=== PATIENT | male | born 1955 | race Caucasian/White ===

== ENCOUNTER 2017-07-13 14:28 | Outpatient (RCR) | payer BC ==
[2017-06-22 14:49] LABS: BASOPHILS # (AUTO) 0.1 10^3/uL (0.0-0.1); BASOPHILS % (AUTO) 1 % (0-10); EOSINOPHILS # (AUTO) 0.3 10^3/uL (0.0-0.3); EOSINOPHILS % (AUTO) 3 % (0-10); HEMATOCRIT 49 % (40-54); HEMOGLOBIN 17.4 G/DL (13.3-17.7); LYMPHOCYTES # (AUTO) 1.7 X 10^3 (1.0-4.0); LYMPHOCYTES % (AUTO) 19 % (12-44); MEAN CORPUSCULAR HEMOGLOBIN 30 PG (25-34); MEAN CORPUSCULAR HGB CONC 36 G/DL (32-36); MEAN CORPUSCULAR VOLUME 84 FL (80-99); MEAN PLATELET VOLUME 9.9 FL (7.4-10.4); MONOCYTES # (AUTO) 0.9 X 10^3 (0.0-1.0); MONOCYTES % (AUTO) 10 % (0-12); NEUTROPHILS # (AUTO) 6.1 X 10^3 (1.8-7.8); NEUTROPHILS % (AUTO) 67 % (42-75); PLATELET COUNT 162 10^3/uL (130-400); RED BLOOD COUNT 5.78 10^6/uL (4.35-5.85); RED CELL DISTRIBUTION WIDTH 16.7 % (10.0-14.5); WHITE BLOOD COUNT 9.1 10^3/uL (4.3-11.0)
[2017-06-22 15:07] LABS: ALANINE AMINOTRANSFERASE 14 U/L (0-55); ALBUMIN 4.2 GM/DL (3.2-4.5); ALKALINE PHOSPHATASE 45 U/L (40-136); BILIRUBIN,TOTAL 0.8 MG/DL (0.1-1.0); BUN/CREATININE RATIO 29; CALCIUM 9.6 MG/DL (8.5-10.1); CARBON DIOXIDE 25 MMOL/L (21-32); CHLORIDE 102 MMOL/L (98-107); CREATININE SERUM 0.94 MG/DL (0.60-1.30); GFR ESTIMATED > 60; GLUCOSE 93 MG/DL (70-105); POTASSIUM 4.3 MMOL/L (3.6-5.0); SODIUM 137 MMOL/L (135-145); TOTAL PROTEIN 6.9 GM/DL (6.4-8.2)
[~2017-07-13 14:28] MED LIST: CELE200C PO; CPR500T PO; CYCL10TA9 PO; DAPA5TAB PO; ENAL10TA PO; FAMO-106 PO; GABA-488 PO; GLIP5TAB13 PO; HYDR-757 PO; METF-380; METF-380 PO; METO100T12 PO; NAPR-915 PO; NAPR220T76; NAPR220T76 PO; OMG1KC PO; OXYC-12 PO; PGLT30T PO; PIOG45TA PO; PRAV40TA2 PO; SULF1TAB38 PO; TMSL.4C PO; TRIA60LO TOP; TRM50T PO; [UNRECOGNIZED DRUG - CODE] PO
== END 2017-09-20 | disposition home or self-care (01) ==
LOC: ONC 14:28
PROVIDERS: ATTEND Internal Medicine Hematology & Oncology
DX: D75.1 Secondary polycythemia (principal); E11.9 Type 2 diabetes mellitus without complications; I10 Essential (primary) hypertension; F17.210 Nicotine dependence, cigarettes, uncomplicated; L40.9 Psoriasis, unspecified; Z88.5 Allergy status to narcotic agent; Z79.899 Other long term (current) drug therapy
CPT/HCPCS: 36415; 80053; 81270; 82668; 83615; 85025; 99213; 99214

== ENCOUNTER → 2017-07-18 | Outpatient (CLI) | payer BC ==
[~2017-07-18] MED LIST changes: +CATHETER FLUSH 10 ML SYR IV PRN; +IOHEXOL 350 MG/ML 100 ML (OMNIPAQUE 350) VIAL IV ONE; +NS 100 ML (IVPB) BAG IV ONE
--- NOTE | 2017-07-18 17:25 | Diagnostic Imaging Report ---
PROCEDURE: CT abdomen and pelvis with contrast. TECHNIQUE: Multiple contiguous axial images were obtained through the abdomen and pelvis after administration of intravenous contrast. INDICATION: Elevated red blood cell count. Evaluation for tumor. Increased sedimentation rate. FINDINGS: Lung bases are clear. The liver appears normal. The gallbladder is absent. The bile ducts are not dilated. The pancreas is normal. The spleen is normal. The adrenal glands are normal. The kidneys appear normal. There is normal enhancement of the abdominal organs and vessels. Aorta shows minimal atherosclerotic disease without aneurysm. The stomach is not distended. Small bowel appears normal. There is oral contrast present. The colon shows normal stool and gas pattern. There is diverticulosis of the sigmoid colon without evidence of diverticulitis. Bladder appears normal. There is no intra-abdominal adenopathy of pathologic size. There is no free air or free fluid. Bone windows show no evidence of blastic or lytic lesion. There are healed fractures noted posteriorly in the left 10th and ninth ribs. IMPRESSION: 1. No changes are demonstrated to suggest malignancy within the abdomen or pelvis. 2. Old rib fractures with callus formation of left 9th and 10th ribs posteriorly. Dictated by: Dictated on workstation # [id number]
== END ==
LOC: RAD 16:06
PROVIDERS: ATTEND Internal Medicine Hematology & Oncology
DX: S22.42XS Multiple fractures of ribs, left side, sequela (principal); M25.70 Osteophyte, unspecified joint; R70.0 Elevated erythrocyte sedimentation rate; R71.8 Other abnormality of red blood cells
CPT/HCPCS: 74177

== ENCOUNTER → 2020-07-14 | Outpatient (CLI) | payer BC ==
[~2020-07-14] MED LIST changes: -CATHETER FLUSH 10 ML SYR IV PRN; +HYDR-4226 PO; -HYDR-757 PO; -IOHEXOL 350 MG/ML 100 ML (OMNIPAQUE 350) VIAL IV ONE; -NS 100 ML (IVPB) BAG IV ONE
== END ==
LOC: LABNPT 06:36
PROVIDERS: ATTEND Orthopaedic Surgery Orthopaedic Trauma
DX: Z01.812 Encounter for preprocedural laboratory examination (principal); Z20.822 Contact with and (suspected) exposure to COVID-19
CPT/HCPCS: 87635

== ENCOUNTER 2020-08-05 14:35 | Inpatient (IN) | payer OTHER ==
[~2020-08-05] VITALS: Ht 175.3 cm; Wt 79.6 kg
[2020-08-05] MEDS ORDERED: HYDROcodone/APAP 5 MG/325 MG (LORTAB) TAB PO PRN (15:00)
[2020-08-05] MEDS ORDERED: LOPERAMIDE 2 MG (IMODIUM) TABLET PO PRN (15:00)
[2020-08-05] MEDS ORDERED: CALCIUM CARBONATE 500 MG (TUMS) TAB.CHEW PO PRN (15:00)
[2020-08-05] MEDS ORDERED: guaiFENesin/CODEINE (ROBITUSSIN AC) 10ML UDC PO PRN (15:00)
[2020-08-05] MEDS ORDERED: ONDANSETRON 4 MG (ZOFRAN) ORAL DISSOLVE TAB PO PRN (15:00)
[2020-08-05] MEDS ORDERED: DOCUSATE SODIUM 100 MG (COLACE) CAP PO PRN (15:00)
[2020-08-05] MEDS ORDERED: FLEET ENEMA ADULT 1 EA BTL PR PRN (15:00)
[2020-08-05] MEDS ORDERED: OXYC10TA7 PO (16:43)
[2020-08-05] MEDS ORDERED: LISI20TA26 PO (16:43)
[2020-08-05] MEDS ORDERED: CYCL10TA9 PO (16:43)
[2020-08-05] MEDS ORDERED: INSU100V39 SQ (16:43)
[2020-08-05] MEDS ORDERED: INSU100V SQ (16:43)
[2020-08-05] MEDS ORDERED: METF-146 PO (16:43)
[2020-08-05] MEDS ORDERED: DOCU100C37 PO (16:43)
[2020-08-05] MEDS ORDERED: ALLO100T PO (16:43)
[2020-08-05] MEDS ORDERED: PRAV20TA3 PO (16:43)
[2020-08-05] MEDS ORDERED: POLY17PO6 PO (16:43)
[2020-08-05] MEDS ORDERED: SECU150S2 SQ (16:43)
[2020-08-05] MEDS ORDERED: METO-333 PO (16:43)
[2020-08-05] MEDS ORDERED: NALO4SPR NS (16:43)
[2020-08-05] MEDS ORDERED: LACT1CAP39 PO (16:43)
[2020-08-05] MEDS ORDERED: GLIP10TA2 PO (16:43)
[2020-08-05] MEDS ORDERED: INDA2.5T2 PO (16:43)
[2020-08-05] MEDS ORDERED: CLN.2T PO (16:43)
[2020-08-05] MEDS ORDERED: NALOXONE HCL 4 MG NS PRN (17:15)
[2020-08-05] MEDS ORDERED: RX-CYCLOBENZAPRINE 10 MG (FLEXERIL) TAB PPK#3 PO PRN (17:15)
[2020-08-05] MEDS ORDERED: NON-FORMULARY MEDICATION 1 EA EA (Oxycodone HCl 10 MG) PO PRN (17:15)
[2020-08-05] MEDS ORDERED: [UNRECOGNIZED DRUG - REMARK] SQ SCH (17:15)
[2020-08-05] MEDS ORDERED: polyethylene glycoL POWDER 17 GM (MIRALAX) PACK PO PRN (17:15)
--- NOTE | 2020-08-05 17:19 | PM&R Post Admission Assessment ---
PM&R HP Date of Visit: Aug 05, 2020 Time of Visit: 16:30 History of Present Illness CC: Recovery following lumbar spine fusion 07/15/20 HPI: This is a 65-year-old white male known to me from [facility] following lumbar spine surgery on 07/15/2020 who presents to inpatient rehab after a complicated course at [facility] due to DKA. Patient had not been eating or drinking well and had severe constipation for 2 weeks and presented to [facility] with severe symptoms found to have DKA and malignant hypertension. He was ultimately transferred over to [facility] due to no beds at [facility]. Patient had insulin drip initiated along with other supportive care and ultimately moved from the ICU to the floor and insurance approved patient to continue his aggressive therapy in order to rec over and return to independent living. His bowels moved yesterday. He is voiding well without retention. [facility] note: Date of admission:07/29/2020 Date of discharge:08/05/2020 Discharge disposition:[facility] inpatient rehab. Discharge Condition:stable Primary Discharge Diagnosis: Diabetic ketoacidosis without coma associated with type 2 diabetes mellitus Other Active medical issues also addressed during this admission: Active Hospital Problems Diagnosis Diabetic ketoacidosis without coma associated with type 2 diabetes mellitus Accelerated hypertension Sinus tachycardia Weakness of both lower extremities Type 2 diabetes mellitus with hyperglycemia, without long-term current use of insulin Acidosis S/P lumbar fusion Resolved Hospital Problems Diagnosis Date Resolved Hyponatremia 08/01/2020 High anion gap metabolic acidosis 07/31/2020 Probable sepsis 08/03/2020 w Hallucinations, unspecified 07/31/2020 Acute metabolic encephalopathy 07/31/2020 HOSPITAL COURSE: Please see H and P for full details on admission, symptoms and initial care. Chief Complaint- HPI-Dar Wolf a 65 y.o.malewith past medical history of type 2 diabetes, HTN, HLD degenerative joint disease of the spine was admitted for further evaluation of severe nausea and poor appetite for the last 2 weeks. Off note -patient had a lumbar spinal fusion surgery on 07/[address] Mike Morrell.Patient was admitted to ICU secondary to hypoglycemic DKA. Was treated with IV insulin,patient was transferred to floor 618 and then transferred to ICU again on 08/01/2020 for relapse of DKA. Patient was initially treated with IV antibiotics suspecting sepsis however disc ontinued as there was no signs of infection Received signout from -the patient is stable to be transferred to medical floor on 08/03.Evaluated by PT/OT recommend inpatient rehab for PT For endocrinology-continue withC/[id number], Humalog 3 units with meals, insulin sliding scaleAvoid SGLT inhibitors and stop Farxiga.Patient can restart Metformin and Actos on discharge.Need follow upwith endocrinology 3 to 4 weeks.patient was examined at bedside this morning.He was able to sit up in the chair out of bed with the help of nursing staff two- person assist.TLSO brace in place.Patient's blood sugars have been under control.Elevated blood pressure and tachycardia have been controlled with metoprolol combination and adjusting to lisinopril 10 mg twice daily. Per SW/CM patient has been accepted to [facility] inpatient rehab and have insurance authorization approved.Patient is also very eager to be discharged to rehab so he can be back on his feet and independent.Currently patient is hemodynamically stable hence plan is to discharge him to request inpatient rehab for further physical and occupational therapy and to follow-up with endocrinology Dr. Campos 2 to 3 weeks, orthopedics Dr. De Los Santos in 2 weeks and primary care physician in 1 week.Patient agrees with the discharge plan Past Uqyktva-Mpeqle-Toyaau Hx Past Med/Social Hx: Reviewed Nursing Past Med/Soc Hx, Reviewed and Corrections made Patient Social History Marrital Status: single Employed/Student: employed Alcohol Use: Occasionally Uses Smoking Status: Former Smoker Immunizations Up To Date Date of Pneumonia Vaccine: Nov 29, 2011 Date of Influenza Vaccine: Nov 29, 2011 Past Medical History Surgeries: Orthopedic Cardiac: High Cholesterol, Hypertension Neurological: Neuropathy Reproductive: No Sexually Transmitted Disease: No Gastrointestinal: Gastroesophageal Reflux Musculoskeletal: Arthritis, Chronic Back Pain Endocrine: Diabetes, Non-Insulin dep PM&R Allergy/Meds/Data Review Allergies Coded Allergies: codeine (Verified Allergy, Mild, 11/27/11) tamsulosin (Unverified Allergy, Unknown, 09/17/14) Home Medications Scheduled Allopurinol (Allopurinol), 100 MG PO DAILY, (Reported) Clonidine HCl (Clonidine HCl), 0.1 MG PO TID, (Reported) Docusate Sodium (Docusate Sodium), 100 MG PO BID, (Reported) Glipizide (Glucotrol), 10 MG PO BID, (Reported) Indapamide (Indapamide), 5 MG PO DAILY, (Reported) Insulin Lispro (Insulin Lispro), 0-3 UNIT SQ HS, (Reported) Insulin Lispro (Humalog), 0-4 UNIT SQ TIDWM, (Reported) Lactobacillus Rhamnosus GG (Culturelle), 1 EACH PO DAILY, (Reported) Lisinopril (Lisinopril), 10 MG PO BID, (Reported) Metformin HCl (Fortamet), 1,000 MG PO BID, (Reported) Metoprolol Tartrate (Metoprolol Tartrate), 25 MG PO BID, (Reported) Pravastatin Sodium (Pravastatin Sodium), 20 MG PO HS, (Reported) Secukinumab (Cosentyx (2 Syringes)), 300 MG SQ EVERY 28 DAYS, (Reported) Scheduled PRN Cyclobenzaprine HCl (Cyclobenzaprine HCl), 10 MG PO Q8H PRN for SPASMS, (Reporte d) Naloxone HCl (Narcan), 4 MG NS UD PRN for OVERDOSE, (Reported) Oxycodone HCl (Oxycodone HCl), 10 MG PO Q4H PRN for PAIN-SEVERE (8-10), (Reported) Polyethylene Glycol 3350 (Miralax), 17 GM PO DAILY PRN for CONSTIPATION-2ND LINE, (Reported) Discontinued Medications Celecoxib (Celebrex), 200 MG PO DAILY, (Reported) Discontinued Reason: No Longer Taking Dapagliflozin Propanediol (Farxiga), 5 MG PO DAILY, (Reported) Discontinued Reason: No Longer Taking Enalapril Maleate (Enalapril Maleate), 20 MG PO DAILY, (Reported) Discontinued Reason: No Longer Taking Gabapentin (Gabapentin), 300 MG PO TID, (Reported) Discontinued Reason: No Longer Taking Glipizide (Glipizide), 10 MG PO DAILY, (Reported) Discontinued Reason: No Longer Taking Hydrocodone/Acetaminophen (Hydrocodone/Acetaminophen 5 MG/325 MG TAB), 1 EACH PO Q4H, (Reported) Discontinued Reason: No Longer Taking Indapamide (Lozol), 2.5 MG PO DAILY, (Reported) Discontinued Reason: No Longer Taking Metoprolol Tartrate (Metoprolol Tartrate), 100 MG PO BID, (Reported) Discontinued Reason: No Longer Taking Naproxen (Naproxen), 500 MG PO BID, (Reported) Discontinued Reason: No Longer Taking Naproxen Sodium (Aleve), 440 MG PO DAILY, (Reported) Discontinued Reason: No Longer Taking [place] 3 Polyunsat Fatty Acids (Fish Oil), 1,000 MG PO DAILY, (Reported) Discontinued Reason: No Longer Taking Pioglitazone Hcl (Actos), 15 MG PO DAILY, (Reported) Discontinued Reason: No Longer Taking Pravastatin Sodium (Pravastatin Sodium), 40 MG PO DAILY, (Reported) Discontinued Reason: No Longer Taking Tramadol Hcl (Ultram), 50 MG PO Q4-6HR PRN for PAIN Discontinued Reason: No Longer Taking Current Medications Current Medications Reviewed Review of Systems Constitutional: see HPI, malaise, weakness EENTM: no symptoms reported Respiratory: no symptoms reported Cardiovascular: no symptoms reported Gastrointestinal: no symptoms reported Genitourinary: no symptoms reported Musculoskeletal: back pain Skin: no symptoms reported Psychiatric/Neurological: Anxiety, Depressed, Weakness All Other Systems Reviewed Negative Unless Noted: Yes Physical Exam Physical Exam Vital Signs Vital Signs - First Documented 08/05/20 17:00 Pulse Ox 94 O2 Delivery Room Air Capillary Refill : Height, Weight, BMI Height: 5'9.00" Weight: 212lbs. oz. 96.199864uw; BMI Method:Stated General Appearance: No Apparent Distress, WD/WN, Chronically ill Eyes: Bilateral Eye Normal Inspection, Bilateral Eye PERRL HEENT: PERRL/EOMI, Normal ENT Inspection, Pharynx Normal Neck: Full Range of Motion, Normal Inspection, Non Tender, Supple, Carotid Bruit Respiratory: Chest Non Tender, Lungs Clear, Normal Breath Sounds, No Accessory Muscle Use, No Respiratory Distress Cardiovascular: Regular Rate, Rhythm, No Edema, No Gallop, No JVD, No Murmur, Normal Peripheral Pulses Gastrointestinal: Normal Bowel Sounds, No Organomegaly, No Pulsatile Mass, Non Tender, Soft Back: Decreased Range of Motion, Muscle Spasm, Vertebral Tenderness Extremity: Normal Capillary Refill, Normal Inspection, Normal Range of Motion (Weakness of legs), Non Tender, No Calf Tenderness, No Pedal Edema Neurologic/Psychiatric: Alert, Oriented x3, No Motor/Sensory Deficits, Normal Mood/Affect, Motor Weakness (Leg weakness 3/5) Skin: Normal Color, Warm/Dry Lymphatic: No Adenopathy PM&R Medical Assessment & Plan REHAB/MEDICAL ASSESSMENT AND PLAN: REHAB IMPAIRMENT GROUP: Lumbar stenosis ETIOLOGIC DIAGNOSIS: Lumbar stenosis The comorbidities that impact the patients function and/or functional outcome by: Recent critical illness with DKA, malignant hypertension REHAB PLAN: The patient is being admitted to our comprehensive inpatient rehabilitation facility and can tolerate the intensity of service consisting of at least: 180 minutes of therapy a day, 5 out of 7 days a week Rehab treatment will consist of: PT and OT will focus on lower extremity weakness with requirements to increase ADLs and ambulation in order to return to independent living The patient/family has a good understanding of our discharge process and will benefit from an interdisciplinary inpatient rehabilitation program. The patient has potential to make improvement and is in need of at least two of the follo wing multidisciplinary therapies including but not limited to physical, occupational, speech, and prosthetics and orthotics. Additionally the patient will need services from respiratory, nutritional services, wound care, psychology, etc. (Customize this to each patient). Given the patients complex condition and risk of further medical complications, rehabilitation services cannot be safely or effectively provided at a lower level of care such as a nursing home facility. BARRIERS TO DISCHARGE: Lives alone ESTIMATED LOS: 10 days DISPOSITION: Home with home care RELEVANT CHANGES SINCE PREADMISSION SCREENING: I have compared the patients medical and functional status at the time of the preadmission screening and there are: no changes PROGNOSIS: Good REHABILITATION GOALS: 1. PT and OT will focus on lower extremity weakness with requirements to increase ADLs and ambulation in order to return to independent living All the above goals were reviewed with the patient and he/she is in agreement. By signing this document, I acknowledge that I have personally performed a full physical examination on this patient within 24 hours of admission to this inpatient rehabilitation facility and have determined the patient to be able to tolerate the above course of treatment at an intensive level for a reasonable period of time. I will be completing a detailed individualized Plan of Care for this patient by day #4 of the patients stay based upon the Preadmission Screen, the Post-Admission Evaluation, and the therapy evaluations. Admission Dx/Comorbidities: (1) Status post lumbar spine surgery for decompression of spinal cord ICD Codes: Z98.890 - Other specified postprocedural states (2) Diabetes ICD Codes: E11.9 - Type 2 diabetes mellitus without complications (3) DKA (diabetic ketoacidoses) ICD Codes: E11.10 - Type 2 diabetes mellitus with ketoacidosis without coma (4) Hypertension ICD Codes: I10 - Essential (primary) hypertension (5) Leg weakness ICD Codes: R29.898 - Other symptoms and signs involving the musculoskeletal system Assessment/Plan Assessment and Plan Assess & Plan/Chief Complaint Assessment: Status post lumbar spine surgery with severe debility and leg weakness Recent DKA Kqt-qk-rxmxxpf diabetes history Hypertension Chronic arthritis pain Plan: Pain control Diabetes management Blood pressure management Inpatient rehab protocol DALY WHITNEY DO Aug 05, 2020 17:19
[2020-08-05 17:36] VITALS: BP 100/60
[2020-08-05] MEDS ORDERED: NALOXONE 0.4 MG/ML 1 ML (NARCAN) VIAL IV PRN (17:45)
[2020-08-05] MEDS ORDERED: inSUlin ASPART (NovoLOG) 1 UNIT/0.01 ML (CHARGE PER UNIT) ONE (17:48)
[2020-08-05] MEDS: ENOXAPARIN 40 MG/0.4 ML (LOVENOX) SYR SC SCH (17:50)
[2020-08-05] MEDS: metFORMIN XR 500 MG (GLUCOPHAGE XR) TAB PO SCH (17:54)
[2020-08-05] MEDS: glipiZIDE 5 MG (GLUCOTROL) TAB PO SCH (17:59)
[2020-08-05] MEDS ORDERED: inSUlin (REGULAR) HUMAN 1 UNIT/0.01 ML (CHARGE PER UNIT) SC ONE (18:00)
[2020-08-05 20:00] VITALS: BP 125/71
[2020-08-05] MEDS: lisINopril 20 MG (PRINIVIL) TABLET PO SCH (20:53)
[2020-08-05] MEDS: cloNIDine 0.2 MG (CATAPRES) TAB PO SCH (20:54)
[2020-08-05] MEDS: meTOprolol TARTRATE 25 MG (LOPRESSOR) TABLET PO SCH (20:54)
[2020-08-05] MEDS: SIMvastatin 10 MG (ZOCOR) TAB PO SCH (20:55)
[2020-08-05] MEDS: SENNA W/DOCUSATE (SENOKOT S) TABLET PO SCH (20:55)
[2020-08-05] MEDS: DOCUSATE SODIUM 100 MG (COLACE) CAP PO SCH (20:55)
[2020-08-05] MEDS ORDERED: NON-FORMULARY MEDICATION 1 EA EA (Pravastatin Sodium 20 MG) PO SCH (21:00)
[2020-08-05] MEDS ORDERED: GLIPIZIDE 10 MG PO SCH (21:00)
[2020-08-05] MEDS ORDERED: DOCUSATE SODIUM 100 MG (COLACE) CAP PO SCH (21:00)
[2020-08-05] MEDS ORDERED: METFORMIN HCL 1000 MG PO SCH (21:00)
[2020-08-05] MEDS: polyethylene glycoL POWDER 17 GM (MIRALAX) PACK PO SCH (21:01)
[2020-08-05] MEDS: inSUlin ASPART (NovoLOG) 1 UNIT/0.01 ML (CHARGE PER UNIT) SC SCH (22:03)
[2020-08-06 06:05] LABS: BASOPHILS # (AUTO) 0.1 10^3/uL (0.0-0.1); BASOPHILS % (AUTO) 1 % (0-10); EOSINOPHILS # (AUTO) 0.2 10^3/uL (0.0-0.3); EOSINOPHILS % (AUTO) 3 % (0-10); HEMATOCRIT 35 % (40-54); HEMOGLOBIN 12.2 g/dL (13.3-17.7); LYMPHOCYTES # (AUTO) 1.3 10^3/uL (1.0-4.0); LYMPHOCYTES % (AUTO) 16 % (12-44); MEAN CORPUSCULAR HEMOGLOBIN 28 pg (25-34); MEAN CORPUSCULAR HGB CONC 35 g/dL (32-36); MEAN CORPUSCULAR VOLUME 80 fL (80-99); MEAN PLATELET VOLUME 8.9 fL (9.0-12.2); MONOCYTES # (AUTO) 1.2 10^3/uL (0.0-1.0); MONOCYTES % (AUTO) 15 % (0-12); NEUTROPHILS # (AUTO) 4.9 10^3/uL (1.8-7.8); NEUTROPHILS % (AUTO) 61 % (42-75); PLATELET COUNT 232 10^3/uL (130-400)
[2020-08-06] MEDS: inSUlin ASPART (NovoLOG) 1 UNIT/0.01 ML (CHARGE PER UNIT) SC SCH ×4 (06:11→20:44)
[2020-08-06] MEDS: metFORMIN XR 500 MG (GLUCOPHAGE XR) TAB PO SCH ×2 (06:26→16:49)
[2020-08-06 06:35] LABS: ALANINE AMINOTRANSFERASE 14 U/L (0-55); ALBUMIN 2.8 GM/DL (3.2-4.5); ALKALINE PHOSPHATASE 86 U/L (40-136); BILIRUBIN,TOTAL 0.7 MG/DL (0.1-1.0); BUN/CREATININE RATIO 20; CALCIUM 8.9 MG/DL (8.5-10.1); CARBON DIOXIDE 25 MMOL/L (21-32); CHLORIDE 94 MMOL/L (98-107); CREATININE SERUM 0.65 MG/DL (0.60-1.30); GFR ESTIMATED > 60; GLUCOSE 165 MG/DL (70-105); POTASSIUM 4.1 MMOL/L (3.6-5.0); SODIUM 128 MMOL/L (135-145); TOTAL PROTEIN 5.4 GM/DL (6.4-8.2)
[2020-08-06 07:34] VITALS: BP 130/87
[2020-08-06] MEDS: ALLOPURINOL 100 MG (ZYLOPRIM) TAB PO SCH (08:14)
[2020-08-06] MEDS: glipiZIDE 5 MG (GLUCOTROL) TAB PO SCH ×2 (08:14→16:49)
[2020-08-06] MEDS: cloNIDine 0.2 MG (CATAPRES) TAB PO SCH ×3 (08:15→20:44)
[2020-08-06] MEDS: LACTOBACILLUS ACIDOPHILUS (PROBIOTIC) CAPSULE PO SCH (08:15)
[2020-08-06] MEDS: meTOprolol TARTRATE 25 MG (LOPRESSOR) TABLET PO SCH ×2 (08:15→20:45)
[2020-08-06] MEDS: lisINopril 20 MG (PRINIVIL) TABLET PO SCH ×2 (08:15→20:45)
[2020-08-06] MEDS: SENNA W/DOCUSATE (SENOKOT S) TABLET PO SCH ×2 (08:16→19:42)
[2020-08-06] MEDS: DOCUSATE SODIUM 100 MG (COLACE) CAP PO SCH ×2 (08:16→19:41)
[2020-08-06] MEDS: polyethylene glycoL POWDER 17 GM (MIRALAX) PACK PO SCH ×2 (08:16→19:41)
[2020-08-06] MEDS ORDERED: INDAPAMIDE 2.5 MG (LOZOL) TAB PO SCH (09:00)
[2020-08-06] MEDS ORDERED: NON-FORMULARY MEDICATION 1 EA EA (Lactobacillus Rhamnosus GG (Culturelle) 1 EACH) PO SCH (09:00)
--- NOTE | 2020-08-06 09:14 | Occupational Therapy Eval ---
OT Evaluation-General/PLF Medical Diagnosis Admission Date Aug 05, 2020 at 16:30 Medical Diagnosis: lumbar spine fusion, DKA Onset Date: Jul 15, 2020 Therapy Diagnosis Therapy Diagnosis: weakness, decreased ADL Status Height/Weight Height (Feet): 5 Height (Inches): 9.00 Weight (Pounds): 212 Precautions Precautions/Isolations: Fall Prevention, Standard Precautions, Pressure Ulcer Comments back brace when OOB, spinal precautions. Referral Physician: Lesli Referral Reason: Evaluation/Treatment Medical History Additional Medical History DM, HTN, hypoglycemia, lactic acidosis, pain, weakness, HLD, arthritis, b/l shoulder sx, excision tumor hip/pelvis Current History 07/15 lumbar fusion, discharged home. Readmitted 07/30 for DKA. Pt transferred to [facility] 08/05/20 for continued medication management and skilled therapy Social History Home: Single Level Current Living Status: Alone Entry Into Home: Stairs Without Railing Steps Into Home: 2 ADL-Prior Level of Function SCALE: Activities may be completed with or without assistive devices. 0-Muzfzwqssx-vtnhaha completes the activity by him/herself with no assistance from a helper. 5-Set-up or Clean-up Assistance-helper sets up or cleans up; patient completes activity. [place] assists only prior to or following the activity. 4-Supervision or Touching Assistance-helper provides verbal cues and/or touching/steadying and/or contact guard assistance as patient completes activity. Assistance may be provided throughout the activity or intermittently. 3-Partial/Moderate Assistance-helper does LESS THAN HALF the effort. [place] lifts, holds or supports trunk or limbs, but provides less than half the effort. 2-Substantial/Maximal Assistance-helper does MORE THAN HALF the effort. [place] lifts or holds trunk or limbs and provides more than half the effort. 5-Yckzucgbi-rqsmnm does ALL the effort. Patient does none of the effort to complete the activity. Or, the assistance of 2 or more helpers is required for the patient to complete the activity. If activity was not attempted, code reason: 7-Patient Refused. 9-Not Applicable-not attempted and the patient did not perform the activity before the current illness, exacerbation or injury. 10-Not Attempted due to Environmental Limitations-(lack of equipment, weather restraints, etc.). 88-Not Attempted due to Medical Conditions or Safety Concerns. ADL PLOF Comments Pt reports IND with all ADLS and functional mobility, no AD/AE at PLOF. Since back surgery on 07/15, he has been using FWW. Self Care: Independent Functional Cognition: Independent DME/Equipment: Shower OT Current Status Subjective 0800 Pt laying in bed, agreeble to OT tx. 1300 Pt in bed, just finishing lunch, agreeable to OT/PT cotreat. Mental Status/Objective Patient Orientation: Person, Place, Time, Situation, Normal For Age Current Dentures/Partials: Yes Upper Extremity ROM WFL Upper Extremity Coordination WFL Upper Extremity Sensation WFL, slight tingling/numbness in L hand digits 3 and 4 Upper Extremity Strength grossly 3+/5 ADL-Treatment Eating (QC): 6 (Per pt report) Oral Hygiene (QC): 3 (per pt report, assist with rinsing dentures this AM) Shower/Bathe Self (QC): 1 (Assist x2 to wash buttocks. Pt able to wash BUEs, chest, abdomen, periarea, and thighs. 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 Back brace donned, then pt transferred from EOB to BSC, assist x2. Pt completed toileting, able to lean forward in order for OT to perform hygiene. Pt required assist x3 for initial sit to stand from BSC, then transferred to EOB. Pt completed sponge bath, states he was dizzy, assist transferring supine (assist BLEs). BP 167/65. Pt indicates he is having a BM. Assist x2 required to roll side to side and complete hygiene/linen change. OT assisted pt with donning brief and pants, rolling side to side for pant hike. Post tx, pt laying in bed, call light in reach and all needs met. [id number] OT/PT cotreat due to skill of 2 clinicians required which a industrial cleaning technician could not perform in order to coordinate UE/LEs, decrease fall risk, and due to pt's limitations in strength, activity tolerance, mobility and transfers. OT focused on UE placement, cues for sequencing and safety, and assist with transfers/mobility, PT focused on LE placement, overall gross movement, and transfers/mobility. Pt transferred supine to sit EOB, then transferred to w/c. Pt self-propelled w/c to therapy gym, performed functional mobility x3 in parallel bars. Pt propelled self back to room, transferring to bed. Pt required max A with sit to stand transfers [id number] OT tx: OT educated pt on UE exercises using moderate resistance theraband. Pt completed 5/5 exercises, x10 reps each BUE for the following: shoulder flexion, horizontal abduction, external rotation, elbow flexion, elbow extension. Post tx, pt laying in bed, call light in reach and all needs met. Education OT Patient Education: Correct positioning, Energy conservation, Exercise program, Modified ADL techniques, Progress toward Goal/Update tx plan, Purpose of tx/functional activities, Rehab process, Safety issues, Transfer techniques Teaching Recipient: Patient Teaching Methods: Discussion Response to Teaching: Verbalize Understanding OT Short Term Goals Short Term Goals Time Frame: Aug 20, 2020 Oral hygiene: 5 Shower/bathe self: 3 Lower body dressin Putting on/taking off footwear: 3 OT Airport Baggage Screener Goals Usp Goals Time Frame: Sep 04, 2020 Eating (QC): 6 Oral Hygiene (QC): 6 Toileting Hygiene (QC): 6 Shower/Bathe Self (QC): 6 Upper Body Dressing (QC): 6 Lower Body Dressing (QC): 6 On/Off Footwear (QC): 6 Additional Goals: 1-Demonstrate ADL Tasks, 2-Verbalize Understanding, 3- ImproveStrength/Jayshree 1=Demonstrate adherence to instructed precautions during ADL tasks. 2=Patient will verbalize/demonstrate understanding of assistive devices/modifications for ADL. 3=Patient will improve strength/tolerance for activity to enable patient to perform ADL's. OT Education/Plan Problem List/Assessment Assessment: Decreased Activ Tolerance, Decreased UE Strength, Dependent Transfers, Impaired Bed Mobility, Impaired Funct Balance, Impaired I ADL's, Impaired Self-Care Skills Discharge Recommendations Plan/Recommendations: Continue POC Equpiment Recommendations-D/C: Bath Chair, Hip Kit Treatment Plan/Plan of Care Patient would benefit from OT for education, treatment and training to promote independence in ADL's, mobility, safety and/or upper extremity function for ADL's. Plan of Care: ADL Retraining, Functional Mobility, Group Exercise/Act as Ind, UE Funct Exercise/Act Treatment Duration: Sep 04, 2020 Frequency: Modified Program (IRF) (27/08) Estimated Hrs Per Day: 1.5 hours per day Time/GCodes Start Time: 08:00 ([id number]) Stop Time: 13:00 ([id number]) Total Time Billed (hr/min): 120 Billed Treatment Time 4540-1024 1, EVM (10'), ADL 4 (65') 4577-9438 OT/PT cotreat, 2771-9717 OT tx 1, FA 2 (30'), EX (15') MED PETERSON OT Aug 06, 2020 09:14
--- NOTE | 2020-08-06 10:53 | ST Cognitive Linguistic Eval ---
Speech Evaluation-General Medical Diagnosis lumbar spine fusion, DKA Onset Date: Jul 15, 2020 Therapy Diagnosis Therapy Diagnosis: Cognitive-communication Referral Referring Physician: Dr. Ballesteros Medical History Pertinent Medical History: DM Reviewed History: Yes Social History Current Living Status: Alone Speech PLF-Current Status Prior Level of Function Patient lived alone where he was independent with his daily needs. Subjective Patient was cooperative with the cognitive assessment. Language Eval: Auditory Comprehends Simple Yes/No Ques: Functional Indent/Objects Multiple [place]: Functional Ident/Pics in Multiple [place]: Functional Follows 1-Step Commands: Functional Follows Complex Directions: Functional Follows General Conversations: Functional Language Eval: Verbal Language Completes Spontaneous Greeting: Functional Produces Auto, Serial Info: Functional Imitates Simple Words/Phrases: Functional Word Finding: Functional Requests Basic Needs: Functional States Basic Personal Info: Functional Expresses Complex Ideas: Functional Objective Cognitive Domain Attention: WNL Memory: WNL Problem Solving: Functional Executive Functions: WNL Visuospatial Skills: WNL Composite Severity Rating: WNL Clock Drawing Severity Rating: WNL Objective Formal/Standardized Tests [facility] Mental Status ([facility]) Results 28/30, within normal range of function Oral Motor/Speech Production Within Normal Limits Impression Patient is a pleasant 65 y/o male who was admitted to the ARU s/p lumbar spine fusion and DKA. Patient was given the SLUMS at bedside per physician's order. P atient scored a 28/30 which is within the normal range of function. No indication of further ST services at this time. Speech Patient Assess Expression of Ideas/Wants: Expression (4) Understanding Verbal Content: Understands (4) Brief Interview-Mental Status: Yes Repetition of Three Words: Three (3) Temporal Orientation: Year: Correct (3) Temporal Orientation: Month: Accurate within 5 days(2) Temporal Orientation: Day: Correct (1) Recall : Wear to say "Sock": Yes, no cue required (2) Recall : Color: Yes, no cue required (2) Recall : Bed: Yes,after cueing (1) Memory/Recall Ability: Current season, That he or she is in a hsp/hsp unit Speech-Plan Patient/Family Goals Patient/Family Goals: Patient plans on returning to his home where he lives alone, however he has strong family support. Treatment Plan Speech Therapy Treatment Plan: Discontinue ST Treatment Duration: Aug 06, 2020 Frequency: 1 time per week Estimated Hrs Per Day: .5 hour per day Rehab Potential: Good Barriers to Learning: None identified Pt/Family Agrees to Plan: Yes Safety Risks/Education Teaching Recipient: Patient Teaching Methods: Discussion Response to Teaching: Verbalize Understanding Education Topics Provided: Safety within his room and communication of wants/needs Time Speech Therapy Time In: 09:30 Speech Therapy Time Out: 10:00 Total Billed Time: 30 Billed Treatment Time 1, OLGA FONSECA BETHANIA ST Aug 06, 2020 10:53
--- NOTE | 2020-08-06 10:55 | PM&R Progress Note ---
Subjective HPI/CC On Admission Date Seen by Provider: Aug 06, 2020 Time Seen by Provider: 11:00 Subjective/Events-last exam 08/06/2020: Patient doing pretty well Very motivated to walk Loose stool so holding laxatives Right knee really hurts Sodium level 128 so we will discontinue the indapamide Review of Systems General: Fatigue, Malaise Musculoskeletal: back pain, leg pain Objective Exam Vital Signs Vital Signs Date Time Temp Pulse Resp B/P (MAP) Pulse Ox O2 Delivery O2 Flow Rate FiO2 08/06/20 20:10 36.5 83 18 143/59 (87) 94 Room Air Capillary Refill : General Appearance: No Apparent Distress, WD/WN, Chronically ill HEENT: PERRL/EOMI, Normal ENT Inspection, Pharynx Normal Neck: Full Range of Motion, Normal Inspection, Non Tender, Supple, Carotid Bruit Respiratory: Chest Non Tender, Lungs Clear, Normal Breath Sounds, No Accessory Muscle Use, No Respiratory Distress Cardiovascular: Regular Rate, Rhythm, No Edema, No Gallop, No JVD, No Murmur, Normal Peripheral Pulses Gastrointestinal: Normal Bowel Sounds, No Organomegaly, No Pulsatile Mass, Non Tender, Soft Back: Decreased Range of Motion, Muscle Spasm, Vertebral Tenderness Extremity: Normal Capillary Refill, Normal Inspection, Normal Range of Motion (Weakness of legs), Non Tender, No Calf Tenderness, No Pedal Edema Neurologic/Psychiatric: Alert, Oriented x3, No Motor/Sensory Deficits, Normal Mood/Affect, Motor Weakness (Leg weakness 3/5) Skin: Normal Color, Warm/Dry Lymphatic: No Adenopathy Results/Procedures Lab Patient resulted labs reviewed. FIM Transfers Therapy Code Descriptions/Definitions Functional [place] Measure: 0=Not Assessed/NA 4=Minimal Assistance 1=Total Assistance 5=Supervision or Setup 2=Maximal Assistance 6=Modified [place] 3=Moderate Assistance 7=Complete IndependenceSCALE: Activities may be completed with or without assistive devices. 5-Rykfjowjtf-vnofpvp completes the activity by him/herself with no assistance from a helper. 5-Set-up or Clean-up Assistance-helper sets up or cleans up; patient completes activity. [place] assists only prior to or following the activity. 4-Supervision or Touching Assistance-helper provides verbal cues and/or touching/steadying and/or contact guard assistance as patient completes activity. Assistance may be provided throughout the activity or intermittently. 3-Partial/Moderate Assistance-helper does LESS THAN HALF the effort. [place] lifts, holds or supports trunk or limbs, but provides less than half the effort. 2-Substantial/Maximal Assistance-helper does MORE THAN HALF the effort. [place] lifts or holds trunk or limbs and provides more than half the effort. 8-Yvvwarrag-bminkv does ALL the effort. Patient does none of the effort to complete the activity. Or, the assistance of 2 or more helpers is required for the patient to complete the activity. If activity was not attempted, code reason: 7-Patient Refused. 9-Not Applicable-not attempted and the patient did not perform the activity before the current illness, exacerbation or injury. 10-Not Attempted due to Environmental Limitations-(lack of equipment, weather restraints, etc.). 88-Not Attempted due to Medical Conditions or Safety Concerns. ADL-Treatment Eating (QC): 6 (Per pt report) Oral Hygiene (QC): 3 (per pt report, assist with rinsing dentures this AM) Shower/Bathe Self (QC): 1 (Assist x2 to wash buttocks. Pt able to wash BUEs, chest, abdomen, periarea, and thighs. Assist BLEs lower legs/feet.) Upper Body Dressing (QC): 3 (Assist donning back brace) Lower Body Dressing (QC): 1 (Assist threading BLEs into pants, assist with pant hike, rolling side to side at bed level.) On/Off Footwear (QC): 1 (total assist) Toileting Hygiene (QC): 1 (Assist x2 with hygiene) Assessment/Plan Assessment and Plan Assess & Plan/Chief Complaint Assessment: Status post lumbar spine surgery with severe debility and leg weakness Recent DKA Lnl-ay-pghsesp diabetes history Hypertension Chronic arthritis pain Plan: Pain control Diabetes management Blood pressure management Inpatient rehab protocol 08/06/2020: Hold laxatives DC indapamide Monitor closely Fall risk (1) Status post lumbar spine surgery for decompression of spinal cord (2) Diabetes (3) DKA (diabetic ketoacidoses) (4) Hypertension (5) Leg weakness DALY WHITNEY DO Aug 06, 2020 10:55
--- NOTE | 2020-08-06 11:31 | Physical Therapy Evaluation ---
PT Evaluation-General Medical Diagnosis Admission Date Aug 05, 2020 at 16:30 Medical Diagnosis: lumbar spine fusion, DKA Onset Date: Jul 15, 2020 Therapy Diagnosis Therapy Diagnosis: impaired mobility, strength, endurance Height/Weight Height (Feet): 5 Height (Inches): 9.00 Weight (Pounds): 212 Precautions Precautions/Isolations: Fall Prevention, Standard Precautions, Pressure Ulcer Referral Physician: Marine Ballesteros DO Reason for Referral: Evaluation/Treatment Medical History Pertinent Medical History: DM Reviewed History: Yes Social History Home: Single Level Current Living Status: Alone Entry Into Home: Stairs Without Railing PT Steps Into Home: 2 Prior Prior Level of Function SCALE: Activities may be completed with or without assistive devices. 6-Liwxcsktvc-nghzvhu completes the activity by him/herself with no assistance from a helper. 5-Set-up or Clean-up Assistance-helper sets up or cleans up; patient completes activity. [place] assists only prior to or following the activity. 4-Supervision or Touching Assistance-helper provides verbal cues and/or touching/steadying and/or contact guard assistance as patient completes activity. Assistance may be provided throughout the activity or intermittently. 3-Partial/Moderate Assistance-helper does LESS THAN HALF the effort. [place] lifts, holds or supports trunk or limbs, but provides less than half the effort. 2-Substantial/Maximal Assistance-helper does MORE THAN HALF the effort. [place] lifts or holds trunk or limbs and provides more than half the effort. 6-Uwynoekux-zidskf does ALL the effort. Patient does none of the effort to complete the activity. Or, the assistance of 2 or more helpers is required for the patient to complete the activity. If activity was not attempted, code reason: 7-Patient Refused. 9-Not Applicable-not attempted and the patient did not perform the activity before the current illness, exacerbation or injury. 10-Not Attempted due to Environmental Limitations-(lack of equipment, weather restraints, etc.). 88-Not Attempted due to Medical Conditions or Safety Concerns. Bed Mobility: 6 Transfers (B,C,W/C): 6 Gait: 6 Stairs: 6 Indoor Mobility (Ambulation): Independent Stairs: Independent Patient states he has been getting progressively weaker but didn't ever use a walker or cane. PT Evaluation-Current Subjective Patient in bed pre tx, agrees to PT, has 5/10 pain in right leg. Pt/Family Goals "to walk again" Objective Patient Orientation: Person, Place, Situation back brace ROM/Strength ROM Lower Extremities WNL Strength Lower Extremities LLE (hip flexion 3-/5, knee flexion 3+/5, knee extension 3+/5, dorsiflexion 3/5), RLE (hip flexion 3-/5, knee flexion 3+/5, knee extension 3+/5, dorsiflexion 1/5) Sensory Vision: Functional Hearing: Functional Sensation Right Lower Extremit: Intact Sensation Left Lower Extremity: Intact Transfers Roll Left & Right (QC): 6 Sit to Lying (QC): 3 Lying to Sitting/Side of Bed(Q: 3 Sit to Stand (QC): 2 Chair/Ioa-tg-Wimba Xfer(QC): 2 Toilet Transfer (QC): 2 Car Transfer (QC): 2 Patient performs bed mobility with independence, supine <-> sit mod assist, sit <-> stand max assist, transfers (stand pivot) max assist, car transfer max assist. Patient was not able to stand using a walker but stands in the parallel bars with max assist. He attempted to stand x3 but was not able to come to a full stand but then on the 4th attempt he did stand and stood for a couple of minutes and did that two more times. Gait Does the Patient Walk?: No and Walking Goal IS indicated Walk 10 feet (QC): 88 Walk 50 ft with 2 Turns(QC): 88 Walk 150 ft (QC): 88 Walking 10ft/uneven surface-QC: 88 Wheelchair Training Does the Pt Use a Wheelchair?: Yes Distance: 150'x2 Wheel 50 ft with 2 turns (QC): 4 Wheel 150 ft (QC): 4 Type of Wheelchair: Manual Stairs 1 Step (curb) (QC): 88 4 Steps (QC): 88 12 Steps (QC): 88 Balance Sitting Static: Normal Sitting Dynamic: Normal Standing Static: Poor Standing Dynamic: Poor Picking up an Object (QC): 88 Treatment NuStep level 3 for 15', seated BLE exercises x20 (AP, hip flexion, hip abd/add with ball and RTB), LAQ alternating for 3 min Assessment/Needs Patient in bed post tx with nurse call, phone, tray, all needs met, bed alarm on. Patient has impaired mobility, strength, endurance. He is not ambulating yet but can spinning mule tender the parallel bars for about 2 min with max assist, once he is standing he just needs CGA. Patient needs many rest breaks due to fatigue and pain. Rehab Potential: Fair PT Short Term Goals Short Term Goals Time Frame: Aug 13, 2020 Roll Left & Right: 6 Sit to lyin Lying to sitting on side of be: 3 Sit to stand: 3 Chair/bjj-mx-hwpcw transfer: 3 Walk 10 feet: 3 PT Copy Cutter Goals Prison Goals PT Prison Goals Time Frame: Aug 27, 2020 Roll Left & Right (QC): 6 Sit to Lying (QC): 4 Lying-Sitting on Side/Bed(QC): 4 Sit to Stand (QC): 4 Chair/Ldm-yj-Trbej Xfer(QC): 4 Toilet Transfer (QC): 4 Car Transfer (QC): 4 Does the Patient Walk: Yes Walk 10 feet (QC): 4 Walk 50ft with 2 Turns (QC): 4 Walk 150 ft (QC): 88 Walking 10ft on Uneven Surface: 4 1 Step (curb) (QC): 4 4 Steps (QC): 4 12 Steps (QC): 88 Picking up an Object (QC): 88 Wheel 50 feet with 2 turns (QC: 6 Wheel 150 feet: 6 PT Plan Problem List Problem List: Activity Tolerance, Functional Strength, Safety, Balance, Gait, Transfer, Bed Mobility, ROM Treatment/Plan Treatment Plan: Continue Plan of Care Treatment Plan: Bed Mobility, Education, Functional Activity Jayshree, Functional Strength, Group Therapy, Gait, Safety, Therapeutic Exercise, Transfers Treatment Duration: Aug 27, 2020 Frequency: At least 5 of 7 days/Wk (IRF) Estimated Hrs Per Day: 1.5 hours per day Patient and/or Family Agrees t: Yes Safety Risks/Education Patient Education: Transfer Techniques, Reviewed Precautions, Correct Positioning, W/C Management, Reviewed Don/Doff Brace, Safety Issues Teaching Recipient: Patient Teaching Methods: Demonstration, Discussion Response to Teaching: Reinforcement Needed Discharge Recommendations Plan Patient will perform bed mobility and transfer training, balance and endurance training, functional strengthening, stair training, gait training, and education, to improve functional mobility and independence at home. Therapy Discharge Recommendati: Scheduled Assistance, Home & Family, Post Acute PT Time/GCodes Time In: 1000 Time Out: 1130 Total Billed Treatment Time: 90 Total Billed Treatment 1 visit EX 30' FA 60' AMANDA CHAPA PT Aug 06, 2020 11:31
--- NOTE | 2020-08-06 13:31 | Physical Therapy Daily Note ---
PT Daily Note-Current Subjective Patient in bed pre tx, agrees to PT, has unrated pain in right leg and back. Will be co-treating with OT due to poor patient mobility, strength, endurance, coordinate UE and LE during activity, safety and reduce risk of falls. Appearance Patient sitting EOB post tx, will continue with OT for a bit. Mental Status Patient Orientation: Person, Place, Situation back brace Transfers SCALE: Activities may be completed with or without assistive devices. 8-Gbmqeixvrs-yvhxenz completes the activity by him/herself with no assistance from a helper. 5-Set-up or Clean-up Assistance-helper sets up or cleans up; patient completes activity. [place] assists only prior to or following the activity. 4-Supervision or Touching Assistance-helper provides verbal cues and/or touching/steadying and/or contact guard assistance as patient completes activity. Assistance may be provided throughout the activity or intermittently. 3-Partial/Moderate Assistance-helper does LESS THAN HALF the effort. [place] lifts, holds or supports trunk or limbs, but provides less than half the effort. 2-Substantial/Maximal Assistance-helper does MORE THAN HALF the effort. [place] lifts or holds trunk or limbs and provides more than half the effort. 7-Qdcqpeghm-hzkogy does ALL the effort. Patient does none of the effort to complete the activity. Or, the assistance of 2 or more helpers is required for the patient to complete the activity. If activity was not attempted, code reason: 7-Patient Refused. 9-Not Applicable-not attempted and the patient did not perform the activity before the current illness, exacerbation or injury. 10-Not Attempted due to Environmental Limitations-(lack of equipment, weather restraints, etc.). 88-Not Attempted due to Medical Conditions or Safety Concerns. Roll Left & Right (QC): 6 Lying to Sitting/Side of Bed(Q: 3 Sit to Stand (QC): 2 Chair/Nxa-sy-Rwrmk Xfer(QC): 2 Gait Training Distance: 6'x3 Gait Assistive Device: Parallel Bars max assist, WC follow, patient can advance both legs without assist but needs significant support Wheelchair Training Does the Pt Use a Wheelchair?: Yes Wheel 50 ft with 2 turns (QC): 4 Type of Wheelchair: Manual 120'x2 Treatments PT performed bed mobility and transfers, ambulation, WC mobility, OT performed UE positioning and safety during activity Assessment Current Status: Fair Progress improving sit to stand PT Short Term Goals Short Term Goals Time Frame: Aug 13, 2020 Roll Left & Right: 6 Sit to lyin Lying to sitting on side of be: 3 Sit to stand: 3 Chair/fnr-qj-kfnwx transfer: 3 Walk 10 feet: 3 PT Long-Term Goals Senior Database Programmer Goals PT Senior Database Programmer Goals Time Frame: Aug 27, 2020 Roll Left & Right (QC): 6 Sit to Lying (QC): 4 Lying-Sitting on Side/Bed(QC): 4 Sit to Stand (QC): 4 Chair/Fiw-sq-Vckcv Xfer(QC): 4 Toilet Transfer (QC): 4 Car Transfer (QC): 4 Does the Patient Walk: Yes Walk 10 feet (QC): 4 Walk 50ft with 2 Turns (QC): 4 Walk 150 ft (QC): 88 Walking 10ft on Uneven Surface: 4 1 Step (curb) (QC): 4 4 Steps (QC): 4 12 Steps (QC): 88 Picking up an Object (QC): 88 Wheel 50 feet with 2 turns (QC: 6 Wheel 150 feet: 6 PT Plan Problem List Problem List: Activity Tolerance, Functional Strength, Safety, Balance, Gait, Transfer, Bed Mobility, ROM Treatment/Plan Treatment Plan: Continue Plan of Care Treatment Plan: Bed Mobility, Education, Functional Activity Jayshree, Functional Strength, Group Therapy, Gait, Safety, Therapeutic Exercise, Transfers Treatment Duration: Aug 27, 2020 Frequency: At least 5 of 7 days/Wk (IRF) Estimated Hrs Per Day: 1.5 hours per day Patient and/or Family Agrees t: Yes Safety Risks/Education Patient Education: Gait Training, Transfer Techniques, Correct Positioning, W/C Management, Reviewed Don/Doff Brace, Safety Issues Teaching Recipient: Patient Teaching Methods: Demonstration, Discussion Response to Teaching: Reinforcement Needed Time/GCodes Time In: 1300 Time Out: 1330 Total Billed Treatment Time: 30 Total Billed Treatment 1 visit FA 30' AMANDA CHAPA PT Aug 06, 2020 13:31
[2020-08-06] MEDS: ENOXAPARIN 40 MG/0.4 ML (LOVENOX) SYR SC SCH (15:58)
[2020-08-06 20:10] VITALS: BP 143/59
[2020-08-06] MEDS: SIMvastatin 10 MG (ZOCOR) TAB PO SCH (20:45)
[2020-08-07] MEDS: metFORMIN XR 500 MG (GLUCOPHAGE XR) TAB PO SCH ×2 (05:50→16:17)
[2020-08-07] MEDS: inSUlin ASPART (NovoLOG) 1 UNIT/0.01 ML (CHARGE PER UNIT) SC SCH ×4 (05:50→21:21)
[2020-08-07 07:19] VITALS: BP 124/70
[2020-08-07] MEDS: LACTOBACILLUS ACIDOPHILUS (PROBIOTIC) CAPSULE PO SCH (08:23)
[2020-08-07] MEDS: meTOprolol TARTRATE 25 MG (LOPRESSOR) TABLET PO SCH ×2 (08:23→21:18)
[2020-08-07] MEDS: ALLOPURINOL 100 MG (ZYLOPRIM) TAB PO SCH (08:23)
[2020-08-07] MEDS: glipiZIDE 5 MG (GLUCOTROL) TAB PO SCH ×2 (08:23→16:17)
[2020-08-07] MEDS: diphenhydrAMINE 25 MG TAB (BENADRYL) PO PRN (08:23)
[2020-08-07] MEDS: cloNIDine 0.2 MG (CATAPRES) TAB PO SCH ×4 (08:24→21:18)
[2020-08-07] MEDS: lisINopril 20 MG (PRINIVIL) TABLET PO SCH ×2 (08:24→21:18)
[2020-08-07] MEDS: DOCUSATE SODIUM 100 MG (COLACE) CAP PO SCH ×2 (08:25→21:21)
[2020-08-07] MEDS: SENNA W/DOCUSATE (SENOKOT S) TABLET PO SCH ×2 (08:26→21:22)
[2020-08-07] MEDS: polyethylene glycoL POWDER 17 GM (MIRALAX) PACK PO SCH ×2 (08:26→21:21)
--- NOTE | 2020-08-07 09:17 | Occupational Ther Daily Note ---
OT Current Status-Daily Note Subjective Pt laying in bed, agreeable to OT Tx. Pt reports pain as 5-6/10 in back. Mental Status/Objective Patient Orientation: Normal For Age Attachments: Other-See Comments ADL-Treatment Therapy Code Descriptions/Definitions Functional [place] Measure: 0=Not Assessed/NA 4=Minimal Assistance 1=Total Assistance 5=Supervision or Setup 2=Maximal Assistance 6=Modified [place] 3=Moderate Assistance 7=Complete IndependenceSCALE: Activities may be completed with or without assistive devices. 8-Wvsjtygkqx-fuphcxr completes the activity by him/herself with no assistance from a helper. 5-Set-up or Clean-up Assistance-helper sets up or cleans up; patient completes activity. [place] assists only prior to or following the activity. 4-Supervision or Touching Assistance-helper provides verbal cues and/or touching/steadying and/or contact guard assistance as patient completes activity. Assistance may be provided throughout the activity or intermittently. 3-Partial/Moderate Assistance-helper does LESS THAN HALF the effort. [place] lifts, holds or supports trunk or limbs, but provides less than half the effort. 2-Substantial/Maximal Assistance-helper does MORE THAN HALF the effort. [place] lifts or holds trunk or limbs and provides more than half the effort. 9-Ebpidigdk-dgjmrw does ALL the effort. Patient does none of the effort to complete the activity. Or, the assistance of 2 or more helpers is required for the patient to complete the activity. If activity was not attempted, code reason: 7-Patient Refused. 9-Not Applicable-not attempted and the patient did not perform the activity before the current illness, exacerbation or injury. 10-Not Attempted due to Environmental Limitations-(lack of equipment, weather restraints, etc.). 88-Not Attempted due to Medical Conditions or Safety Concerns. Eating (QC): 6 Shower/Bathe Self (QC): 2 (Pt washed BUEs, chest/abdomen, periarea, and thighs. Assist to wash BLE lower legs/feet and buttocks.) Upper Body Dressing (QC): 4 (Pt donned overhead shirt with set up assistance, SBA for back brace for min verbal cues.) Lower Body Dressing (QC): 1 (Assist threading BLEs and with pant hike) On/Off Footwear: 1 (assist donning/doffing gripper socks, assist donning slip on shoes.) Toileting Hygiene (QC): 1 (assist with hygiene and clothing management) Toilet Transfer (QC): 2 Other Treatment 2707-0252 Pt laying in bed, agreeable to OT tx. Pt transferred supine to sit EOB, SBA. Pt requests to use commode, transferred from EOB to [facility] [place] side, Max A from elevated surface. Pt completed toileting, sponge bath of LEs complete and LE clothing donned. Assist x2 to transfer from BSC to EOB. Pt completed upper body sponge bath and UE clothing at EOB, pt states need to lay down and rest his back. Pt transferred supine, assist with BLEs. After rest break, pt returned to EOB, back brace donned. OT provided demonstration and instruction to pt on how to don back brace, he completed with SBA. Pt used FWW to transfer to w/c, then self propelled w/c to therapy gym. Pt states slightly lightheaded, BP 133/66 seated, after a few mins, BP 110/66. Pt states he would like to continue with tx. [id number] OT/PT cotreat due to skill of 2 clinicians required which a vocational rehab consultant could not perform in order to coordinate UE/LEs with tasks, decrease fall risk, and due to pt's limitations in strength, activity tolerance, mobility and transfers. OT focused on UE placement, cues for sequencing and safety, and assist with transfers/mobility, PT focused on LE placement, gross overall movements, and transfers/mobility. Pt ambulated 6'x3 in parallel bars with w/c follow, mod A. BP 137/82 after initial ambulation, states he feels better. Post tx, pt seated in w/c all needs met, PT present to continue tx. Education OT Patient Education: Correct positioning, Energy conservation, Exercise program, Modified ADL techniques, Progress toward Goal/Update tx plan, Purpose of tx/functional activities, Reviewed precautions, Rehab process, Safety issues, Transfer techniques Teaching Recipient: Patient Teaching Methods: Discussion Response to Teaching: Verbalize Understanding OT Short Term Goals Short Term Goals Time Frame: Aug 20, 2020 Oral hygiene: 5 Shower/bathe self: 3 Lower body dressin Putting on/taking off footwear: 3 OT Mcfp Goals Mcfp Goals Time Frame: Sep 04, 2020 Eating (QC): 6 Oral Hygiene (QC): 6 Toileting Hygiene (QC): 6 Shower/Bathe Self (QC): 6 Upper Body Dressing (QC): 6 Lower Body Dressing (QC): 6 On/Off Footwear (QC): 6 Additional Goals: 1-Demonstrate ADL Tasks, 2-Verbalize Understanding, 3- ImproveStrength/Jayshree 1=Demonstrate adherence to instructed precautions during ADL tasks. 2=Patient will verbalize/demonstrate understanding of assistive devices/modifications for ADL. 3=Patient will improve strength/tolerance for activity to enable patient to perform ADL's. OT Education/Plan Problem List/Assessment Assessment: Decreased Activ Tolerance, Decreased UE Strength, Dependent Transfers, Impaired Bed Mobility, Impaired Funct Balance, Impaired I ADL's, Impaired Self-Care Skills Discharge Recommendations Plan/Recommendations: Continue POC Treatment Plan/Plan of Care Patient would benefit from OT for education, treatment and training to promote independence in ADL's, mobility, safety and/or upper extremity function for ADL's. Plan of Care: ADL Retraining, Functional Mobility, Group Exercise/Act as Ind, UE Funct Exercise/Act Treatment Duration: Sep 04, 2020 Frequency: Modified Program (IRF) (27/08) Estimated Hrs Per Day: 1.5 hours per day Rehab Potential: Fair Time/GCodes Start Time: 08:00 Stop Time: 09:15 Total Time Billed (hr/min): 75 Billed Treatment Time [id number] OT tx, [id number] OT/PT cotreat 1, ADL 3 (45'), FA 2 (30') MED PETERSON OT Aug 07, 2020 09:17
--- NOTE | 2020-08-07 09:55 | Physical Therapy Daily Note ---
PT Daily Note-Current Subjective Patient in therapy gym pre tx, agrees to PT, has / pain in left leg and back. Will be co-treating with OT due to poor patient mobility, strength, endurance, balance, severe pain with activity, coordinate UE and LE during activity, safety and reduce risk of falls. Appearance Patient in bed post tx with nurse call, phone, tray, all needs met. Mental Status Patient Orientation: Person, Place, Situation back brace Transfers SCALE: Activities may be completed with or without assistive devices. 0-Hpgdniyrsq-rihldoi completes the activity by him/herself with no assistance from a helper. 5-Set-up or Clean-up Assistance-helper sets up or cleans up; patient completes activity. [place] assists only prior to or following the activity. 4-Supervision or Touching Assistance-helper provides verbal cues and/or touching/steadying and/or contact guard assistance as patient completes activity. Assistance may be provided throughout the activity or intermittently. 3-Partial/Moderate Assistance-helper does LESS THAN HALF the effort. [place] lifts, holds or supports trunk or limbs, but provides less than half the effort. 2-Substantial/Maximal Assistance-helper does MORE THAN HALF the effort. [place] lifts or holds trunk or limbs and provides more than half the effort. 8-Lunwehiay-avdfio does ALL the effort. Patient does none of the effort to complete the activity. Or, the assistance of 2 or more helpers is required for the patient to complete the activity. If activity was not attempted, code reason: 7-Patient Refused. 9-Not Applicable-not attempted and the patient did not perform the activity before the current illness, exacerbation or injury. 10-Not Attempted due to Environmental Limitations-(lack of equipment, weather restraints, etc.). 88-Not Attempted due to Medical Conditions or Safety Concerns. Roll Left & Right (QC): 3 Sit to Lying (QC): 3 Sit to Stand (QC): 3 Chair/Tyi-sz-Truuo Xfer(QC): 3 Stand pivot transfer a hard mod assist, cues for hand placement and positioning, patient can perform a stand pivot transfer using a rolling walker but needs an elevated surface to stand from . Gait Training Distance: 6'x3 Gait Assistive Device: Parallel Bars mod assist, he is able to advance his feet without assist but needs trunk assist and assist to stand Wheelchair Training Does the Pt Use a Wheelchair?: Yes Wheel 50 ft with 2 turns (QC): 3 Type of Wheelchair: Manual 120' min assist through doorways and around obstacles Exercises LAQ alternating for 5 min, sit to stand from elevated therapy table 3 sets of 5 NuStep Minutes: 15 NuStep Workload: 4 Treatments PT performed bed mobility and transfers, ambulation, functional strengthening, WC mobility, OT performed UE positioning and safety during ambulation and standing Assessment Current Status: Fair Progress improved ambulation, needs many rest breaks due to fatigue and pain PT Short Term Goals Short Term Goals Time Frame: Aug 13, 2020 Roll Left & Right: 6 Sit to lyin Lying to sitting on side of be: 3 Sit to stand: 3 Chair/jox-ev-fudij transfer: 3 Walk 10 feet: 3 PT Cinder Pit Crane Operator Goals Cinder Pit Crane Operator Goals PT Cinder Pit Crane Operator Goals Time Frame: Aug 27, 2020 Roll Left & Right (QC): 6 Sit to Lying (QC): 4 Lying-Sitting on Side/Bed(QC): 4 Sit to Stand (QC): 4 Chair/Rdx-zg-Hjbqy Xfer(QC): 4 Toilet Transfer (QC): 4 Car Transfer (QC): 4 Does the Patient Walk: Yes Walk 10 feet (QC): 4 Walk 50ft with 2 Turns (QC): 4 Walk 150 ft (QC): 88 Walking 10ft on Uneven Surface: 4 1 Step (curb) (QC): 4 4 Steps (QC): 4 12 Steps (QC): 88 Picking up an Object (QC): 88 Wheel 50 feet with 2 turns (QC: 6 Wheel 150 feet: 6 PT Plan Problem List Problem List: Activity Tolerance, Functional Strength, Safety, Balance, Gait, Transfer, Bed Mobility, ROM Treatment/Plan Treatment Plan: Continue Plan of Care Treatment Plan: Bed Mobility, Education, Functional Activity Jayshree, Functional Strength, Group Therapy, Gait, Safety, Therapeutic Exercise, Transfers Treatment Duration: Aug 27, 2020 Frequency: At least 5 of 7 days/Wk (IRF) Estimated Hrs Per Day: 1.5 hours per day Patient and/or Family Agrees t: Yes Safety Risks/Education Patient Education: Gait Training, Transfer Techniques, Correct Positioning, W/C Management, Reviewed Don/Doff Brace, Safety Issues Teaching Recipient: Patient Teaching Methods: Demonstration, Discussion Response to Teaching: Reinforcement Needed Time/GCodes Time In: 0900 Time Out: 1000 Total Billed Treatment Time: 60 Total Billed Treatment 1 visit GT 15' EX 30' FA 15' AMANDA CHAPA PT Aug 07, 2020 09:55
--- NOTE | 2020-08-07 11:28 | Physical Therapy Daily Note ---
PT Daily Note-Current Subjective Patient in bed pre tx, agrees to PT, has 8/10 pain, nurse is aware of his pain level. Appearance Patient in bed post tx with nurse call, phone, tray, all needs met. Mental Status Patient Orientation: Person, Place, Situation Transfers SCALE: Activities may be completed with or without assistive devices. 4-Hckynyfriz-dijahec completes the activity by him/herself with no assistance from a helper. 5-Set-up or Clean-up Assistance-helper sets up or cleans up; patient completes activity. [place] assists only prior to or following the activity. 4-Supervision or Touching Assistance-helper provides verbal cues and/or touching/steadying and/or contact guard assistance as patient completes activity. Assistance may be provided throughout the activity or intermittently. 3-Partial/Moderate Assistance-helper does LESS THAN HALF the effort. [place] lifts, holds or supports trunk or limbs, but provides less than half the effort. 2-Substantial/Maximal Assistance-helper does MORE THAN HALF the effort. [place] lifts or holds trunk or limbs and provides more than half the effort. 4-Ljbeeuged-ojzyky does ALL the effort. Patient does none of the effort to complete the activity. Or, the assistance of 2 or more helpers is required for the patient to complete the activity. If activity was not attempted, code reason: 7-Patient Refused. 9-Not Applicable-not attempted and the patient did not perform the activity before the current illness, exacerbation or injury. 10-Not Attempted due to Environmental Limitations-(lack of equipment, weather restraints, etc.). 88-Not Attempted due to Medical Conditions or Safety Concerns. Exercises Supine Ex: Ankle pumps, Quad Set, Glut sets, Heel Slides (AAROM), Short Arc Quads (AAROM), Straight leg raise (AAROM), Hip abd/add (AAROM) Treatments BLE strengthening Assessment Current Status: Poor Progress Patient had a lot of pain this morning , nurse is aware of it. Patient needed many rest breaks due to pain but performed the exercises. PT Short Term Goals Short Term Goals Time Frame: Aug 13, 2020 Roll Left & Right: 6 Sit to lyin Lying to sitting on side of be: 3 Sit to stand: 3 Chair/lls-lr-roxna transfer: 3 Walk 10 feet: 3 PT Halfway Goals Business Analyst Sales Operations Goals PT Business Analyst Sales Operations Goals Time Frame: Aug 27, 2020 Roll Left & Right (QC): 6 Sit to Lying (QC): 4 Lying-Sitting on Side/Bed(QC): 4 Sit to Stand (QC): 4 Chair/Aar-pt-Rdzdw Xfer(QC): 4 Toilet Transfer (QC): 4 Car Transfer (QC): 4 Does the Patient Walk: Yes Walk 10 feet (QC): 4 Walk 50ft with 2 Turns (QC): 4 Walk 150 ft (QC): 88 Walking 10ft on Uneven Surface: 4 1 Step (curb) (QC): 4 4 Steps (QC): 4 12 Steps (QC): 88 Picking up an Object (QC): 88 Wheel 50 feet with 2 turns (QC: 6 Wheel 150 feet: 6 PT Plan Problem List Problem List: Activity Tolerance, Functional Strength, Safety, Balance, Gait, Transfer, Bed Mobility, ROM Treatment/Plan Treatment Plan: Continue Plan of Care Treatment Plan: Bed Mobility, Education, Functional Activity Jayshree, Functional Strength, Group Therapy, Gait, Safety, Therapeutic Exercise, Transfers Treatment Duration: Aug 27, 2020 Frequency: At least 5 of 7 days/Wk (IRF) Estimated Hrs Per Day: 1.5 hours per day Patient and/or Family Agrees t: Yes Safety Risks/Education Patient Education: Correct Positioning, Safety Issues Teaching Recipient: Patient Teaching Methods: Demonstration, Discussion Response to Teaching: Reinforcement Needed Time/GCodes Time In: 1100 Time Out: 1130 Total Billed Treatment Time: 30 Total Billed Treatment 1 visit EX 30' AMANDA CHAPA PT Aug 07, 2020 11:28
--- NOTE | 2020-08-07 13:56 | Occupational Ther Daily Note ---
OT Current Status-Daily Note Subjective Pt in bed, states his back and hips are hurting him today. 8/10 pain Mental Status/Objective Patient Orientation: Normal For Age ADL-Treatment Therapy Code Descriptions/Definitions Functional [place] Measure: 0=Not Assessed/NA 4=Minimal Assistance 1=Total Assistance 5=Supervision or Setup 2=Maximal Assistance 6=Modified [place] 3=Moderate Assistance 7=Complete IndependenceSCALE: Activities may be completed with or without assistive devices. 2-Vzcwxfjgck-bbphpjq completes the activity by him/herself with no assistance from a helper. 5-Set-up or Clean-up Assistance-helper sets up or cleans up; patient completes activity. [place] assists only prior to or following the activity. 4-Supervision or Touching Assistance-helper provides verbal cues and/or touching/steadying and/or contact guard assistance as patient completes activity. Assistance may be provided throughout the activity or intermittently. 3-Partial/Moderate Assistance-helper does LESS THAN HALF the effort. [place] lifts, holds or supports trunk or limbs, but provides less than half the effort. 2-Substantial/Maximal Assistance-helper does MORE THAN HALF the effort. [place] lifts or holds trunk or limbs and provides more than half the effort. 1-Uflpmcplr-qoipix does ALL the effort. Patient does none of the effort to complete the activity. Or, the assistance of 2 or more helpers is required for the patient to complete the activity. If activity was not attempted, code reason: 7-Patient Refused. 9-Not Applicable-not attempted and the patient did not perform the activity before the current illness, exacerbation or injury. 10-Not Attempted due to Environmental Limitations-(lack of equipment, weather restraints, etc.). 88-Not Attempted due to Medical Conditions or Safety Concerns. Eating (QC): 6 Other Treatment 8667-1403 OT/PT cotreat due to skill of 2 clinicians required which a rehab nursing tech could not performed in order to coordinate UE/LEs, to decrease fall risk, and due to pt's limitations in strength, activity tolerance, pain and mobility/transfers. Pt transferred supine to sit EOB, SBA with donning back brace. Pt used FWW to transfer to recliner, max A sit to stand after a couple of attempts. Pt educated on sitting in recliner in order to decrease back pain and he was informed to use call light when he wants to return to bed. Pt completed x15 reps each of 5/5 UE exercises using moderate resistance theraband. Min skilled verbal cues for correct technique [id number] OT tx, pt removed beads from moderate resistance theraputty in order to increase fine motor strength and coordination. Pt indicates sitting up in chair feels better on his hips already. post tx, pt seated in recliner, call light in reach and all needs met Education OT Patient Education: Correct positioning, Exercise program, Home exercise program, Modified ADL techniques, Progress toward Goal/Update tx plan, Purpose of tx/functional activities, Rehab process Teaching Recipient: Patient Teaching Methods: Discussion Response to Teaching: Verbalize Understanding OT Short Term Goals Short Term Goals Time Frame: Aug 20, 2020 Oral hygiene: 5 Shower/bathe self: 3 Lower body dressin Putting on/taking off footwear: 3 OT Industrial Illuminating Engineer Goals Industrial Illuminating Engineer Goals Time Frame: Sep 04, 2020 Eating (QC): 6 Oral Hygiene (QC): 6 Toileting Hygiene (QC): 6 Shower/Bathe Self (QC): 6 Upper Body Dressing (QC): 6 Lower Body Dressing (QC): 6 On/Off Footwear (QC): 6 Additional Goals: 1-Demonstrate ADL Tasks, 2-Verbalize Understanding, 3- ImproveStrength/Jayshree 1=Demonstrate adherence to instructed precautions during ADL tasks. 2=Patient will verbalize/demonstrate understanding of assistive devices/modifications for ADL. 3=Patient will improve strength/tolerance for activity to enable patient to perform ADL's. OT Education/Plan Problem List/Assessment Assessment: Decreased Activ Tolerance, Decreased UE Strength, Impaired Funct Balance, Impaired I ADL's, Impaired Self-Care Skills Discharge Recommendations Plan/Recommendations: Continue POC Treatment Plan/Plan of Care Patient would benefit from OT for education, treatment and training to promote independence in ADL's, mobility, safety and/or upper extremity function for ADL's. Plan of Care: ADL Retraining, Functional Mobility, Group Exercise/Act as Ind, UE Funct Exercise/Act Treatment Duration: Sep 04, 2020 Frequency: Modified Program (IRF) (27/08) Estimated Hrs Per Day: 1.5 hours per day Rehab Potential: Fair Time/GCodes Start Time: 13:00 Stop Time: 13:45 Total Time Billed (hr/min): 45 Billed Treatment Time 7038-0320 OT/PT cotreat, [id number] OT tx 1, FA 2 (30'), EX (15') MED PETERSON OT Aug 07, 2020 13:56
--- NOTE | 2020-08-07 13:57 | Physical Therapy Daily Note ---
PT Daily Note-Current Subjective Patient in bed pre tx, agrees to PT, has 8/10 pain in back and right leg. Will be co-treating with OT due to poor patient mobility, strength, endurance, severe pain with activity, coordinate UE and LE with activity, safety and reduce risk of falls. Appearance Patient in recliner post tx, will continue for a bit with OT Mental Status Patient Orientation: Person, Place, Situation back brace Transfers SCALE: Activities may be completed with or without assistive devices. 0-Dwidkootin-ifgmbdm completes the activity by him/herself with no assistance from a helper. 5-Set-up or Clean-up Assistance-helper sets up or cleans up; patient completes activity. [place] assists only prior to or following the activity. 4-Supervision or Touching Assistance-helper provides verbal cues and/or touching/steadying and/or contact guard assistance as patient completes activit y. Assistance may be provided throughout the activity or intermittently. 3-Partial/Moderate Assistance-helper does LESS THAN HALF the effort. [place] lifts, holds or supports trunk or limbs, but provides less than half the effort. 2-Substantial/Maximal Assistance-helper does MORE THAN HALF the effort. [place] lifts or holds trunk or limbs and provides more than half the effort. 3-Gsehencpu-tmwcob does ALL the effort. Patient does none of the effort to complete the activity. Or, the assistance of 2 or more helpers is required for the patient to complete the activity. If activity was not attempted, code reason: 7-Patient Refused. 9-Not Applicable-not attempted and the patient did not perform the activity before the current illness, exacerbation or injury. 10-Not Attempted due to Environmental Limitations-(lack of equipment, weather restraints, etc.). 88-Not Attempted due to Medical Conditions or Safety Concerns. Roll Left & Right (QC): 3 Lying to Sitting/Side of Bed(Q: 3 Sit to Stand (QC): 2 Chair/Tib-vc-Hzraq Xfer(QC): 3 Patient needed min assist for supine to sit and max assist to stand using a rolling walker, it was a very difficult stand and took a couple of tries but was able to stand and take a few steps to the recliner. Exercises Seated Therapy Exercises: Ankle pumps, Long arc quads, Hip flexion Seated Reps: 20 Treatments PT performed bed mobility and transfers, LE strengthening, OT performed brace donning, UE exercise and UE positioning and safety during activity. Assessment Current Status: Fair Progress Patient had a lot of pain and it was very slow going but he seemed to have less pain when in the recliner. PT Short Term Goals Short Term Goals Time Frame: Aug 13, 2020 Roll Left & Right: 6 Sit to lyin Lying to sitting on side of be: 3 Sit to stand: 3 Chair/eca-za-sxxym transfer: 3 Walk 10 feet: 3 PT Jail Goals Face Boss Goals PT Jail Goals Time Frame: Aug 27, 2020 Roll Left & Right (QC): 6 Sit to Lying (QC): 4 Lying-Sitting on Side/Bed(QC): 4 Sit to Stand (QC): 4 Chair/Yay-sm-Bqdfj Xfer(QC): 4 Toilet Transfer (QC): 4 Car Transfer (QC): 4 Does the Patient Walk: Yes Walk 10 feet (QC): 4 Walk 50ft with 2 Turns (QC): 4 Walk 150 ft (QC): 88 Walking 10ft on Uneven Surface: 4 1 Step (curb) (QC): 4 4 Steps (QC): 4 12 Steps (QC): 88 Picking up an Object (QC): 88 Wheel 50 feet with 2 turns (QC: 6 Wheel 150 feet: 6 PT Plan Problem List Problem List: Activity Tolerance, Functional Strength, Safety, Balance, Gait, Transfer, Bed Mobility, ROM Treatment/Plan Treatment Plan: Continue Plan of Care Treatment Plan: Bed Mobility, Education, Functional Activity Jayshree, Functional Strength, Group Therapy, Gait, Safety, Therapeutic Exercise, Transfers Treatment Duration: Aug 27, 2020 Frequency: At least 5 of 7 days/Wk (IRF) Estimated Hrs Per Day: 1.5 hours per day Patient and/or Family Agrees t: Yes Safety Risks/Education Patient Education: Transfer Techniques, Correct Positioning, Reviewed Don/Doff Brace, Safety Issues Teaching Recipient: Patient Teaching Methods: Demonstration, Discussion Response to Teaching: Reinforcement Needed Time/GCodes Time In: 1300 Time Out: 1330 Total Billed Treatment Time: 30 Total Billed Treatment 1 visit EX 15' FA 15' co-treated for 30' AMANDA CHAPA PT Aug 07, 2020 13:57
[2020-08-07] MEDS: ENOXAPARIN 40 MG/0.4 ML (LOVENOX) SYR SC SCH (14:04)
--- NOTE | 2020-08-07 14:12 | Individualized Plan of Care ---
Individualized Plan of Care Rehab Nursing IPOC Order Admission Date Aug 05, 2020 at 16:30 Current Orders Orders Admission Order(Inpt,Obs,Sdc) (08/05/20 14:53) Vital Signs: Per Unit Policy ( 16,00 (08/05/20 14:53) Mustapha Franco (08/05/20 14:53) Sequential Compression Device .admit (08/05/20 14:53) Seam Taper Machine-Inpt Rehab Con (08/05/20 14:53) Rehab Nursing Orders-Ipoc (08/05/20 14:53) Physical Therapy Rehab Orders (08/05/20 14:53) Occupational Therapy Rehab Ord (08/05/20 14:53) Speech Therapy Rehab Orders (08/05/20 14:53) Cbc With Automated Diff (08/06/20 06:00) Comprehensive Metabolic Panel (08/06/20 06:00) Precautions (Aru) (08/05/20 14:53) Rehab-Intensity Of Therapy (08/05/20 14:53) Initiate Admission Nursing Pro .admission (08/05/20 14:53) Acetaminophen Tablet/Caplet (Tylenol T (08/05/20 15:00) Alprazolam Tablet (Xanax Tablet) (08/05/20 15:00) Calcium Carbonate Chew Tablet (Antacid C (08/05/20 15:00) Diphenhydramine Tablet (Benadryl Tablet) (08/05/20 15:00) Docusate Sodium Capsule (Colace Capsule) (08/05/20 21:00) Docusate Sodium Capsule (Colace Capsule) (08/05/20 15:00) Bisacodyl Suppository (Dulcolax Supposit (08/05/20 15:00) Lactulose Oral Solution (Enulose Oral So (08/05/20 15:00) Na Phos/Na Biphos Enema (Fleet Enema Rui (08/05/20 15:00) Guaifenesin/Codeine Syrup (Robitussin Ac (08/05/20 15:00) Hydrocodone/Apap 5/325 Tablet (Lortab 5 (08/05/20 15:00) Loperamide Tablet (Imodium Tablet) (08/05/20 15:00) Enoxaparin Injection (Lovenox Injection) (08/05/20 15:00) Melatonin Tablet (Melatonin Tablet) (08/05/20 15:00) Polyethylene Glycol Powder Pkt (Miralax (08/05/20 21:00) Ondansetron Oral Dissolve Tab (Zofran (08/05/20 15:00) Senna S Tablet (Senokot S Tablet) (08/05/20 21:00) Code/Resuscitation (08/05/20 14:53) Initiate Admission Nursing Pro .admission (08/05/20 14:53) Sequential Compression Device .admit (08/05/20 14:53) Admission Arrival Bed Request (08/05/20 16:31) Allopurinol Tablet (Zyloprim Tablet) (08/06/20 09:00) Rx-Cyclobenzaprine Tablet (Rx-Flexeril T (08/05/20 17:15) Docusate Sodium Capsule (Colace Capsule) (08/05/20 21:00) Indapamide Tablet (Lozol Tablet) (08/06/20 09:00) Lisinopril Tablet (Zestril Tablet) (08/05/20 21:00) Metoprolol Tartrate (Ir) Tab (Lopressor (08/05/20 21:00) Polyethylene Glycol Powder Pkt (Miralax (08/05/20 17:15) (Nf) Glipizide (Glucotrol) (08/05/20 21:00) (Nf) Lactobacillus Rhamnosus Gg (Culture (08/06/20 09:00) (Nf) Metformin Hcl (Fortamet) (08/05/20 21:00) (Nf) Naloxone Hcl (Narcan) (08/05/20 17:15) (Nf) Oxycodone Hcl (08/05/20 17:15) (Nf) Pravastatin Sodium (08/05/20 21:00) (Nf) Secukinumab (Cosentyx (2 Syringes)) (08/05/20 17:15) Clonidine Tablet (Catapres Tablet) (08/05/20 21:00) Cho 90g/M 0snack (25-2900 [facility]) (08/05/20 Dinner) Accucheck Achs ACHS (08/05/20 17:19) Insulin Aspart (Novolog) (Novolog (Charg (08/05/20 21:00) Glipizide Tablet (Glucotrol Tablet) (08/05/20 18:00) Lactobacillus Acidophilus Cap (Acidophil (08/06/20 09:00) Metformin Xr Tablet (Glucophage Xr Table (08/05/20 17:30) Simvastatin Tablet (Zocor Tablet) (08/05/20 21:00) Cyclobenzaprine Tablet (Flexeril Tablet) (08/05/20 17:45) Oxycodone Immediate Rel Tablet (Oxyir Ta (08/05/20 17:45) Naloxone Injection (Narcan Injection) (08/05/20 17:45) Insulin Aspart (Novolog) (Novolog (Charg (08/05/20 17:48) Insulin (Regular) Human (Novolin R (Per (08/05/20 18:00) Patient Visit (08/06/20 ) Speech Sound Lang Comp (08/06/20 ) Treat. Speech/Lang/Voice (08/06/20 ) Patient Visit (08/06/20 ) Exercise Therap, Ea 15 Min (08/06/20 ) Functional Activities, Ea 15 (08/06/20 ) Baclofen Tablet (Lioresal Tablet) (08/07/20 14:30) Patient Visit (08/07/20 ) Gait Training, Ea 15 Min (08/07/20 ) Exercise Therap, Ea 15 Min (08/07/20 ) Functional Activities, Ea 15 (08/07/20 ) Insulin Determir (Per Unit) (Levemir (Pe (08/08/20 09:00) Insulin (Regular) Human (Novolin R (Per (08/08/20 06:00) Rehab Nursing Orders: Ongoing Assess. of Function Status, Bladder Management, Bladder Scan, Bladder Training, Bowel Management, Bowel Training, Disease Management & Educaiton, DVT Prophylaxis, Fall Prevention, Fluid/Electrolyte/Nutrition Mgmt, Infection Prevention, Medication Management & Education, Management of Risks & Complications, Nutrition Management, Pain Management, Patient/Family Support, Safety Management, Wound Management Intensity of Therapy to be met Patient to be seen: Min.3h per day/5 of 7d PT IPOC Problem List: Activity Tolerance, Functional Strength, Safety, Balance, Gait, Transfer, Bed Mobility, ROM Treatment Plan: Continue Plan of Care Bed Mobility, Education, Functional Activity Jayshree, Functional Strength, Group Therapy, Gait, Safety, Therapeutic Exercise, Transfers Treatment Duration: Aug 27, 2020 Frequency: At least 5 of 7 days/Wk (IRF) Estimated Hrs Per Day: 1.5 hours per day OT IPOC Problems: Decreased Activ Tolerance, Decreased UE Strength, Impaired Funct Balance, Impaired I ADL's, Impaired Self-Care Skills OT Treatment, Training and Edu: Yes Plan of Care: ADL Retraining, Functional Mobility, Group Exercise/Act as Ind, UE Funct Exercise/Act Treatment Duration: Sep 04, 2020 Frequency: Modified Program (IRF) (27/08) Estimated Hrs Per Day: 1.[address] IPOC Speech Therapy Treatment Plan: Discontinue ST Treatment Duration: Aug 06, 2020 Frequency: 1 time per week Estimated Hrs Per Day: .5 hour per day Seam Taper Machine/Case Mgmt Seam Taper Machine/Case Managemen: Discharge Planning Dietitian/Awake Overnight Counselor Dietitian/Awake Overnight Counselor to monitor nutritional status and make changes and/or recommendations as needed and work with speech pathology on dietary upgrades as the occur. Physician IPOC Medical Issues being managed closely and that require the 24 hour availability of a physician: Recent DKA and profound dehydration with malignant hypertension requiring ICU stay at [facility] will require close monitoring since high risk for decompensation Medical Issues: Bowel/Bladder Function, DVT Prophylaxis, Falls Precautions, Fluid/Electrolyte/Nutrition Balance, Infection Protection, Pain Management Brief Synthesis of Preadmission Screen, Post-Admission Evaluation, and Therapy Evaluations: PT and OT will focus on improving ambulatory ability with increased ADLs while helping back pain from surgery in order to return to independent living Medical Prognosis: Good Anticipated Length of Stay: 10 days DALY WHITNEY DO Aug 07, 2020 14:12
--- NOTE | 2020-08-07 14:13 | PM&R Progress Note ---
Subjective HPI/CC On Admission Date Seen by Provider: Aug 07, 2020 Time Seen by Provider: 14:20 Subjective/Events-last exam 08/07/2020: Patient doing pretty well Pain is still an issue Baclofen was ordered to help his back spasms No bowels are moving since loose stools for several days Adjusted insulin after reviewing several Accu-Cheks 08/06/2020: Patient doing pretty well Very motivated to walk Loose stool so holding laxatives Right knee really hurts Sodium level 128 so we will discontinue the indapamide Review of Systems General: Fatigue Musculoskeletal: back pain Objective Exam Vital Signs Vital Signs Date Time Temp Pulse Resp B/P (MAP) Pulse Ox O2 Delivery O2 Flow Rate FiO2 08/07/20 21:22 96 Room Air 08/07/20 20:00 37.4 88 16 128/59 (82) Capillary Refill : General Appearance: No Apparent Distress, WD/WN, Chronically ill HEENT: PERRL/EOMI, Normal ENT Inspection, Pharynx Normal Neck: Full Range of Motion, Normal Inspection, Non Tender, Supple, Carotid Bruit Respiratory: Chest Non Tender, Lungs Clear, Normal Breath Sounds, No Accessory Muscle Use, No Respiratory Distress Cardiovascular: Regular Rate, Rhythm, No Edema, No Gallop, No JVD, No Murmur, Normal Peripheral Pulses Gastrointestinal: Normal Bowel Sounds, No Organomegaly, No Pulsatile Mass, Non Tender, Soft Back: Decreased Range of Motion, Muscle Spasm, Vertebral Tenderness Extremity: Normal Capillary Refill, Normal Inspection, Normal Range of Motion (Weakness of legs), Non Tender, No Calf Tenderness, No Pedal Edema Neurologic/Psychiatric: Alert, Oriented x3, No Motor/Sensory Deficits, Normal Mood/Affect, Motor Weakness (Leg weakness 3/5) Skin: Normal Color, Warm/Dry Lymphatic: No Adenopathy Results/Procedures Lab Patient resulted labs reviewed. FIM Transfers Therapy Code Descriptions/Definitions Functional [place] Measure: 0=Not Assessed/NA 4=Minimal Assistance 1=Total Assistance 5=Supervision or Setup 2=Maximal Assistance 6=Modified [place] 3=Moderate Assistance 7=Complete IndependenceSCALE: Activities may be completed with or without assistive devices. 7-Ewtrebsstg-zvjzixx completes the activity by him/herself with no assistance from a helper. 5-Set-up or Clean-up Assistance-helper sets up or cleans up; patient completes activity. [place] assists only prior to or following the activity. 4-Supervision or Touching Assistance-helper provides verbal cues and/or touching/steadying and/or contact guard assistance as patient completes activ ity. Assistance may be provided throughout the activity or intermittently. 3-Partial/Moderate Assistance-helper does LESS THAN HALF the effort. [place] lifts, holds or supports trunk or limbs, but provides less than half the effort. 2-Substantial/Maximal Assistance-helper does MORE THAN HALF the effort. [place] lifts or holds trunk or limbs and provides more than half the effort. 0-Evfjfwdnf-bzffqb does ALL the effort. Patient does none of the effort to complete the activity. Or, the assistance of 2 or more helpers is required for the patient to complete the activity. If activity was not attempted, code reason: 7-Patient Refused. 9-Not Applicable-not attempted and the patient did not perform the activity before the current illness, exacerbation or injury. 10-Not Attempted due to Environmental Limitations-(lack of equipment, weather restraints, etc.). 88-Not Attempted due to Medical Conditions or Safety Concerns. Roll Left to Right (QC): 3 Sit to Lying (QC): 3 Sit to Stand (QC): 2 Chair/Chm-jd-Jsqnl Xfer(QC): 3 Car Transfer (QC): 2 Gait Training Does the Patient Walk?: No and Walking Goal IS indicated Distance: 6'x3 Walk 10 feet (QC): 88 Walk 50 ft with 2 Turns(QC): 88 Walk 150 ft (QC): 88 Walking 10ft/uneven surface-QC: 88 Gait Assistive Device: Parallel Bars Wheelchair Training Does the Pt Use a Wheelchair?: Yes Distance: 150'x2 Wheel 50 ft with 2 turns (QC): 3 Wheel 150 ft (QC): 4 Type of Wheelchair: Manual Stair Training 1 Step (curb) (QC): 88 4 Steps (QC): 88 12 Steps (QC): 88 Balance Picking up an Object (QC): 88 ADL-Treatment Eating (QC): 6 Oral Hygiene (QC): 3 (per pt report, assist with rinsing dentures this AM) Shower/Bathe Self (QC): 2 (Pt washed BUEs, chest/abdomen, periarea, and thighs. Assist to wash BLE lower legs/feet and buttocks.) Upper Body Dressing (QC): 4 (Pt donned overhead shirt with set up assistance, SBA for back brace for min verbal cues.) Lower Body Dressing (QC): 1 (Assist threading BLEs and with pant hike) On/Off Footwear (QC): 1 (assist donning/doffing gripper socks, assist donning slip on shoes.) Toileting Hygiene (QC): 1 (assist with hygiene and clothing management) Toilet Transfer (QC): 2 Assessment/Plan Assessment and Plan Assess & Plan/Chief Complaint Assessment: Status post lumbar spine surgery with severe debility and leg weakness Recent DKA Dnt-bp-akbstch diabetes history Hypertension Chronic arthritis pain Plan: Pain control Diabetes management Blood pressure management Inpatient rehab protocol 08/06/2020: Hold laxatives DC indapamide Monitor closely Fall risk 08/07/2020: Increase insulin Aggressive therapy (1) Status post lumbar spine surgery for decompression of spinal cord (2) Diabetes (3) DKA (diabetic ketoacidoses) (4) Hypertension (5) Leg weakness DALY WHITNEY DO Aug 07, 2020 14:12
[2020-08-07] MEDS: BACLOFEN 10 MG (LIORESAL) TAB PO SCH ×2 (16:26→21:18)
[2020-08-07 20:00] VITALS: BP 128/59
[2020-08-07] MEDS: SIMvastatin 10 MG (ZOCOR) TAB PO SCH (21:18)
[2020-08-08] MEDS: CYCLOBENZAPRINE 10 MG (FLEXERIL) TAB PO PRN ×2 (00:31→08:45)
--- NOTE | 2020-08-08 05:02 | PM&R Progress Note ---
Subjective HPI/CC On Admission Date Seen by Provider: Aug 08, 2020 Time Seen by Provider: 07:45 Subjective/Events-last exam 08/08/20: Patient in a good mood Baclofen is working well for him so will maintain this Pain controlled High sugars requiring addition of insulin Wants tacos from home 08/07/2020: Patient doing pretty well Pain is still an issue Baclofen was ordered to help his back spasms No bowels are moving since loose stools for several days Adjusted insulin after reviewing several Accu-Cheks 08/06/2020: Patient doing pretty well Very motivated to walk Loose stool so holding laxatives Right knee really hurts Sodium level 128 so we will discontinue the indapamide Review of Systems Musculoskeletal: back pain Objective Exam Vital Signs Vital Signs Date Time Temp Pulse Resp B/P (MAP) Pulse Ox O2 Delivery O2 Flow Rate FiO2 08/08/20 09:00 Room Air 08/08/20 07:10 37.0 84 16 150/79 (102) 97 Capillary Refill : General Appearance: No Apparent Distress, WD/WN, Chronically ill HEENT: PERRL/EOMI, Normal ENT Inspection, Pharynx Normal Neck: Full Range of Motion, Normal Inspection, Non Tender, Supple, Carotid Bruit Respiratory: Chest Non Tender, Lungs Clear, Normal Breath Sounds, No Accessory Muscle Use, No Respiratory Distress Cardiovascular: Regular Rate, Rhythm, No Edema, No Gallop, No JVD, No Murmur, Normal Peripheral Pulses Gastrointestinal: Normal Bowel Sounds, No Organomegaly, No Pulsatile Mass, Non Tender, Soft Back: Decreased Range of Motion, Muscle Spasm, Vertebral Tenderness Extremity: Normal Capillary Refill, Normal Inspection, Normal Range of Motion (Weakness of legs), Non Tender, No Calf Tenderness, No Pedal Edema Neurologic/Psychiatric: Alert, Oriented x3, No Motor/Sensory Deficits, Normal Mood/Affect, Motor Weakness (Leg weakness 3/5) Skin: Normal Color, Warm/Dry Lymphatic: No Adenopathy Results/Procedures Lab Patient resulted labs reviewed. FIM Transfers Therapy Code Descriptions/Definitions Functional [place] Measure: 0=Not Assessed/NA 4=Minimal Assistance 1=Total Assistance 5=Supervision or Setup 2=Maximal Assistance 6=Modified [place] 3=Moderate Assistance 7=Complete IndependenceSCALE: Activities may be completed with or without assistive devices. 7-Lgwzhcsztk-ipattyo completes the activity by him/herself with no assistance from a helper. 5-Set-up or Clean-up Assistance-helper sets up or cleans up; patient completes activity. [place] assists only prior to or following the activity. 4-Supervision or Touching Assistance-helper provides verbal cues and/or touching/steadying and/or contact guard assistance as patient completes ac tivity. Assistance may be provided throughout the activity or intermittently. 3-Partial/Moderate Assistance-helper does LESS THAN HALF the effort. [place] lifts, holds or supports trunk or limbs, but provides less than half the effort. 2-Substantial/Maximal Assistance-helper does MORE THAN HALF the effort. [place] lifts or holds trunk or limbs and provides more than half the effort. 5-Wdemabwxu-gfrycl does ALL the effort. Patient does none of the effort to complete the activity. Or, the assistance of 2 or more helpers is required for the patient to complete the activity. If activity was not attempted, code reason: 7-Patient Refused. 9-Not Applicable-not attempted and the patient did not perform the activity before the current illness, exacerbation or injury. 10-Not Attempted due to Environmental Limitations-(lack of equipment, weather restraints, etc.). 88-Not Attempted due to Medical Conditions or Safety Concerns. Roll Left to Right (QC): 3 Sit to Lying (QC): 3 Sit to Stand (QC): 2 Chair/Eci-yp-Kolkm Xfer(QC): 3 Car Transfer (QC): 2 Gait Training Does the Patient Walk?: No and Walking Goal IS indicated Distance: 6'x3 Walk 10 feet (QC): 88 Walk 50 ft with 2 Turns(QC): 88 Walk 150 ft (QC): 88 Walking 10ft/uneven surface-QC: 88 Gait Assistive Device: Parallel Bars Wheelchair Training Does the Pt Use a Wheelchair?: Yes Distance: 150'x2 Wheel 50 ft with 2 turns (QC): 3 Wheel 150 ft (QC): 4 Type of Wheelchair: Manual Stair Training 1 Step (curb) (QC): 88 4 Steps (QC): 88 12 Steps (QC): 88 Balance Picking up an Object (QC): 88 ADL-Treatment Eating (QC): 6 Oral Hygiene (QC): 3 (per pt report, assist with rinsing dentures this AM) Shower/Bathe Self (QC): 2 (Pt washed BUEs, chest/abdomen, periarea, and thighs. Assist to wash BLE lower legs/feet and buttocks.) Upper Body Dressing (QC): 4 (Pt donned overhead shirt with set up assistance, SBA for back brace for min verbal cues.) Lower Body Dressing (QC): 1 (Assist threading BLEs and with pant hike) On/Off Footwear (QC): 1 (assist donning/doffing gripper socks, assist donning slip on shoes.) Toileting Hygiene (QC): 1 (assist with hygiene and clothing management) Toilet Transfer (QC): 2 Assessment/Plan Assessment and Plan Assess & Plan/Chief Complaint Assessment: Status post lumbar spine surgery with severe debility and leg weakness Recent DKA Bhp-im-rpatdsp diabetes history Hypertension Chronic arthritis pain Plan: Pain control Diabetes management Blood pressure management Inpatient rehab protocol 08/06/2020: Hold laxatives DC indapamide Monitor closely Fall risk 08/07/2020: Increase insulin Aggressive therapy 08/08/20: Increase insulin Baclofen (1) Status post lumbar spine surgery for decompression of spinal cord (2) Diabetes (3) DKA (diabetic ketoacidoses) (4) Hypertension (5) Leg weakness DALY WHITNEY DO Aug 08, 2020 05:02
[2020-08-08] MEDS: inSUlin ASPART (NovoLOG) 1 UNIT/0.01 ML (CHARGE PER UNIT) SC SCH ×4 (06:36→21:14)
[2020-08-08] MEDS: inSUlin (REGULAR) HUMAN 1 UNIT/0.01 ML (CHARGE PER UNIT) SC SCH ×4 (06:37→21:16)
[2020-08-08] MEDS: metFORMIN XR 500 MG (GLUCOPHAGE XR) TAB PO SCH ×2 (06:38→17:38)
[2020-08-08 07:10] VITALS: BP 150/79
--- NOTE | 2020-08-08 08:29 | Occupational Ther Daily Note ---
OT Current Status-Daily Note Subjective Pt in bed, agreeable to OT tx. States his shoulders are a little sore, most likely from pulling himself up in bed. Mental Status/Objective Patient Orientation: Normal For Age ADL-Treatment Therapy Code Descriptions/Definitions Functional [place] Measure: 0=Not Assessed/NA 4=Minimal Assistance 1=Total Assistance 5=Supervision or Setup 2=Maximal Assistance 6=Modified [place] 3=Moderate Assistance 7=Complete IndependenceSCALE: Activities may be completed with or without assistive devices. 8-Elvuyhqaco-blbajhq completes the activity by him/herself with no assistance from a helper. 5-Set-up or Clean-up Assistance-helper sets up or cleans up; patient completes activity. [place] assists only prior to or following the activity. 4-Supervision or Touching Assistance-helper provides verbal cues and/or touching/steadying and/or contact guard assistance as patient completes activity. Assistance may be provided throughout the activity or intermittently. 3-Partial/Moderate Assistance-helper does LESS THAN HALF the effort. [place] lifts, holds or supports trunk or limbs, but provides less than half the effort. 2-Substantial/Maximal Assistance-helper does MORE THAN HALF the effort. [place] lifts or holds trunk or limbs and provides more than half the effort. 1-Qmvkvdked-dgvmkb does ALL the effort. Patient does none of the effort to complete the activity. Or, the assistance of 2 or more helpers is required for the patient to complete the activity. If activity was not attempted, code reason: 7-Patient Refused. 9-Not Applicable-not attempted and the patient did not perform the activity before the current illness, exacerbation or injury. 10-Not Attempted due to Environmental Limitations-(lack of equipment, weather restraints, etc.). 88-Not Attempted due to Medical Conditions or Safety Concerns. Eating (QC): 6 Upper Body Dressing (QC): 5 (set up) Lower Body Dressing (QC): 2 (Max A with education of AE) On/Off Footwear: 1 (total assist donning gripper socks.) Toileting Hygiene (QC): 1 (assist with clothing management and hygiene) Toilet Transfer (QC): 2 (Max A transfer bed to/from [facility] [place]. Multiple attempts to achieve stand from [facility] [place].) Other Treatment Pt laying in bed, doffed brief. OT educated pt on using AE for LE dressing. Pt donned underwear, max A. States need to toilet. Transferred supine to sit EOB, assist with trunk. At EOB, OT donned gripper socks for pt, pt donned UE clothing and back brace with set up assist. Pt transferred from EOB to [facility] [place]. He completed toileting, then used AE to don pants, max A. Pt required a couple of attempts to achieve stand from commode. Once in stand, OT performed pant hike, then pt transferred to EOB. Pt transferred supine, assist with BLEs. OT assisted pt with positioning to comfort. Post tx, pt laying in bed, call light in reach and all needs met. Education OT Patient Education: Correct positioning, Modified ADL techniques, Progress toward Goal/Update tx plan, Purpose of tx/functional activities, Rehab process, Transfer techniques, Use of adapted equipment Teaching Recipient: Patient Teaching Methods: Discussion Response to Teaching: Verbalize Understanding OT Short Term Goals Short Term Goals Time Frame: Aug 20, 2020 Oral hygiene: 5 Shower/bathe self: 3 Lower body dressin Putting on/taking off footwear: 3 OT Hogshead Wrecker Goals Hogshead Wrecker Goals Time Frame: Sep 04, 2020 Eating (QC): 6 Oral Hygiene (QC): 6 Toileting Hygiene (QC): 6 Shower/Bathe Self (QC): 6 Upper Body Dressing (QC): 6 Lower Body Dressing (QC): 6 On/Off Footwear (QC): 6 Additional Goals: 1-Demonstrate ADL Tasks, 2-Verbalize Understanding, 3- ImproveStrength/Jayshree 1=Demonstrate adherence to instructed precautions during ADL tasks. 2=Patient will verbalize/demonstrate understanding of assistive devices/modifications for ADL. 3=Patient will improve strength/tolerance for activity to enable patient to perform ADL's. OT Education/Plan Problem List/Assessment Assessment: Decreased Activ Tolerance, Decreased UE Strength, Dependent Transfers, Impaired Bed Mobility, Impaired Funct Balance, Impaired I ADL's, Impaired Self-Care Skills Discharge Recommendations Plan/Recommendations: Continue POC Treatment Plan/Plan of Care Patient would benefit from OT for education, treatment and training to promote independence in ADL's, mobility, safety and/or upper extremity function for ADL's. Plan of Care: ADL Retraining, Functional Mobility, Group Exercise/Act as Ind, UE Funct Exercise/Act Treatment Duration: Sep 04, 2020 Frequency: Modified Program (IRF) (27/08) Estimated Hrs Per Day: 1.5 hours per day Rehab Potential: Fair Time/GCodes Start Time: 07:50 Stop Time: 08:20 Total Time Billed (hr/min): 30 Billed Treatment Time 1, ADL 2 MED PETERSON OT Aug 08, 2020 08:29
[2020-08-08] MEDS: BACLOFEN 10 MG (LIORESAL) TAB PO SCH ×3 (08:32→21:09)
[2020-08-08] MEDS: glipiZIDE 5 MG (GLUCOTROL) TAB PO SCH ×2 (08:32→17:38)
[2020-08-08] MEDS: LACTOBACILLUS ACIDOPHILUS (PROBIOTIC) CAPSULE PO SCH (08:33)
[2020-08-08] MEDS: meTOprolol TARTRATE 25 MG (LOPRESSOR) TABLET PO SCH ×2 (08:33→21:08)
[2020-08-08] MEDS: ALLOPURINOL 100 MG (ZYLOPRIM) TAB PO SCH (08:33)
[2020-08-08] MEDS: lisINopril 20 MG (PRINIVIL) TABLET PO SCH ×2 (08:33→21:09)
[2020-08-08] MEDS: cloNIDine 0.2 MG (CATAPRES) TAB PO SCH ×3 (08:34→21:08)
[2020-08-08] MEDS: SENNA W/DOCUSATE (SENOKOT S) TABLET PO SCH ×2 (08:35→21:22)
[2020-08-08] MEDS: DOCUSATE SODIUM 100 MG (COLACE) CAP PO SCH ×2 (08:36→21:22)
[2020-08-08] MEDS: polyethylene glycoL POWDER 17 GM (MIRALAX) PACK PO SCH ×2 (08:36→21:22)
[2020-08-08] MEDS: TRIAMCINOLONE 0.1% OINT (KENALOG) 15 GM TUBE TOP SCH ×2 (08:53→21:14)
--- NOTE | 2020-08-08 10:11 | Physical Therapy Daily Note ---
PT Daily Note-Current Subjective "I'll do whatever it takes to get better" Mental Status Patient Orientation: Person, Place, Time, Situation Back brace in place throughout RX Transfers SCALE: Activities may be completed with or without assistive devices. 4-Cizknoomag-fljwtel completes the activity by him/herself with no assistance from a helper. 5-Set-up or Clean-up Assistance-helper sets up or cleans up; patient completes activity. [place] assists only prior to or following the activity. 4-Supervision or Touching Assistance-helper provides verbal cues and/or touching/steadying and/or contact guard assistance as patient completes activity. Assistance may be provided throughout the activity or intermittently. 3-Partial/Moderate Assistance-helper does LESS THAN HALF the effort. [place] lifts, holds or supports trunk or limbs, but provides less than half the effort. 2-Substantial/Maximal Assistance-helper does MORE THAN HALF the effort. [place] lifts or holds trunk or limbs and provides more than half the effort. 2-Dpykgrlfq-faxwad does ALL the effort. Patient does none of the effort to complete the activity. Or, the assistance of 2 or more helpers is required for the patient to complete the activity. If activity was not attempted, code reason: 7-Patient Refused. 9-Not Applicable-not attempted and the patient did not perform the activity before the current illness, exacerbation or injury. 10-Not Attempted due to Environmental Limitations-(lack of equipment, weather restraints, etc.). 88-Not Attempted due to Medical Conditions or Safety Concerns. Lying to Sitting/Side of Bed(Q: 3 (min assist to lift his torso; log roll technique and uses bed rail ) Sit to Stand (QC): 2 (mod assist with cues for hand placement and sequencing. ) Chair/Onw-gm-Debuv Xfer(QC): 2 Gait Training Pt walked 6' in // bars x 3 and 12' x 1 with min assist and followed by wc; on one rep, he was able to make 2 turns in the bars. Treatments Pt up in chair post treatment with needs met. Assessment Current Status: Good Progress Transfers improving and did well with ambulation in // bars today. Motivated and cooperatve. PT Short Term Goals Short Term Goals Time Frame: Aug 13, 2020 Roll Left & Right: 6 Sit to lyin Lying to sitting on side of be: 3 (met) Sit to stand: 3 Chair/ynd-gy-lwaxt transfer: 3 Walk 10 feet: 3 PT Office Workforce Planner Goals Office Workforce Planner Goals PT Skilled Nursing Goals Time Frame: Aug 27, 2020 Roll Left & Right (QC): 6 Sit to Lying (QC): 4 Lying-Sitting on Side/Bed(QC): 4 Sit to Stand (QC): 4 Chair/Irv-be-Jkrpu Xfer(QC): 4 Toilet Transfer (QC): 4 Car Transfer (QC): 4 Does the Patient Walk: Yes Walk 10 feet (QC): 4 Walk 50ft with 2 Turns (QC): 4 Walk 150 ft (QC): 88 Walking 10ft on Uneven Surface: 4 1 Step (curb) (QC): 4 4 Steps (QC): 4 12 Steps (QC): 88 Picking up an Object (QC): 88 Wheel 50 feet with 2 turns (QC: 6 Wheel 150 feet: 6 PT Plan Problem List Problem List: Activity Tolerance, Functional Strength, Safety, Balance, Gait, Transfer, Bed Mobility Treatment/Plan Treatment Plan: Continue Plan of Care Treatment Plan: Bed Mobility, Education, Functional Activity Jayshree, Functional Strength, Group Therapy, Gait, Safety, Therapeutic Exercise, Transfers Treatment Duration: Aug 27, 2020 Frequency: At least 5 of 7 days/Wk (IRF) Estimated Hrs Per Day: 1.5 hours per day Patient and/or Family Agrees t: Yes Safety Risks/Education Patient Education: Gait Training, Transfer Techniques, Safety Issues Teaching Recipient: Patient Teaching Methods: Demonstration, Discussion Response to Teaching: Verbalize Understanding, Reinforcement Needed Time/GCodes Time In: 940 Time Out: 1006 Total Billed Treatment Time: 26 Total Billed Treatment visit FA 26 MODESTA CHEN PT Aug 08, 2020 10:11
[2020-08-08 13:45] VITALS: BP 146/74
[2020-08-08] MEDS: ENOXAPARIN 40 MG/0.4 ML (LOVENOX) SYR SC SCH (14:00)
[2020-08-08 20:00] VITALS: BP 144/80
[2020-08-08] MEDS: SIMvastatin 10 MG (ZOCOR) TAB PO SCH (21:08)
[2020-08-09] MEDS: inSUlin ASPART (NovoLOG) 1 UNIT/0.01 ML (CHARGE PER UNIT) SC SCH ×4 (05:07→21:03)
[2020-08-09] MEDS: metFORMIN XR 500 MG (GLUCOPHAGE XR) TAB PO SCH ×2 (06:29→17:39)
[2020-08-09] MEDS: inSUlin (REGULAR) HUMAN 1 UNIT/0.01 ML (CHARGE PER UNIT) SC SCH ×4 (06:31→20:58)
[2020-08-09 08:07] VITALS: BP 138/74
[2020-08-09] MEDS: LACTOBACILLUS ACIDOPHILUS (PROBIOTIC) CAPSULE PO SCH (08:09)
[2020-08-09] MEDS: glipiZIDE 5 MG (GLUCOTROL) TAB PO SCH ×2 (08:09→17:39)
[2020-08-09] MEDS: polyethylene glycoL POWDER 17 GM (MIRALAX) PACK PO SCH ×2 (08:10→21:03)
[2020-08-09] MEDS: DOCUSATE SODIUM 100 MG (COLACE) CAP PO SCH ×2 (08:10→21:02)
[2020-08-09] MEDS: SENNA W/DOCUSATE (SENOKOT S) TABLET PO SCH ×2 (08:10→21:03)
[2020-08-09] MEDS: lisINopril 20 MG (PRINIVIL) TABLET PO SCH ×2 (08:10→20:52)
[2020-08-09] MEDS: BACLOFEN 10 MG (LIORESAL) TAB PO SCH ×3 (08:11→20:51)
[2020-08-09] MEDS: meTOprolol TARTRATE 25 MG (LOPRESSOR) TABLET PO SCH ×2 (08:11→20:51)
[2020-08-09] MEDS: ALLOPURINOL 100 MG (ZYLOPRIM) TAB PO SCH (08:11)
[2020-08-09] MEDS: cloNIDine 0.2 MG (CATAPRES) TAB PO SCH ×3 (08:12→20:55)
[2020-08-09] MEDS: TRIAMCINOLONE 0.1% OINT (KENALOG) 15 GM TUBE TOP SCH ×2 (08:13→20:59)
[2020-08-09 12:34] VITALS: BP 117/74
[2020-08-09] MEDS: ENOXAPARIN 40 MG/0.4 ML (LOVENOX) SYR SC SCH (14:43)
--- NOTE | 2020-08-09 17:18 | PM&R Progress Note ---
Subjective HPI/CC On Admission Date Seen by Provider: Aug 09, 2020 Time Seen by Provider: 17:20 Subjective/Events-last exam 08/09/20: Patient doing well BM today Back pain improved Increased movement now Better today 08/08/20: Patient in a good mood Baclofen is working well for him so will maintain this Pain controlled High sugars requiring addition of insulin Wants tacos from home 08/07/2020: Patient doing pretty well Pain is still an issue Baclofen was ordered to help his back spasms No bowels are moving since loose stools for several days Adjusted insulin after reviewing several Accu-Cheks 08/06/2020: Patient doing pretty well Very motivated to walk Loose stool so holding laxatives Right knee really hurts Sodium level 128 so we will discontinue the indapamide Review of Systems General: Fatigue Musculoskeletal: back pain Objective Exam Vital Signs Vital Signs Date Time Temp Pulse Resp B/P (MAP) Pulse Ox O2 Delivery O2 Flow Rate FiO2 08/09/20 20:58 96 Room Air 08/09/20 20:00 37.4 85 18 124/72 (89) Capillary Refill : General Appearance: No Apparent Distress, WD/WN, Chronically ill HEENT: PERRL/EOMI, Normal ENT Inspection, Pharynx Normal Neck: Full Range of Motion, Normal Inspection, Non Tender, Supple, Carotid Bruit Respiratory: Chest Non Tender, Lungs Clear, Normal Breath Sounds, No Accessory Muscle Use, No Respiratory Distress Cardiovascular: Regular Rate, Rhythm, No Edema, No Gallop, No JVD, No Murmur, Normal Peripheral Pulses Gastrointestinal: Normal Bowel Sounds, No Organomegaly, No Pulsatile Mass, Non Tender, Soft Back: Decreased Range of Motion, Muscle Spasm, Vertebral Tenderness Extremity: Normal Capillary Refill, Normal Inspection, Normal Range of Motion (Weakness of legs), Non Tender, No Calf Tenderness, No Pedal Edema Neurologic/Psychiatric: Alert, Oriented x3, No Motor/Sensory Deficits, Normal Mood/Affect, Motor Weakness (Leg weakness 3/5) Skin: Normal Color, Warm/Dry Lymphatic: No Adenopathy Results/Procedures Lab Laboratory Tests 08/10/20 05:24 Patient resulted labs reviewed. FIM Transfers Therapy Code Descriptions/Definitions Functional [place] Measure: 0=Not Assessed/NA 4=Minimal Assistance 1=Total Assistance 5=Supervision or Setup 2=Maximal Assistance 6=Modified [place] 3=Moderate Assistance 7=Complete IndependenceSCALE: Activities may be completed with or without assistive devices. 6-Fibekcflef-tndjqmo completes the activity by him/herself with no assistance from a helper. 5-Set-up or Clean-up Assistance-helper sets up or cleans up; patient completes activity. [place] assists only prior to or following the activity. 4-Supervision or Touching Assistance-helper provides verbal cues and/or touching/steadying and/or contact guard assistance as patient completes activity. Assistance may be provided throughout the activity or intermittently. 3-Partial/Moderate Assistance-helper does LESS THAN HALF the effort. [place] lifts, holds or supports trunk or limbs, but provides less than half the effort. 2-Substantial/Maximal Assistance-helper does MORE THAN HALF the effort. [place] lifts or holds trunk or limbs and provides more than half the effort. 2-Axjzawatg-foavfg does ALL the effort. Patient does none of the effort to complete the activity. Or, the assistance of 2 or more helpers is required for the patient to complete the activity. If activity was not attempted, code reason: 7-Patient Refused. 9-Not Applicable-not attempted and the patient did not perform the activity before the current illness, exacerbation or injury. 10-Not Attempted due to Environmental Limitations-(lack of equipment, weather restraints, etc.). 88-Not Attempted due to Medical Conditions or Safety Concerns. Roll Left to Right (QC): 3 Sit to Lying (QC): 3 Sit to Stand (QC): 2 (mod assist with cues for hand placement and sequencing. ) Chair/Dvu-as-Ppnxw Xfer(QC): 2 Car Transfer (QC): 2 Gait Training Does the Patient Walk?: No and Walking Goal IS indicated Distance: 6'x3 Walk 10 feet (QC): 88 Walk 50 ft with 2 Turns(QC): 88 Walk 150 ft (QC): 88 Walking 10ft/uneven surface-QC: 88 Gait Assistive Device: Parallel Bars Wheelchair Training Does the Pt Use a Wheelchair?: Yes Distance: 150'x2 Wheel 50 ft with 2 turns (QC): 3 Wheel 150 ft (QC): 4 Type of Wheelchair: Manual Stair Training 1 Step (curb) (QC): 88 4 Steps (QC): 88 12 Steps (QC): 88 Balance Picking up an Object (QC): 88 ADL-Treatment Eating (QC): 6 Oral Hygiene (QC): 3 (per pt report, assist with rinsing dentures this AM) Shower/Bathe Self (QC): 2 (Pt washed BUEs, chest/abdomen, periarea, and thighs. Assist to wash BLE lower legs/feet and buttocks.) Upper Body Dressing (QC): 5 (set up) Lower Body Dressing (QC): 2 (Max A with education of AE) On/Off Footwear (QC): 1 (total assist donning gripper socks.) Toileting Hygiene (QC): 1 (assist with clothing management and hygiene) Toilet Transfer (QC): 2 (Max A transfer bed to/from [facility] [place] [facility]. Multiple attempts to achieve stand from [facility].) Assessment/Plan Assessment and Plan Assess & Plan/Chief Complaint Assessment: Status post lumbar spine surgery with severe debility and leg weakness Recent DKA Duc-pk-vqrcmhm diabetes history Hypertension Chronic arthritis pain Plan: Pain control Diabetes management Blood pressure management Inpatient rehab protocol 08/06/2020: Hold laxatives DC indapamide Monitor closely Fall risk 08/07/2020: Increase insulin Aggressive therapy 08/08/20: Increase insulin Baclofen 08/09/20: Monitor sugar Back pain management (1) Status post lumbar spine surgery for decompression of spinal cord (2) Diabetes (3) DKA (diabetic ketoacidoses) (4) Hypertension (5) Leg weakness DALY WHITNEY DO Aug 09, 2020 17:18
[2020-08-09 20:00] VITALS: BP 124/72
[2020-08-09] MEDS: SIMvastatin 10 MG (ZOCOR) TAB PO SCH (20:52)
[2020-08-10 05:51] LABS: BASOPHILS # (AUTO) 0.1 10^3/uL (0.0-0.1); BASOPHILS % (AUTO) 2 % (0-10); EOSINOPHILS # (AUTO) 0.2 10^3/uL (0.0-0.3); EOSINOPHILS % (AUTO) 3 % (0-10); HEMATOCRIT 39 % (40-54); HEMOGLOBIN 13.2 g/dL (13.3-17.7); LYMPHOCYTES # (AUTO) 1.5 10^3/uL (1.0-4.0); LYMPHOCYTES % (AUTO) 21 % (12-44); MEAN CORPUSCULAR HEMOGLOBIN 27 pg (25-34); MEAN CORPUSCULAR HGB CONC 34 g/dL (32-36); MEAN CORPUSCULAR VOLUME 81 fL (80-99); MONOCYTES % (AUTO) 14 % (0-12); NEUTROPHILS # (AUTO) 4.1 10^3/uL (1.8-7.8); NEUTROPHILS % (AUTO) 58 % (42-75); PLATELET COUNT 259 10^3/uL (130-400); WHITE BLOOD COUNT 7.1 10^3/uL (4.3-11.0)
[2020-08-10] MEDS: inSUlin ASPART (NovoLOG) 1 UNIT/0.01 ML (CHARGE PER UNIT) SC SCH ×4 (06:00→20:44)
[2020-08-10 06:04] LABS: ALBUMIN 3.1 GM/DL (3.2-4.5); CHLORIDE 99 MMOL/L (98-107); POTASSIUM 4.2 MMOL/L (3.6-5.0); SODIUM 134 MMOL/L (135-145)
[2020-08-10 06:06] LABS: CALCIUM 9.7 MG/DL (8.5-10.1)
[2020-08-10 06:07] LABS: GLUCOSE 151 MG/DL (70-105); TOTAL PROTEIN 6.7 GM/DL (6.4-8.2)
[2020-08-10 06:08] LABS: CARBON DIOXIDE 23 MMOL/L (21-32)
[2020-08-10 06:09] LABS: BILIRUBIN,TOTAL 0.5 MG/DL (0.1-1.0)
[2020-08-10 06:10] LABS: ALKALINE PHOSPHATASE 81 U/L (40-136); CREATININE SERUM 0.64 MG/DL (0.60-1.30); GFR ESTIMATED > 60
[2020-08-10 06:11] LABS: BUN/CREATININE RATIO 23
[2020-08-10 06:13] LABS: ALANINE AMINOTRANSFERASE 14 U/L (0-55)
--- NOTE | 2020-08-10 06:30 | PM&R Progress Note ---
Subjective HPI/CC On Admission Date Seen by Provider: Aug 10, 2020 Time Seen by Provider: 11:15 Subjective/Events-last exam 08/10/2020: Pt doing really well Had a large bowel movement yesterday Temperature at 99.4 but no other issues Sugars are better Talked to him about insulin at discharge 08/09/20: Patient doing well BM today Back pain improved Increased movement now Better today 08/08/20: Patient in a good mood Baclofen is working well for him so will maintain this Pain controlled High sugars requiring addition of insulin Wants tacos from home 08/07/2020: Patient doing pretty well Pain is still an issue Baclofen was ordered to help his back spasms No bowels are moving since loose stools for several days Adjusted insulin after reviewing several Accu-Cheks 08/06/2020: Patient doing pretty well Very motivated to walk Loose stool so holding laxatives Right knee really hurts Sodium level 128 so we will discontinue the indapamide Review of Systems General: Fatigue, Malaise Musculoskeletal: back pain Objective Exam Vital Signs Vital Signs Date Time Temp Pulse Resp B/P (MAP) Pulse Ox O2 Delivery O2 Flow Rate FiO2 08/10/20 20:10 Room Air 08/10/20 20:02 36.5 86 18 130/81 (97) 98 Capillary Refill : General Appearance: No Apparent Distress, WD/WN, Chronically ill HEENT: PERRL/EOMI, Normal ENT Inspection, Pharynx Normal Neck: Full Range of Motion, Normal Inspection, Non Tender, Supple, Carotid Bruit Respiratory: Chest Non Tender, Lungs Clear, Normal Breath Sounds, No Accessory Muscle Use, No Respiratory Distress Cardiovascular: Regular Rate, Rhythm, No Edema, No Gallop, No JVD, No Murmur, Normal Peripheral Pulses Gastrointestinal: Normal Bowel Sounds, No Organomegaly, No Pulsatile Mass, Non Tender, Soft Back: Decreased Range of Motion, Muscle Spasm, Vertebral Tenderness Extremity: Normal Capillary Refill, Normal Inspection, Normal Range of Motion, Non Tender, No Calf Tenderness, No Pedal Edema Neurologic/Psychiatric: Alert, Oriented x3, No Motor/Sensory Deficits, Normal Mood/Affect, Motor Weakness Skin: Normal Color, Warm/Dry Lymphatic: No Adenopathy Results/Procedures Lab Laboratory Tests 08/10/20 05:24 Patient resulted labs reviewed. FIM Transfers Therapy Code Descriptions/Definitions Functional [place] Measure: 0=Not Assessed/NA 4=Minimal Assistance 1=Total Assistance 5=Supervision or Setup 2=Maximal Assistance 6=Modified [place] 3=Moderate Assistance 7=Complete IndependenceSCALE: Activities may be completed with or without assistive devices. 4-Ohlevrnkbb-qunckcw completes the activity by him/herself with no assistance fr om a helper. 5-Set-up or Clean-up Assistance-helper sets up or cleans up; patient completes activity. [place] assists only prior to or following the activity. 4-Supervision or Touching Assistance-helper provides verbal cues and/or touching/steadying and/or contact guard assistance as patient completes activity. Assistance may be provided throughout the activity or intermittently. 3-Partial/Moderate Assistance-helper does LESS THAN HALF the effort. [place] lifts, holds or supports trunk or limbs, but provides less than half the effort. 2-Substantial/Maximal Assistance-helper does MORE THAN HALF the effort. [place] lifts or holds trunk or limbs and provides more than half the effort. 7-Ppafrjeju-qrziqe does ALL the effort. Patient does none of the effort to complete the activity. Or, the assistance of 2 or more helpers is required for the patient to complete the activity. If activity was not attempted, code reason: 7-Patient Refused. 9-Not Applicable-not attempted and the patient did not perform the activity before the current illness, exacerbation or injury. 10-Not Attempted due to Environmental Limitations-(lack of equipment, weather restraints, etc.). 88-Not Attempted due to Medical Conditions or Safety Concerns. Roll Left to Right (QC): 3 Sit to Lying (QC): 3 Sit to Stand (QC): 2 (mod assist with cues for hand placement and sequencing. ) Chair/Zkk-rv-Nbhct Xfer(QC): 2 Car Transfer (QC): 2 Gait Training Does the Patient Walk?: No and Walking Goal IS indicated Distance: 6'x3 Walk 10 feet (QC): 88 Walk 50 ft with 2 Turns(QC): 88 Walk 150 ft (QC): 88 Walking 10ft/uneven surface-QC: 88 Gait Assistive Device: Parallel Bars Wheelchair Training Does the Pt Use a Wheelchair?: Yes Distance: 150'x2 Wheel 50 ft with 2 turns (QC): 3 Wheel 150 ft (QC): 4 Type of Wheelchair: Manual Stair Training 1 Step (curb) (QC): 88 4 Steps (QC): 88 12 Steps (QC): 88 Balance Picking up an Object (QC): 88 ADL-Treatment Eating (QC): 6 Oral Hygiene (QC): 3 (per pt report, assist with rinsing dentures this AM) Shower/Bathe Self (QC): 2 (Pt washed BUEs, chest/abdomen, periarea, and thighs. Assist to wash BLE lower legs/feet and buttocks.) Upper Body Dressing (QC): 5 (set up) Lower Body Dressing (QC): 2 (Max A with education of AE) On/Off Footwear (QC): 1 (total assist donning gripper socks.) Toileting Hygiene (QC): 1 (assist with clothing management and hygiene) Toilet Transfer (QC): 2 (Max A transfer bed to/from [facility]. Multiple attempts to achieve stand from [facility].) Assessment/Plan Assessment and Plan Assess & Plan/Chief Complaint Assessment: Status post lumbar spine surgery with severe debility and leg weakness Recent DKA Ckz-kz-zaclgfb diabetes history Hypertension Chronic arthritis pain Plan: Pain control Diabetes management Blood pressure management Inpatient rehab protocol 08/06/2020: Hold laxatives DC indapamide Monitor closely Fall risk 08/07/2020: Increase insulin Aggressive therapy 08/08/20: Increase insulin Baclofen 08/09/20: Monitor sugar Back pain management 08/10/2020: Monitor blood sugar Insulin at discharge will be required (1) Status post lumbar spine surgery for decompression of spinal cord (2) Diabetes (3) DKA (diabetic ketoacidoses) (4) Hypertension (5) Leg weakness DALY WHITNEY DO Aug 10, 2020 06:30
[2020-08-10] MEDS: inSUlin (REGULAR) HUMAN 1 UNIT/0.01 ML (CHARGE PER UNIT) SC SCH ×4 (06:37→20:44)
[2020-08-10] MEDS: metFORMIN XR 500 MG (GLUCOPHAGE XR) TAB PO SCH ×2 (06:37→17:24)
[2020-08-10 07:19] VITALS: BP 153/73
[2020-08-10] MEDS: glipiZIDE 5 MG (GLUCOTROL) TAB PO SCH ×2 (08:17→17:24)
[2020-08-10] MEDS: LACTOBACILLUS ACIDOPHILUS (PROBIOTIC) CAPSULE PO SCH (08:17)
[2020-08-10] MEDS: ALLOPURINOL 100 MG (ZYLOPRIM) TAB PO SCH (08:17)
[2020-08-10] MEDS: meTOprolol TARTRATE 25 MG (LOPRESSOR) TABLET PO SCH ×2 (08:17→20:44)
[2020-08-10] MEDS: DOCUSATE SODIUM 100 MG (COLACE) CAP PO SCH ×2 (08:18→20:45)
[2020-08-10] MEDS: lisINopril 20 MG (PRINIVIL) TABLET PO SCH ×2 (08:18→20:45)
[2020-08-10] MEDS: SENNA W/DOCUSATE (SENOKOT S) TABLET PO SCH ×2 (08:18→20:04)
[2020-08-10] MEDS: BACLOFEN 10 MG (LIORESAL) TAB PO SCH ×3 (08:18→20:44)
[2020-08-10] MEDS: cloNIDine 0.2 MG (CATAPRES) TAB PO SCH ×2 (08:19→12:13)
[2020-08-10] MEDS: TRIAMCINOLONE 0.1% OINT (KENALOG) 15 GM TUBE TOP SCH ×2 (08:20→20:45)
[2020-08-10] MEDS: polyethylene glycoL POWDER 17 GM (MIRALAX) PACK PO SCH ×2 (08:23→20:04)
--- NOTE | 2020-08-10 08:44 | Occupational Ther Daily Note ---
OT Current Status-Daily Note Subjective Pt laying in bed, agreeable to OT Tx with focus on ADLs. Mental Status/Objective Patient Orientation: Normal For Age Attachments: Other-See Comments (back brace OOB) ADL-Treatment Therapy Code Descriptions/Definitions Functional [place] Measure: 0=Not Assessed/NA 4=Minimal Assistance 1=Total Assistance 5=Supervision or Setup 2=Maximal Assistance 6=Modified [place] 3=Moderate Assistance 7=Complete IndependenceSCALE: Activities may be completed with or without assistive devices. 2-Uriojjryim-ddhvxxz completes the activity by him/herself with no assistance from a helper. 5-Set-up or Clean-up Assistance-helper sets up or cleans up; patient completes activity. [place] assists only prior to or following the activity. 4-Supervision or Touching Assistance-helper provides verbal cues and/or touching/steadying and/or contact guard assistance as patient completes activity. Assistance may be provided throughout the activity or intermittently. 3-Partial/Moderate Assistance-helper does LESS THAN HALF the effort. [place] lifts, holds or supports trunk or limbs, but provides less than half the effort. 2-Substantial/Maximal Assistance-helper does MORE THAN HALF the effort. [place] lifts or holds trunk or limbs and provides more than half the effort. 1-Jljxfeewb-xoxmrh does ALL the effort. Patient does none of the effort to complete the activity. Or, the assistance of 2 or more helpers is required for the patient to complete the activity. If activity was not attempted, code reason: 7-Patient Refused. 9-Not Applicable-not attempted and the patient did not perform the activity before the current illness, exacerbation or injury. 10-Not Attempted due to Environmental Limitations-(lack of equipment, weather restraints, etc.). 88-Not Attempted due to Medical Conditions or Safety Concerns. Eating (QC): 6 Oral Hygiene (QC): 6 (seated at sink.) Shower/Bathe Self (QC): 3 (Min A sponge bath at bed level/EOB. Pt able to use LH sponge to wash lower legs, min A with washing feet.) Upper Body Dressing (QC): 5 (set up with hook puller shirt and back brace.) Lower Body Dressing (QC): 3 (Pt able to don underwear at bed level using registry nurse, rolled side to side for pant hike. Pt donned pants EOB using AE, min A for pant hike standing at FWW.) On/Off Footwear: 4 (SBA with sock aide to don bilateral gripper socks. OT provided education on AE, and pt required 1 verbal cue for correct technique.) Other Treatment Pt laying in bed, agreeable to OT Tx. Pt completed sponge bath at bed level. OT provided pt with long handled sponge, pt able to use LH sponge to wash lower legs, required assistance with feet. Pt donned underwear at bed level, using AE, rolled side to side to complete pant hike. Pt transferred to EOB with SBA, donning shirt and back brace. OT educated pt on using sock aide, pt able to don socks with SBA, requiring 1 verbal cue for correct technique. Pt threaded pants, then stood at FWW, min A provided for pant hike. Sit to stand min A. Pt transferred to w/c, then taken into bathroom. Pt completed oral care and shaving independently seated at sink. Post tx, pt seated in w/c, call light in reach and all needs met. Education OT Patient Education: Correct positioning, Modified ADL techniques, Progress toward Goal/Update tx plan, Purpose of tx/functional activities Teaching Recipient: Patient Teaching Methods: Discussion Response to Teaching: Verbalize Understanding OT Short Term Goals Short Term Goals Time Frame: Aug 20, 2020 Oral hygiene: 5 Shower/bathe self: 3 Lower body dressin Putting on/taking off footwear: 3 OT Usp Goals Polarity Tester Goals Time Frame: Sep 04, 2020 Eating (QC): 6 Oral Hygiene (QC): 6 Toileting Hygiene (QC): 6 Shower/Bathe Self (QC): 6 Upper Body Dressing (QC): 6 Lower Body Dressing (QC): 6 On/Off Footwear (QC): 6 Additional Goals: 1-Demonstrate ADL Tasks, 2-Verbalize Understanding, 3-ImproveStrength/Jayshree 1=Demonstrate adherence to instructed precautions during ADL tasks. 2=Patient will verbalize/demonstrate understanding of assistive devices/modifications for ADL. 3=Patient will improve strength/tolerance for activity to enable patient to perform ADL's. OT Education/Plan Problem List/Assessment Assessment: Decreased Activ Tolerance, Decreased UE Strength, Impaired Bed Mobility, Impaired Funct Balance, Impaired I ADL's, Impaired Self-Care Skills, Restricted Funct UE ROM Discharge Recommendations Plan/Recommendations: Continue POC Treatment Plan/Plan of Care Patient would benefit from OT for education, treatment and training to promote independence in ADL's, mobility, safety and/or upper extremity function for ADL's. Plan of Care: ADL Retraining, Functional Mobility, Group Exercise/Act as Ind, UE Funct Exercise/Act Treatment Duration: Sep 04, 2020 Frequency: Modified Program (IRF) (27/08) Estimated Hrs Per Day: 1.5 hours per day Rehab Potential: Fair Time/GCodes Start Time: 08:00 Stop Time: 09:00 Total Time Billed (hr/min): 60 Billed Treatment Time 1, ADL 4 MED PETERSON OT Aug 10, 2020 08:44
--- NOTE | 2020-08-10 11:35 | Physical Therapy Daily Note ---
PT Daily Note-Current Subjective Patient in WC in room pre tx, agrees to PT, has 8/10 pain (nurse notified). Appearance Patient in bed post tx with nurse call, phone, tray, all needs met. Mental Status Patient Orientation: Person, Place, Situation back brace Transfers SCALE: Activities may be completed with or without assistive devices. 0-Owzoeiorgs-iueunny completes the activity by him/herself with no assistance from a helper. 5-Set-up or Clean-up Assistance-helper sets up or cleans up; patient completes activity. [place] assists only prior to or following the activity. 4-Supervision or Touching Assistance-helper provides verbal cues and/or touching/steadying and/or contact guard assistance as patient completes activity. Assistance may be provided throughout the activity or intermittently. 3-Partial/Moderate Assistance-helper does LESS THAN HALF the effort. [place] lifts, holds or supports trunk or limbs, but provides less than half the effort. 2-Substantial/Maximal Assistance-helper does MORE THAN HALF the effort. [place] lifts or holds trunk or limbs and provides more than half the effort. 1-Fxojethrb-enfwna does ALL the effort. Patient does none of the effort to complete the activity. Or, the assistance of 2 or more helpers is required for the patient to complete the activity. If activity was not attempted, code reason: 7-Patient Refused. 9-Not Applicable-not attempted and the patient did not perform the activity before the current illness, exacerbation or injury. 10-Not Attempted due to Environmental Limitations-(lack of equipment, weather restraints, etc.). 88-Not Attempted due to Medical Conditions or Safety Concerns. Roll Left & Right (QC): 6 Sit to Lying (QC): 4 Sit to Stand (QC): 3 Chair/Trs-zf-Lezbl Xfer(QC): 3 Patient can now stand from his WC with mod assist and uses a rolling walker for transfers with min assist Gait Training Distance: 20'x3 Walk 10 feet (QC): 4 Gait Assistive Device: FWW Patient ambulated 20' x3 with a rolling walker with CGA, patient leans heavily on his arms and tends to have the walker too far in front, patient is unsteady, ambulation is painful Wheelchair Training Does the Pt Use a Wheelchair?: Yes Wheel 50 ft with 2 turns (QC): 4 Type of Wheelchair: Manual 120'x2 Exercises NuStep Minutes: 15 NuStep Workload: 4 Treatments bed mobility and transfers, ambulation, functional strengthening Assessment Current Status: Fair Progress slowly improving functional mobility, was able to ambulate using a rolling walker today, patient needed many rest breaks due to pain and fatigue PT Short Term Goals Short Term Goals Time Frame: Aug 13, 2020 Roll Left & Right: 6 Sit to lyin Lying to sitting on side of be: 3 (met) Sit to stand: 3 Chair/byv-at-sxjfn transfer: 3 Walk 10 feet: 3 PT Slope Tender Goals Slope Tender Goals PT Correction Goals Time Frame: Aug 27, 2020 Roll Left & Right (QC): 6 Sit to Lying (QC): 4 Lying-Sitting on Side/Bed(QC): 4 Sit to Stand (QC): 4 Chair/Qog-xe-Uckgx Xfer(QC): 4 Toilet Transfer (QC): 4 Car Transfer (QC): 4 Does the Patient Walk: Yes Walk 10 feet (QC): 4 Walk 50ft with 2 Turns (QC): 4 Walk 150 ft (QC): 88 Walking 10ft on Uneven Surface: 4 1 Step (curb) (QC): 4 4 Steps (QC): 4 12 Steps (QC): 88 Picking up an Object (QC): 88 Wheel 50 feet with 2 turns (QC: 6 Wheel 150 feet: 6 PT Plan Problem List Problem List: Activity Tolerance, Functional Strength, Safety, Balance, Gait, Transfer, Bed Mobility, ROM Treatment/Plan Treatment Plan: Continue Plan of Care Treatment Plan: Bed Mobility, Education, Functional Activity Jayshree, Functional Strength, Group Therapy, Gait, Safety, Therapeutic Exercise, Transfers Treatment Duration: Aug 27, 2020 Frequency: At least 5 of 7 days/Wk (IRF) Estimated Hrs Per Day: 1.5 hours per day Patient and/or Family Agrees t: Yes Safety Risks/Education Patient Education: Gait Training, Transfer Techniques, Correct Positioning, W/C Management, Reviewed Don/Doff Brace, Safety Issues Teaching Recipient: Patient Teaching Methods: Demonstration, Discussion Response to Teaching: Reinforcement Needed Time/GCodes Time In: 0900 Time Out: 1000 Total Billed Treatment Time: 60 Total Billed Treatment 1 visit EX 15' FA 45' AMANDA CHAPA PT Aug 10, 2020 11:34
--- NOTE | 2020-08-10 12:02 | Occupational Ther Daily Note ---
OT Current Status-Daily Note Subjective Pt laying in bed, states he is tired and would like to rest, with encouragement agreeable to OT Tx. ADL-Treatment Therapy Code Descriptions/Definitions Functional Page Measure: 0=Not Assessed/NA 4=Minimal Assistance 1=Total Assistance 5=Supervision or Setup 2=Maximal Assistance 6=Modified Page 3=Moderate Assistance 7=Complete IndependenceSCALE: Activities may be completed with or without assistive devices. 6-Ypsqdqjqbl-nmycmhm completes the activity by him/herself with no assistance from a helper. 5-Set-up or Clean-up Assistance-helper sets up or cleans up; patient completes activity. [place] assists only prior to or following the activity. 4-Supervision or Touching Assistance-helper provides verbal cues and/or touching/steadying and/or contact guard assistance as patient completes activity. Assistance may be provided throughout the activity or intermittently. 3-Partial/Moderate Assistance-helper does LESS THAN HALF the effort. [place] lifts, holds or supports trunk or limbs, but provides less than half the effort. 2-Substantial/Maximal Assistance-helper does MORE THAN HALF the effort. [place] lifts or holds trunk or limbs and provides more than half the effort. 5-Hbqpoqwyi-opmfnu does ALL the effort. Patient does none of the effort to complete the activity. Or, the assistance of 2 or more helpers is required for the patient to complete the activity. If activity was not attempted, code reason: 7-Patient Refused. 9-Not Applicable-not attempted and the patient did not perform the activity before the current illness, exacerbation or injury. 10-Not Attempted due to Environmental Limitations-(lack of equipment, weather restraints, etc.). 88-Not Attempted due to Medical Conditions or Safety Concerns. Other Treatment Pt laying in bed, transferred supine to sit EOB with SBA, then min A transfer to recliner. Pt performed x10 reps for the following UE exercises using moderate resistance theraband: shoulder flexion, elbow flexion, elbow extension, horizontal abduction, and external rotation. Pt required min verbal skilled cues for correct technique. OT assisted pt with positioning to comfort. Post tx, pt seated up in recliner, call light in reach and all needs met. Education OT Patient Education: Correct positioning, Exercise program, Home exercise program, Modified ADL techniques, Progress toward Goal/Update tx plan, Purpose of tx/functional activities, Rehab process Teaching Recipient: Patient Teaching Methods: Discussion Response to Teaching: Verbalize Understanding OT Short Term Goals Short Term Goals Time Frame: Aug 20, 2020 Oral hygiene: 5 Shower/bathe self: 3 Lower body dressin Putting on/taking off footwear: 3 OT Miter Operator Goals Intermediate Goals Time Frame: Sep 04, 2020 Eating (QC): 6 Oral Hygiene (QC): 6 Toileting Hygiene (QC): 6 Shower/Bathe Self (QC): 6 Upper Body Dressing (QC): 6 Lower Body Dressing (QC): 6 On/Off Footwear (QC): 6 Additional Goals: 1-Demonstrate ADL Tasks, 2-Verbalize Understanding, 3- ImproveStrength/Jayshree 1=Demonstrate adherence to instructed precautions during ADL tasks. 2=Patient will verbalize/demonstrate understanding of assistive devices/modifications for ADL. 3=Patient will improve strength/tolerance for activity to enable patient to perform ADL's. OT Education/Plan Problem List/Assessment Assessment: Decreased Activ Tolerance, Decreased UE Strength, Impaired I ADL's, Impaired Self-Care Skills, Restricted Funct UE ROM Discharge Recommendations Plan/Recommendations: Continue POC Treatment Plan/Plan of Care Patient would benefit from OT for education, treatment and training to promote independence in ADL's, mobility, safety and/or upper extremity function for ADL's. Plan of Care: ADL Retraining, Functional Mobility, Group Exercise/Act as Ind, UE Funct Exercise/Act Treatment Duration: Sep 04, 2020 Frequency: Modified Program (IRF) (27/08) Estimated Hrs Per Day: 1.5 hours per day Rehab Potential: Fair Time/GCodes Start Time: 11:30 Stop Time: 12:00 Total Time Billed (hr/min): 30 Billed Treatment Time 1, FA (15'), EX (15') MED PETERSON OT Aug 10, 2020 12:02
[2020-08-10 12:13] VITALS: BP 112/70
--- NOTE | 2020-08-10 14:52 | Physical Therapy Daily Note ---
PT Daily Note-Current Subjective Pt. declines aftn Rx x 2 c/o he has been so dizzy, fatigued and in so much pain and had low BP, Nurse confirms some of pts c/o Pain Numeric Pain Scale: 5-Moderate Pain Location: Medial Location Body Site: Back Mental Status Patient Orientation: Normal For Age Transfers SCALE: Activities may be completed with or without assistive devices. 4-Rmcwippfsw-tdagvqg completes the activity by him/herself with no assistance from a helper. 5-Set-up or Clean-up Assistance-helper sets up or cleans up; patient completes activity. [place] assists only prior to or following the activity. 4-Supervision or Touching Assistance-helper provides verbal cues and/or touching /steadying and/or contact guard assistance as patient completes activity. Assistance may be provided throughout the activity or intermittently. 3-Partial/Moderate Assistance-helper does LESS THAN HALF the effort. [place] lifts, holds or supports trunk or limbs, but provides less than half the effort. 2-Substantial/Maximal Assistance-helper does MORE THAN HALF the effort. [place] lifts or holds trunk or limbs and provides more than half the effort. 7-Rmqyjlgxp-moerkc does ALL the effort. Patient does none of the effort to complete the activity. Or, the assistance of 2 or more helpers is required for the patient to complete the activity. If activity was not attempted, code reason: 7-Patient Refused. 9-Not Applicable-not attempted and the patient did not perform the activity before the current illness, exacerbation or injury. 10-Not Attempted due to Environmental Limitations-(lack of equipment, weather restraints, etc.). 88-Not Attempted due to Medical Conditions or Safety Concerns. Assessment Current Status: Refused Treatment PT Short Term Goals Short Term Goals Time Frame: Aug 13, 2020 Roll Left & Right: 6 Sit to lyin Lying to sitting on side of be: 3 (met) Sit to stand: 3 Chair/akp-py-ypkrc transfer: 3 Walk 10 feet: 3 PT Representative Government Relations Goals Half-Way Goals PT Representative Government Relations Goals Time Frame: Aug 27, 2020 Roll Left & Right (QC): 6 Sit to Lying (QC): 4 Lying-Sitting on Side/Bed(QC): 4 Sit to Stand (QC): 4 Chair/Caq-fs-Hnwnx Xfer(QC): 4 Toilet Transfer (QC): 4 Car Transfer (QC): 4 Does the Patient Walk: Yes Walk 10 feet (QC): 4 Walk 50ft with 2 Turns (QC): 4 Walk 150 ft (QC): 88 Walking 10ft on Uneven Surface: 4 1 Step (curb) (QC): 4 4 Steps (QC): 4 12 Steps (QC): 88 Picking up an Object (QC): 88 Wheel 50 feet with 2 turns (QC: 6 Wheel 150 feet: 6 PT Plan Treatment/Plan Treatment Plan: Continue Plan of Care Treatment Plan: Bed Mobility, Education, Functional Activity Jayshree, Functional Strength, Group Therapy, Gait, Safety, Therapeutic Exercise, Transfers Treatment Duration: Aug 27, 2020 Frequency: At least 5 of 7 days/Wk (IRF) Estimated Hrs Per Day: 1.5 hours per day Patient and/or Family Agrees t: Yes Time/GCodes Time In: 1400 Time Out: 1400 Total Billed Treatment Time: 0 Total Billed Treatment 1,no Rx, No chg VERONIKA MOLINA COPS Aug 10, 2020 14:52
[2020-08-10] MEDS: ENOXAPARIN 40 MG/0.4 ML (LOVENOX) SYR SC SCH (16:19)
--- NOTE | 2020-08-10 18:07 | Diagnostic Imaging Report ---
EXAMINATION: Lumbosacral spine 2 or 3 views HISTORY: Post lumbar surgery check 26 days postop. EXAMINATION: Lumbar spine 08/10/2020 FINDINGS: 3 views of the lumbar spine demonstrate bilateral interpedicular screws with intervening rods extending from L3 through S1 with interbody devices at the postoperative levels. Minimal grade 1 retrolisthesis of L5 on S1 is noted. Remaining alignment is preserved. Vertebral body heights maintained. IMPRESSION: 1. Postoperative findings as above. Dictated by: Dictated on workstation # [id number]
[2020-08-10 20:02] VITALS: BP 130/81
[2020-08-10] MEDS: cloNIDine 0.1 MG (CATAPRES) TAB PO SCH (20:45)
[2020-08-10] MEDS: SIMvastatin 10 MG (ZOCOR) TAB PO SCH (20:45)
[2020-08-11] MEDS: inSUlin ASPART (NovoLOG) 1 UNIT/0.01 ML (CHARGE PER UNIT) SC SCH ×4 (06:05→20:48)
--- NOTE | 2020-08-11 06:42 | PM&R Progress Note ---
Subjective HPI/CC On Admission Date Seen by Provider: Aug 11, 2020 Time Seen by Provider: 10:00 Subjective/Events-last exam 08/11/2020: Pt doing pretty well Left axilla pain because of compensation with his arms, will initiate a moist heating pad Bowels are moving okay Clonidine changed to BID instead of TID due to hypotension in the afternoon interfering with therapy X-rays were done and clouded to Dr. Elder 08/10/2020: Pt doing really well Had a large bowel movement yesterday Temperature at 99.4 but no other issues Sugars are better Talked to him about insulin at discharge 08/09/20: Patient doing well BM today Back pain improved Increased movement now Better today 08/08/20: Patient in a good mood Baclofen is working well for him so will maintain this Pain controlled High sugars requiring addition of insulin Wants tacos from home 08/07/2020: Patient doing pretty well Pain is still an issue Baclofen was ordered to help his back spasms No bowels are moving since loose stools for several days Adjusted insulin after reviewing several Accu-Cheks 08/06/2020: Patient doing pretty well Very motivated to walk Loose stool so holding laxatives Right knee really hurts Sodium level 128 so we will discontinue the indapamide Review of Systems General: Fatigue, Malaise Musculoskeletal: arm pain, back pain Objective Exam Vital Signs Vital Signs Date Time Temp Pulse Resp B/P (MAP) Pulse Ox O2 Delivery O2 Flow Rate FiO2 08/11/20 20:20 Room Air 08/11/20 20:00 35.4 84 20 135/71 (92) 97 Capillary Refill : General Appearance: No Apparent Distress, WD/WN, Chronically ill HEENT: PERRL/EOMI, Normal ENT Inspection, Pharynx Normal Neck: Full Range of Motion, Normal Inspection, Non Tender, Supple, Carotid Bruit Respiratory: Chest Non Tender, Lungs Clear, Normal Breath Sounds, No Accessory Muscle Use, No Respiratory Distress Cardiovascular: Regular Rate, Rhythm, No Edema, No Gallop, No JVD, No Murmur, Normal Peripheral Pulses Gastrointestinal: Normal Bowel Sounds, No Organomegaly, No Pulsatile Mass, Non Tender, Soft Back: Decreased Range of Motion, Muscle Spasm, Vertebral Tenderness Extremity: Normal Capillary Refill, Normal Inspection, Normal Range of Motion, Non Tender, No Calf Tenderness, No Pedal Edema Neurologic/Psychiatric: Alert, Oriented x3, No Motor/Sensory Deficits, Normal Mood/Affect, Motor Weakness Skin: Normal Color, Warm/Dry Lymphatic: No Adenopathy Results/Procedures Lab Patient resulted labs reviewed. FIM Transfers Therapy Code Descriptions/Definitions Functional [place] Measure: 0=Not Assessed/NA 4=Minimal Assistance 1=Total Assistance 5=Supervision or Setup 2=Maximal Assistance 6=Modified [place] 3=Moderate Assistance 7=Complete IndependenceSCALE: Activities may be completed with or without assistive devices. 2-Hijcrndevd-izkbuez completes the activity by him/herself with no assistance from a helper. 5-Set-up or Clean-up Assistance-helper sets up or cleans up; patient completes activity. [place] assists only prior to or following the activity. 4-Supervision or Touching Assistance-helper provides verbal cues and/or touch ing/steadying and/or contact guard assistance as patient completes activity. Assistance may be provided throughout the activity or intermittently. 3-Partial/Moderate Assistance-helper does LESS THAN HALF the effort. [place] lifts, holds or supports trunk or limbs, but provides less than half the effort. 2-Substantial/Maximal Assistance-helper does MORE THAN HALF the effort. [place] lifts or holds trunk or limbs and provides more than half the effort. 0-Ndxesgdfn-jaifma does ALL the effort. Patient does none of the effort to complete the activity. Or, the assistance of 2 or more helpers is required for the patient to complete the activity. If activity was not attempted, code reason: 7-Patient Refused. 9-Not Applicable-not attempted and the patient did not perform the activity before the current illness, exacerbation or injury. 10-Not Attempted due to Environmental Limitations-(lack of equipment, weather restraints, etc.). 88-Not Attempted due to Medical Conditions or Safety Concerns. Roll Left to Right (QC): 6 Sit to Lying (QC): 4 Sit to Stand (QC): 3 Chair/Nqk-tn-Pxqth Xfer(QC): 3 Car Transfer (QC): 2 Gait Training Does the Patient Walk?: No and Walking Goal IS indicated Distance: 20'x3 Walk 10 feet (QC): 4 Walk 50 ft with 2 Turns(QC): 88 Walk 150 ft (QC): 88 Walking 10ft/uneven surface-QC: 88 Gait Assistive Device: FWW Wheelchair Training Does the Pt Use a Wheelchair?: Yes Distance: 150'x2 Wheel 50 ft with 2 turns (QC): 4 Wheel 150 ft (QC): 4 Type of Wheelchair: Manual Stair Training 1 Step (curb) (QC): 88 4 Steps (QC): 88 12 Steps (QC): 88 Balance Picking up an Object (QC): 88 ADL-Treatment Eating (QC): 6 Oral Hygiene (QC): 6 (seated at sink.) Shower/Bathe Self (QC): 3 (Min A sponge bath at bed level/EOB. Pt able to use LH sponge to wash lower legs, min A with washing feet.) Upper Body Dressing (QC): 5 (set up with head well puller shirt and back brace.) Lower Body Dressing (QC): 3 (Pt able to don underwear at bed level using cashier supervisor, rolled side to side for pant hike. Pt donned pants EOB using AE, min A for pant hike standing at FWW.) On/Off Footwear (QC): 4 (SBA with sock aide to don bilateral gripper socks. OT provided education on AE, and pt required 1 verbal cue for correct technique.) Toileting Hygiene (QC): 1 (assist with clothing management and hygiene) Toilet Transfer (QC): 2 ([place] [facility] [place] [facility] [place] Assessment/Plan Assessment and Plan Assess & Plan/Chief Complaint Assessment: Status post lumbar spine surgery with severe debility and leg weakness Recent DKA Noq-kr-rzhgxok diabetes history Hypertension Chronic arthritis pain Plan: Pain control Diabetes management Blood pressure management Inpatient rehab protocol 08/06/2020: Hold laxatives DC indapamide Monitor closely Fall risk 08/07/2020: Increase insulin Aggressive therapy 08/08/20: Increase insulin Baclofen 08/09/20: Monitor sugar Back pain management 08/10/2020: Monitor blood sugar Insulin at discharge will be required 08/11/2020: Monitor pain Supportive care Baclofen (1) Status post lumbar spine surgery for decompression of spinal cord (2) Diabetes (3) DKA (diabetic ketoacidoses) (4) Hypertension (5) Leg weakness DALY WHITNEY DO Aug 11, 2020 06:41
[2020-08-11] MEDS: inSUlin (REGULAR) HUMAN 1 UNIT/0.01 ML (CHARGE PER UNIT) SC SCH ×4 (07:20→20:45)
[2020-08-11] MEDS: metFORMIN XR 500 MG (GLUCOPHAGE XR) TAB PO SCH ×2 (07:20→16:09)
[2020-08-11 07:54] VITALS: BP 191/93
[2020-08-11] MEDS: cloNIDine 0.1 MG (CATAPRES) TAB PO SCH ×2 (08:01→20:42)
[2020-08-11] MEDS: SENNA W/DOCUSATE (SENOKOT S) TABLET PO SCH ×2 (08:02→20:42)
[2020-08-11] MEDS: DOCUSATE SODIUM 100 MG (COLACE) CAP PO SCH ×2 (08:02→20:42)
[2020-08-11] MEDS: LACTOBACILLUS ACIDOPHILUS (PROBIOTIC) CAPSULE PO SCH (08:02)
[2020-08-11] MEDS: glipiZIDE 5 MG (GLUCOTROL) TAB PO SCH ×2 (08:02→17:43)
[2020-08-11] MEDS: meTOprolol TARTRATE 25 MG (LOPRESSOR) TABLET PO SCH ×2 (08:02→20:42)
[2020-08-11] MEDS: BACLOFEN 10 MG (LIORESAL) TAB PO SCH ×3 (08:02→20:42)
[2020-08-11] MEDS: ALLOPURINOL 100 MG (ZYLOPRIM) TAB PO SCH (08:02)
[2020-08-11] MEDS: lisINopril 20 MG (PRINIVIL) TABLET PO SCH ×2 (08:03→20:42)
[2020-08-11] MEDS: TRIAMCINOLONE 0.1% OINT (KENALOG) 15 GM TUBE TOP SCH ×2 (08:03→20:44)
[2020-08-11] MEDS: polyethylene glycoL POWDER 17 GM (MIRALAX) PACK PO SCH ×2 (08:06→20:46)
--- NOTE | 2020-08-11 11:06 | Occupational Ther Daily Note ---
OT Current Status-Daily Note Subjective Pt agreeable to OT tx Mental Status/Objective Patient Orientation: Normal For Age ADL-Treatment Therapy Code Descriptions/Definitions Functional [place] Measure: 0=Not Assessed/NA 4=Minimal Assistance 1=Total Assistance 5=Supervision or Setup 2=Maximal Assistance 6=Modified [place] 3=Moderate Assistance 7=Complete IndependenceSCALE: Activities may be completed with or without assistive devices. 8-Pdahgfkfak-nhamlmi completes the activity by him/herself with no assistance from a helper. 5-Set-up or Clean-up Assistance-helper sets up or cleans up; patient completes activity. [place] assists only prior to or following the activity. 4-Supervision or Touching Assistance-helper provides verbal cues and/or touching/steadying and/or contact guard assistance as patient completes activity. Assistance may be provided throughout the activity or intermittently. 3-Partial/Moderate Assistance-helper does LESS THAN HALF the effort. [place] lifts, holds or supports trunk or limbs, but provides less than half the effort. 2-Substantial/Maximal Assistance-helper does MORE THAN HALF the effort. [place] lifts or holds trunk or limbs and provides more than half the effort. 5-Ggafqswqx-tbzovh does ALL the effort. Patient does none of the effort to complete the activity. Or, the assistance of 2 or more helpers is required for the patient to complete the activity. If activity was not attempted, code reason: 7-Patient Refused. 9-Not Applicable-not attempted and the patient did not perform the activity before the current illness, exacerbation or injury. 10-Not Attempted due to Environmental Limitations-(lack of equipment, weather restraints, etc.). 88-Not Attempted due to Medical Conditions or Safety Concerns. Eating (QC): 6 Oral Hygiene (QC): 6 Shower/Bathe Self (QC): 4 (Pt able to wash/dry all parts seated on SC.) Upper Body Dressing (QC): 5 (set up with chain puller shirt and back brace) Lower Body Dressing (QC): 3 (Pt able to thread BLEs into pants using AE, assist with pant hike in stand.) On/Off Footwear: 6 (Pt able to don/doff slip on shoes.) Other Treatment [id number] OT tx. Pt laying in bed, transferred supine to sit EOB and donned back brace. Pt used FWW to ambulate into bathroom and onto shower chair. Pt doffed clothes, then completed shower. Pt donned shirt and back brace, transferred to chair with arm rests in order to don LE clothing using AE. Pt stood at FWW for pant hike, min A sit to stand, then transferred to w/c. Pt propelled w/c to therapy gym. [id number] OT/PT cotreat due to skill of 2 clinicians required which a electronic technician could not perform in order to coordinate UE/LEs, decrease fall risk, and due to pt's limitations in pain, transfers, mobility, and activity tolerance. Pt used FWW to perform functional mobility around ARU common area (please refer to PT note for distance), able to perform functional mobility x3 with rest breaks between trials. Pt returned to therapy gym, stood in parallel bars x3 and performed functional reaching task and balloon batting in order to increase standing tolerance and balance. Pt required seated rest break between each stand. Post tx, pt seated in w/c, PT present to continue tx, all needs met. Education OT Patient Education: Correct positioning, Energy conservation, Modified ADL techniques, Progress toward Goal/Update tx plan, Purpose of tx/functional activities, Rehab process, Safety issues, Transfer techniques, Use of adapted equipment Teaching Recipient: Patient Teaching Methods: Discussion Response to Teaching: Verbalize Understanding OT Short Term Goals Short Term Goals Time Frame: Aug 20, 2020 Oral hygiene: 5 Shower/bathe self: 3 Lower body dressin Putting on/taking off footwear: 3 OT Security Intelligence Analyst Goals Snf Goals Time Frame: Sep 04, 2020 Eating (QC): 6 Oral Hygiene (QC): 6 Toileting Hygiene (QC): 6 Shower/Bathe Self (QC): 6 Upper Body Dressing (QC): 6 Lower Body Dressing (QC): 6 On/Off Footwear (QC): 6 Additional Goals: 1-Demonstrate ADL Tasks, 2-Verbalize Understanding, 3- ImproveStrength/Jayshree 1=Demonstrate adherence to instructed precautions during ADL tasks. 2=Patient will verbalize/demonstrate understanding of assistive lani martín/modifications for ADL. 3=Patient will improve strength/tolerance for activity to enable patient to perform ADL's. OT Education/Plan Problem List/Assessment Assessment: Decreased Activ Tolerance, Decreased UE Strength, Impaired Funct Balance, Impaired I ADL's, Impaired Self-Care Skills Discharge Recommendations Plan/Recommendations: Continue POC Treatment Plan/Plan of Care Patient would benefit from OT for education, treatment and training to promote independence in ADL's, mobility, safety and/or upper extremity function for ADL' s. Plan of Care: ADL Retraining, Functional Mobility, Group Exercise/Act as Ind, UE Funct Exercise/Act Treatment Duration: Sep 04, 2020 Frequency: Modified Program (IRF) (27/08) Estimated Hrs Per Day: 1.5 hours per day Rehab Potential: Fair Time/GCodes Start Time: 09:15 Stop Time: 10:45 Total Time Billed (hr/min): 90 Billed Treatment Time 1, ADL 3 (45'), FA 3 (45') MED PETERSON OT Aug 11, 2020 11:06
--- NOTE | 2020-08-11 11:26 | Physical Therapy Daily Note ---
PT Daily Note-Current Subjective Patient in therapy gym pre tx, agrees to PT, patient is voicing some light pain in left pec area, doctor actually comes into the room and he tells her. Will be co-treating with OT for part of tx due to poor patient mobility, strength, endurance, severe pain with activity, coordinate UE and LE during activity, safety and reduce risk of falls. Appearance Patient in recliner post tx with nurse call, phone, tray, all needs met. Mental Status Patient Orientation: Person, Place, Situation back brace Transfers SCALE: Activities may be completed with or without assistive devices. 3-Cdldhzytva-jehiqaw completes the activity by him/herself with no assistance from a helper. 5-Set-up or Clean-up Assistance-helper sets up or cleans up; patient completes activity. [place] assists only prior to or following the activity. 4-Supervision or Touching Assistance-helper provides verbal cues and/or touching/steadying and/or contact guard assistance as patient completes activity. Assistance may be provided throughout the activity or intermittently. 3-Partial/Moderate Assistance-helper does LESS THAN HALF the effort. [place] lifts, holds or supports trunk or limbs, but provides less than half the effort. 2-Substantial/Maximal Assistance-helper does MORE THAN HALF the effort. [place] lifts or holds trunk or limbs and provides more than half the effort. 2-Pjfkkxpne-fltusx does ALL the effort. Patient does none of the effort to complete the activity. Or, the assistance of 2 or more helpers is required for the patient to complete the activity. If activity was not attempted, code reason: 7-Patient Refused. 9-Not Applicable-not attempted and the patient did not perform the activity before the current illness, exacerbation or injury. 10-Not Attempted due to Environmental Limitations-(lack of equipment, weather restraints, etc.). 88-Not Attempted due to Medical Conditions or Safety Concerns. Sit to Stand (QC): 3 Chair/Aub-hm-Xvbaq Xfer(QC): 3 Patient still requires mod assist for sit to stand but min assist for transfers. Gait Training Distance: 30'x2, 20' Walk 10 feet (QC): 4 Gait Assistive Device: FWW WC follow, patient has near buckling of knees but it didn't actually happen, leans a little too far forward onto walker Wheelchair Training Does the Pt Use a Wheelchair?: Yes Wheel 50 ft with 2 turns (QC): 4 Type of Wheelchair: Manual Exercises Seated Therapy Exercises: Ankle pumps, Hip flexion, Hip abd/add (with ball and RTB) standing in parallel bars x3 working on letting go with one hand and reaching and batting a balloon. LAQ alternating for 5 min NuStep Minutes: 15 NuStep Workload: 4 Treatments PT performed transfers, ambulation, LE strengthening, balance and positioning during balance training, WC mobility, OT performed balance training, UE positioning and safety during activity. Assessment Current Status: Fair Progress improving endurance but patient still needs frequent rest breaks due to pain and fatigue PT Short Term Goals Short Term Goals Time Frame: Aug 13, 2020 Roll Left & Right: 6 Sit to lyin Lying to sitting on side of be: 3 (met) Sit to stand: 3 Chair/csd-sl-xfzws transfer: 3 Walk 10 feet: 3 PT Senior Care Goals Cube Cutter Goals PT Cube Cutter Goals Time Frame: Aug 27, 2020 Roll Left & Right (QC): 6 Sit to Lying (QC): 4 Lying-Sitting on Side/Bed(QC): 4 Sit to Stand (QC): 4 Chair/Amc-dv-Omfqb Xfer(QC): 4 Toilet Transfer (QC): 4 Car Transfer (QC): 4 Does the Patient Walk: Yes Walk 10 feet (QC): 4 Walk 50ft with 2 Turns (QC): 4 Walk 150 ft (QC): 88 Walking 10ft on Uneven Surface: 4 1 Step (curb) (QC): 4 4 Steps (QC): 4 12 Steps (QC): 88 Picking up an Object (QC): 88 Wheel 50 feet with 2 turns (QC: 6 Wheel 150 feet: 6 PT Plan Problem List Problem List: Activity Tolerance, Functional Strength, Safety, Balance, Gait, Transfer, Bed Mobility, ROM Treatment/Plan Treatment Plan: Continue Plan of Care Treatment Plan: Bed Mobility, Education, Functional Activity Jayshree, Functional Strength, Group Therapy, Gait, Safety, Therapeutic Exercise, Transfers Treatment Duration: Aug 27, 2020 Frequency: At least 5 of 7 days/Wk (IRF) Estimated Hrs Per Day: 1.5 hours per day Patient and/or Family Agrees t: Yes Safety Risks/Education Patient Education: Gait Training, Transfer Techniques, Correct Positioning, W/C Management, Safety Issues Teaching Recipient: Patient Teaching Methods: Demonstration, Discussion Response to Teaching: Reinforcement Needed Time/GCodes Time In: 1000 Time Out: 1135 Total Billed Treatment Time: 95 Total Billed Treatment 1 visit EX 35' FA 60' co-treated with OT from [id number] AMANDA CHAPA PT Aug 11, 2020 11:26
[2020-08-11] MEDS: ENOXAPARIN 40 MG/0.4 ML (LOVENOX) SYR SC SCH (16:08)
[2020-08-11 20:00] VITALS: BP 135/71
[2020-08-11] MEDS: SIMvastatin 10 MG (ZOCOR) TAB PO SCH (20:42)
[2020-08-12] MEDS: inSUlin ASPART (NovoLOG) 1 UNIT/0.01 ML (CHARGE PER UNIT) SC SCH ×4 (06:01→20:53)
--- NOTE | 2020-08-12 06:38 | PM&R Progress Note ---
Subjective HPI/CC On Admission Date Seen by Provider: Aug 12, 2020 Time Seen by Provider: 11:15 Subjective/Events-last exam 08/12/2020: Pt doing pretty well Bowels havent moved and we have given a lot of Laxatives Sugars are okay Voltaren gel to the back Clonidine BID has helped the BP that has dipped down to low levels in the afternoon Length of stay, presumed to be 08/26/20 08/11/2020: Pt doing pretty well Left axilla pain because of compensation with his arms, will initiate a moist heating pad Bowels are moving okay Clonidine changed to BID instead of TID due to hypotension in the afternoon interfering with therapy X-rays were done and clouded to Dr. Elder 08/10/2020: Pt doing really well Had a large bowel movement yesterday Temperature at 99.4 but no other issues Sugars are better Talked to him about insulin at discharge 08/09/20: Patient doing well BM today Back pain improved Increased movement now Better today 08/08/20: Patient in a good mood Baclofen is working well for him so will maintain this Pain controlled High sugars requiring addition of insulin Wants tacos from home 08/07/2020: Patient doing pretty well Pain is still an issue Baclofen was ordered to help his back spasms No bowels are moving since loose stools for several days Adjusted insulin after reviewing several Accu-Cheks 08/06/2020: Patient doing pretty well Very motivated to walk Loose stool so holding laxatives Right knee really hurts Sodium level 128 so we will discontinue the indapamide Review of Systems General: Fatigue, Malaise Musculoskeletal: back pain Neurological: Weakness Objective Exam Vital Signs Vital Signs Date Time Temp Pulse Resp B/P (MAP) Pulse Ox O2 Delivery O2 Flow Rate FiO2 08/12/20 21:05 Room Air 08/12/20 20:00 37.4 88 16 156/76 (102) 96 Capillary Refill : General Appearance: No Apparent Distress, WD/WN, Chronically ill HEENT: PERRL/EOMI, Normal ENT Inspection, Pharynx Normal Neck: Full Range of Motion, Normal Inspection, Non Tender, Supple, Carotid Bru it Respiratory: Chest Non Tender, Lungs Clear, Normal Breath Sounds, No Accessory Muscle Use, No Respiratory Distress Cardiovascular: Regular Rate, Rhythm, No Edema, No Gallop, No JVD, No Murmur, Normal Peripheral Pulses Gastrointestinal: Normal Bowel Sounds, No Organomegaly, No Pulsatile Mass, Non Tender, Soft Back: Decreased Range of Motion, Muscle Spasm, Vertebral Tenderness Extremity: Normal Capillary Refill, Normal Inspection, Normal Range of Motion, Non Tender, No Calf Tenderness, No Pedal Edema Neurologic/Psychiatric: Alert, Oriented x3, No Motor/Sensory Deficits, Normal Mood/Affect, Motor Weakness Skin: Normal Color, Warm/Dry Lymphatic: No Adenopathy Results/Procedures Lab Patient resulted labs reviewed. FIM Transfers Therapy Code Descriptions/Definitions Functional [place] Measure: 0=Not Assessed/NA 4=Minimal Assistance 1=Total Assistance 5=Supervision or Setup 2=Maximal Assistance 6=Modified [place] 3=Moderate Assistance 7=Complete IndependenceSCALE: Activities may be completed with or without assistive devices. 4-Wqmtiawuob-ycexrnf completes the activity by him/herself with no assistance from a helper. 5-Set-up or Clean-up Assistance-helper sets up or cleans up; patient completes activity. [place] assists only prior to or following the activity. 4-Supervision or Touching Assistance-helper provides verbal cues and/or touching/steadying and/or contact guard assistance as patient completes activity. Assistance may be provided throughout the activity or intermittently. 3-Partial/Moderate Assistance-helper does LESS THAN HALF the effort. [place] lifts, holds or supports trunk or limbs, but provides less than half the effort. 2-Substantial/Maximal Assistance-helper does MORE THAN HALF the effort. [place] lifts or holds trunk or limbs and provides more than half the effort. 8-Mdetdozaf-eclkpi does ALL the effort. Patient does none of the effort to complete the activity. Or, the assistance of 2 or more helpers is required for the patient to complete the activity. If activity was not attempted, code reason: 7-Patient Refused. 9-Not Applicable-not attempted and the patient did not perform the activity before the current illness, exacerbation or injury. 10-Not Attempted due to Environmental Limitations-(lack of equipment, weather restraints, etc.). 88-Not Attempted due to Medical Conditions or Safety Concerns. Roll Left to Right (QC): 6 Sit to Lying (QC): 4 Sit to Stand (QC): 3 Chair/Zfc-cw-Xefqa Xfer(QC): 3 Car Transfer (QC): 2 Gait Training Does the Patient Walk?: No and Walking Goal IS indicated Distance: 30'x2, 20' Walk 10 feet (QC): 4 Walk 50 ft with 2 Turns(QC): 88 Walk 150 ft (QC): 88 Walking 10ft/uneven surface-QC: 88 Gait Assistive Device: FWW Wheelchair Training Does the Pt Use a Wheelchair?: Yes Distance: 150'x2 Wheel 50 ft with 2 turns (QC): 4 Wheel 150 ft (QC): 4 Type of Wheelchair: Manual Stair Training 1 Step (curb) (QC): 88 4 Steps (QC): 88 12 Steps (QC): 88 Balance Picking up an Object (QC): 88 ADL-Treatment Eating (QC): 6 Oral Hygiene (QC): 6 Shower/Bathe Self (QC): 4 (Pt able to wash/dry all parts seated on SC.) Upper Body Dressing (QC): 5 (set up with hook puller shirt and back brace) Lower Body Dressing (QC): 3 (Pt able to thread BLEs into pants using AE, assist with pant hike in stand.) On/Off Footwear (QC): 6 (Pt able to don/doff slip on shoes.) Toileting Hygiene (QC): 1 (assist with clothing management and hygiene) Toilet Transfer (QC): 2 (Max A transfer bed to/from [facility]. Multiple attempts to achieve stand from [facility].) Assessment/Plan Assessment and Plan Assess & Plan/Chief Complaint Assessment: Status post lumbar spine surgery with severe debility and leg weakness Recent DKA Ify-ge-vphuulm diabetes history Hypertension Chronic arthritis pain Plan: Pain control Diabetes management Blood pressure management Inpatient rehab protocol 08/06/2020: Hold laxatives DC indapamide Monitor closely Fall risk 08/07/2020: Increase insulin Aggressive therapy 08/08/20: Increase insulin Baclofen 08/09/20: Monitor sugar Back pain management 08/10/2020: Monitor blood sugar Insulin at discharge will be required 08/11/2020: Monitor pain Supportive care Baclofen 08/12/2020: Pain control Intensive rehab Bowel regimen to intensify (1) Status post lumbar spine surgery for decompression of spinal cord (2) Diabetes (3) DKA (diabetic ketoacidoses) (4) Hypertension (5) Leg weakness DALY WHITNEY DO Aug 12, 2020 06:38
[2020-08-12] MEDS: metFORMIN XR 500 MG (GLUCOPHAGE XR) TAB PO SCH ×2 (07:01→17:20)
[2020-08-12] MEDS: inSUlin (REGULAR) HUMAN 1 UNIT/0.01 ML (CHARGE PER UNIT) SC SCH ×4 (07:01→20:56)
[2020-08-12 08:00] VITALS: BP 154/83
[2020-08-12] MEDS: SENNA W/DOCUSATE (SENOKOT S) TABLET PO SCH ×2 (08:12→20:55)
[2020-08-12] MEDS: cloNIDine 0.1 MG (CATAPRES) TAB PO SCH ×2 (08:12→20:55)
[2020-08-12] MEDS: BACLOFEN 10 MG (LIORESAL) TAB PO SCH ×3 (08:12→20:56)
[2020-08-12] MEDS: polyethylene glycoL POWDER 17 GM (MIRALAX) PACK PO SCH ×2 (08:12→20:31)
[2020-08-12] MEDS: LACTOBACILLUS ACIDOPHILUS (PROBIOTIC) CAPSULE PO SCH (08:12)
[2020-08-12] MEDS: lisINopril 20 MG (PRINIVIL) TABLET PO SCH ×2 (08:13→20:55)
[2020-08-12] MEDS: meTOprolol TARTRATE 25 MG (LOPRESSOR) TABLET PO SCH ×2 (08:14→20:55)
[2020-08-12] MEDS: ALLOPURINOL 100 MG (ZYLOPRIM) TAB PO SCH (08:14)
[2020-08-12] MEDS: glipiZIDE 5 MG (GLUCOTROL) TAB PO SCH ×2 (08:14→17:20)
[2020-08-12] MEDS: DOCUSATE SODIUM 100 MG (COLACE) CAP PO SCH ×2 (08:14→20:55)
[2020-08-12] MEDS: CYCLOBENZAPRINE 10 MG (FLEXERIL) TAB PO PRN (08:14)
[2020-08-12] MEDS: TRIAMCINOLONE 0.1% OINT (KENALOG) 15 GM TUBE TOP SCH ×2 (08:17→20:57)
--- NOTE | 2020-08-12 09:14 | Physical Therapy Daily Note ---
PT Daily Note-Current Subjective Pt. agrees to Rx, c/o pain in shoulders and back at 8/10, nurse gave pain meds. Pt. states he is determined to work to get better Pain Numeric Pain Scale: 8 Location: Medial Location Body Site: Back Pain Description: Ache Mental Status Patient Orientation: Normal For Age Attachments: Other-See Comments (back brace) pt. also c/p pain in /under shoulders L>R Transfers SCALE: Activities may be completed with or without assistive devices. 7-Zmskqqlysa-ornmblq completes the activity by him/herself with no assistance from a helper. 5-Set-up or Clean-up Assistance-helper sets up or cleans up; patient completes activity. [place] assists only prior to or following the activity. 4-Supervision or Touching Assistance-helper provides verbal cues and/or touching/steadying and/or contact guard assistance as patient completes activity. Assistance may be provided throughout the activity or intermittently. 3-Partial/Moderate Assistance-helper does LESS THAN HALF the effort. [place] lifts, holds or supports trunk or limbs, but provides less than half the effort. 2-Substantial/Maximal Assistance-helper does MORE THAN HALF the effort. [place] lifts or holds trunk or limbs and provides more than half the effort. 0-Dngcwbckz-ijrypt does ALL the effort. Patient does none of the effort to complete the activity. Or, the assistance of 2 or more helpers is required for the patient to complete the activity. If activity was not attempted, code reason: 7-Patient Refused. 9-Not Applicable-not attempted and the patient did not perform the activity before the current illness, exacerbation or injury. 10-Not Attempted due to Environmental Limitations-(lack of equipment, weather restraints, etc.). 88-Not Attempted due to Medical Conditions or Safety Concerns. Roll Left & Right (QC): 6 Lying to Sitting/Side of Bed(Q: 4 (with HOB up) Sit to Stand (QC): 3 Chair/Zjn-dk-Ziyff Xfer(QC): 3 uses FWW for SPTwith min to mod asst Gait Training Does the Patient Walk?: Yes Gait Persons Needed: 1 Gait Assistive Device: Parallel Bars 8ft in ?? bars x 4 with min asst, pt. c/o fatigue and requests rest, equal step length, heavy wt bearing on UEs Wheelchair Training Does the Pt Use a Wheelchair?: Yes Wheel 50 ft with 2 turns (QC): 5 Wheel 150 ft (QC): 5 Type of Wheelchair: Manual Exercises Supine Ex: Bridging (assisted), Ankle pumps, Rolling, Glut sets, Heel Slides, Scooting (up in bed) Supine Reps: 12 Seated Therapy Exercises: Ankle pumps, Sit to stand, Long arc quads, Hip flexion, Hip abd/add Seated Reps: 15 Treatments in bed pt. used bath pack at his request to clean himself , then dressed with mod assist for lowers by rolling and partial bridging, sat EOB with HOB up to wolf tshirt indep, donned brace indep,seated and supine ex, SPTs, w/c mob , gait in // bars as documented Assessment Current Status: Good Progress PT Short Term Goals Short Term Goals Time Frame: Aug 13, 2020 Roll Left & Right: 6 Sit to lyin Lying to sitting on side of be: 3 (met) Sit to stand: 3 Chair/qdm-er-qkjkm transfer: 3 Walk 10 feet: 3 PT Mcc Goals Mcc Goals PT Hydrogen Plant Operator Goals Time Frame: Aug 27, 2020 Roll Left & Right (QC): 6 Sit to Lying (QC): 4 Lying-Sitting on Side/Bed(QC): 4 Sit to Stand (QC): 4 Chair/Pal-tn-Tyhlh Xfer(QC): 4 Toilet Transfer (QC): 4 Car Transfer (QC): 4 Does the Patient Walk: Yes Walk 10 feet (QC): 4 Walk 50ft with 2 Turns (QC): 4 Walk 150 ft (QC): 88 Walking 10ft on Uneven Surface: 4 1 Step (curb) (QC): 4 4 Steps (QC): 4 12 Steps (QC): 88 Picking up an Object (QC): 88 Wheel 50 feet with 2 turns (QC: 6 Wheel 150 feet: 6 PT Plan Treatment/Plan Treatment Plan: Continue Plan of Care Treatment Plan: Bed Mobility, Education, Functional Activity Jayshree, Functional Strength, Group Therapy, Gait, Safety, Therapeutic Exercise, Transfers Treatment Duration: Aug 27, 2020 Frequency: At least 5 of 7 days/Wk (IRF) Estimated Hrs Per Day: 1.5 hours per day Patient and/or Family Agrees t: Yes Safety Risks/Education Patient Education: Gait Training, Transfer Techniques, Correct Positioning, W/C Management, Disease Process, Safety Issues Teaching Recipient: Patient Teaching Methods: Demonstration, Discussion Response to Teaching: Verbalize Understanding, Return Demonstration, Reinforcement Needed Time/GCodes Time In: 800 Time Out: 905 Total Billed Treatment Time: 65 Total Billed Treatment 1,FA30m,GT15m,EX20m VERONIKA MOLINA COOK SEAFOOD Aug 12, 2020 09:14
[2020-08-12] MEDS: LACTULOSE SYRUP 10GM/15ML (ENULOSE) 30ML UDC PO PRN (09:32)
[2020-08-12 09:42] VITALS: BP 136/76
--- NOTE | 2020-08-12 09:43 | Occupational Ther Daily Note ---
OT Current Status-Daily Note Subjective 0900: Pt seated in therapy gym, PT present. Pt agreeable to OT tx but states he doesn't feel the best. 1055: Pt laying in bed, states feels slightly better than this AM, but still not completely himself. States he wants to be able to have a BM Mental Status/Objective Patient Orientation: Normal For Age ADL-Treatment Therapy Code Descriptions/Definitions Functional [place] Measure: 0=Not Assessed/NA 4=Minimal Assistance 1=Total Assistance 5=Supervision or Setup 2=Maximal Assistance 6=Modified [place] 3=Moderate Assistance 7=Complete IndependenceSCALE: Activities may be completed with or without assistive devices. 1-Twvubryyxt-drjznfn completes the activity by him/herself with no assistance from a helper. 5-Set-up or Clean-up Assistance-helper sets up or cleans up; patient completes activity. [place] assists only prior to or following the activity. 4-Supervision or Touching Assistance-helper provides verbal cues and/or touching/steadying and/or contact guard assistance as patient completes activity. Assistance may be provided throughout the activity or intermittently. 3-Partial/Moderate Assistance-helper does LESS THAN HALF the effort. [place] lifts, holds or supports trunk or limbs, but provides less than half the effort. 2-Substantial/Maximal Assistance-helper does MORE THAN HALF the effort. [place] lifts or holds trunk or limbs and provides more than half the effort. 5-Lceblrvyx-esfrjm does ALL the effort. Patient does none of the effort to complete the activity. Or, the assistance of 2 or more helpers is required for the patient to complete the activity. If activity was not attempted, code reason: 7-Patient Refused. 9-Not Applicable-not attempted and the patient did not perform the activity before the current illness, exacerbation or injury. 10-Not Attempted due to Environmental Limitations-(lack of equipment, weather restraints, etc.). 88-Not Attempted due to Medical Conditions or Safety Concerns. Toileting Hygiene (QC): 1 (total assist with clothing management, assist x2 due to pt not feeling well) Toilet Transfer (QC): 1 (assist x2 for safety due to pt not feeling well.) Other Treatment [id number]: Pt seated in w/c, propelled self to room and into bathroom. Pt completed SPT from w/c to BSC over toilet using GBs mod A. Pt states he doesn't feel well but having BM may help. After a couple minutes, pt states he needs to lay down as he is light headed and dizzy. Assist x2 for safety in order to complete pant hike and transfer back to w/c, due to pt stating he doesn't feel good. Pt completed SPT from w/c to bed, transferring supine (assist BLEs). BP 132/83, O2 sat 99%, and blood glucose 149. Pt declined further activity stating he would like to rest. Post tx, pt laying in bed, call light in reach and all needs met, nurse present to assess pt. 0570-2186: Pt laying in bed, transferred supine to sit EOB,min A. Slip on shoes and back brace donned. Sit to stand from EOB, mod A, then transfer to BSC. Pt sat on toilet, but unable to have BM, stood at FWW with mod A, OT performed pant hike for pt. Pt transferred back to bed, then supine (assist BLEs). Post tx, pt laying in bed, call light in reach and all needs met. Education OT Patient Education: Correct positioning, Exercise program, Modified ADL techniques, Progress toward Goal/Update tx plan, Purpose of tx/functional activities Teaching Recipient: Patient Teaching Methods: Discussion Response to Teaching: Verbalize Understanding OT Short Term Goals Short Term Goals Time Frame: Aug 20, 2020 Oral hygiene: 5 Shower/bathe self: 3 Lower body dressin Putting on/taking off footwear: 3 OT Stationary Steam Engineer Goals Stationary Steam Engineer Goals Time Frame: Sep 04, 2020 Eating (QC): 6 Oral Hygiene (QC): 6 Toileting Hygiene (QC): 6 Shower/Bathe Self (QC): 6 Upper Body Dressing (QC): 6 Lower Body Dressing (QC): 6 On/Off Footwear (QC): 6 Additional Goals: 1-Demonstrate ADL Tasks, 2-Verbalize Understanding, 3- ImproveStrength/Jayshree 1=Demonstrate adherence to instructed precautions during ADL tasks. 2=Patient will verbalize/demonstrate understanding of assistive devices/modifications for ADL. 3=Patient will improve strength/tolerance for activity to enable patient to perform ADL's. OT Education/Plan Problem List/Assessment Assessment: Decreased Activ Tolerance, Decreased UE Strength, Impaired I ADL's, Impaired Self-Care Skills, Restricted Funct UE ROM Discharge Recommendations Plan/Recommendations: Continue POC Treatment Plan/Plan of Care Patient would benefit from OT for education, treatment and training to promote independence in ADL's, mobility, safety and/or upper extremity function for ADL's. Plan of Care: ADL Retraining, Functional Mobility, Group Exercise/Act as Ind, UE Funct Exercise/Act Treatment Duration: Sep 04, 2020 Frequency: Modified Program (IRF) (27/08) Estimated Hrs Per Day: 1.5 hours per day Rehab Potential: Fair Time/GCodes Start Time: 09:00 ([id number]) Stop Time: 10:55 ([id number]) Total Time Billed (hr/min): 60 Billed Treatment Time 1799-1341 1, ADL (15'), FA (15') 3490-2962 1, ADL 2 MED PETERSON OT Aug 12, 2020 09:43
[2020-08-12] MEDS ORDERED: DAPA10TA PO (10:11)
[2020-08-12] MEDS ORDERED: SITA100T12 PO (10:11)
[2020-08-12] MEDS ORDERED: METF-399 PO (10:11)
[2020-08-12] MEDS ORDERED: PIOG45TA65 PO (10:11)
[2020-08-12] MEDS ORDERED: ENAL10TA16 PO (10:21)
[2020-08-12] MEDS: BISACODYL 10 MG SUPP (DULCOLAX) PR PRN (11:49)
--- NOTE | 2020-08-12 13:17 | Physical Therapy Daily Note ---
PT Daily Note-Current Subjective Pt. was approached x 2 for PT Rx. Pt. adamantly refused both times c/o constipation and discomfort. This SILVERING APPLICATOR offered bed exercise and ambulation to toilet, pt. slightly irritated and refused Rx. Transfers SCALE: Activities may be completed with or without assistive devices. 9-Lfufudefpy-niblbzh completes the activity by him/herself with no assistance from a helper. 5-Set-up or Clean-up Assistance-helper sets up or cleans up; patient completes activity. [place] assists only prior to or following the activity. 4-Supervision or Touching Assistance-helper provides verbal cues and/or touching/steadying and/or contact guard assistance as patient completes act ivity. Assistance may be provided throughout the activity or intermittently. 3-Partial/Moderate Assistance-helper does LESS THAN HALF the effort. [place] lifts, holds or supports trunk or limbs, but provides less than half the effort. 2-Substantial/Maximal Assistance-helper does MORE THAN HALF the effort. [place] lifts or holds trunk or limbs and provides more than half the effort. 3-Ldgsjifjn-wznykc does ALL the effort. Patient does none of the effort to complete the activity. Or, the assistance of 2 or more helpers is required for the patient to complete the activity. If activity was not attempted, code reason: 7-Patient Refused. 9-Not Applicable-not attempted and the patient did not perform the activity before the current illness, exacerbation or injury. 10-Not Attempted due to Environmental Limitations-(lack of equipment, weather restraints, etc.). 88-Not Attempted due to Medical Conditions or Safety Concerns. Assessment Current Status: Refused Treatment PT Short Term Goals Short Term Goals Time Frame: Aug 13, 2020 Roll Left & Right: 6 Sit to lyin Lying to sitting on side of be: 3 (met) Sit to stand: 3 Chair/cir-iu-ghxlx transfer: 3 Walk 10 feet: 3 PT Skilled Nursing Goals Skilled Nursing Goals PT Supervisor Extruding Department Goals Time Frame: Aug 27, 2020 Roll Left & Right (QC): 6 Sit to Lying (QC): 4 Lying-Sitting on Side/Bed(QC): 4 Sit to Stand (QC): 4 Chair/Sdt-pf-Nbdig Xfer(QC): 4 Toilet Transfer (QC): 4 Car Transfer (QC): 4 Does the Patient Walk: Yes Walk 10 feet (QC): 4 Walk 50ft with 2 Turns (QC): 4 Walk 150 ft (QC): 88 Walking 10ft on Uneven Surface: 4 1 Step (curb) (QC): 4 4 Steps (QC): 4 12 Steps (QC): 88 Picking up an Object (QC): 88 Wheel 50 feet with 2 turns (QC: 6 Wheel 150 feet: 6 PT Plan Treatment/Plan Treatment Plan: Continue Plan of Care Treatment Plan: Bed Mobility, Education, Functional Activity Jayshree, Functional Strength, Group Therapy, Gait, Safety, Therapeutic Exercise, Transfers Treatment Duration: Aug 27, 2020 Frequency: At least 5 of 7 days/Wk (IRF) Estimated Hrs Per Day: 1.5 hours per day Patient and/or Family Agrees t: Yes Time/GCodes Time In: 1300 Time Out: 1300 Total Billed Treatment Time: 0 Total Billed Treatment 1,No Rx , refused Rx VERONIKA MOLINA SILVERING APPLICATOR Aug 12, 2020 13:17
[2020-08-12] MEDS: ENOXAPARIN 40 MG/0.4 ML (LOVENOX) SYR SC SCH (14:27)
--- NOTE | 2020-08-12 15:11 | Occupational Ther Daily Note ---
OT Current Status-Daily Note Subjective Pt agreeable to therapy at this time, requesting to use BSC due to receiving enema. Mental Status/Objective Patient Orientation: Normal For Age ADL-Treatment Therapy Code Descriptions/Definitions Functional [place] Measure: 0=Not Assessed/NA 4=Minimal Assistance 1=Total Assistance 5=Supervision or Setup 2=Maximal Assistance 6=Modified [place] 3=Moderate Assistance 7=Complete IndependenceSCALE: Activities may be completed with or without assistive devices. 3-Vdijmaksij-snfewrp completes the activity by him/herself with no assistance f rom a helper. 5-Set-up or Clean-up Assistance-helper sets up or cleans up; patient completes activity. [place] assists only prior to or following the activity. 4-Supervision or Touching Assistance-helper provides verbal cues and/or touching/steadying and/or contact guard assistance as patient completes activity. Assistance may be provided throughout the activity or intermittently. 3-Partial/Moderate Assistance-helper does LESS THAN HALF the effort. [place] lifts, holds or supports trunk or limbs, but provides less than half the effort. 2-Substantial/Maximal Assistance-helper does MORE THAN HALF the effort. [place] lifts or holds trunk or limbs and provides more than half the effort. 8-Dvfabmkve-glttrd does ALL the effort. Patient does none of the effort to complete the activity. Or, the assistance of 2 or more helpers is required for the patient to complete the activity. If activity was not attempted, code reason: 7-Patient Refused. 9-Not Applicable-not attempted and the patient did not perform the activity before the current illness, exacerbation or injury. 10-Not Attempted due to Environmental Limitations-(lack of equipment, weather restraints, etc.). 88-Not Attempted due to Medical Conditions or Safety Concerns. Toileting Hygiene (QC): 1 Toilet Transfer (QC): 3 (mod A) Other Treatment OT/PT cotreat due to skill of 2 clinicians required which a vocational rehabilitation administrator could not perform in order to coordinate UE/LEs, decrease fall risk, and due to pt's limitations in pain, transfers, mobility, and activity tolerance. OT focused on ADLs, UE placement, cues for sequencing and safety. PT focused on LE placement, gross overall movement, transfers/mobility. Pt just received enema from nurse, request to get to BSC. Pt transferred supine to sit EOB, assist with BLEs and trunk. Once EOB, pt transferred to [facility], mod A. Pt completed toileting, assist x2 for hygiene (one person to stand and one to perform hygiene). Pt transferred back to bed, mod A sit to stand. Pt transferred supine, assist BLEs. Post tx, pt laying in bed, call light in reach and all needs met. Education OT Patient Education: Correct positioning, Modified ADL techniques, Progress toward Goal/Update tx plan, Purpose of tx/functional activities, Rehab process Teaching Recipient: Patient Teaching Methods: Discussion Response to Teaching: Verbalize Understanding OT Short Term Goals Short Term Goals Time Frame: Aug 20, 2020 Oral hygiene: 5 Shower/bathe self: 3 Lower body dressin Putting on/taking off footwear: 3 OT Cage Clerk Goals Cage Clerk Goals Time Frame: Sep 04, 2020 Eating (QC): 6 Oral Hygiene (QC): 6 Toileting Hygiene (QC): 6 Shower/Bathe Self (QC): 6 Upper Body Dressing (QC): 6 Lower Body Dressing (QC): 6 On/Off Footwear (QC): 6 Additional Goals: 1-Demonstrate ADL Tasks, 2-Verbalize Understanding, 3- ImproveStrength/Jayshree 1=Demonstrate adherence to instructed precautions during ADL tasks. 2=Patient will verbalize/demonstrate understanding of assistive devices/modifications for ADL. 3=Patient will improve strength/tolerance for activity to enable patient to perform ADL's. OT Education/Plan Problem List/Assessment Assessment: Decreased Activ Tolerance, Decreased UE Strength, Impaired Funct Balance, Impaired I ADL's, Impaired Self-Care Skills Discharge Recommendations Plan/Recommendations: Continue POC Treatment Plan/Plan of Care Patient would benefit from OT for education, treatment and training to promote independence in ADL's, mobility, safety and/or upper extremity function for ADL's. Plan of Care: ADL Retraining, Functional Mobility, Group Exercise/Act as Ind, UE Funct Exercise/Act Treatment Duration: Sep 04, 2020 Frequency: Modified Program (IRF) (27/08) Estimated Hrs Per Day: 1.5 hours per day Rehab Potential: Fair Time/GCodes Start Time: 13:20 Stop Time: 13:50 Total Time Billed (hr/min): 30 Billed Treatment Time cotreat x30' 1, ADL 2 MED PETERSON OT Aug 12, 2020 15:11
--- NOTE | 2020-08-12 15:48 | Physical Therapy Daily Note ---
PT Daily Note-Current Subjective Pt L sidelying in bed upon arrival. Per Nurse, pt had received Suppository and will need to use hopefully soon. Pt put call light on and requested to use BSC. Mental Status Patient Orientation: Person, Place, Time, Situation Attachments: Other-See Comments (Lumbar back brace) Transfers SCALE: Activities may be completed with or without assistive devices. 9-Fuileifewv-xrttenc completes the activity by him/herself with no assistance from a helper. 5-Set-up or Clean-up Assistance-helper sets up or cleans up; patient completes activity. [place] assists only prior to or following the activity. 4-Supervision or Touching Assistance-helper provides verbal cues and/or touching/steadying and/or contact guard assistance as patient completes activity. Assistance may be provided throughout the activity or intermittently. 3-Partial/Moderate Assistance-helper does LESS THAN HALF the effort. [place] lifts, holds or supports trunk or limbs, but provides less than half the effort. 2-Substantial/Maximal Assistance-helper does MORE THAN HALF the effort. [place] lifts or holds trunk or limbs and provides more than half the effort. 1-Bahekwfwp-dujgku does ALL the effort. Patient does none of the effort to complete the activity. Or, the assistance of 2 or more helpers is required for the patient to complete the activity. If activity was not attempted, code reason: 7-Patient Refused. 9-Not Applicable-not attempted and the patient did not perform the activity before the current illness, exacerbation or injury. 10-Not Attempted due to Environmental Limitations-(lack of equipment, weather restraints, etc.). 88-Not Attempted due to Medical Conditions or Safety Concerns. Sit to Lying (QC): 3 Lying to Sitting/Side of Bed(Q: 3 Sit to Stand (QC): 3 Toilet Transfer (QC): 3 Weight Bearing Full Weight Bearing Full Weight Bearing Treatments OT/PT cotreat due to skill of 2 clinicians required which a rehab director occupational therapist could not perform in order to coordinate UE/LEs, decrease fall risk, and due to pt's limit ations in pain, transfers, mobility, and activity tolerance. OT focused on ADLs, UE placement, cues for sequencing and safety. PT focused on LE placement, gross overall movement, transfers/mobility. Pt just received enema from nurse, request to get to BSC. Pt transferred L sidelying to sit EOB, assist with BLEs and trunk. Once EOB, pt transferred to BSC, mod A. Pt completed toileting, assist x2 for hygiene (one person to stand and one to perform hygiene). Pt transferred back to bed, mod A sit to stand. Pt transferred supine, assist BLEs. Post tx, pt laying in bed, call light in reach and all needs met. Assessment Current Status: Fair Progress Pt is limited due to discomfort of not having regular BM. PT Short Term Goals Short Term Goals Time Frame: Aug 13, 2020 Roll Left & Right: 6 Sit to lyin Lying to sitting on side of be: 3 (met) Sit to stand: 3 Chair/hha-ys-iwcdc transfer: 3 Walk 10 feet: 3 PT Nursing Home Goals Cleaner And Presser Goals PT Cleaner And Presser Goals Time Frame: Aug 27, 2020 Roll Left & Right (QC): 6 Sit to Lying (QC): 4 Lying-Sitting on Side/Bed(QC): 4 Sit to Stand (QC): 4 Chair/Rrt-md-[place]pyoa Xfer(QC): 4 Toilet Transfer (QC): 4 Car Transfer (QC): 4 Does the Patient Walk: Yes Walk 10 feet (QC): 4 Walk 50ft with 2 Turns (QC): 4 Walk 150 ft (QC): 88 Walking 10ft on Uneven Surface: 4 1 Step (curb) (QC): 4 4 Steps (QC): 4 12 Steps (QC): 88 Picking up an Object (QC): 88 Wheel 50 feet with 2 turns (QC: 6 Wheel 150 feet: 6 PT Plan Problem List Problem List: Activity Tolerance, Functional Strength, Transfer Treatment/Plan Treatment Plan: Continue Plan of Care Treatment Plan: Bed Mobility, Education, Functional Activity Jayshree, Functional Strength, Group Therapy, Gait, Safety, Therapeutic Exercise, Transfers Treatment Duration: Aug 27, 2020 Frequency: At least 5 of 7 days/Wk (IRF) Estimated Hrs Per Day: 1.5 hours per day Patient and/or Family Agrees t: Yes Safety Risks/Education Patient Education: Transfer Techniques, Correct Positioning, Safety Issues Teaching Recipient: Patient Teaching Methods: Discussion Response to Teaching: Verbalize Understanding Time/GCodes Time In: 1420 Time Out: 1450 Total Billed Treatment Time: 30 Total Billed Treatment Co-treat for 30m 1, FA x2 (30m) DMITRY M[employer] Aug 12, 2020 15:48
[2020-08-12] MEDS: ACETAMINOPHEN 325 MG TABLET PO PRN (16:41)
[2020-08-12] MEDS: DICLOFENAC 1% GEL 100 GM (VOLTAREN) TUBE TOP PRN (16:42)
[2020-08-12 20:00] VITALS: BP 156/76
[2020-08-12] MEDS: SIMvastatin 10 MG (ZOCOR) TAB PO SCH (20:55)
[2020-08-13] MEDS: inSUlin ASPART (NovoLOG) 1 UNIT/0.01 ML (CHARGE PER UNIT) SC SCH ×4 (05:37→20:58)
--- NOTE | 2020-08-13 06:10 | PM&R Progress Note ---
Subjective HPI/CC On Admission Date Seen by Provider: Aug 13, 2020 Time Seen by Provider: 11:00 Subjective/Events-last exam 08/13/2020: Pt doing pretty well but variation in BP places him at risk for orthostasis I changed Clonidine to BID prn for BP elevation and started Norvasc 2.5 twice daily and will transition to Hydralazine also. 08/12/2020: Pt doing pretty well Bowels havent moved and we have given a lot of Laxatives Sugars are okay Voltaren gel to the back Clonidine BID has helped the BP that has dipped down to low levels in the afternoon Length of stay, presumed to be 08/26/20 08/11/2020: Pt doing pretty well Left axilla pain because of compensation with his arms, will initiate a moist heating pad Bowels are moving okay Clonidine changed to BID instead of TID due to hypotension in the afternoon interfering with therapy X-rays were done and clouded to Dr. Elder 08/10/2020: Pt doing really well Had a large bowel movement yesterday Temperature at 99.4 but no other issues Sugars are better Talked to him about insulin at discharge 08/09/20: Patient doing well BM today Back pain improved Increased movement now Better today 08/08/20: Patient in a good mood Baclofen is working well for him so will maintain this Pain controlled High sugars requiring addition of insulin Wants tacos from home 08/07/2020: Patient doing pretty well Pain is still an issue Baclofen was ordered to help his back spasms No bowels are moving since loose stools for several days Adjusted insulin after reviewing several Accu-Cheks 08/06/2020: Patient doing pretty well Very motivated to walk Loose stool so holding laxatives Right knee really hurts Sodium level 128 so we will discontinue the indapamide Review of Systems General: Fatigue, Malaise Musculoskeletal: back pain Objective Exam Vital Signs Vital Signs Date Time Temp Pulse Resp B/P (MAP) Pulse Ox O2 Delivery O2 Flow Rate FiO2 08/13/20 20:59 Room Air 08/13/20 20:00 36.4 95 16 178/97 (124) 97 Capillary Refill : General Appearance: No Apparent Distress, WD/WN, Chronically ill HEENT: PERRL/EOMI, Normal ENT Inspection, Pharynx Normal Neck: Full Range of Motion, Normal Inspection, Non Tender, Supple, Carotid Bruit Respiratory: Chest Non Tender, Lungs Clear, Normal Breath Sounds, No Accessory Muscle Use, No Respiratory Distress Cardiovascular: Regular Rate, Rhythm, No Edema, No Gallop, No JVD, No Murmur, Normal Peripheral Pulses Gastrointestinal: Normal Bowel Sounds, No Organomegaly, No Pulsatile Mass, Non Tender, Soft Back: Decreased Range of Motion, Muscle Spasm, Vertebral Tenderness Extremity: Normal Capillary Refill, Normal Inspection, Normal Range of Motion, Non Tender, No Calf Tenderness, No Pedal Edema Neurologic/Psychiatric: Alert, Oriented x3, No Motor/Sensory Deficits, Normal Mood/Affect, Motor Weakness Skin: Normal Color, Warm/Dry Lymphatic: No Adenopathy Results/Procedures Lab Patient resulted labs reviewed. FIM Transfers Therapy Code Descriptions/Definitions Functional [place] Measure: 0=Not Assessed/NA 4=Minimal Assistance 1=Total Assistance 5=Supervision or Setup 2=Maximal Assistance 6=Modified [place] 3=Moderate Assistance 7=Complete IndependenceSCALE: Activities may be completed with or without assistive devices. 1-Glbqhijiwt-iqnusuq completes the activity by him/herself with no assistance from a helper. 5-Set-up or Clean-up Assistance-helper sets up or cleans up; patient completes activity. [place] assists only prior to or following the activity. 4-Supervision or Touching Assistance-helper provides verbal cues and/or touching/steadying and/or contact guard assistance as patient completes activity. Assistance may be provided throughout the activity or intermittently. 3-Partial/Moderate Assistance-helper does LESS THAN HALF the effort. [place] lifts, holds or supports trunk or limbs, but provides less than half the effort. 2-Substantial/Maximal Assistance-helper does MORE THAN HALF the effort. [place] lifts or holds trunk or limbs and provides more than half the effort. 8-Bjnwpconi-pkujbw does ALL the effort. Patient does none of the effort to complete the activity. Or, the assistance of 2 or more helpers is required for the patient to complete the activity. If activity was not attempted, code reason: 7-Patient Refused. 9-Not Applicable-not attempted and the patient did not perform the activity before the current illness, exacerbation or injury. 10-Not Attempted due to Environmental Limitations-(lack of equipment, weather restraints, etc.). 88-Not Attempted due to Medical Conditions or Safety Concerns. Roll Left to Right (QC): 6 Sit to Lying (QC): 3 Sit to Stand (QC): 3 Chair/Irp-aq-Ockiq Xfer(QC): 3 Car Transfer (QC): 2 Gait Training Does the Patient Walk?: Yes Distance: 30'x2, 20' Walk 10 feet (QC): 4 Walk 50 ft with 2 Turns(QC): 88 Walk 150 ft (QC): 88 Walking 10ft/uneven surface-QC: 88 Gait Persons Needed: 1 Gait Assistive Device: Parallel Bars Wheelchair Training Does the Pt Use a Wheelchair?: Yes Distance: 150'x2 Wheel 50 ft with 2 turns (QC): 5 Wheel 150 ft (QC): 5 Type of Wheelchair: Manual Stair Training 1 Step (curb) (QC): 88 4 Steps (QC): 88 12 Steps (QC): 88 Balance Picking up an Object (QC): 88 ADL-Treatment Eating (QC): 6 Oral Hygiene (QC): 6 Shower/Bathe Self (QC): 4 (Pt able to wash/dry all parts seated on SC.) Upper Body Dressing (QC): 5 (set up with meat puller shirt and back brace) Lower Body Dressing (QC): 3 (Pt able to thread BLEs into pants using AE, assist with pant hike in stand.) On/Off Footwear (QC): 6 (Pt able to don/doff slip on shoes.) Toileting Hygiene (QC): 1 Toilet Transfer (QC): 3 (mod A) Assessment/Plan Assessment and Plan Assess & Plan/Chief Complaint Assessment: Status post lumbar spine surgery with severe debility and leg weakness Recent DKA Bmd-ji-euhsnwf diabetes history Hypertension Chronic arthritis pain Plan: Pain control Diabetes management Blood pressure management Inpatient rehab protocol 08/06/2020: Hold laxatives DC indapamide Monitor closely Fall risk 08/07/2020: Increase insulin Aggressive therapy 08/08/20: Increase insulin Baclofen 08/09/20: Monitor sugar Back pain management 08/10/2020: Monitor blood sugar Insulin at discharge will be required 08/11/2020: Monitor pain Supportive care Baclofen 08/12/2020: Pain control Intensive rehab Bowel regimen to intensify 08/13/2020: Supportive care Aggressive therapy Blood pressure management (1) Status post lumbar spine surgery for decompression of spinal cord (2) Diabetes (3) DKA (diabetic ketoacidoses) (4) Hypertension (5) Leg weakness DALY WHITNEY DO Aug 13, 2020 06:10
[2020-08-13] MEDS: inSUlin (REGULAR) HUMAN 1 UNIT/0.01 ML (CHARGE PER UNIT) SC SCH ×4 (06:43→20:41)
[2020-08-13] MEDS: metFORMIN XR 500 MG (GLUCOPHAGE XR) TAB PO SCH ×2 (06:43→17:11)
[2020-08-13 07:27] VITALS: BP 196/113
[2020-08-13] MEDS: lisINopril 20 MG (PRINIVIL) TABLET PO SCH ×2 (07:29→20:39)
[2020-08-13] MEDS: meTOprolol TARTRATE 25 MG (LOPRESSOR) TABLET PO SCH ×2 (07:29→20:39)
[2020-08-13] MEDS: LACTOBACILLUS ACIDOPHILUS (PROBIOTIC) CAPSULE PO SCH (07:29)
[2020-08-13] MEDS: ALLOPURINOL 100 MG (ZYLOPRIM) TAB PO SCH (07:29)
[2020-08-13] MEDS: cloNIDine 0.1 MG (CATAPRES) TAB PO SCH (07:29)
[2020-08-13] MEDS: glipiZIDE 5 MG (GLUCOTROL) TAB PO SCH ×2 (07:29→17:11)
[2020-08-13] MEDS: BACLOFEN 10 MG (LIORESAL) TAB PO SCH ×3 (07:29→20:38)
[2020-08-13] MEDS: TRIAMCINOLONE 0.1% OINT (KENALOG) 15 GM TUBE TOP SCH ×2 (08:34→20:39)
--- NOTE | 2020-08-13 08:56 | Physical Therapy Daily Note ---
PT Daily Note-Current Subjective Patient in bed pre tx, agrees to PT, has 4-5/10 back pain and 7/10 pain in left pec area and shoulders. Patient needs to get dressed, puts on pants and underwear with min assist, shirt independently Appearance Patient in bed post tx with nurse call, phone, tray, all needs met. Mental Status Patient Orientation: Person, Place, Situation back brace Transfers SCALE: Activities may be completed with or without assistive devices. 8-Agskooqghy-zbqwlgr completes the activity by him/herself with no assistance from a helper. 5-Set-up or Clean-up Assistance-helper sets up or cleans up; patient completes activity. [place] assists only prior to or following the activity. 4-Supervision or Touching Assistance-helper provides verbal cues and/or touching/steadying and/or contact guard assistance as patient completes activity. Assistance may be provided throughout the activity or intermittently. 3-Partial/Moderate Assistance-helper does LESS THAN HALF the effort. [place] lifts, holds or supports trunk or limbs, but provides less than half the effort. 2-Substantial/Maximal Assistance-helper does MORE THAN HALF the effort. [place] lifts or holds trunk or limbs and provides more than half the effort. 6-Toxtraqah-hczppe does ALL the effort. Patient does none of the effort to complete the activity. Or, the assistance of 2 or more helpers is required for the patient to complete the activity. If activity was not attempted, code reason: 7-Patient Refused. 9-Not Applicable-not attempted and the patient did not perform the activity before the current illness, exacerbation or injury. 10-Not Attempted due to Environmental Limitations-(lack of equipment, weather restraints, etc.). 88-Not Attempted due to Medical Conditions or Safety Concerns. Roll Left & Right (QC): 6 Sit to Lying (QC): 3 Lying to Sitting/Side of Bed(Q: 4 Sit to Stand (QC): 3 Chair/Ahv-cr-Rygbj Xfer(QC): 3 Weight Bearing Full Weight Bearing Full Weight Bearing Gait Training Distance: 30'x4 Walk 10 feet (QC): 4 Gait Persons Needed: 1 Gait Assistive Device: FWW slow, antalgic, bears a lot of weight through his arms Wheelchair Training Does the Pt Use a Wheelchair?: Yes Wheel 50 ft with 2 turns (QC): 5 Type of Wheelchair: Manual 120' Exercises Seated Therapy Exercises: Ankle pumps, Hip flexion, Hip abd/add (with ball and RTB) Seated Reps: 20 LAQ alternating for 5 min Treatments bed mobility and transfers, ambulation, WC mobility, dressing, LE strengthening Assessment Current Status: Fair Progress overall patient has made some progress but had more pain today and more difficulty with ambulation PT Short Term Goals Short Term Goals Time Frame: Aug 13, 2020 Roll Left & Right: 6 Sit to lyin Lying to sitting on side of be: 3 (met) Sit to stand: 3 Chair/xru-yz-ozire transfer: 3 Walk 10 feet: 3 PT Sales Support Assistant Goals Sales Support Assistant Goals PT Fdc Goals Time Frame: Aug 27, 2020 Roll Left & Right (QC): 6 Sit to Lying (QC): 4 Lying-Sitting on Side/Bed(QC): 4 Sit to Stand (QC): 4 Chair/Mix-bm-Zjpkq Xfer(QC): 4 Toilet Transfer (QC): 4 Car Transfer (QC): 4 Does the Patient Walk: Yes Walk 10 feet (QC): 4 Walk 50ft with 2 Turns (QC): 4 Walk 150 ft (QC): 88 Walking 10ft on Uneven Surface: 4 1 Step (curb) (QC): 4 4 Steps (QC): 4 12 Steps (QC): 88 Picking up an Object (QC): 88 Wheel 50 feet with 2 turns (QC: 6 Wheel 150 feet: 6 PT Plan Problem List Problem List: Activity Tolerance, Functional Strength, Safety, Balance, Gait, Transfer, Bed Mobility, ROM Treatment/Plan Treatment Plan: Continue Plan of Care Treatment Plan: Bed Mobility, Education, Functional Activity Jayshree, Functional Strength, Group Therapy, Gait, Safety, Therapeutic Exercise, Transfers Treatment Duration: Aug 27, 2020 Frequency: At least 5 of 7 days/Wk (IRF) Estimated Hrs Per Day: 1.5 hours per day Patient and/or Family Agrees t: Yes Safety Risks/Education Patient Education: Gait Training, Transfer Techniques, Correct Positioning, W/C Management, Reviewed Don/Doff Brace, Safety Issues Teaching Recipient: Patient Teaching Methods: Demonstration, Discussion Response to Teaching: Reinforcement Needed Time/GCodes Time In: 0800 Time Out: 0900 Total Billed Treatment Time: 60 Total Billed Treatment 1 visit GT 30' EX 15' FA 15' KRTEK,AMANDA PT Aug 13, 2020 08:56
[2020-08-13] MEDS: DOCUSATE SODIUM 100 MG (COLACE) CAP PO SCH ×2 (09:32→20:38)
[2020-08-13] MEDS: SENNA W/DOCUSATE (SENOKOT S) TABLET PO SCH ×2 (09:32→20:38)
[2020-08-13] MEDS: polyethylene glycoL POWDER 17 GM (MIRALAX) PACK PO SCH ×2 (09:32→19:47)
--- NOTE | 2020-08-13 09:49 | Occupational Ther Daily Note ---
OT Current Status-Daily Note Subjective Pt laying in bed, states he feels better today than yesterday. Pt rates pain 7- 8/10 in L shoulder, indicates his back isn't bothering him too much today. Requests to return to bed half way through tx due to shoulder pain. Mental Status/Objective Patient Orientation: Normal For Age Attachments: Other-See Comments (back brace OOB) ADL-Treatment Therapy Code Descriptions/Definitions Functional [place] Measure: 0=Not Assessed/NA 4=Minimal Assistance 1=Total Assistance 5=Supervision or Setup 2=Maximal Assistance 6=Modified [place] 3=Moderate Assistance 7=Complete IndependenceSCALE: Activities may be completed with or without assistive devices. 4-Njbxmrdrme-hshbrhc completes the activity by him/herself with no assistance from a helper. 5-Set-up or Clean-up Assistance-helper sets up or cleans up; patient completes activity. [place] assists only prior to or following the activity. 4-Supervision or Touching Assistance-helper provides verbal cues and/or touching/steadying and/or contact guard assistance as patient completes activity. Assistance may be provided throughout the activity or intermittently. 3-Partial/Moderate Assistance-helper does LESS THAN HALF the effort. [place] lifts, holds or supports trunk or limbs, but provides less than half the effort. 2-Substantial/Maximal Assistance-helper does MORE THAN HALF the effort. [place] lifts or holds trunk or limbs and provides more than half the effort. 0-Zypgnahyv-elvnhi does ALL the effort. Patient does none of the effort to complete the activity. Or, the assistance of 2 or more helpers is required for the patient to complete the activity. If activity was not attempted, code reason: 7-Patient Refused. 9-Not Applicable-not attempted and the patient did not perform the activity before the current illness, exacerbation or injury. 10-Not Attempted due to Environmental Limitations-(lack of equipment, weather restraints, etc.). 88-Not Attempted due to Medical Conditions or Safety Concerns. Upper Body Dressing (QC): 5 (back brace) On/Off Footwear: 4 (SBA) Other Treatment Pt transferred supine to sit EOB, assist with trunk. Pt donned slip on shoes with SBA, and back brace after set up. Pt transferred to w/c, mod A sit to stand. Pt propelled self to therapy gym. OT tx with focus on increasing BUE strength and activity tolerance. Pt completed 2:30 mins on pulleys in order to provide gentle stretch to LUE and to work on activity tolerance, pt took 1 rest break with task. He then completed pegboard task, placing x100, 1" pegs into foam pegboard. Pt initially started, alternating hands but reported increased pain in LUE, so completed remainder of task with just RUE (1lb wrist cuff RUE). Pt took multiple rest breaks as needed. Pt complained of increased pain in LUE, OT provided pt with moist hot pack. Pt able to tolerate a couple of mins, but states it is too heavy and pulling shoulder down. Pt requests to return to room. OT educated pt on purpose and benefit of OT, informing him of time left for session. Pt replied "I don't care, I need to lay down". Pt propelled self back to room, transferring to bed, mod A sit to stand, then assist with BLEs supine. Pt's nurse present to take vitals, states vital signs are normal. OT reapplied moist hot pack, pt able to tolerate for remainder of session. In order to increase BUE fine motor strength and coordination, pt removed beads from moderate resistance theraputty, taking rest breaks as needed. At bed level, pt complained of hip pain, requiring multiple adjustments of positioning to comfort. Pt completed graded clothes pins (1-5 lbs), removing/placing each clothes pin with RUE, then repeating with LUE. Pt completed x2 times through each hand. Post tx, pt laying in bed, call light in reach and all needs met. Education OT Patient Education: Correct positioning, Modified ADL techniques, Progress toward Goal/Update tx plan, Purpose of tx/functional activities Teaching Recipient: Patient Teaching Methods: Discussion Response to Teaching: Verbalize Understanding OT Short Term Goals Short Term Goals Time Frame: Aug 20, 2020 Oral hygiene: 5 Shower/bathe self: 3 Lower body dressin Putting on/taking off footwear: 3 OT Fpc Goals Fpc Goals Time Frame: Sep 04, 2020 Eating (QC): 6 Oral Hygiene (QC): 6 Toileting Hygiene (QC): 6 Shower/Bathe Self (QC): 6 Upper Body Dressing (QC): 6 Lower Body Dressing (QC): 6 On/Off Footwear (QC): 6 Additional Goals: 1-Demonstrate ADL Tasks, 2-Verbalize Understanding, 3-Impr oveStrength/Jayshree 1=Demonstrate adherence to instructed precautions during ADL tasks. 2=Patient will verbalize/demonstrate understanding of assistive devices/modifications for ADL. 3=Patient will improve strength/tolerance for activity to enable patient to perform ADL's. OT Education/Plan Problem List/Assessment Assessment: Decreased Activ Tolerance, Decreased UE Strength, Impaired Funct Balance, Impaired I ADL's, Impaired Self-Care Skills Discharge Recommendations Plan/Recommendations: Continue POC Treatment Plan/Plan of Care Patient would benefit from OT for education, treatment and training to promote independence in ADL's, mobility, safety and/or upper extremity function for ADL's. Plan of Care: ADL Retraining, Functional Mobility, Group Exercise/Act as Ind, UE Funct Exercise/Act Treatment Duration: Sep 04, 2020 Frequency: Modified Program (IRF) (27/08) Estimated Hrs Per Day: 1.5 hours per day Rehab Potential: Fair Time/GCodes Start Time: 09:15 Stop Time: 10:45 Total Time Billed (hr/min): 90 Billed Treatment Time 1, EX (10'), FA 5 (80') MED PETERSON OT Aug 13, 2020 09:49
[2020-08-13] MEDS ORDERED: cloNIDine 0.1 MG (CATAPRES) TAB PO PRN (11:45)
[2020-08-13] MEDS ORDERED: hydrALAZINE (APRESOLINE) 25 MG TAB PO PRN (11:45)
--- NOTE | 2020-08-13 11:53 | Physician Query Clarification ---
PQ-Intro New Diagnosis Admission/Discharge Admission Date: Aug 05, 2020 at 16:30 Discharge Date: Dr. Ballesteros, The medical record reflects the following clinical scenario: History/Risk Factors: s/p lumbar spinal fusion, DM Clinical Findings: lumbar spinal fusion, DJD spine Treatment: IP rehab Question: What condition best reflects the above clinical scenario? Please document a response in the Progress Noter or Discharge Summary. 1. 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 lumbar spinal fusion underlying condition unknown 3. Other, with explanation of the clinical findings. 4. Clinically undetermined, no explanation for the clinical findings. PHYSICIAN RESPONSE What condition reflects above: 1 Please remember a lack of response to the above will prompt a phone page by CDI/Coding staff. In responding to this query, please exercise your independent professional judgment. The purpose of this communication is to more accurately reflect the complexity of your patients condition. The fact that a question is asked does not imply that any particular answer is desired or expected. Thank you for your timely response to this clarification. Requestors name: Kelsea THIS PHYSICIAN QUERY FORM IS A PERMANENT PART OF THE MEDICAL RECORD KELSEA TRIPP Aug 13, 2020 11:53 DALY BALLESTEROS DO Aug 13, 2020 18:01
--- NOTE | 2020-08-13 13:11 | Physical Therapy Daily Note ---
PT Daily Note-Current Subjective Patient in bed pre tx, agrees to PT, has 5/10 back and shoulder pain. Appearance Patient in bed post tx with nurse call, phone, tray, all needs met. Mental Status Patient Orientation: Person, Place, Situation back brace Transfers SCALE: Activities may be completed with or without assistive devices. 7-Rhtxtduilh-ijhvnbr completes the activity by him/herself with no assistance from a helper. 5-Set-up or Clean-up Assistance-helper sets up or cleans up; patient completes activity. [place] assists only prior to or following the activity. 4-Supervision or Touching Assistance-helper provides verbal cues and/or touching/steadying and/or contact guard assistance as patient completes activity. Assistance may be provided throughout the activity or intermittently. 3-Partial/Moderate Assistance-helper does LESS THAN HALF the effort. [place] lifts, holds or supports trunk or limbs, but provides less than half the effort. 2-Substantial/Maximal Assistance-helper does MORE THAN HALF the effort. [place] lifts or holds trunk or limbs and provides more than half the effort. 1-Cdblktplu-cuipeg does ALL the effort. Patient does none of the effort to complete the activity. Or, the assistance of 2 or more helpers is required for the patient to complete the activity. If activity was not attempted, code reason: 7-Patient Refused. 9-Not Applicable-not attempted and the patient did not perform the activity before the current illness, exacerbation or injury. 10-Not Attempted due to Environmental Limitations-(lack of equipment, weather restraints, etc.). 88-Not Attempted due to Medical Conditions or Safety Concerns. Roll Left & Right (QC): 6 Sit to Lying (QC): 4 Lying to Sitting/Side of Bed(Q: 4 Sit to Stand (QC): 3 Chair/Iel-ek-Jfmub Xfer(QC): 3 Weight Bearing Full Weight Bearing Full Weight Bearing Wheelchair Training Does the Pt Use a Wheelchair?: Yes Wheel 50 ft with 2 turns (QC): 4 Type of Wheelchair: Manual 120'x2 Exercises NuStep Minutes: 15 NuStep Workload: 4 Treatments bed mobility and transfers, WC mobility, functional strengthening Assessment Current Status: Fair Progress slightly improved sit to stand, still plops into chair without reaching for armrest. PT Short Term Goals Short Term Goals Time Frame: Aug 13, 2020 Roll Left & Right: 6 Sit to lyin Lying to sitting on side of be: 3 (met) Sit to stand: 3 Chair/ose-ud-kbujg transfer: 3 Walk 10 feet: 3 PT Nursing Home Goals Outdoor Adventure Instructor Goals PT Outdoor Adventure Instructor Goals Time Frame: Aug 27, 2020 Roll Left & Right (QC): 6 Sit to Lying (QC): 4 Lying-Sitting on Side/Bed(QC): 4 Sit to Stand (QC): 4 Chair/Lip-me-Phhpp Xfer(QC): 4 Toilet Transfer (QC): 4 Car Transfer (QC): 4 Does the Patient Walk: Yes Walk 10 feet (QC): 4 Walk 50ft with 2 Turns (QC): 4 Walk 150 ft (QC): 88 Walking 10ft on Uneven Surface: 4 1 Step (curb) (QC): 4 4 Steps (QC): 4 12 Steps (QC): 88 Picking up an Object (QC): 88 Wheel 50 feet with 2 turns (QC: 6 Wheel 150 feet: 6 PT Plan Problem List Problem List: Activity Tolerance, Functional Strength, Safety, Balance, Gait, Transfer, Bed Mobility, ROM Treatment/Plan Treatment Plan: Continue Plan of Care Treatment Plan: Bed Mobility, Education, Functional Activity Jayshree, Functional Strength, Group Therapy, Gait, Safety, Therapeutic Exercise, Transfers Treatment Duration: Aug 27, 2020 Frequency: At least 5 of 7 days/Wk (IRF) Estimated Hrs Per Day: 1.5 hours per day Patient and/or Family Agrees t: Yes Safety Risks/Education Patient Education: Transfer Techniques, Correct Positioning, W/C Management, Safety Issues Teaching Recipient: Patient Teaching Methods: Demonstration, Discussion Response to Teaching: Reinforcement Needed Time/GCodes Time In: 1240 Time Out: 1310 Total Billed Treatment Time: 30 Total Billed Treatment 1 visit EX 15' FA 15' AMANDA CHAPA PT Aug 13, 2020 13:10
[2020-08-13] MEDS: DICLOFENAC 1% GEL 100 GM (VOLTAREN) TUBE TOP PRN ×3 (13:57→20:40)
[2020-08-13] MEDS: ENOXAPARIN 40 MG/0.4 ML (LOVENOX) SYR SC SCH (14:00)
[2020-08-13] MEDS ORDERED: PATIENT MAY USE OWN MED,SINGLE MED PO SCH (15:15)
[2020-08-13] MEDS: CYCLOBENZAPRINE 10 MG (FLEXERIL) TAB PO PRN (15:41)
[2020-08-13 20:00] VITALS: BP 178/97
[2020-08-13] MEDS: SIMvastatin 10 MG (ZOCOR) TAB PO SCH (20:39)
[2020-08-13] MEDS ORDERED: amLODIPine 2.5MG (NORVASC) TAB PO SCH (21:00)
[2020-08-13] MEDS: ACETAMINOPHEN 325 MG TABLET PO PRN (23:36)
[2020-08-14] MEDS: CYCLOBENZAPRINE 10 MG (FLEXERIL) TAB PO PRN (00:42)
[2020-08-14] MEDS: inSUlin ASPART (NovoLOG) 1 UNIT/0.01 ML (CHARGE PER UNIT) SC SCH ×4 (05:19→21:36)
[2020-08-14] MEDS: metFORMIN XR 500 MG (GLUCOPHAGE XR) TAB PO SCH ×2 (06:27→16:55)
[2020-08-14] MEDS: inSUlin (REGULAR) HUMAN 1 UNIT/0.01 ML (CHARGE PER UNIT) SC SCH ×4 (06:28→21:35)
--- NOTE | 2020-08-14 06:50 | PM&R Progress Note ---
Subjective HPI/CC On Admission Date Seen by Provider: Aug 14, 2020 Time Seen by Provider: 11:30 Subjective/Events-last exam 08/14/20: Patient doing well No major issues Pain is an ongoing issue BP better 08/13/2020: Pt doing pretty well but variation in BP places him at risk for orthostasis I changed Clonidine to BID prn for BP elevation and started Norvasc 2.5 twice daily and will transition to Hydralazine also. 08/12/2020: Pt doing pretty well Bowels havent moved and we have given a lot of Laxatives Sugars are okay Voltaren gel to the back Clonidine BID has helped the BP that has dipped down to low levels in the afternoon Length of stay, presumed to be 08/26/20 08/11/2020: Pt doing pretty well Left axilla pain because of compensation with his arms, will initiate a moist heating pad Bowels are moving okay Clonidine changed to BID instead of TID due to hypotension in the afternoon interfering with therapy X-rays were done and clouded to Dr. Elder 08/10/2020: Pt doing really well Had a large bowel movement yesterday Temperature at 99.4 but no other issues Sugars are better Talked to him about insulin at discharge 08/09/20: Patient doing well BM today Back pain improved Increased movement now Better today 08/08/20: Patient in a good mood Baclofen is working well for him so will maintain this Pain controlled High sugars requiring addition of insulin Wants tacos from home 08/07/2020: Patient doing pretty well Pain is still an issue Baclofen was ordered to help his back spasms No bowels are moving since loose stools for several days Adjusted insulin after reviewing several Accu-Cheks 08/06/2020: Patient doing pretty well Very motivated to walk Loose stool so holding laxatives Right knee really hurts Sodium level 128 so we will discontinue the indapamide Review of Systems General: Fatigue, Malaise Musculoskeletal: back pain Objective Exam Vital Signs Vital Signs Date Time Temp Pulse Resp B/P (MAP) Pulse Ox O2 Delivery O2 Flow Rate FiO2 08/14/20 20:15 Room Air 08/14/20 20:00 36.8 94 16 143/82 (102) 96 Capillary Refill : General Appearance: No Apparent Distress, WD/WN, Chronically ill HEENT: PERRL/EOMI, Normal ENT Inspection, Pharynx Normal Neck: Full Range of Motion, Normal Inspection, Non Tender, Supple, Carotid Bruit Respiratory: Chest Non Tender, Lungs Clear, Normal Breath Sounds, No Accessory Muscle Use, No Respiratory Distress Cardiovascular: Regular Rate, Rhythm, No Edema, No Gallop, No JVD, No Murmur, Normal Peripheral Pulses Gastrointestinal: Normal Bowel Sounds, No Organomegaly, No Pulsatile Mass, Non Tender, Soft Back: Decreased Range of Motion, Muscle Spasm, Vertebral Tenderness Extremity: Normal Capillary Refill, Normal Inspection, Normal Range of Motion, Non Tender, No Calf Tenderness, No Pedal Edema Neurologic/Psychiatric: Alert, Oriented x3, No Motor/Sensory Deficits, Normal Mood/Affect, Motor Weakness Skin: Normal Color, Warm/Dry Lymphatic: No Adenopathy Results/Procedures Lab Patient resulted labs reviewed. FIM Transfers Therapy Code Descriptions/Definitions Functional [place] Measure: 0=Not Assessed/NA 4=Minimal Assistance 1=Total Assistance 5=Supervision or Setup 2=Maximal Assistance 6=Modified [place] 3=Moderate Assistance 7=Complete IndependenceSCALE: Activities may be completed with or without assistive devices. 1-Awvejfatqr-fkoppsr completes the activity by him/herself with no assistance from a helper. 5-Set-up or Clean-up Assistance-helper sets up or cleans up; patient completes activity. [place] assists only prior to or following the activity. 4-Supervision or Touching Assistance-helper provides verbal cues and/or touching/steadying and/or contact guard assistance as patient completes activity. Assistance may be provided throughout the activity or intermittently. 3-Partial/Moderate Assistance-helper does LESS THAN HALF the effort. [place] lifts, holds or supports trunk or limbs, but provides less than half the effort. 2-Substantial/Maximal Assistance-helper does MORE THAN HALF the effort. [place] lifts or holds trunk or limbs and provides more than half the effort. 5-Gvjgkqzgz-fsokwm does ALL the effort. Patient does none of the effort to complete the activity. Or, the assistance of 2 or more helpers is required for the patient to complete the activity. If activity was not attempted, code reason: 7-Patient Refused. 9-Not Applicable-not attempted and the patient did not perform the activity before the current illness, exacerbation or injury. 10-Not Attempted due to Environmental Limitations-(lack of equipment, weather restraints, etc.). 88-Not Attempted due to Medical Conditions or Safety Concerns. Roll Left to Right (QC): 6 Sit to Lying (QC): 4 Sit to Stand (QC): 3 Chair/Adp-ox-Eqoxo Xfer(QC): 3 Car Transfer (QC): 2 Gait Training Does the Patient Walk?: Yes Distance: 30'x4 Walk 10 feet (QC): 4 Walk 50 ft with 2 Turns(QC): 88 Walk 150 ft (QC): 88 Walking 10ft/uneven surface-QC: 88 Gait Persons Needed: 1 Gait Assistive Device: FWW Wheelchair Training Does the Pt Use a Wheelchair?: Yes Distance: 150'x2 Wheel 50 ft with 2 turns (QC): 4 Wheel 150 ft (QC): 5 Type of Wheelchair: Manual Stair Training 1 Step (curb) (QC): 88 4 Steps (QC): 88 12 Steps (QC): 88 Balance Picking up an Object (QC): 88 ADL-Treatment Eating (QC): 6 Oral Hygiene (QC): 6 Shower/Bathe Self (QC): 4 (Pt able to wash/dry all parts seated on SC.) Upper Body Dressing (QC): 5 (back brace) Lower Body Dressing (QC): 3 (Pt able to thread BLEs into pants using AE, assist with pant hike in stand.) On/Off Footwear (QC): 4 (SBA) Toileting Hygiene (QC): 1 Toilet Transfer (QC): 3 (mod A) Assessment/Plan Assessment and Plan Assess & Plan/Chief Complaint Assessment: Status post lumbar spine surgery with severe debility and leg weakness Recent DKA Tze-gf-mwmqxyi diabetes history Hypertension Chronic arthritis pain Plan: Pain control Diabetes management Blood pressure management Inpatient rehab protocol 08/06/2020: Hold laxatives DC indapamide Monitor closely Fall risk 08/07/2020: Increase insulin Aggressive therapy 08/08/20: Increase insulin Baclofen 08/09/20: Monitor sugar Back pain management 08/10/2020: Monitor blood sugar Insulin at discharge will be required 08/11/2020: Monitor pain Supportive care Baclofen 08/12/2020: Pain control Intensive rehab Bowel regimen to intensify 08/13/2020: Supportive care Aggressive therapy Blood pressure management 08/14/20: Improved status Adjust insulin BP ok (1) Status post lumbar spine surgery for decompression of spinal cord (2) Diabetes (3) DKA (diabetic ketoacidoses) (4) Hypertension (5) Leg weakness DALY WHITNEY DO Aug 14, 2020 06:50
[2020-08-14 08:00] VITALS: BP 155/66
[2020-08-14] MEDS: TRIAMCINOLONE 0.1% OINT (KENALOG) 15 GM TUBE TOP SCH ×2 (08:32→21:33)
[2020-08-14] MEDS: DICLOFENAC 1% GEL 100 GM (VOLTAREN) TUBE TOP PRN ×2 (08:32→20:19)
[2020-08-14] MEDS: ALLOPURINOL 100 MG (ZYLOPRIM) TAB PO SCH (08:33)
[2020-08-14] MEDS: BACLOFEN 10 MG (LIORESAL) TAB PO SCH ×3 (08:33→21:34)
[2020-08-14] MEDS: DOCUSATE SODIUM 100 MG (COLACE) CAP PO SCH ×2 (08:33→21:34)
[2020-08-14] MEDS: meTOprolol TARTRATE 25 MG (LOPRESSOR) TABLET PO SCH ×2 (08:33→21:34)
[2020-08-14] MEDS: lisINopril 20 MG (PRINIVIL) TABLET PO SCH ×2 (08:33→21:33)
[2020-08-14] MEDS: amLODIPine 2.5MG (NORVASC) TAB PO SCH ×2 (08:33→21:34)
[2020-08-14] MEDS: LACTOBACILLUS ACIDOPHILUS (PROBIOTIC) CAPSULE PO SCH (08:33)
[2020-08-14] MEDS: SENNA W/DOCUSATE (SENOKOT S) TABLET PO SCH ×2 (08:33→21:33)
[2020-08-14] MEDS: glipiZIDE 5 MG (GLUCOTROL) TAB PO SCH ×2 (08:34→16:55)
[2020-08-14] MEDS: polyethylene glycoL POWDER 17 GM (MIRALAX) PACK PO SCH ×2 (08:46→21:30)
--- NOTE | 2020-08-14 09:04 | Occupational Ther Daily Note ---
OT Current Status-Daily Note Subjective Pt laying in bed, agreeable to OT tx. Mental Status/Objective Patient Orientation: Normal For Age ADL-Treatment Therapy Code Descriptions/Definitions Functional [place] Measure: 0=Not Assessed/NA 4=Minimal Assistance 1=Total Assistance 5=Supervision or Setup 2=Maximal Assistance 6=Modified [place] 3=Moderate Assistance 7=Complete IndependenceSCALE: Activities may be completed with or without assistive devices. 4-Ywaiwocwyi-ailzfah completes the activity by him/herself with no assistance from a helper. 5-Set-up or Clean-up Assistance-helper sets up or cleans up; patient completes activity. [place] assists only prior to or following the activity. 4-Supervision or Touching Assistance-helper provides verbal cues and/or touching/steadying and/or contact guard assistance as patient completes activity. Assistance may be provided throughout the activity or intermittently. 3-Partial/Moderate Assistance-helper does LESS THAN HALF the effort. [place] lifts, holds or supports trunk or limbs, but provides less than half the effort. 2-Substantial/Maximal Assistance-helper does MORE THAN HALF the effort. [place] lifts or holds trunk or limbs and provides more than half the effort. 5-Ajqufchpo-rzoxsg does ALL the effort. Patient does none of the effort to complete the activity. Or, the assistance of 2 or more helpers is required for the patient to complete the activity. If activity was not attempted, code reason: 7-Patient Refused. 9-Not Applicable-not attempted and the patient did not perform the activity before the current illness, exacerbation or injury. 10-Not Attempted due to Environmental Limitations-(lack of equipment, weather restraints, etc.). 88-Not Attempted due to Medical Conditions or Safety Concerns. Oral Hygiene (QC): 7 Shower/Bathe Self (QC): 5 (set up assist, pt washed/dried all parts seated on SC) Upper Body Dressing (QC): 5 (set up with cake puller shirt and back brace) Lower Body Dressing (QC): 3 (Pt required assistance to thread RLE into underwear using AE, pt then able to thread pants. Assist with pant hike in stand, mod A sit to stand.) On/Off Footwear: 3 (Min A donning slip on shoes after shower.) Toileting Hygiene (QC): 7 Other Treatment Pt laying in bed, transferred supine to sit EOB, then sit to stand min A from elevated surface. Pt used FWW to ambulate into bathroom and onto shower chair. Pt completed shower, donned back brace, then transferred to chair with arm rests to don LE clothing. Pt trasnferred to w/c, and performed w/c mobility around ARU common area in order to increase BUE strength and activity tolerance, then returned to his room. Post tx, pt seated upright in w/c call light in reach and all needs met. Education OT Patient Education: Correct positioning, Exercise program, Modified ADL techniques, Progress toward Goal/Update tx plan, Purpose of tx/functional activities, Rehab process Teaching Recipient: Patient Teaching Methods: Discussion Response to Teaching: Verbalize Understanding OT Short Term Goals Short Term Goals Time Frame: Aug 20, 2020 Oral hygiene: 5 Shower/bathe self: 3 Lower body dressin Putting on/taking off footwear: 3 OT Alf Goals Cream Beater Goals Time Frame: Sep 04, 2020 Eating (QC): 6 Oral Hygiene (QC): 6 Toileting Hygiene (QC): 6 Shower/Bathe Self (QC): 6 Upper Body Dressing (QC): 6 Lower Body Dressing (QC): 6 On/Off Footwear (QC): 6 Additional Goals: 1-Demonstrate ADL Tasks, 2-Verbalize Understanding, 3- ImproveStrength/Jayshree 1=Demonstrate adherence to instructed precautions during ADL tasks. 2=Patient will verbalize/demonstrate understanding of assistive devices/modifications for ADL. 3=Patient will improve strength/tolerance for activity to enable patient to perform ADL's. OT Education/Plan Problem List/Assessment Assessment: Decreased Activ Tolerance, Decreased UE Strength, Impaired Funct Balance, Impaired I ADL's, Impaired Self-Care Skills, Restricted Funct UE ROM Discharge Recommendations Plan/Recommendations: Continue POC Treatment Plan/Plan of Care Patient would benefit from OT for education, treatment and training to promote independence in ADL's, mobility, safety and/or upper extremity function for ADL's. Plan of Care: ADL Retraining, Functional Mobility, Group Exercise/Act as Ind, UE Funct Exercise/Act Treatment Duration: Sep 04, 2020 Frequency: Modified Program (IRF) (27/08) Estimated Hrs Per Day: 1.5 hours per day Rehab Potential: Fair Time/GCodes Start Time: 08:00 Stop Time: 09:00 Total Time Billed (hr/min): 60 Billed Treatment Time 1, ADL 3 (45'), FA (15') MED PETERSON OT Aug 14, 2020 09:04
--- NOTE | 2020-08-14 09:55 | Physical Therapy Daily Note ---
PT Daily Note-Current Subjective Patient in WC pre tx, agrees to PT, has 7/10 pain. Appearance Patient in bed post tx with nurse call, phone, tray, all needs met. Mental Status Patient Orientation: Person, Place, Situation back brace Transfers SCALE: Activities may be completed with or without assistive devices. 3-Ikhzulnakf-ojappti completes the activity by him/herself with no assistance from a helper. 5-Set-up or Clean-up Assistance-helper sets up or cleans up; patient completes activity. [place] assists only prior to or following the activity. 4-Supervision or Touching Assistance-helper provides verbal cues and/or touching/steadying and/or contact guard assistance as patient completes activity. Assistance may be provided throughout the activity or intermittently. 3-Partial/Moderate Assistance-helper does LESS THAN HALF the effort. [place] lifts, holds or supports trunk or limbs, but provides less than half the effort. 2-Substantial/Maximal Assistance-helper does MORE THAN HALF the effort. [place] lifts or holds trunk or limbs and provides more than half the effort. 2-Rjlzrptdp-pcocuq does ALL the effort. Patient does none of the effort to complete the activity. Or, the assistance of 2 or more helpers is required for the patient to complete the activity. If activity was not attempted, code reason: 7-Patient Refused. 9-Not Applicable-not attempted and the patient did not perform the activity before the current illness, exacerbation or injury. 10-Not Attempted due to Environmental Limitations-(lack of equipment, weather restraints, etc.). 88-Not Attempted due to Medical Conditions or Safety Concerns. Roll Left & Right (QC): 6 Sit to Lying (QC): 5 Sit to Stand (QC): 3 Chair/Nnq-rb-Haqrg Xfer(QC): 3 tends to "plop" into chair when sitting, needs cues for hand placement Weight Bearing Full Weight Bearing Full Weight Bearing Gait Training Distance: 40', 30'x2 Walk 10 feet (QC): 4 Gait Assistive Device: FWW slow, antalgic, bears a lot of weigh through his arms and leans too far forward Wheelchair Training Does the Pt Use a Wheelchair?: Yes Wheel 50 ft with 2 turns (QC): 4 Type of Wheelchair: Manual 120'x2 Exercises Seated Therapy Exercises: Ankle pumps, Hip flexion, Hip abd/add (with ball and RTB) Standing: Heel/toe raises, Mini squats Standing Reps: 15 LAQ alternating for 5 min, manually resisted leg press 3 sets of 10 Treatments WC mobility, transfers, ambulation, LE strengthening Assessment Current Status: Fair Progress patient is making very slow progress with LE strengthening, still needs mod assist for sit to stand, needs frequent rest breaks due to pain and fatigue PT Short Term Goals Short Term Goals Time Frame: Aug 13, 2020 Roll Left & Right: 6 Sit to lyin Lying to sitting on side of be: 3 (met) Sit to stand: 3 Chair/twy-ex-gaalo transfer: 3 Walk 10 feet: 3 PT Chcf Goals Chcf Goals PT Chcf Goals Time Frame: Aug 27, 2020 Roll Left & Right (QC): 6 Sit to Lying (QC): 4 Lying-Sitting on Side/Bed(QC): 4 Sit to Stand (QC): 4 Chair/Mjs-fv-Sgxhl Xfer(QC): 4 Toilet Transfer (QC): 4 Car Transfer (QC): 4 Does the Patient Walk: Yes Walk 10 feet (QC): 4 Walk 50ft with 2 Turns (QC): 4 Walk 150 ft (QC): 88 Walking 10ft on Uneven Surface: 4 1 Step (curb) (QC): 4 4 Steps (QC): 4 12 Steps (QC): 88 Picking up an Object (QC): 88 Wheel 50 feet with 2 turns (QC: 6 Wheel 150 feet: 6 PT Plan Problem List Problem List: Activity Tolerance, Functional Strength, Safety, Balance, Gait, Transfer, Bed Mobility, ROM Treatment/Plan Treatment Plan: Continue Plan of Care Treatment Plan: Bed Mobility, Education, Functional Activity Jayshree, Functional Strength, Group Therapy, Gait, Safety, Therapeutic Exercise, Transfers Treatment Duration: Aug 27, 2020 Frequency: At least 5 of 7 days/Wk (IRF) Estimated Hrs Per Day: 1.5 hours per day Patient and/or Family Agrees t: Yes Safety Risks/Education Patient Education: Gait Training, Transfer Techniques, Correct Positioning, W/C Management, Safety Issues Teaching Recipient: Patient Teaching Methods: Demonstration, Discussion Response to Teaching: Reinforcement Needed Time/GCodes Time In: 0900 Time Out: 1000 Total Billed Treatment Time: 60 Total Billed Treatment 1 visit FA 30' EX 30' AMANDA CHAPA PT Aug 14, 2020 09:55
--- NOTE | 2020-08-14 12:42 | Physical Therapy Daily Note ---
PT Daily Note-Current Subjective Patient in bed pre tx, agrees to PT, has 7/10 pain. Will be co-treating with OT due to poor patient mobility, strength, endurance, severe pain with activity, coordinate UE and LE during activity, safety and reduce risk of falls. Appearance Patient in bed post tx with nurse call, phone, tray, all needs met. Mental Status Patient Orientation: Person, Place, Situation back brace Transfers SCALE: Activities may be completed with or without assistive devices. 8-Afdeggfwcs-ofhkkho completes the activity by him/herself with no assistance from a helper. 5-Set-up or Clean-up Assistance-helper sets up or cleans up; patient completes activity. [place] assists only prior to or following the activity. 4-Supervision or Touching Assistance-helper provides verbal cues and/or touching/steadying and/or contact guard assistance as patient completes activity. Assistance may be provided throughout the activity or intermittently. 3-Partial/Moderate Assistance-helper does LESS THAN HALF the effort. [place] lifts, holds or supports trunk or limbs, but provides less than half the effort. 2-Substantial/Maximal Assistance-helper does MORE THAN HALF the effort. [place] lifts or holds trunk or limbs and provides more than half the effort. 5-Mzcqhlzhc-yyernx does ALL the effort. Patient does none of the effort to complete the activity. Or, the assistance of 2 or more helpers is required for the patient to complete the activity. If activity was not attempted, code reason: 7-Patient Refused. 9-Not Applicable-not attempted and the patient did not perform the activity before the current illness, exacerbation or injury. 10-Not Attempted due to Environmental Limitations-(lack of equipment, weather restraints, etc.). 88-Not Attempted due to Medical Conditions or Safety Concerns. Roll Left & Right (QC): 4 Sit to Lying (QC): 4 Lying to Sitting/Side of Bed(Q: 4 Sit to Stand (QC): 3 Chair/Ood-xq-Ixjyy Xfer(QC): 3 Weight Bearing Full Weight Bearing Full Weight Bearing Wheelchair Training Does the Pt Use a Wheelchair?: Yes Wheel 50 ft with 2 turns (QC): 3 Wheel 150 ft (QC): 3 Type of Wheelchair: Manual Patient practiced WC outside over sidewalks and ramps, needs assist on occasion in tight spaces Treatments PT worked on WC mobility, bed mobility and transfers, OT worked on UE positioning and safety during activity. Assessment Current Status: Fair Progress Patient had a lot of pain during this tx, he had already gotten pain meds, needed many rest breaks. PT Short Term Goals Short Term Goals Time Frame: Aug 13, 2020 Roll Left & Right: 6 Sit to lyin Lying to sitting on side of be: 3 (met) Sit to stand: 3 Chair/poe-pa-ergga transfer: 3 Walk 10 feet: 3 PT [employer] Service Attendant Goals Custodial Goals PT Custodial Goals Time Frame: Aug 27, 2020 Roll Left & Right (QC): 6 Sit to Lying (QC): 4 Lying-Sitting on Side/Bed(QC): 4 Sit to Stand (QC): 4 Chair/Kqe-ot-Dylmt Xfer(QC): 4 Toilet Transfer (QC): 4 Car Transfer (QC): 4 Does the Patient Walk: Yes Walk 10 feet (QC): 4 Walk 50ft with 2 Turns (QC): 4 Walk 150 ft (QC): 88 Walking 10ft on Uneven Surface: 4 1 Step (curb) (QC): 4 4 Steps (QC): 4 12 Steps (QC): 88 Picking up an Object (QC): 88 Wheel 50 feet with 2 turns (QC: 6 Wheel 150 feet: 6 PT Plan Problem List Problem List: Activity Tolerance, Functional Strength, Safety, Balance, Gait, Transfer, Bed Mobility, ROM Treatment/Plan Treatment Plan: Continue Plan of Care Treatment Plan: Bed Mobility, Education, Functional Activity Jayshree, Functional Strength, Group Therapy, Gait, Safety, Therapeutic Exercise, Transfers Treatment Duration: Aug 27, 2020 Frequency: At least 5 of 7 days/Wk (IRF) Estimated Hrs Per Day: 1.5 hours per day Patient and/or Family Agrees t: Yes Safety Risks/Education Patient Education: Transfer Techniques, Correct Positioning, W/C Management, Safety Issues Teaching Recipient: Patient Teaching Methods: Demonstration, Discussion Response to Teaching: Reinforcement Needed Time/GCodes Time In: 1130 Time Out: 1200 Total Billed Treatment Time: 30 Total Billed Treatment 1 visit FA 30' co-treated with OT for 30' AMANDA CHAPA PT Aug 14, 2020 12:42
[2020-08-14] MEDS: LACTULOSE SYRUP 10GM/15ML (ENULOSE) 30ML UDC PO PRN (13:18)
--- NOTE | 2020-08-14 13:43 | Occupational Ther Daily Note ---
OT Current Status-Daily Note Subjective Pt laying in bed, agreeable to OT/PT cotreat. Mental Status/Objective Patient Orientation: Normal For Age Attachments: Other-See Comments (back brace OOB) ADL-Treatment Therapy Code Descriptions/Definitions Functional [place] Measure: 0=Not Assessed/NA 4=Minimal Assistance 1=Total Assistance 5=Supervision or Setup 2=Maximal Assistance 6=Modified [place] 3=Moderate Assistance 7=Complete IndependenceSCALE: Activities may be completed with or without assistive devices. 0-Khcynecpls-nygypvx completes the activity by him/herself with no assistance from a helper. 5-Set-up or Clean-up Assistance-helper sets up or cleans up; patient completes activity. [place] assists only prior to or following the activity. 4-Supervision or Touching Assistance-helper provides verbal cues and/or touching/steadying and/or contact guard assistance as patient completes activity. Assistance may be provided throughout the activity or intermittently. 3-Partial/Moderate Assistance-helper does LESS THAN HALF the effort. [place] lifts, holds or supports trunk or limbs, but provides less than half the effort. 2-Substantial/Maximal Assistance-helper does MORE THAN HALF the effort. [place] lifts or holds trunk or limbs and provides more than half the effort. 2-Zddstopez-zpkfkx does ALL the effort. Patient does none of the effort to complete the activity. Or, the assistance of 2 or more helpers is required for the patient to complete the activity. If activity was not attempted, code reason: 7-Patient Refused. 9-Not Applicable-not attempted and the patient did not perform the activity before the current illness, exacerbation or injury. 10-Not Attempted due to Environmental Limitations-(lack of equipment, weather restraints, etc.). 88-Not Attempted due to Medical Conditions or Safety Concerns. Other Treatment OT/PT cotreat due to skill of 2 clinicians required that a rehab nursing tech could not perform in order to coordinate UE/LEs, decrease fall risk, and due to pt's limitations in strength, activity tolerance, pain, and transfers/mobility. OT focused on UE placement, cues for sequencing and safety, PT focused on LE placement, gross overall movement, and mobility/transfers. Pt taken outside to practice w/c mobility over sidewalks, ramps, and various surfaces. He needed assistance on occasion in tight spaces. Pt taken back to his room, transferred back to bed. Post tx, pt laying bed, call light in reach and all needs met. Education OT Patient Education: Correct positioning, Modified ADL techniques, Progress toward Goal/Update tx plan, Purpose of tx/functional activities, Rehab process Teaching Recipient: Patient Teaching Methods: Discussion Response to Teaching: Verbalize Understanding OT Short Term Goals Short Term Goals Time Frame: Aug 20, 2020 Oral hygiene: 5 Shower/bathe self: 3 Lower body dressin Putting on/taking off footwear: 3 OT [facility] Goals Grades 9 Thru 12 Visiting Teacher Goals Time Frame: Sep 04, 2020 Eating (QC): 6 Oral Hygiene (QC): 6 Toileting Hygiene (QC): 6 Shower/Bathe Self (QC): 6 Upper Body Dressing (QC): 6 Lower Body Dressing (QC): 6 On/Off Footwear (QC): 6 Additional Goals: 1-Demonstrate ADL Tasks, 2-Verbalize Understanding, 3- ImproveStrength/Jayshree 1=Demonstrate adherence to instructed precautions during ADL tasks. 2=Patient will verbalize/demonstrate understanding of assistive devices/modifications for ADL. 3=Patient will improve strength/tolerance for activity to enable patient to perform ADL's. OT Education/Plan Problem List/Assessment Assessment: Decreased Activ Tolerance, Decreased UE Strength, Impaired Funct Balance, Impaired I ADL's, Impaired Self-Care Skills Discharge Recommendations Plan/Recommendations: Continue POC Treatment Plan/Plan of Care Patient would benefit from OT for education, treatment and training to promote independence in ADL's, mobility, safety and/or upper extremity function for ADL's. Plan of Care: ADL Retraining, Functional Mobility, Group Exercise/Act as Ind, UE Funct Exercise/Act Treatment Duration: Sep 04, 2020 Frequency: Modified Program (IRF) (27/08) Estimated Hrs Per Day: 1.5 hours per day Rehab Potential: Fair Time/GCodes Start Time: 11:30 Stop Time: 12:00 Total Time Billed (hr/min): 30 Billed Treatment Time OT/PT cotreat x30 1, FA 2 MED PETERSON OT Aug 14, 2020 13:43
[2020-08-14] MEDS: ENOXAPARIN 40 MG/0.4 ML (LOVENOX) SYR SC SCH (16:24)
[2020-08-14 20:00] VITALS: BP 143/82
[2020-08-14] MEDS: SIMvastatin 10 MG (ZOCOR) TAB PO SCH (21:34)
[2020-08-14] MEDS: BISACODYL 10 MG SUPP (DULCOLAX) PR PRN (22:05)
[2020-08-15] MEDS: CYCLOBENZAPRINE 10 MG (FLEXERIL) TAB PO PRN ×2 (02:35→17:17)
[2020-08-15] MEDS: inSUlin ASPART (NovoLOG) 1 UNIT/0.01 ML (CHARGE PER UNIT) SC SCH ×4 (06:04→21:06)
[2020-08-15 07:27] VITALS: BP 144/83
[2020-08-15] MEDS: inSUlin (REGULAR) HUMAN 1 UNIT/0.01 ML (CHARGE PER UNIT) SC SCH ×4 (07:31→21:22)
[2020-08-15] MEDS: metFORMIN XR 500 MG (GLUCOPHAGE XR) TAB PO SCH ×2 (07:31→17:17)
[2020-08-15] MEDS: DICLOFENAC 1% GEL 100 GM (VOLTAREN) TUBE TOP PRN ×3 (07:32→14:49)
[2020-08-15] MEDS: DOCUSATE SODIUM 100 MG (COLACE) CAP PO SCH ×2 (08:33→21:21)
[2020-08-15] MEDS: glipiZIDE 5 MG (GLUCOTROL) TAB PO SCH ×2 (08:33→17:17)
[2020-08-15] MEDS: lisINopril 20 MG (PRINIVIL) TABLET PO SCH ×2 (08:34→21:20)
[2020-08-15] MEDS: ALLOPURINOL 100 MG (ZYLOPRIM) TAB PO SCH (08:35)
[2020-08-15] MEDS: meTOprolol TARTRATE 25 MG (LOPRESSOR) TABLET PO SCH ×2 (08:35→21:20)
[2020-08-15] MEDS: SENNA W/DOCUSATE (SENOKOT S) TABLET PO SCH ×2 (08:35→21:20)
[2020-08-15] MEDS: LACTOBACILLUS ACIDOPHILUS (PROBIOTIC) CAPSULE PO SCH (08:35)
[2020-08-15] MEDS: amLODIPine 2.5MG (NORVASC) TAB PO SCH ×2 (08:36→21:21)
[2020-08-15] MEDS: BACLOFEN 10 MG (LIORESAL) TAB PO SCH ×3 (08:36→21:21)
[2020-08-15] MEDS: polyethylene glycoL POWDER 17 GM (MIRALAX) PACK PO SCH ×2 (08:37→21:20)
[2020-08-15] MEDS: TRIAMCINOLONE 0.1% OINT (KENALOG) 15 GM TUBE TOP SCH ×2 (08:39→21:22)
--- NOTE | 2020-08-15 10:55 | Physical Therapy Daily Note ---
PT Daily Note-Current Subjective States that his shoulders are hurting today. Transfers SCALE: Activities may be completed with or without assistive devices. 2-Jevavqispl-vtsgivy completes the activity by him/herself with no assistance from a helper. 5-Set-up or Clean-up Assistance-helper sets up or cleans up; patient completes activity. [place] assists only prior to or following the activity. 4-Supervision or Touching Assistance-helper provides verbal cues and/or touching/steadying and/or contact guard assistance as patient completes activity. Assistance may be provided throughout the activity or intermittently. 3-Partial/Moderate Assistance-helper does LESS THAN HALF the effort. [place] lifts, holds or supports trunk or limbs, but provides less than half the effort. 2-Substantial/Maximal Assistance-helper does MORE THAN HALF the effort. [place] lifts or holds trunk or limbs and provides more than half the effort. 8-Hspjpyglh-bxftmn does ALL the effort. Patient does none of the effort to complete the activity. Or, the assistance of 2 or more helpers is required for the patient to complete the activity. If activity was not attempted, code reason: 7-Patient Refused. 9-Not Applicable-not attempted and the patient did not perform the activity before the current illness, exacerbation or injury. 10-Not Attempted due to Environmental Limitations-(lack of equipment, weather restraints, etc.). 88-Not Attempted due to Medical Conditions or Safety Concerns. Sit to Lying (QC): 3 Lying to Sitting/Side of Bed(Q: 3 Sit to Stand (QC): 3 Weight Bearing Full Weight Bearing Full Weight Bearing Gait Training Distance: 5 Gait Persons Needed: 1 Gait Assistive Device: FWW Exercises NuStep Minutes: 12 NuStep Workload: 4 Assessment Current Status: Good Progress Continued weakness in both LE's. PT Short Term Goals Short Term Goals Time Frame: Aug 13, 2020 Roll Left & Right: 6 Sit to lyin Lying to sitting on side of be: 3 (met) Sit to stand: 3 Chair/ino-dq-zkpqo transfer: 3 Walk 10 feet: 3 PT Auto Repair Shop Manager Goals Auto Repair Shop Manager Goals PT Shelter Goals Time Frame: Aug 27, 2020 Roll Left & Right (QC): 6 Sit to Lying (QC): 4 Lying-Sitting on Side/Bed(QC): 4 Sit to Stand (QC): 4 Chair/Ahc-wd-Hlzgs Xfer(QC): 4 Toilet Transfer (QC): 4 Car Transfer (QC): 4 Does the Patient Walk: Yes Walk 10 feet (QC): 4 Walk 50ft with 2 Turns (QC): 4 Walk 150 ft (QC): 88 Walking 10ft on Uneven Surface: 4 1 Step (curb) (QC): 4 4 Steps (QC): 4 12 Steps (QC): 88 Picking up an Object (QC): 88 Wheel 50 feet with 2 turns (QC: 6 Wheel 150 feet: 6 PT Plan Treatment/Plan Treatment Plan: Continue Plan of Care Treatment Plan: Bed Mobility, Education, Functional Activity Jayshree, Functional Strength, Group Therapy, Gait, Safety, Therapeutic Exercise, Transfers Treatment Duration: Aug 27, 2020 Frequency: At least 5 of 7 days/Wk (IRF) Estimated Hrs Per Day: 1.5 hours per day Patient and/or Family Agrees t: Yes Time/GCodes Time In: 1025 Time Out: 1050 Total Billed Treatment Time: 25 Total Billed Treatment 1, EX x 25 LANI BE PT Aug 15, 2020 10:55
--- NOTE | 2020-08-15 12:21 | PM&R Progress Note ---
Subjective HPI/CC On Admission Date Seen by Provider: Aug 15, 2020 Time Seen by Provider: 12:00 Subjective/Events-last exam 08/15/2020: Patient in a pretty good mood Family at the bedside Blood sugar was a bit low at 80 and had symptoms so adjusted his insulin a bit Pain is well controlled on regimen Neuropathy discussed 08/14/20: Patient doing well No major issues Pain is an ongoing issue BP better 08/13/2020: Pt doing pretty well but variation in BP places him at risk for orthostasis I changed Clonidine to BID prn for BP elevation and started Norvasc 2.5 twice daily and will transition to Hydralazine also. 08/12/2020: Pt doing pretty well Bowels havent moved and we have given a lot of Laxatives Sugars are okay Voltaren gel to the back Clonidine BID has helped the BP that has dipped down to low levels in the afternoon Length of stay, presumed to be 08/26/20 08/11/2020: Pt doing pretty well Left axilla pain because of compensation with his arms, will initiate a moist heating pad Bowels are moving okay Clonidine changed to BID instead of TID due to hypotension in the afternoon interfering with therapy X-rays were done and clouded to Dr. Elder 08/10/2020: Pt doing really well Had a large bowel movement yesterday Temperature at 99.4 but no other issues Sugars are better Talked to him about insulin at discharge 08/09/20: Patient doing well BM today Back pain improved Increased movement now Better today 08/08/20: Patient in a good mood Baclofen is working well for him so will maintain this Pain controlled High sugars requiring addition of insulin Wants tacos from home 08/07/2020: Patient doing pretty well Pain is still an issue Baclofen was ordered to help his back spasms No bowels are moving since loose stools for several days Adjusted insulin after reviewing several Accu-Cheks 08/06/2020: Patient doing pretty well Very motivated to walk Loose stool so holding laxatives Right knee really hurts Sodium level 128 so we will discontinue the indapamide Review of Systems General: Fatigue Musculoskeletal: back pain Neurological: Numbness Objective Exam Vital Signs Vital Signs Date Time Temp Pulse Resp B/P (MAP) Pulse Ox O2 Delivery O2 Flow Rate FiO2 08/15/20 19:44 35.9 95 20 128/61 (83 97 08/15/20 09:00 Room Air Capillary Refill : General Appearance: No Apparent Distress, WD/WN, Chronically ill HEENT: PERRL/EOMI, Normal ENT Inspection, Pharynx Normal Neck: Full Range of Motion, Normal Inspection, Non Tender, Supple, Carotid Bruit Respiratory: Chest Non Tender, Lungs Clear, Normal Breath Sounds, No Accessory Muscle Use, No Respiratory Distress Cardiovascular: Regular Rate, Rhythm, No Edema, No Gallop, No JVD, No Murmur, Normal Peripheral Pulses Gastrointestinal: Normal Bowel Sounds, No Organomegaly, No Pulsatile Mass, Non Tender, Soft Back: Decreased Range of Motion, Muscle Spasm, Vertebral Tenderness Extremity: Normal Capillary Refill, Normal Inspection, Normal Range of Motion, Non Tender, No Calf Tenderness, No Pedal Edema Neurologic/Psychiatric: Alert, Oriented x3, No Motor/Sensory Deficits, Normal Mood/Affect, Motor Weakness Skin: Normal Color, Warm/Dry Lymphatic: No Adenopathy Results/Procedures Lab Patient resulted labs reviewed. [facility]IM Transfers Therapy Code Descriptions/Definitions Functional [place] Measure: 0=Not Assessed/NA 4=Minimal Assistance 1=Total Assistance 5=Supervision or Setup 2=Maximal Assistance 6=Modified [place] 3=Moderate Assistance 7=Complete IndependenceSCALE: Activities may be completed with or without assistive devices. 3-Hhlpwntvov-kkookby completes the activity by him/herself with no assistance from a helper. 5-Set-up or Clean-up Assistance-helper sets up or cleans up; patient completes activity. [place] assists only prior to or following the activity. 4-Supervision or Touching Assistance-helper provides verbal cues and/or touching/steadying and/or contact guard assistance as patient completes activity. Assistance may be provided throughout the activity or intermittently. 3-Partial/Moderate Assistance-helper does LESS THAN HALF the effort. [place] lifts, holds or supports trunk or limbs, but provides less than half the effort. 2-Substantial/Maximal Assistance-helper does MORE THAN HALF the effort. [place] lifts or holds trunk or limbs and provides more than half the effort. 4-Quvvminxj-egufdx does ALL the effort. Patient does none of the effort to complete the activity. Or, the assistance of 2 or more helpers is required for the patient to complete the activity. If activity was not attempted, code reason: 7-Patient Refused. 9-Not Applicable-not attempted and the patient did not perform the activity before the current illness, exacerbation or injury. 10-Not Attempted due to Environmental Limitations-(lack of equipment, weather restraints, etc.). 88-Not Attempted due to Medical Conditions or Safety Concerns. Roll Left to Right (QC): 4 Sit to Lying (QC): 3 Sit to Stand (QC): 3 Chair/Wyd-ps-Hafkq Xfer(QC): 3 Car Transfer (QC): 2 Gait Training Does the Patient Walk?: Yes Distance: 5 Walk 10 feet (QC): 4 Walk 50 ft with 2 Turns(QC): 88 Walk 150 ft (QC): 88 Walking 10ft/uneven surface-QC: 88 Gait Persons Needed: 1 Gait Assistive Device: FWW Wheelchair Training Does the Pt Use a Wheelchair?: Yes Distance: 150'x2 Wheel 50 ft with 2 turns (QC): 3 Wheel 150 ft (QC): 3 Type of Wheelchair: Manual Stair Training 1 Step (curb) (QC): 88 4 Steps (QC): 88 12 Steps (QC): 88 Balance Picking up an Object (QC): 88 ADL-Treatment Eating (QC): 6 Oral Hygiene (QC): 7 Shower/Bathe Self (QC): 5 (set up assist, pt washed/dried all parts seated on SC) Upper Body Dressing (QC): 5 (set up with toe puller shirt and back brace) Lower Body Dressing (QC): 3 (Pt required assistance to thread RLE into underwear using AE, pt then able to thread pants. Assist with pant hike in stand, mod A sit to stand.) On/Off Footwear (QC): 3 (Min A donning slip on shoes after shower.) Toileting Hygiene (QC): 7 Toilet Transfer (QC): 3 (mod A) Assessment/Plan Assessment and Plan Assess & Plan/Chief Complaint Assessment: Status post lumbar spine surgery with severe debility and leg weakness Recent DKA Oab-wt-zlkkpsd diabetes history Hypertension Chronic arthritis pain Plan: Pain control Diabetes management Blood pressure management Inpatient rehab protocol 08/06/2020: Hold laxatives DC indapamide Monitor closely Fall risk 08/07/2020: Increase insulin Aggressive therapy 08/08/20: Increase insulin Baclofen 08/09/20: Monitor sugar Back pain management 08/10/2020: Monitor blood sugar Insulin at discharge will be required 08/11/2020: Monitor pain Supportive care Baclofen 08/12/2020: Pain control Intensive rehab Bowel regimen to intensify 08/13/2020: Supportive care Aggressive therapy Blood pressure management 08/14/20: Improved status Adjust insulin BP ok 08/15/2020: Pain control Insulin modified Fall risk (1) Status post lumbar spine surgery for decompression of spinal cord (2) Diabetes (3) DKA (diabetic ketoacidoses) (4) Hypertension (5) Leg weakness DALY WHITNEY DO Aug 15, 2020 12:21
[2020-08-15] MEDS: ENOXAPARIN 40 MG/0.4 ML (LOVENOX) SYR SC SCH (15:53)
[2020-08-15 19:44] VITALS: BP 128/61
[2020-08-15] MEDS: SIMvastatin 10 MG (ZOCOR) TAB PO SCH (21:20)
[2020-08-16] MEDS: ALPRAZolam 0.25 MG (XANAX) TAB PO PRN (00:55)
[2020-08-16] MEDS: inSUlin ASPART (NovoLOG) 1 UNIT/0.01 ML (CHARGE PER UNIT) SC SCH ×4 (06:12→21:56)
--- NOTE | 2020-08-16 07:00 | PM&R Progress Note ---
Subjective HPI/CC On Admission Date Seen by Provider: Aug 16, 2020 Time Seen by Provider: 11:45 Subjective/Events-last exam 08/16/2020: Patient doing pretty well Had some weak legs today Blood pressure elevated at times Monitor closely 08/15/2020: Patient in a pretty good mood Family at the bedside Blood sugar was a bit low at 80 and had symptoms so adjusted his insulin a bit Pain is well controlled on regimen Neuropathy discussed 08/14/20: Patient doing well No major issues Pain is an ongoing issue BP better 08/13/2020: Pt doing pretty well but variation in BP places him at risk for orthostasis I changed Clonidine to BID prn for BP elevation and started Norvasc 2.5 twice da jeremy and will transition to Hydralazine also. 08/12/2020: Pt doing pretty well Bowels havent moved and we have given a lot of Laxatives Sugars are okay Voltaren gel to the back Clonidine BID has helped the BP that has dipped down to low levels in the a fternoon Length of stay, presumed to be 08/26/20 08/11/2020: Pt doing pretty well Left axilla pain because of compensation with his arms, will initiate a moist heating pad Bowels are moving okay Clonidine changed to BID instead of TID due to hypotension in the afternoon interfering with therapy X-rays were done and clouded to Dr. Elder 08/10/2020: Pt doing really well Had a large bowel movement yesterday Temperature at 99.4 but no other issues Sugars are better Talked to him about insulin at discharge 08/09/20: Patient doing well BM today Back pain improved Increased movement now Better today 08/08/20: Patient in a good mood Baclofen is working well for him so will maintain this Pain controlled High sugars requiring addition of insulin Wants tacos from home 08/07/2020: Patient doing pretty well Pain is still an issue Baclofen was ordered to help his back spasms No bowels are moving since loose stools for several days Adjusted insulin after reviewing several Accu-Cheks 08/06/2020: Patient doing pretty well Very motivated to walk Loose stool so holding laxatives Right knee really hurts Sodium level 128 so we will discontinue the indapamide Review of Systems General: Fatigue Musculoskeletal: back pain, leg pain Neurological: Weakness, Numbness, Incoordination Objective Exam Vital Signs Vital Signs Date Time Temp Pulse Resp B/P (MAP) Pulse Ox O2 Delivery O2 Flow Rate FiO2 08/16/20 09:00 Room Air 08/16/20 07:41 36.6 100 16 165/96 (119) 97 Capillary Refill : General Appearance: No Apparent Distress, WD/WN, Chronically ill HEENT: PERRL/EOMI, Normal ENT Inspection, Pharynx Normal Neck: Full Range of Motion, Normal Inspection, Non Tender, Supple, Carotid Bruit Respiratory: Chest Non Tender, Lungs Clear, Normal Breath Sounds, No Accessory Muscle Use, No Respiratory Distress Cardiovascular: Regular Rate, Rhythm, No Edema, No Gallop, No JVD, No Murmur, Normal Peripheral Pulses Gastrointestinal: Normal Bowel Sounds, No Organomegaly, No Pulsatile Mass, Non Tender, Soft Back: Decreased Range of Motion, Muscle Spasm, Vertebral Tenderness Extremity: Normal Capillary Refill, Normal Inspection, Normal Range of Motion, Non Tender, No Calf Tenderness, No Pedal Edema Neurologic/Psychiatric: Alert, Oriented x3, No Motor/Sensory Deficits, Normal Mood/Affect, Motor Weakness Skin: Normal Color, Warm/Dry Lymphatic: No Adenopathy Results/Procedures Lab Patient resulted labs reviewed. FIM Transfers Therapy Code Descriptions/Definitions Functional [place] Measure: 0=Not Assessed/NA 4=Minimal Assistance 1=Total Assistance 5=Supervision or Setup 2=Maximal Assistance 6=Modified [place] 3=Moderate Assistance 7=Complete IndependenceSCALE: Activities may be completed with or without assistive devices. 2-Bztmzjhcbr-rfgjucd completes the activity by him/herself with no assistance from a helper. 5-Set-up or Clean-up Assistance-helper sets up or cleans up; patient completes activity. [place] assists only prior to or following the activity. 4-Supervision or Touching Assistance-helper provides verbal cues and/or touching/steadying and/or contact guard assistance as patient completes activity. Assistance may be provided throughout the activity or intermittently. 3-Partial/Moderate Assistance-helper does LESS THAN HALF the effort. [place] lifts, holds or supports trunk or limbs, but provides less than half the effort. 2-Substantial/Maximal Assistance-helper does MORE THAN HALF the effort. [place] lifts or holds trunk or limbs and provides more than half the effort. 3-Beppzqxjy-woddzz does ALL the effort. Patient does none of the effort to complete the activity. Or, the assistance of 2 or more helpers is required for the patient to complete the activity. If activity was not attempted, code reason: 7-Patient Refused. 9-Not Applicable-not attempted and the patient did not perform the activity before the current illness, exacerbation or injury. 10-Not Attempted due to Environmental Limitations-(lack of equipment, weather restraints, etc.). 88-Not Attempted due to Medical Conditions or Safety Concerns. Roll Left to Right (QC): 4 Sit to Lying (QC): 3 Sit to Stand (QC): 3 Chair/Iwr-xk-Tbpmo Xfer(QC): 3 Car Transfer (QC): 2 Gait Training Does the Patient Walk?: Yes Distance: 5 Walk 10 feet (QC): 4 Walk 50 ft with 2 Turns(QC): 88 Walk 150 ft (QC): 88 Walking 10ft/uneven surface-QC: 88 Gait Persons Needed: 1 Gait Assistive Device: FWW Wheelchair Training Does the Pt Use a Wheelchair?: Yes Distance: 150'x2 Wheel 50 ft with 2 turns (QC): 3 Wheel 150 ft (QC): 3 Type of Wheelchair: Manual Stair Training 1 Step (curb) (QC): 88 4 Steps (QC): 88 12 Steps (QC): 88 Balance Picking up an Object (QC): 88 ADL-Treatment Eating (QC): 6 Oral Hygiene (QC): 7 Shower/Bathe Self (QC): 5 (set up assist, pt washed/dried all parts seated on SC) Upper Body Dressing (QC): 5 (set up with pull through hooker shirt and back brace) Lower Body Dressing (QC): 3 (Pt required assistance to thread RLE into underwear using AE, pt then able to thread pants. Assist with pant hike in stand, mod A sit to stand.) On/Off Footwear (QC): 3 (Min A donning slip on shoes after shower.) Toileting Hygiene (QC): 7 Toilet Transfer (QC): 3 (mod A) Assessment/Plan Assessment and Plan Assess & Plan/Chief Complaint Assessment: Status post lumbar spine surgery with severe debility and leg weakness Recent DKA Pcr-si-rdbpxes diabetes history Hypertension Chronic arthritis pain Plan: Pain control Diabetes management Blood pressure management Inpatient rehab protocol 08/06/2020: Hold laxatives DC indapamide Monitor closely Fall risk 08/07/2020: Increase insulin Aggressive therapy 08/08/20: Increase insulin Baclofen 08/09/20: Monitor sugar Back pain management 08/10/2020: Monitor blood sugar Insulin at discharge will be required 08/11/2020: Monitor pain Supportive care Baclofen 08/12/2020: Pain control Intensive rehab Bowel regimen to intensify 08/13/2020: Supportive care Aggressive therapy Blood pressure management 08/14/20: Improved status Adjust insulin BP ok 08/15/2020: Pain control Insulin modified Fall risk 08/16/2020: Pain control Monitor blood pressure (1) Status post lumbar spine surgery for decompression of spinal cord (2) Diabetes (3) DKA (diabetic ketoacidoses) (4) Hypertension (5) Leg weakness DALY WHITNEY DO Aug 16, 2020 07:00
[2020-08-16] MEDS: metFORMIN XR 500 MG (GLUCOPHAGE XR) TAB PO SCH ×2 (07:12→17:11)
[2020-08-16] MEDS: inSUlin (REGULAR) HUMAN 1 UNIT/0.01 ML (CHARGE PER UNIT) SC SCH ×4 (07:13→21:55)
[2020-08-16 07:41] VITALS: BP 165/96
[2020-08-16] MEDS: polyethylene glycoL POWDER 17 GM (MIRALAX) PACK PO SCH ×2 (07:52→21:59)
[2020-08-16] MEDS: lisINopril 20 MG (PRINIVIL) TABLET PO SCH ×2 (07:53→21:52)
[2020-08-16] MEDS: BACLOFEN 10 MG (LIORESAL) TAB PO SCH ×3 (07:53→21:46)
[2020-08-16] MEDS: ALLOPURINOL 100 MG (ZYLOPRIM) TAB PO SCH (07:53)
[2020-08-16] MEDS: SENNA W/DOCUSATE (SENOKOT S) TABLET PO SCH ×2 (07:53→21:59)
[2020-08-16] MEDS: amLODIPine 2.5MG (NORVASC) TAB PO SCH ×2 (07:53→21:45)
[2020-08-16] MEDS: LACTOBACILLUS ACIDOPHILUS (PROBIOTIC) CAPSULE PO SCH (07:53)
[2020-08-16] MEDS: meTOprolol TARTRATE 25 MG (LOPRESSOR) TABLET PO SCH ×2 (07:53→21:49)
[2020-08-16] MEDS: glipiZIDE 5 MG (GLUCOTROL) TAB PO SCH ×2 (07:53→17:11)
[2020-08-16] MEDS: DOCUSATE SODIUM 100 MG (COLACE) CAP PO SCH ×2 (07:53→21:59)
[2020-08-16] MEDS: TRIAMCINOLONE 0.1% OINT (KENALOG) 15 GM TUBE TOP SCH ×2 (07:55→21:58)
[2020-08-16] MEDS: ENOXAPARIN 40 MG/0.4 ML (LOVENOX) SYR SC SCH (15:47)
[2020-08-16 20:00] VITALS: BP 117/77
[2020-08-16] MEDS: SIMvastatin 10 MG (ZOCOR) TAB PO SCH (21:45)
[2020-08-16] MEDS: MELATONIN 3 MG TABLET PO PRN (21:46)
[2020-08-16] MEDS: DICLOFENAC 1% GEL 100 GM (VOLTAREN) TUBE TOP PRN (21:46)
[2020-08-17] MEDS: DICLOFENAC 1% GEL 100 GM (VOLTAREN) TUBE TOP PRN ×2 (05:49→21:12)
[2020-08-17] MEDS: inSUlin ASPART (NovoLOG) 1 UNIT/0.01 ML (CHARGE PER UNIT) SC SCH ×4 (06:00→21:37)
[2020-08-17] MEDS: inSUlin (REGULAR) HUMAN 1 UNIT/0.01 ML (CHARGE PER UNIT) SC SCH ×4 (06:21→21:32)
[2020-08-17] MEDS: metFORMIN XR 500 MG (GLUCOPHAGE XR) TAB PO SCH ×2 (06:22→16:54)
[2020-08-17 06:52] LABS: BASOPHILS # (AUTO) 0.1 10^3/uL (0.0-0.1); BASOPHILS % (AUTO) 2 % (0-10); EOSINOPHILS # (AUTO) 0.1 10^3/uL (0.0-0.3); EOSINOPHILS % (AUTO) 2 % (0-10); HEMATOCRIT 42 % (40-54); HEMOGLOBIN 14.6 g/dL (13.3-17.7); LYMPHOCYTES # (AUTO) 1.5 10^3/uL (1.0-4.0); LYMPHOCYTES % (AUTO) 23 % (12-44); MEAN CORPUSCULAR HEMOGLOBIN 28 pg (25-34); MEAN CORPUSCULAR HGB CONC 35 g/dL (32-36); MEAN CORPUSCULAR VOLUME 80 fL (80-99); MEAN PLATELET VOLUME 9.5 fL (9.0-12.2); MONOCYTES # (AUTO) 0.6 10^3/uL (0.0-1.0); MONOCYTES % (AUTO) 10 % (0-12); NEUTROPHILS % (AUTO) 62 % (42-75); PLATELET COUNT 248 10^3/uL (130-400); WHITE BLOOD COUNT 6.4 10^3/uL (4.3-11.0)
[2020-08-17 07:23] LABS: ALANINE AMINOTRANSFERASE 15 U/L (0-55); ALBUMIN 3.5 GM/DL (3.2-4.5); ALKALINE PHOSPHATASE 83 U/L (40-136); BILIRUBIN,TOTAL 0.7 MG/DL (0.1-1.0); BUN/CREATININE RATIO 17; CALCIUM 9.8 MG/DL (8.5-10.1); CARBON DIOXIDE 22 MMOL/L (21-32); CHLORIDE 101 MMOL/L (98-107); CREATININE SERUM 0.58 MG/DL (0.60-1.30); GFR ESTIMATED > 60; GLUCOSE 142 MG/DL (70-105); SODIUM 132 MMOL/L (135-145); TOTAL PROTEIN 6.8 GM/DL (6.4-8.2)
[2020-08-17 07:35] VITALS: BP 122/64
[2020-08-17] MEDS: polyethylene glycoL POWDER 17 GM (MIRALAX) PACK PO SCH ×2 (08:01→21:37)
[2020-08-17] MEDS: DOCUSATE SODIUM 100 MG (COLACE) CAP PO SCH ×2 (08:37→21:12)
[2020-08-17] MEDS: SENNA W/DOCUSATE (SENOKOT S) TABLET PO SCH ×2 (08:37→21:37)
[2020-08-17] MEDS: LACTOBACILLUS ACIDOPHILUS (PROBIOTIC) CAPSULE PO SCH (09:07)
[2020-08-17] MEDS: ALLOPURINOL 100 MG (ZYLOPRIM) TAB PO SCH (09:07)
[2020-08-17] MEDS: amLODIPine 2.5MG (NORVASC) TAB PO SCH ×2 (09:08→21:13)
[2020-08-17] MEDS: BACLOFEN 10 MG (LIORESAL) TAB PO SCH ×3 (09:08→21:13)
[2020-08-17] MEDS: glipiZIDE 5 MG (GLUCOTROL) TAB PO SCH ×2 (09:08→16:54)
[2020-08-17] MEDS: lisINopril 20 MG (PRINIVIL) TABLET PO SCH ×2 (09:08→21:12)
[2020-08-17] MEDS: meTOprolol TARTRATE 25 MG (LOPRESSOR) TABLET PO SCH ×2 (09:08→21:13)
[2020-08-17] MEDS: TRIAMCINOLONE 0.1% OINT (KENALOG) 15 GM TUBE TOP SCH ×2 (09:09→21:38)
--- NOTE | 2020-08-17 09:22 | Occupational Ther Daily Note ---
OT Current Status-Daily Note Subjective Pt laying in bed, states he is having difficulty raising his shoulders today. He believes this is from pulling himself up in bed all night. ADL-Treatment Therapy Code Descriptions/Definitions Functional [place] Measure: 0=Not Assessed/NA 4=Minimal Assistance 1=Total Assistance 5=Supervision or Setup 2=Maximal Assistance 6=Modified [place] 3=Moderate Assistance 7=Complete IndependenceSCALE: Activities may be completed with or without assistive devices. 9-Giyrcegqoo-lskuoqm completes the activity by him/herself with no assistance from a helper. 5-Set-up or Clean-up Assistance-helper sets up or cleans up; patient completes activity. [place] assists only prior to or following the activity. 4-Supervision or Touching Assistance-helper provides verbal cues and/or touching/steadying and/or contact guard assistance as patient completes activity. Assistance may be provided throughout the activity or intermittently. 3-Partial/Moderate Assistance-helper does LESS THAN HALF the effort. [place] lifts, holds or supports trunk or limbs, but provides less than half the effort. 2-Substantial/Maximal Assistance-helper does MORE THAN HALF the effort. [place] lifts or holds trunk or limbs and provides more than half the effort. 7-Scymndxnf-hyuoak does ALL the effort. Patient does none of the effort to complete the activity. Or, the assistance of 2 or more helpers is required for the patient to complete the activity. If activity was not attempted, code reason: 7-Patient Refused. 9-Not Applicable-not attempted and the patient did not perform the activity before the current illness, exacerbation or injury. 10-Not Attempted due to Environmental Limitations-(lack of equipment, weather restraints, etc.). 88-Not Attempted due to Medical Conditions or Safety Concerns. Eating (QC): 6 Oral Hygiene (QC): 7 Shower/Bathe Self (QC): 5 (set up assist. Pt washed/dried all parts seated on SC) Upper Body Dressing (QC): 3 (Min A with pull out operator shirt and brace due to pt's difficulty raising shoulders/arms overhead.) Lower Body Dressing (QC): 3 (Mod A. Pt able to use figure 4 method to thread LEs into pants. Assist with pant hike.) On/Off Footwear: 5 (set up assistance, pt able to use figure 4 method to don slip on shoes.) Toileting Hygiene (QC): 1 (Assist with pant hike and hygiene) Toilet Transfer (QC): 3 (Mod A to/from [facility] Other Treatment Pt laying in bed, transferred supine to sit EOB with SBA. back brace and shoes donned, then pt transferred to [facility], mod A sit to stand. Pt completed toileting, then used FWW to ambulate into bathroom and onto SC. Pt doffed clothes, completed shower, donned pull out operator shirt and back brace. Pt reports difficulty lifting his arms up overhead, requiring min A with UE dressing. He then transferred to chair with arm rests to don LE clothing. Pt had increased frustration with AE, but able to use figure 4 method to cross legs to don pants. Pt stood at FWW, OT completed pant hike, then pt transferred to w/c. Pt performed functional mobility in w/c and propelled self to therapy gym. In order to increase BUE shoulder ROM, and decrease pain, pt completed pulleys x7 mins total with 2 rest breaks. Pt completed shoulder flexion and abduction movements with pulleys. Pt propelled w/c back to his room. Post tx, pt seated upright in w/c, call light in reach and all needs met. Education OT Patient Education: Correct positioning, Exercise program, Modified ADL techniques, Progress toward Goal/Update tx plan, Purpose of tx/functional activities Teaching Recipient: Patient Teaching Methods: Discussion Response to Teaching: Verbalize Understanding OT Short Term Goals Short Term Goals Time Frame: Aug 20, 2020 Oral hygiene: 5 Shower/bathe self: 3 Lower body dressin Putting on/taking off footwear: 3 OT Residential Goals Senior Net Developer Goals Time Frame: Sep 04, 2020 Eating (QC): 6 Oral Hygiene (QC): 6 Toileting Hygiene (QC): 6 Shower/Bathe Self (QC): 6 Upper Body Dressing (QC): 6 Lower Body Dressing (QC): 6 On/Off Footwear (QC): 6 Additional Goals: 1-Demonstrate ADL Tasks, 2-Verbalize Understanding, 3- ImproveStrength/Jayshree 1=Demonstrate adherence to instructed precautions during ADL tasks. 2=Patient will verbalize/demonstrate understanding of assistive devices/modifications for ADL. 3=Patient will improve strength/tolerance for activity to enable patient to perform ADL's. OT Education/Plan Problem List/Assessment Assessment: Decreased Activ Tolerance, Decreased UE Strength, Impaired Funct Balance, Impaired I ADL's, Impaired Self-Care Skills, Restricted Funct UE ROM Discharge Recommendations Plan/Recommendations: Continue POC Treatment Plan/Plan of Care Patient would benefit from OT for education, treatment and training to promote independence in ADL's, mobility, safety and/or upper extremity function for ADL's. Plan of Care: ADL Retraining, Functional Mobility, Group Exercise/Act as Ind, UE Funct Exercise/Act Treatment Duration: Sep 04, 2020 Frequency: Modified Program (IRF) (27/08) Estimated Hrs Per Day: 1.5 hours per day Rehab Potential: Fair Time/GCodes Start Time: 08:00 Stop Time: 09:30 Total Time Billed (hr/min): 90 Billed Treatment Time 1, ADL 4 (60'), FA (20'), EX (10') MED PETERSON OT Aug 17, 2020 09:22
--- NOTE | 2020-08-17 10:59 | PM&R Progress Note ---
Subjective HPI/CC On Admission Date Seen by Provider: Aug 17, 2020 Time Seen by Provider: 11:00 Subjective/Events-last exam 08/17/2020: Patient having a good day Bowels moving okay Blood pressure 117/77 Talked about his x-rays that nurse had reported to him but those details will be evaluated by Dr. Elder the expert 08/16/2020: Patient doing pretty well Had some weak legs today Blood pressure elevated at times Monitor closely 08/15/2020: Patient in a pretty good mood Family at the bedside Blood sugar was a bit low at 80 and had symptoms so adjusted his insulin a bit Pain is well controlled on regimen Neuropathy discussed 08/14/20: Patient doing well No major issues Pain is an ongoing issue BP better 08/13/2020: Pt doing pretty well but variation in BP places him at risk for orthostasis I changed Clonidine to BID prn for BP elevation and started Norvasc 2.5 twice daily and will transition to Hydralazine also. 08/12/2020: Pt doing pretty well Bowels havent moved and we have given a lot of Laxatives Sugars are okay Voltaren gel to the back Clonidine BID has helped the BP that has dipped down to low levels in the afternoon Length of stay, presumed to be 08/26/20 08/11/2020: Pt doing pretty well Left axilla pain because of compensation with his arms, will initiate a moist heating pad Bowels are moving okay Clonidine changed to BID instead of TID due to hypotension in the afternoon interfering with therapy X-rays were done and clouded to Dr. Elder 08/10/2020: Pt doing really well Had a large bowel movement yesterday Temperature at 99.4 but no other issues Sugars are better Talked to him about insulin at discharge 08/09/20: Patient doing well BM today Back pain improved Increased movement now Better today 08/08/20: Patient in a good mood Baclofen is working well for him so will maintain this Pain controlled High sugars requiring addition of insulin Wants tacos from home 08/07/2020: Patient doing pretty well Pain is still an issue Baclofen was ordered to help his back spasms No bowels are moving since loose stools for several days Adjusted insulin after reviewing several Accu-Cheks 08/06/2020: Patient doing pretty well Very motivated to walk Loose stool so holding laxatives Right knee really hurts Sodium level 128 so we will discontinue the indapamide Review of Systems General: Fatigue, Malaise Musculoskeletal: back pain Objective Exam Vital Signs Vital Signs Date Time Temp Pulse Resp B/P (MAP) Pulse Ox O2 Delivery O2 Flow Rate FiO2 08/17/20 21:16 Room Air 08/17/20 19:58 36.4 87 16 146/67 (93) 98 Capillary Refill : General Appearance: No Apparent Distress, WD/WN, Chronically ill HEENT: PERRL/EOMI, Normal ENT Inspection, Pharynx Normal Neck: Full Range of Motion, Normal Inspection, Non Tender, Supple, Carotid Bruit Respiratory: Chest Non Tender, Lungs Clear, Normal Breath Sounds, No Accessory Muscle Use, No Respiratory Distress Cardiovascular: Regular Rate, Rhythm, No Edema, No Gallop, No JVD, No Murmur, Normal Peripheral Pulses Gastrointestinal: Normal Bowel Sounds, No Organomegaly, No Pulsatile Mass, Non Tender, Soft Back: Decreased Range of Motion, Muscle Spasm, Vertebral Tenderness Extremity: Normal Capillary Refill, Normal Inspection, Normal Range of Motion, Non Tender, No Calf Tenderness, No Pedal Edema Neurologic/Psychiatric: Alert, Oriented x3, No Motor/Sensory Deficits, Normal Mood/Affect, Motor Weakness Skin: Normal Color, Warm/Dry Lymphatic: No Adenopathy Results/Procedures Lab Laboratory Tests 08/17/20 06:05 Patient resulted labs reviewed. FIM Transfers Therapy Code Descriptions/Definitions Functional [place] Measure: 0=Not Assessed/NA 4=Minimal Assistance 1=Total Assistance 5=Supervision or Setup 2=Maximal Assistance 6=Modified [place] 3=Moderate Assistance 7=Complete IndependenceSCALE: Activities may be completed with or without assistive devices. 2-Vexjjzhskc-iynsson completes the activity by him/herself with no assistance from a helper. 5-Set-up or Clean-up Assistance-helper sets up or cleans up; patient completes activity. [place] assists only prior to or following the activity. 4-Supervision or Touching Assistance-helper provides verbal cues and/or touching/steadying and/or contact guard assistance as patient completes activity. Assistance may be provided throughout the activity or intermittently. 3-Partial/Moderate Assistance-helper does LESS THAN HALF the effort. [place] lifts, holds or supports trunk or limbs, but provides less than half the effort. 2-Substantial/Maximal Assistance-helper does MORE THAN HALF the effort. [place] lifts or holds trunk or limbs and provides more than half the effort. 8-Jsarowybz-gskqnd does ALL the effort. Patient does none of the effort to complete the activity. Or, the assistance of 2 or more helpers is required for the patient to complete the activity. If activity was not attempted, code reason: 7-Patient Refused. 9-Not Applicable-not attempted and the patient did not perform the activity before the current illness, exacerbation or injury. 10-Not Attempted due to Environmental Limitations-(lack of equipment, weather restraints, etc.). 88-Not Attempted due to Medical Conditions or Safety Concerns. Roll Left to Right (QC): 4 Sit to Lying (QC): 3 Sit to Stand (QC): 3 Chair/Grk-ah-Inghz Xfer(QC): 3 Car Transfer (QC): 2 Gait Training Does the Patient Walk?: Yes Distance: 5 Walk 10 feet (QC): 4 Walk 50 ft with 2 Turns(QC): 88 Walk 150 ft (QC): 88 Walking 10ft/uneven surface-QC: 88 Gait Persons Needed: 1 Gait Assistive Device: FWW Wheelchair Training Does the Pt Use a Wheelchair?: Yes Distance: 150'x2 Wheel 50 ft with 2 turns (QC): 3 Wheel 150 ft (QC): 3 Type of Wheelchair: Manual Stair Training 1 Step (curb) (QC): 88 4 Steps (QC): 88 12 Steps (QC): 88 Balance Picking up an Object (QC): 88 ADL-Treatment Eating (QC): 6 Oral Hygiene (QC): 7 Shower/Bathe Self (QC): 5 (set up assist. Pt washed/dried all parts seated on SC) Upper Body Dressing (QC): 3 (Min A with chain puller shirt and brace due to pt's difficulty raising shoulders/arms overhead.) Lower Body Dressing (QC): 3 (Mod A. Pt able to use figure 4 method to thread LEs into pants. Assist with pant hike.) On/Off Footwear (QC): 5 (set up assistance, pt able to use figure 4 method to don slip on shoes.) Toileting Hygiene (QC): 1 (Assist with pant hike and hygiene) Toilet Transfer (QC): 3 (Mod A to/from [facility] Assessment/Plan Assessment and Plan Assess & Plan/Chief Complaint Assessment: Status post lumbar spine surgery with severe debility and leg weakness Recent DKA Kog-vi-hpruwqd diabetes history Hypertension Chronic arthritis pain Plan: Pain control Diabetes management Blood pressure management Inpatient rehab protocol 08/06/2020: Hold laxatives DC indapamide Monitor closely Fall risk 08/07/2020: Increase insulin Aggressive therapy 08/08/20: Increase insulin Baclofen 08/09/20: Monitor sugar Back pain management 08/10/2020: Monitor blood sugar Insulin at discharge will be required 08/11/2020: Monitor pain Supportive care Baclofen 08/12/2020: Pain control Intensive rehab Bowel regimen to intensify 08/13/2020: Supportive care Aggressive therapy Blood pressure management 08/14/20: Improved status Adjust insulin BP ok 08/15/2020: Pain control Insulin modified Fall risk 08/16/2020: Pain control Monitor blood pressure 08/17/2020: Patient doing pretty well today Continue aggressive therapy (1) Status post lumbar spine surgery for decompression of spinal cord (2) Diabetes (3) DKA (diabetic ketoacidoses) (4) Hypertension (5) Leg weakness DALY WHITNEY DO Aug 17, 2020 10:59
--- NOTE | 2020-08-17 11:19 | Physical Therapy Daily Note ---
PT Daily Note-Current Subjective Patient in bed pre tx, agrees to PT, has unrated back pain. Appearance Patient in bed post tx with nurse call, phone, tray, all needs, met. Mental Status Patient Orientation: Person, Place, Situation back brace Transfers SCALE: Activities may be completed with or without assistive devices. 6-Semlelywba-fkzffia completes the activity by him/herself with no assistance from a helper. 5-Set-up or Clean-up Assistance-helper sets up or cleans up; patient completes activity. [place] assists only prior to or following the activity. 4-Supervision or Touching Assistance-helper provides verbal cues and/or touch ing/steadying and/or contact guard assistance as patient completes activity. Assistance may be provided throughout the activity or intermittently. 3-Partial/Moderate Assistance-helper does LESS THAN HALF the effort. [place] lifts, holds or supports trunk or limbs, but provides less than half the effort. 2-Substantial/Maximal Assistance-helper does MORE THAN HALF the effort. [place] lifts or holds trunk or limbs and provides more than half the effort. 0-Keevcllig-zkbelz does ALL the effort. Patient does none of the effort to complete the activity. Or, the assistance of 2 or more helpers is required for the patient to complete the activity. If activity was not attempted, code reason: 7-Patient Refused. 9-Not Applicable-not attempted and the patient did not perform the activity before the current illness, exacerbation or injury. 10-Not Attempted due to Environmental Limitations-(lack of equipment, weather restraints, etc.). 88-Not Attempted due to Medical Conditions or Safety Concerns. Roll Left & Right (QC): 6 Sit to Lying (QC): 6 Lying to Sitting/Side of Bed(Q: 6 Sit to Stand (QC): 3 Chair/Lhs-jr-Kyaxh Xfer(QC): 3 Weight Bearing Full Weight Bearing Full Weight Bearing Gait Training Distance: 30'x2, 10' Walk 10 feet (QC): 4 Gait Assistive Device: FWW WC follow, patient states his legs feel weak today Wheelchair Training Does the Pt Use a Wheelchair?: Yes Wheel 50 ft with 2 turns (QC): 4 Wheel 150 ft (QC): 4 Exercises NuStep Minutes: 15 NuStep Workload: 4 Treatments bed mobility and transfers, ambulation, WC mobility, functional strengthening Assessment Current Status: Poor Progress slightly improved sit to stand but patient could not ambulate as far, patient needed extra rest breaks today due to fatigue PT Short Term Goals Short Term Goals Time Frame: Aug 13, 2020 Roll Left & Right: 6 Sit to lyin Lying to sitting on side of be: 3 (met) Sit to stand: 3 Chair/gzm-fb-htqia transfer: 3 Walk 10 feet: 3 PT Medicaid Nurse Goals Medicaid Nurse Goals PT Alf Goals Time Frame: Aug 27, 2020 Roll Left & Right (QC): 6 Sit to Lying (QC): 4 Lying-Sitting on Side/Bed(QC): 4 Sit to Stand (QC): 4 Chair/Ijv-oz-Jfvlk Xfer(QC): 4 Toilet Transfer (QC): 4 Car Transfer (QC): 4 Does the Patient Walk: Yes Walk 10 feet (QC): 4 Walk 50ft with 2 Turns (QC): 4 Walk 150 ft (QC): 88 Walking 10ft on Uneven Surface: 4 1 Step (curb) (QC): 4 4 Steps (QC): 4 12 Steps (QC): 88 Picking up an Object (QC): 88 Wheel 50 feet with 2 turns (QC: 6 Wheel 150 feet: 6 PT Plan Problem List Problem List: Activity Tolerance, Functional Strength, Safety, Balance, Gait, Transfer, Bed Mobility, ROM Treatment/Plan Treatment Plan: Continue Plan of Care Treatment Plan: Bed Mobility, Education, Functional Activity Jayshree, Functional Strength, Group Therapy, Gait, Safety, Therapeutic Exercise, Transfers Treatment Duration: Aug 27, 2020 Frequency: At least 5 of 7 days/Wk (IRF) Estimated Hrs Per Day: 1.5 hours per day Patient and/or Family Agrees t: Yes Safety Risks/Education Patient Education: Gait Training, Transfer Techniques, Correct Positioning, W/C Management, Reviewed Don/Doff Brace, Safety Issues Teaching Recipient: Patient Teaching Methods: Demonstration, Discussion Response to Teaching: Reinforcement Needed Time/GCodes Time In: 1000 Time Out: 1100 Total Billed Treatment Time: 60 Total Billed Treatment 1 visit EX 15' FA 45' AMANDA CHAPA PT Aug 17, 2020 11:19
--- NOTE | 2020-08-17 13:58 | Physical Therapy Daily Note ---
PT Daily Note-Current Subjective Patient in bed pre tx, agrees to PT, has 7/10 pain in back and right hip. Appearance Patient in bed post tx, with nurse call, phone, tray, all needs met. Nurse notified he needs pain meds. Mental Status Patient Orientation: Person, Place, Situation Transfers SCALE: Activities may be completed with or without assistive devices. 1-Bheyfykxcx-ialvdld completes the activity by him/herself with no assistance from a helper. 5-Set-up or Clean-up Assistance-helper sets up or cleans up; patient completes activity. [place] assists only prior to or following the activity. 4-Supervision or Touching Assistance-helper provides verbal cues and/or touching/steadying and/or contact guard assistance as patient completes activity. Assistance may be provided throughout the activity or intermittently. 3-Partial/Moderate Assistance-helper does LESS THAN HALF the effort. [place] lifts, holds or supports trunk or limbs, but provides less than half the effort. 2-Substantial/Maximal Assistance-helper does MORE THAN HALF the effort. [place] lifts or holds trunk or limbs and provides more than half the effort. 2-Jssmaqunr-iktyfk does ALL the effort. Patient does none of the effort to complete the activity. Or, the assistance of 2 or more helpers is required for the patient to complete the activity. If activity was not attempted, code reason: 7-Patient Refused. 9-Not Applicable-not attempted and the patient did not perform the activity before the current illness, exacerbation or injury. 10-Not Attempted due to Environmental Limitations-(lack of equipment, weather restraints, etc.). 88-Not Attempted due to Medical Conditions or Safety Concerns. Weight Bearing Full Weight Bearing Full Weight Bearing Exercises Supine Ex: Ankle pumps, Quad Set, Glut sets, Lower trunk rotation, Heel Slides, Short Arc Quads, Hip abd/add (AAROM) Supine Reps: 20 Also performed sidelying clamshells with right leg x20 Treatments BLE exercise Assessment Current Status: Poor Progress Patient had a lot of pain, he would often have to stop treatment and lay on left side to relieve his right hip, patient could not perform 20 reps without having to stop due to pain. PT Short Term Goals Short Term Goals Time Frame: Aug 13, 2020 Roll Left & Right: 6 Sit to lyin Lying to sitting on side of be: 3 (met) Sit to stand: 3 Chair/ugp-kw-dhfkd transfer: 3 Walk 10 feet: 3 PT Usp Goals Usp Goals PT Tube Making Machine Operator Goals Time Frame: Aug 27, 2020 Roll Left & Right (QC): 6 Sit to Lying (QC): 4 Lying-Sitting on Side/Bed(QC): 4 Sit to Stand (QC): 4 Chair/Yxk-kz-Pnzze Xfer(QC): 4 Toilet Transfer (QC): 4 Car Transfer (QC): 4 Does the Patient Walk: Yes Walk 10 feet (QC): 4 Walk 50ft with 2 Turns (QC): 4 Walk 150 ft (QC): 88 Walking 10ft on Uneven Surface: 4 1 Step (curb) (QC): 4 4 Steps (QC): 4 12 Steps (QC): 88 Picking up an Object (QC): 88 Wheel 50 feet with 2 turns (QC: 6 Wheel 150 feet: 6 PT Plan Problem List Problem List: Activity Tolerance, Functional Strength, Safety, Balance, Gait, Transfer, Bed Mobility, ROM Treatment/Plan Treatment Plan: Continue Plan of Care Treatment Plan: Bed Mobility, Education, Functional Activity Jayshree, Functional Strength, Group Therapy, Gait, Safety, Therapeutic Exercise, Transfers Treatment Duration: Aug 27, 2020 Frequency: At least 5 of 7 days/Wk (IRF) Estimated Hrs Per Day: 1.5 hours per day Patient and/or Family Agrees t: Yes Safety Risks/Education Patient Education: Correct Positioning, Safety Issues Teaching Recipient: Patient Teaching Methods: Demonstration, Discussion Response to Teaching: Reinforcement Needed Time/GCodes Time In: 1330 Time Out: 1400 Total Billed Treatment Time: 30 Total Billed Treatment 1 visit EX 30' AMANDA CHAPA PT Aug 17, 2020 13:58
[2020-08-17] MEDS: ENOXAPARIN 40 MG/0.4 ML (LOVENOX) SYR SC SCH (15:09)
[2020-08-17 19:58] VITALS: BP 146/67
[2020-08-17] MEDS: SIMvastatin 10 MG (ZOCOR) TAB PO SCH (21:11)
[2020-08-18] MEDS: CYCLOBENZAPRINE 10 MG (FLEXERIL) TAB PO PRN (00:16)
[2020-08-18] MEDS: inSUlin ASPART (NovoLOG) 1 UNIT/0.01 ML (CHARGE PER UNIT) SC SCH ×4 (06:00→21:02)
--- NOTE | 2020-08-18 06:34 | PM&R Progress Note ---
Subjective HPI/CC On Admission Date Seen by Provider: Aug 18, 2020 Time Seen by Provider: 09:00 Subjective/Events-last exam 08/18/2020: Patient doing pretty well Clouded images to Dr. Elder and he will review but recommended time to recover considering the DKA episode set him back quite a bit Pain pill with Voltaren gel has helped Slow progress 08/17/2020: Patient having a good day Bowels moving okay Blood pressure 117/77 Talked about his x-rays that nurse had reported to him but those details will be evaluated by Dr. Elder the expert 08/16/2020: Patient doing pretty well Had some weak legs today Blood pressure elevated at times Monitor closely 08/15/2020: Patient in a pretty good mood Family at the bedside Blood sugar was a bit low at 80 and had symptoms so adjusted his insulin a bit Pain is well controlled on regimen Neuropathy discussed 08/14/20: Patient doing well No major issues Pain is an ongoing issue BP better 08/13/2020: Pt doing pretty well but variation in BP places him at risk for orthostasis I changed Clonidine to BID prn for BP elevation and started Norvasc 2.5 twice daily and will transition to Hydralazine also. 08/12/2020: Pt doing pretty well Bowels havent moved and we have given a lot of Laxatives Sugars are okay Voltaren gel to the back Clonidine BID has helped the BP that has dipped down to low levels in the afternoon Length of stay, presumed to be 08/26/20 08/11/2020: Pt doing pretty well Left axilla pain because of compensation with his arms, will initiate a moist heating pad Bowels are moving okay Clonidine changed to BID instead of TID due to hypotension in the afternoon interfering with therapy X-rays were done and clouded to Dr. Elder 08/10/2020: Pt doing really well Had a large bowel movement yesterday Temperature at 99.4 but no other issues Sugars are better Talked to him about insulin at discharge 08/09/20: Patient doing well BM today Back pain improved Increased movement now Better today 08/08/20: Patient in a good mood Baclofen is working well for him so will maintain this Pain controlled High sugars requiring addition of insulin Wants tacos from home 08/07/2020: Patient doing pretty well Pain is still an issue Baclofen was ordered to help his back spasms No bowels are moving since loose stools for several days Adjusted insulin after reviewing several Accu-Cheks 08/06/2020: Patient doing pretty well Very motivated to walk Loose stool so holding laxatives Right knee really hurts Sodium level 128 so we will discontinue the indapamide Review of Systems Musculoskeletal: back pain Neurological: Weakness, Incoordination Objective Exam Vital Signs Vital Signs Date Time Temp Pulse Resp B/P (MAP) Pulse Ox O2 Delivery O2 Flow Rate FiO2 08/18/20 20:55 95 Room Air 08/18/20 20:00 36.2 89 18 116/69 (85) Capillary Refill : General Appearance: No Apparent Distress, WD/WN, Chronically ill HEENT: PERRL/EOMI, Normal ENT Inspection, Pharynx Normal Neck: Full Range of Motion, Normal Inspection, Non Tender, Supple, Carotid Bruit Respiratory: Chest Non Tender, Lungs Clear, Normal Breath Sounds, No Accessory Muscle Use, No Respiratory Distress Cardiovascular: Regular Rate, Rhythm, No Edema, No Gallop, No JVD, No Murmur, Normal Peripheral Pulses Gastrointestinal: Normal Bowel Sounds, No Organomegaly, No Pulsatile Mass, Non Tender, Soft Back: Decreased Range of Motion, Muscle Spasm, Vertebral Tenderness Extremity: Normal Capillary Refill, Normal Inspection, Normal Range of Motion, Non Tender, No Calf Tenderness, No Pedal Edema Neurologic/Psychiatric: Alert, Oriented x3, No Motor/Sensory Deficits, Normal Mood/Affect, Motor Weakness Skin: Normal Color, Warm/Dry Lymphatic: No Adenopathy Results/Procedures Lab Patient resulted labs reviewed. FIM Transfers Therapy Code Descriptions/Definitions Functional [place] Measure: 0=Not Assessed/NA 4=Minimal Assistance 1=Total Assistance 5=Supervision or Setup 2=Maximal Assistance 6=Modified [place] 3=Moderate Assistance 7=Complete IndependenceSCALE: Activities may be completed with or without assistive devices. 6-Ssrbjrvqji-yocdncp completes the activity by him/herself with no assistance from a helper. 5-Set-up or Clean-up Assistance-helper sets up or cleans up; patient completes activity. [place] assists only prior to or following the activity. 4-Supervision or Touching Assistance-helper provides verbal cues and/or touc mark/steadying and/or contact guard assistance as patient completes activity. Assistance may be provided throughout the activity or intermittently. 3-Partial/Moderate Assistance-helper does LESS THAN HALF the effort. [place] lifts, holds or supports trunk or limbs, but provides less than half the effort. 2-Substantial/Maximal Assistance-helper does MORE THAN HALF the effort. [place] lifts or holds trunk or limbs and provides more than half the effort. 3-Cuhkhlnsu-fgbxeu does ALL the effort. Patient does none of the effort to complete the activity. Or, the assistance of 2 or more helpers is required for the patient to complete the activity. If activity was not attempted, code reason: 7-Patient Refused. 9-Not Applicable-not attempted and the patient did not perform the activity before the current illness, exacerbation or injury. 10-Not Attempted due to Environmental Limitations-(lack of equipment, weather restraints, etc.). 88-Not Attempted due to Medical Conditions or Safety Concerns. Roll Left to Right (QC): 6 Sit to Lying (QC): 6 Sit to Stand (QC): 3 Chair/Wrm-tk-Diujc Xfer(QC): 3 Car Transfer (QC): 2 Gait Training Does the Patient Walk?: Yes Distance: 30'x2, 10' Walk 10 feet (QC): 4 Walk 50 ft with 2 Turns(QC): 88 Walk 150 ft (QC): 88 Walking 10ft/uneven surface-QC: 88 Gait Persons Needed: 1 Gait Assistive Device: FWW Wheelchair Training Does the Pt Use a Wheelchair?: Yes Distance: 150'x2 Wheel 50 ft with 2 turns (QC): 4 Wheel 150 ft (QC): 4 Type of Wheelchair: Manual Stair Training 1 Step (curb) (QC): 88 4 Steps (QC): 88 12 Steps (QC): 88 Balance Picking up an Object (QC): 88 ADL-Treatment Eating (QC): 6 Oral Hygiene (QC): 7 Shower/Bathe Self (QC): 5 (set up assist. Pt washed/dried all parts seated on SC) Upper Body Dressing (QC): 3 (Min A with tap puller shirt and brace due to pt's difficulty raising shoulders/arms overhead.) Lower Body Dressing (QC): 3 (Mod A. Pt able to use figure 4 method to thread LEs into pants. Assist with pant hike.) On/Off Footwear (QC): 5 (set up assistance, pt able to use figure 4 method to don slip on shoes.) Toileting Hygiene (QC): 1 (Assist with pant hike and hygiene) Toilet Transfer (QC): 3 (Mod A to/from [facility] Assessment/Plan Assessment and Plan Assess & Plan/Chief Complaint Assessment: Status post lumbar spine surgery with severe debility and leg weakness Recent DKA Klf-yu-lbtctiz diabetes history Hypertension Chronic arthritis pain Plan: Pain control Diabetes management Blood pressure management Inpatient rehab protocol 08/06/2020: Hold laxatives DC indapamide Monitor closely Fall risk 08/07/2020: Increase insulin Aggressive therapy 08/08/20: Increase insulin Baclofen 08/09/20: Monitor sugar Back pain management 08/10/2020: Monitor blood sugar Insulin at discharge will be required 08/11/2020: Monitor pain Supportive care Baclofen 08/12/2020: Pain control Intensive rehab Bowel regimen to intensify 08/13/2020: Supportive care Aggressive therapy Blood pressure management 08/14/20: Improved status Adjust insulin BP ok 08/15/2020: Pain control Insulin modified Fall risk 08/16/2020: Pain control Monitor blood pressure 08/17/2020: Patient doing pretty well today Continue aggressive therapy 08/18/2020: Continue pain control Updated Dr. Elder (1) Status post lumbar spine surgery for decompression of spinal cord (2) Diabetes (3) DKA (diabetic ketoacidoses) (4) Hypertension (5) Leg weakness DALY WHITNEY DO Aug 18, 2020 06:34
[2020-08-18] MEDS: inSUlin (REGULAR) HUMAN 1 UNIT/0.01 ML (CHARGE PER UNIT) SC SCH ×4 (06:35→20:55)
[2020-08-18] MEDS: metFORMIN XR 500 MG (GLUCOPHAGE XR) TAB PO SCH ×2 (06:36→17:14)
[2020-08-18 07:25] VITALS: BP 125/71
[2020-08-18] MEDS: lisINopril 20 MG (PRINIVIL) TABLET PO SCH ×2 (08:32→20:48)
[2020-08-18] MEDS: ALLOPURINOL 100 MG (ZYLOPRIM) TAB PO SCH (08:32)
[2020-08-18] MEDS: LACTOBACILLUS ACIDOPHILUS (PROBIOTIC) CAPSULE PO SCH (08:32)
[2020-08-18] MEDS: meTOprolol TARTRATE 25 MG (LOPRESSOR) TABLET PO SCH ×2 (08:32→20:47)
[2020-08-18] MEDS: BACLOFEN 10 MG (LIORESAL) TAB PO SCH ×3 (08:32→20:47)
[2020-08-18] MEDS: glipiZIDE 5 MG (GLUCOTROL) TAB PO SCH ×2 (08:32→17:14)
[2020-08-18] MEDS: amLODIPine 2.5MG (NORVASC) TAB PO SCH ×2 (08:32→20:48)
[2020-08-18] MEDS: DOCUSATE SODIUM 100 MG (COLACE) CAP PO SCH ×2 (08:43→20:48)
[2020-08-18] MEDS: polyethylene glycoL POWDER 17 GM (MIRALAX) PACK PO SCH ×2 (08:44→21:01)
[2020-08-18] MEDS: SENNA W/DOCUSATE (SENOKOT S) TABLET PO SCH ×2 (08:44→20:47)
[2020-08-18] MEDS: TRIAMCINOLONE 0.1% OINT (KENALOG) 15 GM TUBE TOP SCH ×2 (08:46→21:00)
[2020-08-18] MEDS: DICLOFENAC 1% GEL 100 GM (VOLTAREN) TUBE TOP PRN ×3 (08:47→21:00)
--- NOTE | 2020-08-18 09:26 | Occupational Ther Daily Note ---
OT Current Status-Daily Note Subjective Pt laying in bed, agreeable to OT tx, / pain in R hip Mental Status/Objective Patient Orientation: Normal For Age Attachments: Other-See Comments (back brace OOB) ADL-Treatment Therapy Code Descriptions/Definitions Functional [place] Measure: 0=Not Assessed/NA 4=Minimal Assistance 1=Total Assistance 5=Supervision or Setup 2=Maximal Assistance 6=Modified [place] 3=Moderate Assistance 7=Complete IndependenceSCALE: Activities may be completed with or without assistive devices. 1-Lffxkatjri-dsgvjmb completes the activity by him/herself with no assistance from a helper. 5-Set-up or Clean-up Assistance-helper sets up or cleans up; patient completes activity. [place] assists only prior to or following the activity. 4-Supervision or Touching Assistance-helper provides verbal cues and/or touching/steadying and/or contact guard assistance as patient completes activity. Assistance may be provided throughout the activity or intermittently. 3-Partial/Moderate Assistance-helper does LESS THAN HALF the effort. [place] lifts, holds or supports trunk or limbs, but provides less than half the effort. 2-Substantial/Maximal Assistance-helper does MORE THAN HALF the effort. [place] lifts or holds trunk or limbs and provides more than half the effort. 8-Qqvcamfhm-etefyk does ALL the effort. Patient does none of the effort to complete the activity. Or, the assistance of 2 or more helpers is required for the patient to complete the activity. If activity was not attempted, code reason: 7-Patient Refused. 9-Not Applicable-not attempted and the patient did not perform the activity before the current illness, exacerbation or injury. 10-Not Attempted due to Environmental Limitations-(lack of equipment, weather restraints, etc.). 88-Not Attempted due to Medical Conditions or Safety Concerns. Upper Body Dressing (QC): 5 (set up) Lower Body Dressing (QC): 3 (Min A, pt able to thread LEs and perform some of pant hike, OT assisted with pant hike in back.) On/Off Footwear: 5 (set up assist with slip on shoes.) Toileting Hygiene (QC): 3 (Pt able to manage pants down, urinate, then completed pant hike. OT assisted slightly with pant hike in back.) Toilet Transfer (QC): 3 (Mod A to[place] [facility] Other Treatment Pt laying in bed, transferred supine to sit EOB, SBA. back brace and shoes do nned. sit to stand from elevated bed, min A, transferred to BSC. Pt completed toileting, then mod A sit to stand from commode, pt transferred back to EOB. Pt donned LE clothing at EOB, states his hip is hurting him. Pt stood from EOB, completed pant hike, then transferred to w/c. He donned UE clothing at w/c after set up assist. Pt propelled w/c to therapy gym. In order to increase BUE shoulder ROM, and decrease shoulder pain, pt completed pulleys x10 mins, with rest breaks as needed. Pt indicates his R hip was hurting, RLE elevated onto small step and he indicates this relieved his pain. Pt then propelled w/c back to his room, sit to stand from w/c mod A, then transferred to EOB. Sit to supine with SBA, then min A bed mobility in order to scoot hips back in the bed. Post tx, pt laying in bed, call light in reach and all needs met. Education OT Patient Education: Correct positioning, Modified ADL techniques, Progress toward Goal/Update tx plan, Purpose of tx/functional activities, Rehab process Teaching Recipient: Patient Teaching Methods: Discussion Response to Teaching: Verbalize Understanding OT Short Term Goals Short Term Goals Time Frame: Aug 20, 2020 Oral hygiene: 5 Shower/bathe self: 3 Lower body dressin Putting on/taking off footwear: 3 OT Mcc Goals Farm Management Supervisor Goals Time Frame: Sep 04, 2020 Eating (QC): 6 Oral Hygiene (QC): 6 Toileting Hygiene (QC): 6 Shower/Bathe Self (QC): 6 Upper Body Dressing (QC): 6 Lower Body Dressing (QC): 6 On/Off Footwear (QC): 6 Additional Goals: 1-Demonstrate ADL Tasks, 2-Verbalize Understanding, 3- ImproveStrength/Jayshree 1=Demonstrate adherence to instructed precautions during ADL tasks. 2=Patient will verbalize/demonstrate understanding of assistive devices/modifications for ADL. 3=Patient will improve strength/tolerance for activity to enable patient to perform ADL's. OT Education/Plan Problem List/Assessment Assessment: Decreased Activ Tolerance, Decreased UE Strength, Impaired Funct Balance, Impaired I ADL's, Impaired Self-Care Skills, Restricted Funct UE ROM Discharge Recommendations Plan/Recommendations: Continue POC Treatment Plan/Plan of Care Patient would benefit from OT for education, treatment and training to promote independence in ADL's, mobility, safety and/or upper extremity function for ADL's. Plan of Care: ADL Retraining, Functional Mobility, Group Exercise/Act as Ind, UE Funct Exercise/Act Treatment Duration: Sep 04, 2020 Frequency: Modified Program (IRF) (27/08) Estimated Hrs Per Day: 1.5 hours per day Rehab Potential: Fair Time/GCodes Start Time: 08:00 Stop Time: 09:30 Total Time Billed (hr/min): 90 Billed Treatment Time 1, ADL 4 (60'), EX (15'), FA (15') MED PETERSON OT Aug 18, 2020 09:26
--- NOTE | 2020-08-18 11:35 | Physical Therapy Daily Note ---
PT Daily Note-Current Subjective Patient in bed pre tx, agrees to PT, has 4/10 pain in right hip and left shoulder. Patient states his pain is much less today than yesterday afternoon. Appearance Patient in bed post tx with nurse call, phone, tray, all needs met. Mental Status Patient Orientation: Person, Place, Situation back brace Transfers SCALE: Activities may be completed with or without assistive devices. 9-Gxgvlsixlj-axsgddp completes the activity by him/herself with no assistance from a helper. 5-Set-up or Clean-up Assistance-helper sets up or cleans up; patient completes activity. [place] assists only prior to or following the activity. 4-Supervision or Touching Assistance-helper provides verbal cues and/or touching/steadying and/or contact guard assistance as patient completes activity. Assistance may be provided throughout the activity or intermittently. 3-Partial/Moderate Assistance-helper does LESS THAN HALF the effort. [place] lifts, holds or supports trunk or limbs, but provides less than half the effort. 2-Substantial/Maximal Assistance-helper does MORE THAN HALF the effort. [place] lifts or holds trunk or limbs and provides more than half the effort. 1-Kzfxsonsa-bmculu does ALL the effort. Patient does none of the effort to complete the activity. Or, the assistance of 2 or more helpers is required for the patient to complete the activity. If activity was not attempted, code reason: 7-Patient Refused. 9-Not Applicable-not attempted and the patient did not perform the activity before the current illness, exacerbation or injury. 10-Not Attempted due to Environmental Limitations-(lack of equipment, weather restraints, etc.). 88-Not Attempted due to Medical Conditions or Safety Concerns. Roll Left & Right (QC): 6 Sit to Lying (QC): 4 Lying to Sitting/Side of Bed(Q: 4 Sit to Stand (QC): 3 Chair/Rhi-ld-Kusfl Xfer(QC): 4 Patient performed supine <-> sit with SBA, still needs mod assist to stand but after standing can perform a transfer using a rolling walker with CGA, patient bears a lot of weight through arms during transfers Weight Bearing Full Weight Bearing Full Weight Bearing Gait Training Distance: 30'x3 Walk 10 feet (QC): 4 Gait Persons Needed: 1 Gait Assistive Device: FWW Patient ambulates slowly, antalgic, bears a lot of weight through arms and less through legs. Slumped posture. Wheelchair Training Does the Pt Use a Wheelchair?: Yes Wheel 50 ft with 2 turns (QC): 4 Wheel 150 ft (QC): 4 Type of Wheelchair: Manual 400', SBA, used both arms and both legs, needed several rest breaks Exercises NuStep Minutes: 15 NuStep Workload: 4 Treatments bed mobility and transfers, ambulation, WC mobility, LE strengthening. Assessment Current Status: Poor Progress Patient's functional mobility has overall improved since admission but recently has stayed the same. He has good day and bad days with his pain. BLE strength has only improved slightly. He started with this strength LLE (hip flexion 3- /5, knee flexion 3+/5, knee extension 3+/5, dorsiflexion 3/5), RLE (hip flexion 3-/5, knee flexion 3+/5, knee extension 3+/5, dorsiflexion 1/5). Now he has this strength LLE (hip flexion 3-/5, knee flexion 4-/5, knee extension 4-/5, dorsiflexion 3/5), RLE (hip flexion 3-/5, knee flexion 4-/5, knee extension 4- /5, dorsiflexion 1/5). So, knee flexion and extension have improved slightly since admission. Patient needed many rest breaks due to pain. PT Short Term Goals Short Term Goals Time Frame: Aug 13, 2020 Roll Left & Right: 6 Sit to lyin Lying to sitting on side of be: 3 (met) Sit to stand: 3 Chair/svp-cf-vrnws transfer: 3 Walk 10 feet: 3 PT Skilled Nursing Goals Skilled Nursing Goals PT Skilled Nursing Goals Time Frame: Aug 27, 2020 Roll Left & Right (QC): 6 Sit to Lying (QC): 4 Lying-Sitting on Side/Bed(QC): 4 Sit to Stand (QC): 4 Chair/Uib-cn-Wcnix Xfer(QC): 4 Toilet Transfer (QC): 4 Car Transfer (QC): 4 Does the Patient Walk: Yes Walk 10 feet (QC): 4 Walk 50ft with 2 Turns (QC): 4 Walk 150 ft (QC): 88 Walking 10ft on Uneven Surface: 4 1 Step (curb) (QC): 4 4 Steps (QC): 4 12 Steps (QC): 88 Picking up an Object (QC): 88 Wheel 50 feet with 2 turns (QC: 6 Wheel 150 feet: 6 PT Plan Problem List Problem List: Activity Tolerance, Functional Strength, Safety, Balance, Gait, Transfer, Bed Mobility, ROM Treatment/Plan Treatment Plan: Continue Plan of Care Treatment Plan: Bed Mobility, Education, Functional Activity Jayshree, Functional Strength, Group Therapy, Gait, Safety, Therapeutic Exercise, Transfers Treatment Duration: Aug 27, 2020 Frequency: At least 5 of 7 days/Wk (IRF) Estimated Hrs Per Day: 1.5 hours per day Patient and/or Family Agrees t: Yes Safety Risks/Education Patient Education: Gait Training, Transfer Techniques, Correct Positioning, W/C Management, Reviewed Don/Doff Brace, Safety Issues Teaching Recipient: Patient Teaching Methods: Demonstration, Discussion Response to Teaching: Reinforcement Needed Time/GCodes Time In: 1000 Time Out: 1130 Total Billed Treatment Time: 90 Total Billed Treatment 1 visit EX 15' WC 30' FA 45' AMANDA CHAPA PT Aug 18, 2020 11:35
[2020-08-18] MEDS: ENOXAPARIN 40 MG/0.4 ML (LOVENOX) SYR SC SCH (15:29)
[2020-08-18 20:00] VITALS: BP 116/69
[2020-08-18] MEDS: SIMvastatin 10 MG (ZOCOR) TAB PO SCH (20:47)
[2020-08-18] MEDS: MELATONIN 3 MG TABLET PO PRN (20:47)
[2020-08-19] MEDS: inSUlin ASPART (NovoLOG) 1 UNIT/0.01 ML (CHARGE PER UNIT) SC SCH ×4 (06:00→20:59)
[2020-08-19] MEDS: inSUlin (REGULAR) HUMAN 1 UNIT/0.01 ML (CHARGE PER UNIT) SC SCH ×4 (06:34→20:59)
[2020-08-19] MEDS: metFORMIN XR 500 MG (GLUCOPHAGE XR) TAB PO SCH ×2 (06:35→17:25)
[2020-08-19] MEDS: polyethylene glycoL POWDER 17 GM (MIRALAX) PACK PO SCH ×2 (07:58→20:58)
[2020-08-19] MEDS: meTOprolol TARTRATE 25 MG (LOPRESSOR) TABLET PO SCH ×2 (07:59→20:57)
[2020-08-19] MEDS: DOCUSATE SODIUM 100 MG (COLACE) CAP PO SCH ×2 (07:59→20:57)
[2020-08-19] MEDS: LACTOBACILLUS ACIDOPHILUS (PROBIOTIC) CAPSULE PO SCH (08:00)
[2020-08-19] MEDS: ALLOPURINOL 100 MG (ZYLOPRIM) TAB PO SCH (08:00)
[2020-08-19] MEDS: glipiZIDE 5 MG (GLUCOTROL) TAB PO SCH ×2 (08:00→17:25)
[2020-08-19] MEDS: SENNA W/DOCUSATE (SENOKOT S) TABLET PO SCH ×2 (08:00→20:57)
[2020-08-19] MEDS: amLODIPine 2.5MG (NORVASC) TAB PO SCH ×2 (08:00→20:57)
[2020-08-19] MEDS: TRIAMCINOLONE 0.1% OINT (KENALOG) 15 GM TUBE TOP SCH ×2 (08:00→21:00)
[2020-08-19] MEDS: lisINopril 20 MG (PRINIVIL) TABLET PO SCH ×2 (08:00→20:57)
[2020-08-19] MEDS: DICLOFENAC 1% GEL 100 GM (VOLTAREN) TUBE TOP PRN ×2 (08:01→21:04)
[2020-08-19 08:04] VITALS: BP 138/81
[2020-08-19] MEDS: BACLOFEN 10 MG (LIORESAL) TAB PO SCH ×3 (08:04→20:58)
--- NOTE | 2020-08-19 09:01 | Occupational Ther Daily Note ---
OT Current Status-Daily Note Subjective Pt agreeable to therapy tx. 4/10 pain in R hip and back ADL-Treatment Therapy Code Descriptions/Definitions Functional Lamb Measure: 0=Not Assessed/NA 4=Minimal Assistance 1=Total Assistance 5=Supervision or Setup 2=Maximal Assistance 6=Modified Lamb 3=Moderate Assistance 7=Complete IndependenceSCALE: Activities may be completed with or without assistive devices. 6-Cevylrdmnq-jofhjvy completes the activity by him/herself with no assistance from a helper. 5-Set-up or Clean-up Assistance-helper sets up or cleans up; patient completes activity. [place] assists only prior to or following the activity. 4-Supervision or Touching Assistance-helper provides verbal cues and/or touching/steadying and/or contact guard assistance as patient completes activity. Assistance may be provided throughout the activity or intermittently. 3-Partial/Moderate Assistance-helper does LESS THAN HALF the effort. [place] lifts, holds or supports trunk or limbs, but provides less than half the effort. 2-Substantial/Maximal Assistance-helper does MORE THAN HALF the effort. [place] lifts or holds trunk or limbs and provides more than half the effort. 7-Lirqbefjw-dqdihq does ALL the effort. Patient does none of the effort to complete the activity. Or, the assistance of 2 or more helpers is required for the patient to complete the activity. If activity was not attempted, code reason: 7-Patient Refused. 9-Not Applicable-not attempted and the patient did not perform the activity before the current illness, exacerbation or injury. 10-Not Attempted due to Environmental Limitations-(lack of equipment, weather restraints, etc.). 88-Not Attempted due to Medical Conditions or Safety Concerns. Upper Body Dressing (QC): 5 Lower Body Dressing (QC): 3 (Min A with standing balance, pt able to thread LEs and perform pant hike with slight encouragement.) On/Off Footwear: 6 (IND slip on shoes.) Other Treatment [id number] OT/PT cotreat due to skill of 2 clinicians that a rehabilitation caseworker could not perform in order to coordinate UE/LEs, decrease fall risk, focus on higher level balance tasks, and due to pt's limitations in pain, activity tolerance, mobility/transfers, and strength. OT focused on ADLs, UE placement, cues for sequencing and safety, PT focused on LE placement, gross overall movement, and mobility/transfers. Pt transferred supine to sit EOB, donned clothes, then used FWW to perform functional mobility in [facility] common area. Pt required w/c follow with frequent rest breaks. He then performed w/c mobility around [facility] common area/2nd floor in order to increase BUE strength and activity tolerance. In parallel bars, pt stood and hit balloon back and forth with OT reaching in all planes, PT assisted with balance as needed. Pt able to complete task x3 trials, rest breaks between. Pt sat abruptly with task, as he got pain in his back and R hip requiring rest break. Post tx, pt seated in therapy gym, PT present to continue tx, all needs met. Mod A sit to stand, he needs occasional cues for hand placement and positioning, tends to have an uncontrolled sit with stand to/from sit [id number] OT tx. Pt transferred supine to sit EOB with SBA. Donned back brace and shoes with set up assist. Pt transferred from EOB to w/c, min A, then propelled w/c to therapy gym. Pt completed pulleys x10 mins in order to increase BUE strength, ROM and activity tolerance. He propelled w/c back to his room, transferred back to bed. OT educated pt with safety of sit to/from stands, encouraging pt to push up from chair when standing, and to reach back for chair prior to stand. Post tx, pt laying in bed, call light in reach and all needs met. Education OT Patient Education: Correct positioning, Modified ADL techniques, Progress toward Goal/Update tx plan, Purpose of tx/functional activities Teaching Recipient: Patient Teaching Methods: Discussion Response to Teaching: Verbalize Understanding OT Short Term Goals Short Term Goals Time Frame: Aug 20, 2020 Oral hygiene: 5 Shower/bathe self: 3 Lower body dressin Putting on/taking off footwear: 3 OT Senior Care Goals Senior Audit Manager Goals Time Frame: Sep 04, 2020 Eating (QC): 6 Oral Hygiene (QC): 6 Toileting Hygiene (QC): 6 Shower/Bathe Self (QC): 6 Upper Body Dressing (QC): 6 Lower Body Dressing (QC): 6 On/Off Footwear (QC): 6 Additional Goals: 1-Demonstrate ADL Tasks, 2-Verbalize Understanding, 3- ImproveStrength/Jayshree 1=Demonstrate adherence to instructed precautions during ADL tasks. 2=Patient will verbalize/demonstrate understanding of assistive d evices/modifications for ADL. 3=Patient will improve strength/tolerance for activity to enable patient to perform ADL's. OT Education/Plan Problem List/Assessment Assessment: Decreased Activ Tolerance, Decreased UE Strength, Impaired I ADL's, Impaired Self-Care Skills Discharge Recommendations Plan/Recommendations: Continue POC Treatment Plan/Plan of Care Patient would benefit from OT for education, treatment and training to promote independence in ADL's, mobility, safety and/or upper extremity function for ADL's. Plan of Care: ADL Retraining, Functional Mobility, Group Exercise/Act as Ind, UE Funct Exercise/Act Treatment Duration: Sep 04, 2020 Frequency: Modified Program (IRF) (27/08) Estimated Hrs Per Day: 1.5 hours per day Rehab Potential: Fair Time/GCodes Start Time: 08:00 ([id number]) Stop Time: 11:00 ([id number]) Total Time Billed (hr/min): 90 Billed Treatment Time 0630-8292 OT/PT cotreat: 1, ADL (15'), FA 3 (45') [id number] OT tx: 1, FA (15'), EX (15') MED PETERSON OT Aug 19, 2020 09:01
--- NOTE | 2020-08-19 09:25 | Physical Therapy Daily Note ---
PT Daily Note-Current Subjective Patient in bed pre tx, agrees to PT, has 4/10 back and leg pain. Will be co- treating with OT due to poor patient mobility, strength, endurance, coordinate UE and LE during activity, safety and reduce risk of falls, and due to increasing pain with activity. Appearance Patient in bed post tx with nurse call, phone, tray, all needs met. Mental Status Patient Orientation: Person, Place, Situation back brace Transfers SCALE: Activities may be completed with or without assistive devices. 0-Iakpbqajcz-bbjzwuc completes the activity by him/herself with no assistance from a helper. 5-Set-up or Clean-up Assistance-helper sets up or cleans up; patient completes activity. [place] assists only prior to or following the activity. 4-Supervision or Touching Assistance-helper provides verbal cues and/or touching/steadying and/or contact guard assistance as patient completes activity. Assistance may be provided throughout the activity or intermittently. 3-Partial/Moderate Assistance-helper does LESS THAN HALF the effort. [place] lifts, holds or supports trunk or limbs, but provides less than half the effort. 2-Substantial/Maximal Assistance-helper does MORE THAN HALF the effort. [place] lifts or holds trunk or limbs and provides more than half the effort. 0-Emnyaadsl-woxlzq does ALL the effort. Patient does none of the effort to complete the activity. Or, the assistance of 2 or more helpers is required for the patient to complete the activity. If activity was not attempted, code reason: 7-Patient Refused. 9-Not Applicable-not attempted and the patient did not perform the activity before the current illness, exacerbation or injury. 10-Not Attempted due to Environmental Limitations-(lack of equipment, weather restraints, etc.). 88-Not Attempted due to Medical Conditions or Safety Concerns. Roll Left & Right (QC): 6 Sit to Lying (QC): 5 Lying to Sitting/Side of Bed(Q: 5 Sit to Stand (QC): 3 Chair/Sol-ew-Nrsxd Xfer(QC): 4 mod assist for sit to stand, patient needs occasional cues for hand placement and positioning, tends to have an uncontrolled sit with stand to sit. Patient needs dressed at the beginning of tx, has to stand a couple of times at bedside with mod assist for undressing/dressing Weight Bearing Full Weight Bearing Full Weight Bearing Gait Training Distance: 15', 20'x2 Walk 10 feet (QC): 4 Gait Assistive Device: FWW WC follow, slow antalgic ambulation, leans heavily on arms on walker Wheelchair Training Does the Pt Use a Wheelchair?: Yes Wheel 50 ft with 2 turns (QC): 5 Wheel 150 ft (QC): 5 Type of Wheelchair: Manual 300' Exercises standing activity x3 hitting balloon with one hand holding onto parallel bars with other NuStep Minutes: 15 NuStep Workload: 4 Treatments PT performed bed mobility and transfers, standing during dressing and balloon activity, WC mobility, ambulation, LE strengthening, OT performed dressing, balloon activity, UE positioning and safety during activity. Assessment Current Status: Fair Progress slightly improved sit to stand but decreased ambulation distance. Patient had increasing pain with activity. PT Short Term Goals Short Term Goals Time Frame: Aug 13, 2020 Roll Left & Right: 6 Sit to lyin Lying to sitting on side of be: 3 (met) Sit to stand: 3 Chair/xzq-sh-ojyyr transfer: 3 Walk 10 feet: 3 PT Sports Manager Goals Senior Living Goals PT Sports Manager Goals Time Frame: Aug 27, 2020 Roll Left & Right (QC): 6 Sit to Lying (QC): 4 Lying-Sitting on Side/Bed(QC): 4 Sit to Stand (QC): 4 Chair/Dgx-yf-Zilwa Xfer(QC): 4 Toilet Transfer (QC): 4 Car Transfer (QC): 4 Does the Patient Walk: Yes Walk 10 feet (QC): 4 Walk 50ft with 2 Turns (QC): 4 Walk 150 ft (QC): 88 Walking 10ft on Uneven Surface: 4 1 Step (curb) (QC): 4 4 Steps (QC): 4 12 Steps (QC): 88 Picking up an Object (QC): 88 Wheel 50 feet with 2 turns (QC: 6 Wheel 150 feet: 6 PT Plan Problem List Problem List: Activity Tolerance, Functional Strength, Safety, Balance, Gait, Transfer, Bed Mobility, ROM Treatment/Plan Treatment Plan: Continue Plan of Care Treatment Plan: Bed Mobility, Education, Functional Activity Jayshree, Functional Strength, Group Therapy, Gait, Safety, Therapeutic Exercise, Transfers Treatment Duration: Aug 27, 2020 Frequency: At least 5 of 7 days/Wk (IRF) Estimated Hrs Per Day: 1.5 hours per day Patient and/or Family Agrees t: Yes Safety Risks/Education Patient Education: Gait Training, Transfer Techniques, Correct Positioning, W/C Management, Safety Issues Teaching Recipient: Patient Teaching Methods: Demonstration, Discussion Response to Teaching: Reinforcement Needed Time/GCodes Time In: 799 Time Out: 929 Total Billed Treatment Time: 90 Total Billed Treatment 1 visit EX 30' FA 60' co-treated with OT from [id number] AMANDA CHAPA PT Aug 19, 2020 09:25
[2020-08-19] MEDS: ENOXAPARIN 40 MG/0.4 ML (LOVENOX) SYR SC SCH (15:07)
[2020-08-19 20:00] VITALS: BP 150/80
[2020-08-19] MEDS: SIMvastatin 10 MG (ZOCOR) TAB PO SCH (20:57)
[2020-08-19] MEDS: MELATONIN 3 MG TABLET PO PRN (20:58)
[2020-08-20] MEDS: CYCLOBENZAPRINE 10 MG (FLEXERIL) TAB PO PRN (04:14)
[2020-08-20] MEDS: DICLOFENAC 1% GEL 100 GM (VOLTAREN) TUBE TOP PRN ×2 (04:19→18:25)
[2020-08-20] MEDS: inSUlin ASPART (NovoLOG) 1 UNIT/0.01 ML (CHARGE PER UNIT) SC SCH ×2 (05:28→11:58)
[2020-08-20 07:39] VITALS: BP 145/87
[2020-08-20] MEDS: metFORMIN XR 500 MG (GLUCOPHAGE XR) TAB PO SCH ×2 (08:03→18:21)
[2020-08-20] MEDS: inSUlin (REGULAR) HUMAN 1 UNIT/0.01 ML (CHARGE PER UNIT) SC SCH ×2 (08:03→12:58)
--- NOTE | 2020-08-20 08:57 | Physical Therapy Daily Note ---
PT Daily Note-Current Subjective Patient in bed pre tx, agrees to PT, has 5/10 pain in back and right hip. Nurse is in room and gives him meds. Appearance Patient on toilet in restroom post tx, knows to pull cord to call nurse when done. Mental Status Patient Orientation: Person, Place, Situation back brace Transfers SCALE: Activities may be completed with or without assistive devices. 1-Ssmlmfwkvf-pacgvxj completes the activity by him/herself with no assistance from a helper. 5-Set-up or Clean-up Assistance-helper sets up or cleans up; patient completes activity. [place] assists only prior to or following the activity. 4-Supervision or Touching Assistance-helper provides verbal cues and/or touching/steadying and/or contact guard assistance as patient completes activity. Assistance may be provided throughout the activity or intermittently. 3-Partial/Moderate Assistance-helper does LESS THAN HALF the effort. [place] lifts, holds or supports trunk or limbs, but provides less than half the effort. 2-Substantial/Maximal Assistance-helper does MORE THAN HALF the effort. [place] lifts or holds trunk or limbs and provides more than half the effort. 7-Xmfnzjkiz-qohuvz does ALL the effort. Patient does none of the effort to complete the activity. Or, the assistance of 2 or more helpers is required for the patient to complete the activity. If activity was not attempted, code reason: 7-Patient Refused. 9-Not Applicable-not attempted and the patient did not perform the activity before the current illness, exacerbation or injury. 10-Not Attempted due to Environmental Limitations-(lack of equipment, weather restraints, etc.). 88-Not Attempted due to Medical Conditions or Safety Concerns. Sit to Stand (QC): 3 Chair/Mrd-an-Srivr Xfer(QC): 3 Toilet Transfer (QC): 3 Weight Bearing Full Weight Bearing Full Weight Bearing Wheelchair Training Does the Pt Use a Wheelchair?: Yes Wheel 50 ft with 2 turns (QC): 5 Type of Wheelchair: Manual 120'x2 Exercises Standing: Heel/toe raises, Mini squats Standing Reps: 15 LAQ alternating for 5 min NuStep Minutes: 15 NuStep Workload: 4 Treatments transfers, LE strengthening, patient also had to be dressed at the beginning of tx, WC mobility Assessment Current Status: Poor Progress Patient had significant pain with activity today, needed frequent rest breaks to recover PT Short Term Goals Short Term Goals Time Frame: Aug 13, 2020 Roll Left & Right: 6 Sit to lyin Lying to sitting on side of be: 3 (met) Sit to stand: 3 Chair/adr-ln-mwbjm transfer: 3 Walk 10 feet: 3 PT Mold Insert Changer Goals Mold Insert Changer Goals PT Mold Insert Changer Goals Time Frame: Aug 27, 2020 Roll Left & Right (QC): 6 Sit to Lying (QC): 4 Lying-Sitting on Side/Bed(QC): 4 Sit to Stand (QC): 4 Chair/Nzi-ic-Xfoyi Xfer(QC): 4 Toilet Transfer (QC): 4 Car Transfer (QC): 4 Does the Patient Walk: Yes Walk 10 feet (QC): 4 Walk 50ft with 2 Turns (QC): 4 Walk 150 ft (QC): 88 Walking 10ft on Uneven Surface: 4 1 Step (curb) (QC): 4 4 Steps (QC): 4 12 Steps (QC): 88 Picking up an Object (QC): 88 Wheel 50 feet with 2 turns (QC: 6 Wheel 150 feet: 6 PT Plan Problem List Problem List: Activity Tolerance, Functional Strength, Safety, Balance, Gait, Transfer, Bed Mobility, ROM Treatment/Plan Treatment Plan: Continue Plan of Care Treatment Plan: Bed Mobility, Education, Functional Activity Jayshree, Functional Strength, Group Therapy, Gait, Safety, Therapeutic Exercise, Transfers Treatment Duration: Aug 27, 2020 Frequency: At least 5 of 7 days/Wk (IRF) Estimated Hrs Per Day: 1.5 hours per day Patient and/or Family Agrees t: Yes Safety Risks/Education Patient Education: Transfer Techniques, Correct Positioning, W/C Management, Reviewed Don/Doff Brace, Safety Issues Teaching Recipient: Patient Teaching Methods: Demonstration, Discussion Response to Teaching: Reinforcement Needed Time/GCodes Time In: 0800 Time Out: 0900 Total Billed Treatment Time: 60 Total Billed Treatment 1 visit FA 15' EX 45' AMANDA CHAPA PT Aug 20, 2020 08:57
[2020-08-20] MEDS: DOCUSATE SODIUM 100 MG (COLACE) CAP PO SCH ×2 (09:04→21:02)
[2020-08-20] MEDS: LACTOBACILLUS ACIDOPHILUS (PROBIOTIC) CAPSULE PO SCH (09:04)
[2020-08-20] MEDS: SENNA W/DOCUSATE (SENOKOT S) TABLET PO SCH ×2 (09:04→21:02)
[2020-08-20] MEDS: ALLOPURINOL 100 MG (ZYLOPRIM) TAB PO SCH (09:04)
[2020-08-20] MEDS: lisINopril 20 MG (PRINIVIL) TABLET PO SCH ×2 (09:05→21:02)
[2020-08-20] MEDS: BACLOFEN 10 MG (LIORESAL) TAB PO SCH ×3 (09:06→21:02)
[2020-08-20] MEDS: amLODIPine 2.5MG (NORVASC) TAB PO SCH ×2 (09:06→21:01)
[2020-08-20] MEDS: meTOprolol TARTRATE 25 MG (LOPRESSOR) TABLET PO SCH ×2 (09:06→21:01)
[2020-08-20] MEDS: glipiZIDE 5 MG (GLUCOTROL) TAB PO SCH ×2 (09:06→18:21)
[2020-08-20] MEDS: polyethylene glycoL POWDER 17 GM (MIRALAX) PACK PO SCH ×2 (09:06→21:02)
[2020-08-20] MEDS: TRIAMCINOLONE 0.1% OINT (KENALOG) 15 GM TUBE TOP SCH ×2 (09:10→21:04)
--- NOTE | 2020-08-20 09:44 | Occupational Ther Daily Note ---
OT Current Status-Daily Note Subjective Pt agreeable to OT tx, rates pain 5-6/10 in back and R hip ADL-Treatment Therapy Code Descriptions/Definitions Functional [place] Measure: 0=Not Assessed/NA 4=Minimal Assistance 1=Total Assistance 5=Supervision or Setup 2=Maximal Assistance 6=Modified [place] 3=Moderate Assistance 7=Complete IndependenceSCALE: Activities may be completed with or without assistive devices. 5-Bhrhjbgqnh-gxiowee completes the activity by him/herself with no assistance from a helper. 5-Set-up or Clean-up Assistance-helper sets up or cleans up; patient completes activity. [place] assists only prior to or following the activity. 4-Supervision or Touching Assistance-helper provides verbal cues and/or touching/steadying and/or contact guard assistance as patient completes activity. Assistance may be provided throughout the activity or intermittently. 3-Partial/Moderate Assistance-helper does LESS THAN HALF the effort. [place] lifts, holds or supports trunk or limbs, but provides less than half the effort. 2-Substantial/Maximal Assistance-helper does MORE THAN HALF the effort. [place] lifts or holds trunk or limbs and provides more than half the effort. 4-Fyspgxjgg-gqbgfg does ALL the effort. Patient does none of the effort to complete the activity. Or, the assistance of 2 or more helpers is required for the patient to complete the activity. If activity was not attempted, code reason: 7-Patient Refused. 9-Not Applicable-not attempted and the patient did not perform the activity before the current illness, exacerbation or injury. 10-Not Attempted due to Environmental Limitations-(lack of equipment, weather restraints, etc.). 88-Not Attempted due to Medical Conditions or Safety Concerns. Shower/Bathe Self (QC): 7 Upper Body Dressing (QC): 7 Lower Body Dressing (QC): 7 On/Off Footwear: 7 Other Treatment Pt seated upright in w/c, propelled self to therapy gym. In order to increase BUE strength, ROM and activity tolerance, pt completed pulleys x5:30 mins. Pt then completed pegboard task, placing x50 pegs into foam pegboard alternating hands. This was complete in order to increase BUE strength and activity tolerance. Pt states need to complete toileting, propelled self back to room and used GBs to transfer to toilet. He completed toileting, able to lean to the side for hygiene. Pt then transferred back to w/c using GBS. He sat at sink, washed hands and face independently. Pt performed functional w/c mobility around FLU common area/2nd floor in order to increase BUE strength and activity tolerance. Pt returned to his room, transferring from w/c to bed using FWW. Post tx, pt supine, call light in reach and all needs met. Education OT Patient Education: Correct positioning, Modified ADL techniques, Progress toward Goal/Update tx plan, Purpose of tx/functional activities Teaching Recipient: Patient Teaching Methods: Discussion Response to Teaching: Verbalize Understanding OT Short Term Goals Short Term Goals Time Frame: Aug 20, 2020 Oral hygiene: 5 Shower/bathe self: 3 Lower body dressin Putting on/taking off footwear: 3 OT Repair Department Supervisor Goals Correction Goals Time Frame: Sep 04, 2020 Eating (QC): 6 Oral Hygiene (QC): 6 Toileting Hygiene (QC): 6 Shower/Bathe Self (QC): 6 Upper Body Dressing (QC): 6 Lower Body Dressing (QC): 6 On/Off Footwear (QC): 6 Additional Goals: 1-Demonstrate ADL Tasks, 2-Verbalize Understanding, 3- ImproveStrength/Jayshree 1=Demonstrate adherence to instructed precautions during ADL tasks. 2=Patient will verbalize/demonstrate understanding of assistive devices/modifications for ADL. 3=Patient will improve strength/tolerance for activity to enable patient to perform ADL's. OT Education/Plan Problem List/Assessment Assessment: Decreased Activ Tolerance, Decreased UE Strength, Impaired Funct Balance, Impaired I ADL's, Impaired Self-Care Skills, Restricted Funct UE ROM Discharge Recommendations Plan/Recommendations: Continue POC Treatment Plan/Plan of Care Patient would benefit from OT for education, treatment and training to promote independence in ADL's, mobility, safety and/or upper extremity function for ADL's. Plan of Care: ADL Retraining, Functional Mobility, Group Exercise/Act as Ind, UE Funct Exercise/Act Treatment Duration: Sep 04, 2020 Frequency: Modified Program (IRF) (27/08) Estimated Hrs Per Day: 1.5 hours per day Rehab Potential: Fair Time/GCodes Start Time: 09:00 Stop Time: 10:30 Total Time Billed (hr/min): 90 Billed Treatment Time 1, ADL 2 (30'), EX (10'), FA 3 (50') MED PETERSON OT Aug 20, 2020 09:44
--- NOTE | 2020-08-20 11:54 | Physical Therapy Daily Note ---
PT Daily Note-Current Subjective Patient in bed pre tx, agrees to PT, has 4/10 back and hip pain. Appearance Patient in bed post tx with nurse call, phone, tray, all needs met. Mental Status Patient Orientation: Person, Place, Situation back brace Transfers SCALE: Activities may be completed with or without assistive devices. 2-Zurbrsszix-qfszrop completes the activity by him/herself with no assistance from a helper. 5-Set-up or Clean-up Assistance-helper sets up or cleans up; patient completes activity. [place] assists only prior to or following the activity. 4-Supervision or Touching Assistance-helper provides verbal cues and/or t ouching/steadying and/or contact guard assistance as patient completes activity. Assistance may be provided throughout the activity or intermittently. 3-Partial/Moderate Assistance-helper does LESS THAN HALF the effort. [place] lifts, holds or supports trunk or limbs, but provides less than half the effort. 2-Substantial/Maximal Assistance-helper does MORE THAN HALF the effort. [place] lifts or holds trunk or limbs and provides more than half the effort. 9-Ecvjytlal-iqjvqu does ALL the effort. Patient does none of the effort to complete the activity. Or, the assistance of 2 or more helpers is required for the patient to complete the activity. If activity was not attempted, code reason: 7-Patient Refused. 9-Not Applicable-not attempted and the patient did not perform the activity before the current illness, exacerbation or injury. 10-Not Attempted due to Environmental Limitations-(lack of equipment, weather restraints, etc.). 88-Not Attempted due to Medical Conditions or Safety Concerns. Roll Left & Right (QC): 6 Sit to Lying (QC): 5 Lying to Sitting/Side of Bed(Q: 5 Sit to Stand (QC): 3 Patient performed sit to stand with min assist on a consistent basis today, p reviously he required mod assist. Weight Bearing Full Weight Bearing Full Weight Bearing Gait Training Distance: 30'x3 Walk 10 feet (QC): 4 Gait Persons Needed: 1 Gait Assistive Device: FWW CGA, WC follow, slumped posture, leans heavily on arms Treatments bed mobility and transfers, ambulation Assessment Current Status: Fair Progress improved sit to stand PT Short Term Goals Short Term Goals Time Frame: Aug 13, 2020 Roll Left & Right: 6 Sit to lyin Lying to sitting on side of be: 3 (met) Sit to stand: 3 Chair/nyt-vv-metoe transfer: 3 Walk 10 feet: 3 PT Fdc Goals Precision Thread Grinder Operator Goals PT Precision Thread Grinder Operator Goals Time Frame: Aug 27, 2020 Roll Left & Right (QC): 6 Sit to Lying (QC): 4 Lying-Sitting on Side/Bed(QC): 4 Sit to Stand (QC): 4 Chair/Izl-co-Rxwyy Xfer(QC): 4 Toilet Transfer (QC): 4 Car Transfer (QC): 4 Does the Patient Walk: Yes Walk 10 feet (QC): 4 Walk 50ft with 2 Turns (QC): 4 Walk 150 ft (QC): 88 Walking 10ft on Uneven Surface: 4 1 Step (curb) (QC): 4 4 Steps (QC): 4 12 Steps (QC): 88 Picking up an Object (QC): 88 Wheel 50 feet with 2 turns (QC: 6 Wheel 150 feet: 6 PT Plan Problem List Problem List: Activity Tolerance, Functional Strength, Safety, Balance, Gait, Transfer, Bed Mobility, ROM Treatment/Plan Treatment Plan: Continue Plan of Care Treatment Plan: Bed Mobility, Education, Functional Activity Jayshree, Functional Strength, Group Therapy, Gait, Safety, Therapeutic Exercise, Transfers Treatment Duration: Aug 27, 2020 Frequency: At least 5 of 7 days/Wk (IRF) Estimated Hrs Per Day: 1.5 hours per day Patient and/or Family Agrees t: Yes Safety Risks/Education Patient Education: Gait Training, Transfer Techniques, Correct Positioning, Safety Issues Teaching Recipient: Patient Teaching Methods: Demonstration, Discussion Response to Teaching: Reinforcement Needed Time/GCodes Time In: 1130 Time Out: 1200 Total Billed Treatment Time: 60 Total Billed Treatment 1 visit GT 30' AMANDA CHAPA PT Aug 20, 2020 11:54
[2020-08-20] MEDS: ENOXAPARIN 40 MG/0.4 ML (LOVENOX) SYR SC SCH (15:01)
--- NOTE | 2020-08-20 18:20 | PM&R Progress Note ---
Subjective HPI/CC On Admission Date Seen by Provider: Aug 20, 2020 Time Seen by Provider: 15:00 Subjective/Events-last exam 08/20/2020: This visit is via video chat due to Covid related restriction for this provider Patient doing pretty well today Blood sugar is running low and then later it was 46 asymptomatic so stopped the regular insulin and will hold Levemir tonight Bowels moved today Rechecking Monday for progress I have updated him on the conversation I had with Dr. Elder 08/18/2020: Patient doing pretty well Clouded images to Dr. Elder and he will review but recommended time to recover considering the DKA episode set him back quite a bit Pain pill with Voltaren gel has helped Slow progress 08/17/2020: Patient having a good day Bowels moving okay Blood pressure 117/77 Talked about his x-rays that nurse had reported to him but those details will be evaluated by Dr. Elder the expert 08/16/2020: Patient doing pretty well Had some weak legs today Blood pressure elevated at times Monitor closely 08/15/2020: Patient in a pretty good mood Family at the bedside Blood sugar was a bit low at 80 and had symptoms so adjusted his insulin a bit Pain is well controlled on regimen Neuropathy discussed 08/14/20: Patient doing well No major issues Pain is an ongoing issue BP better 08/13/2020: Pt doing pretty well but variation in BP places him at risk for orthostasis I changed Clonidine to BID prn for BP elevation and started Norvasc 2.5 twice daily and will transition to Hydralazine also. 08/12/2020: Pt doing pretty well Bowels havent moved and we have given a lot of Laxatives Sugars are okay Voltaren gel to the back Clonidine BID has helped the BP that has dipped down to low levels in the afternoon Length of stay, presumed to be 08/26/20 08/11/2020: Pt doing pretty well Left axilla pain because of compensation with his arms, will initiate a moist heating pad Bowels are moving okay Clonidine changed to BID instead of TID due to hypotension in the afternoon interfering with therapy X-rays were done and clouded to Dr. Elder 08/10/2020: Pt doing really well Had a large bowel movement yesterday Temperature at 99.4 but no other issues Sugars are better Talked to him about insulin at discharge 08/09/20: Patient doing well BM today Back pain improved Increased movement now Better today 08/08/20: Patient in a good mood Baclofen is working well for him so will maintain this Pain controlled High sugars requiring addition of insulin Wants tacos from home 08/07/2020: Patient doing pretty well Pain is still an issue Baclofen was ordered to help his back spasms No bowels are moving since loose stools for several days Adjusted insulin after reviewing several Accu-Cheks 08/06/2020: Patient doing pretty well Very motivated to walk Loose stool so holding laxatives Right knee really hurts Sodium level 128 so we will discontinue the indapamide Review of Systems General: Fatigue, Malaise Objective Exam Vital Signs Vital Signs Date Time Temp Pulse Resp B/P (MAP) Pulse Ox O2 Delivery O2 Flow Rate FiO2 08/20/20 09:33 Room Air 08/20/20 07:39 36.7 95 20 145/87 (106) 94 Capillary Refill : General Appearance: No Apparent Distress, WD/WN, Chronically ill HEENT: PERRL/EOMI, Normal ENT Inspection, Pharynx Normal Neck: Full Range of Motion, Normal Inspection, Non Tender, Supple, Carotid Bruit Respiratory: Chest Non Tender, Lungs Clear, Normal Breath Sounds, No Accessory Muscle Use, No Respiratory Distress Cardiovascular: Regular Rate, Rhythm, No Edema, No Gallop, No JVD, No Murmur, Normal Peripheral Pulses Gastrointestinal: Normal Bowel Sounds, No Organomegaly, No Pulsatile Mass, Non Tender, Soft Back: Decreased Range of Motion, Muscle Spasm, Vertebral Tenderness Extremity: Normal Capillary Refill, Normal Inspection, Normal Range of Motion, Non Tender, No Calf Tenderness, No Pedal Edema Neurologic/Psychiatric: Alert, Oriented x3, No Motor/Sensory Deficits, Normal Mood/Affect, Motor Weakness Skin: Normal Color, Warm/Dry Lymphatic: No Adenopathy Results/Procedures Lab Patient resulted labs reviewed. FIM Transfers Therapy Code Descriptions/Definitions Functional [place] Measure: 0=Not Assessed/NA 4=Minimal Assistance 1=Total Assistance 5=Supervision or Setup 2=Maximal Assistance 6=Modified [place] 3=Moderate Assistance 7=Complete IndependenceSCALE: Activities may be completed with or without assistive devices. 6-Lprdgobffx-fnmkfww completes the activity by him/herself with no assistance from a helper. 5-Set-up or Clean-up Assistance-helper sets up or cleans up; patient completes activity. [place] assists only prior to or following the activity. 4-Supervision or Touching Assistance-helper provides verbal cues and/or touching/steadying and/or contact guard assistance as patient completes activity. Assistance may be provided throughout the activity or intermittently. 3-Partial/Moderate Assistance-helper does LESS THAN HALF the effort. [place] lifts, holds or supports trunk or limbs, but provides less than half the effort. 2-Substantial/Maximal Assistance-helper does MORE THAN HALF the effort. [place] lifts or holds trunk or limbs and provides more than half the effort. 7-Eukwpsfay-prwhzv does ALL the effort. Patient does none of the effort to complete the activity. Or, the assistance of 2 or more helpers is required for the patient to complete the activity. If activity was not attempted, code reason: 7-Patient Refused. 9-Not Applicable-not attempted and the patient did not perform the activity before the current illness, exacerbation or injury. 10-Not Attempted due to Environmental Limitations-(lack of equipment, weather restraints, etc.). 88-Not Attempted due to Medical Conditions or Safety Concerns. Roll Left to Right (QC): 6 Sit to Lying (QC): 5 Sit to Stand (QC): 3 Chair/Awf-un-Rqtrc Xfer(QC): 3 Car Transfer (QC): 2 Gait Training Does the Patient Walk?: Yes Distance: 30'x3 Walk 10 feet (QC): 4 Walk 50 ft with 2 Turns(QC): 88 Walk 150 ft (QC): 88 Walking 10ft/uneven surface-QC: 88 Gait Persons Needed: 1 Gait Assistive Device: FWW Wheelchair Training Does the Pt Use a Wheelchair?: Yes Distance: 150'x2 Wheel 50 ft with 2 turns (QC): 5 Wheel 150 ft (QC): 5 Type of Wheelchair: Manual Stair Training 1 Step (curb) (QC): 88 4 Steps (QC): 88 12 Steps (QC): 88 Balance Picking up an Object (QC): 88 ADL-Treatment Eating (QC): 6 Oral Hygiene (QC): 7 Shower/Bathe Self (QC): 7 Upper Body Dressing (QC): 7 Lower Body Dressing (QC): 7 On/Off Footwear (QC): 7 Toileting Hygiene (QC): 3 (Pt able to manage pants down, urinate, then completed pant hike. OT assisted slightly with pant hike in back.) Toilet Transfer (QC): 3 ([place] [facility] [place] Assessment/Plan Assessment and Plan Assess & Plan/Chief Complaint Assessment: Status post lumbar spine surgery with severe debility and leg weakness Recent DKA Jen-dj-cxofskn diabetes history Hypertension Chronic arthritis pain Plan: Pain control Diabetes management Blood pressure management Inpatient rehab protocol 08/06/2020: Hold laxatives DC indapamide Monitor closely Fall risk 08/07/2020: Increase insulin Aggressive therapy 08/08/20: Increase insulin Baclofen 08/09/20: Monitor sugar Back pain management 08/10/2020: Monitor blood sugar Insulin at discharge will be required 08/11/2020: Monitor pain Supportive care Baclofen 08/12/2020: Pain control Intensive rehab Bowel regimen to intensify 08/13/2020: Supportive care Aggressive therapy Blood pressure management 08/14/20: Improved status Adjust insulin BP ok 08/15/2020: Pain control Insulin modified Fall risk 08/16/2020: Pain control Monitor blood pressure 08/17/2020: Patient doing pretty well today Continue aggressive therapy 08/18/2020: Continue pain control Updated Dr. Elder 08/20/2020: Continue aggressive therapy Improved overall today Decrease insulin intensity (1) Status post lumbar spine surgery for decompression of spinal cord (2) Diabetes (3) DKA (diabetic ketoacidoses) (4) Hypertension (5) Leg weakness DALY WHITNEY DO Aug 20, 2020 18:20
[2020-08-20 20:00] VITALS: BP 128/71
[2020-08-20] MEDS: MELATONIN 3 MG TABLET PO PRN (21:01)
[2020-08-20] MEDS: SIMvastatin 10 MG (ZOCOR) TAB PO SCH (21:01)
[2020-08-21] MEDS: DICLOFENAC 1% GEL 100 GM (VOLTAREN) TUBE TOP PRN ×3 (02:48→21:20)
[2020-08-21] MEDS: inSUlin ASPART (NovoLOG) 1 UNIT/0.01 ML (CHARGE PER UNIT) SC SCH ×4 (05:33→21:19)
[2020-08-21] MEDS: metFORMIN XR 500 MG (GLUCOPHAGE XR) TAB PO SCH ×2 (06:25→17:28)
--- NOTE | 2020-08-21 07:47 | PM&R Progress Note ---
Subjective HPI/CC On Admission Date Seen by Provider: Aug 21, 2020 Time Seen by Provider: 12:45 Subjective/Events-last exam 08/21/2020: This visit is via video chat due to Covid related restriction for this provider Patient having a good day Sugar was 130 this morning so I adjusted Levemir down to 4 units twice daily to prevent hypoglycemia as occurred yesterday Bowels are moving really well No more itching K pad did not really help the shoulder pain 08/20/2020: This visit is via video chat due to Covid related restriction for this provider Patient doing pretty well today Blood sugar is running low and then later it was 46 asymptomatic so stopped the regular insulin and will hold Levemir tonight Bowels moved today Rechecking Monday for progress I have updated him on the conversation I had with Dr. Elder 08/18/2020: Patient doing pretty well Clouded images to Dr. Elder and he will review but recommended time to recover considering the DKA episode set him back quite a bit Pain pill with Voltaren gel has helped Slow progress 08/17/2020: Patient having a good day Bowels moving okay Blood pressure 117/77 Talked about his x-rays that nurse had reported to him but those details will be evaluated by Dr. Elder the expert 08/16/2020: Patient doing pretty well Had some weak legs today Blood pressure elevated at times Monitor closely 08/15/2020: Patient in a pretty good mood Family at the bedside Blood sugar was a bit low at 80 and had symptoms so adjusted his insulin a bit Pain is well controlled on regimen Neuropathy discussed 08/14/20: Patient doing well No major issues Pain is an ongoing issue BP better 08/13/2020: Pt doing pretty well but variation in BP places him at risk for orthostasis I changed Clonidine to BID prn for BP elevation and started Norvasc 2.5 twice daily and will transition to Hydralazine also. 08/12/2020: Pt doing pretty well Bowels havent moved and we have given a lot of Laxatives Sugars are okay Voltaren gel to the back Clonidine BID has helped the BP that has dipped down to low levels in the afternoon Length of stay, presumed to be 08/26/20 08/11/2020: Pt doing pretty well Left axilla pain because of compensation with his arms, will initiate a moist heating pad Bowels are moving okay Clonidine changed to BID instead of TID due to hypotension in the afternoon interfering with therapy X-rays were done and clouded to Dr. Elder 08/10/2020: Pt doing really well Had a large bowel movement yesterday Temperature at 99.4 but no other issues Sugars are better Talked to him about insulin at discharge 08/09/20: Patient doing well BM today Back pain improved Increased movement now Better today 08/08/20: Patient in a good mood Baclofen is working well for him so will maintain this Pain controlled High sugars requiring addition of insulin Wants tacos from home 08/07/2020: Patient doing pretty well Pain is still an issue Baclofen was ordered to help his back spasms No bowels are moving since loose stools for several days Adjusted insulin after reviewing several Accu-Cheks 08/06/2020: Patient doing pretty well Very motivated to walk Loose stool so holding laxatives Right knee really hurts Sodium level 128 so we will discontinue the indapamide Review of Systems General: Fatigue, Malaise Musculoskeletal: arm pain, back pain Objective Exam Vital Signs Vital Signs Date Time Temp Pulse Resp B/P (MAP) Pulse Ox O2 Delivery O2 Flow Rate FiO2 08/21/20 09:00 Room Air 08/21/20 07:50 36.8 93 14 162/80 (107) 93 Capillary Refill : General Appearance: No Apparent Distress, WD/WN, Chronically ill HEENT: PERRL/EOMI, Normal ENT Inspection, Pharynx Normal Neck: Full Range of Motion, Normal Inspection, Non Tender, Supple, Carotid Bruit Respiratory: Chest Non Tender, Lungs Clear, Normal Breath Sounds, No Accessory Muscle Use, No Respiratory Distress Cardiovascular: Regular Rate, Rhythm, No Edema, No Gallop, No JVD, No Murmur, Normal Peripheral Pulses Gastrointestinal: Normal Bowel Sounds, No Organomegaly, No Pulsatile Mass, Non Tender, Soft Back: Decreased Range of Motion, Muscle Spasm, Vertebral Tenderness Extremity: Normal Capillary Refill, Normal Inspection, Normal Range of Motion, Non Tender, No Calf Tenderness, No Pedal Edema Neurologic/Psychiatric: Alert, Oriented x3, No Motor/Sensory Deficits, Normal Mood/Affect, Motor Weakness Skin: Normal Color, Warm/Dry Lymphatic: No Adenopathy Results/Procedures Lab Patient resulted labs reviewed. FIM Transfers Therapy Code Descriptions/Definitions Functional [place] Measure: 0=Not Assessed/NA 4=Minimal Assistance 1=Total Assistance 5=Supervision or Setup 2=Maximal Assistance 6=Modified [place] 3=Moderate Assistance 7=Complete IndependenceSCALE: Activities may be completed with or without assistive devices. 2-Bkcqjjkiih-hyniqhc completes the activity by him/herself with no assistance from a helper. 5-Set-up or Clean-up Assistance-helper sets up or cleans up; patient completes activity. [place] assists only prior to or following the activity. 4-Supervision or Touching Assistance-helper provides verbal cues and/or touching/steadying and/or contact guard assistance as patient completes activity . Assistance may be provided throughout the activity or intermittently. 3-Partial/Moderate Assistance-helper does LESS THAN HALF the effort. [place] lifts, holds or supports trunk or limbs, but provides less than half the effort. 2-Substantial/Maximal Assistance-helper does MORE THAN HALF the effort. [place] lifts or holds trunk or limbs and provides more than half the effort. 8-Lgibrtbad-bsiiuc does ALL the effort. Patient does none of the effort to complete the activity. Or, the assistance of 2 or more helpers is required for the patient to complete the activity. If activity was not attempted, code reason: 7-Patient Refused. 9-Not Applicable-not attempted and the patient did not perform the activity before the current illness, exacerbation or injury. 10-Not Attempted due to Environmental Limitations-(lack of equipment, weather restraints, etc.). 88-Not Attempted due to Medical Conditions or Safety Concerns. Roll Left to Right (QC): 6 Sit to Lying (QC): 5 Sit to Stand (QC): 3 Chair/Mkm-ps-Enysk Xfer(QC): 3 Car Transfer (QC): 2 Gait Training Does the Patient Walk?: Yes Distance: 30'x3 Walk 10 feet (QC): 4 Walk 50 ft with 2 Turns(QC): 88 Walk 150 ft (QC): 88 Walking 10ft/uneven surface-QC: 88 Gait Persons Needed: 1 Gait Assistive Device: FWW Wheelchair Training Does the Pt Use a Wheelchair?: Yes Distance: 150'x2 Wheel 50 ft with 2 turns (QC): 5 Wheel 150 ft (QC): 5 Type of Wheelchair: Manual Stair Training 1 Step (curb) (QC): 88 4 Steps (QC): 88 12 Steps (QC): 88 Balance Picking up an Object (QC): 88 ADL-Treatment Eating (QC): 6 Oral Hygiene (QC): 7 Shower/Bathe Self (QC): 7 Upper Body Dressing (QC): 7 Lower Body Dressing (QC): 7 On/Off Footwear (QC): 7 Toileting Hygiene (QC): 3 (Pt able to manage pants down, urinate, then completed pant hike. OT assisted slightly with pant hike in back.) Toilet Transfer (QC): 3 ([place] [facility] [place] Assessment/Plan Assessment and Plan Assess & Plan/Chief Complaint Assessment: Status post lumbar spine surgery with severe debility and leg weakness Recent DKA Dgy-aj-iklcygu diabetes history Hypertension Chronic arthritis pain Plan: Pain control Diabetes management Blood pressure management Inpatient rehab protocol 08/06/2020: Hold laxatives DC indapamide Monitor closely Fall risk 08/07/2020: Increase insulin Aggressive therapy 08/08/20: Increase insulin Baclofen 08/09/20: Monitor sugar Back pain management 08/10/2020: Monitor blood sugar Insulin at discharge will be required 08/11/2020: Monitor pain Supportive care Baclofen 08/12/2020: Pain control Intensive rehab Bowel regimen to intensify 08/13/2020: Supportive care Aggressive therapy Blood pressure management 08/14/20: Improved status Adjust insulin BP ok 08/15/2020: Pain control Insulin modified Fall risk 08/16/2020: Pain control Monitor blood pressure 08/17/2020: Patient doing pretty well today Continue aggressive therapy 08/18/2020: Continue pain control Updated Dr. Elder 08/20/2020: Continue aggressive therapy Improved overall today Decrease insulin intensity 08/21/2020: Decrease Levemir to 4 units twice daily Monitor closely Pain control (1) Status post lumbar spine surgery for decompression of spinal cord (2) Diabetes (3) DKA (diabetic ketoacidoses) (4) Hypertension (5) Leg weakness DALY WHITNEY DO Aug 21, 2020 07:47
[2020-08-21 07:50] VITALS: BP 162/80
[2020-08-21] MEDS: glipiZIDE 5 MG (GLUCOTROL) TAB PO SCH ×2 (08:12→17:28)
--- NOTE | 2020-08-21 08:55 | Physical Therapy Daily Note ---
PT Daily Note-Current Subjective Patient in bed pre tx, agrees to PT, has 5-7/10 pain in back and shoulders and right hip. Patient gets pain meds during tx, and nurse looks at side incision where a scab came off. Patient puts on his own shirt but needs assist with both legs getting his pants on. Appearance Patient in restroom on toilet post tx, knows to use nurse call when done. Mental Status Patient Orientation: Person, Place, Situation back brace Transfers SCALE: Activities may be completed with or without assistive devices. 5-Grgqmnsqcs-ctywoko completes the activity by him/herself with no assistance from a helper. 5-Set-up or Clean-up Assistance-helper sets up or cleans up; patient completes activity. [place] assists only prior to or following the activity. 4-Supervision or Touching Assistance-helper provides verbal cues and/or touching/steadying and/or contact guard assistance as patient completes activity. Assistance may be provided throughout the activity or intermittently. 3-Partial/Moderate Assistance-helper does LESS THAN HALF the effort. [place] lifts, holds or supports trunk or limbs, but provides less than half the effort. 2-Substantial/Maximal Assistance-helper does MORE THAN HALF the effort. [place] lifts or holds trunk or limbs and provides more than half the effort. 0-Ymoyyxyrr-eqryag does ALL the effort. Patient does none of the effort to complete the activity. Or, the assistance of 2 or more helpers is required for the patient to complete the activity. If activity was not attempted, code reason: 7-Patient Refused. 9-Not Applicable-not attempted and the patient did not perform the activity before the current illness, exacerbation or injury. 10-Not Attempted due to Environmental Limitations-(lack of equipment, weather restraints, etc.). 88-Not Attempted due to Medical Conditions or Safety Concerns. Roll Left & Right (QC): 6 Lying to Sitting/Side of Bed(Q: 5 Sit to Stand (QC): 3 Chair/Pxr-ov-Zmofg Xfer(QC): 3 min assist now to stand from a seated position Weight Bearing Full Weight Bearing Full Weight Bearing Gait Training Distance: 40'x3 Walk 10 feet (QC): 4 Gait Persons Needed: 1 Gait Assistive Device: FWW slow, antalgic, leans heavily on arms during ambulation Wheelchair Training Does the Pt Use a Wheelchair?: Yes Wheel 50 ft with 2 turns (QC): 6 Wheel 150 ft (QC): 6 150'x2 Exercises Seated Therapy Exercises: Ankle pumps, Hip abd/add (with ball and RTB) NuStep Minutes: 15 NuStep Workload: 4 Treatments dressing, bed mobility and transfers, ambulation, LE strengthening Assessment Current Status: Fair Progress slowly improving endurance PT Short Term Goals Short Term Goals Time Frame: Aug 13, 2020 Roll Left & Right: 6 Sit to lyin Lying to sitting on side of be: 3 (met) Sit to stand: 3 Chair/jms-px-hkozb transfer: 3 Walk 10 feet: 3 PT Retirement Goals Retirement Goals PT [employer] Goals Time Frame: Aug 27, 2020 Roll Left & Right (QC): 6 Sit to Lying (QC): 4 Lying-Sitting on Side/Bed(QC): 4 Sit to Stand (QC): 4 Chair/Whd-sp-Cnqda Xfer(QC): 4 Toilet Transfer (QC): 4 Car Transfer (QC): 4 Does the Patient Walk: Yes Walk 10 feet (QC): 4 Walk 50ft with 2 Turns (QC): 4 Walk 150 ft (QC): 88 Walking 10ft on Uneven Surface: 4 1 Step (curb) (QC): 4 4 Steps (QC): 4 12 Steps (QC): 88 Picking up an Object (QC): 88 Wheel 50 feet with 2 turns (QC: 6 Wheel 150 feet: 6 PT Plan Problem List Problem List: Activity Tolerance, Functional Strength, Safety, Balance, Gait, Transfer, Bed Mobility, ROM Treatment/Plan Treatment Plan: Continue Plan of Care Treatment Plan: Bed Mobility, Education, Functional Activity Jayshree, Functional Strength, Group Therapy, Gait, Safety, Therapeutic Exercise, Transfers Treatment Duration: Aug 27, 2020 Frequency: At least 5 of 7 days/Wk (IRF) Estimated Hrs Per Day: 1.5 hours per day Patient and/or Family Agrees t: Yes Safety Risks/Education Patient Education: Gait Training, Transfer Techniques, Correct Positioning, W/C Management, Reviewed Don/Doff Brace, Safety Issues Teaching Recipient: Patient Teaching Methods: Demonstration, Discussion Response to Teaching: Reinforcement Needed Time/GCodes Time In: 0800 Time Out: 0900 Total Billed Treatment Time: 60 Total Billed Treatment 1 visit EX 30' FA 30' AMANDA CHAPA PT Aug 21, 2020 08:55
[2020-08-21] MEDS: DOCUSATE SODIUM 100 MG (COLACE) CAP PO SCH ×2 (09:03→21:17)
[2020-08-21] MEDS: LACTOBACILLUS ACIDOPHILUS (PROBIOTIC) CAPSULE PO SCH (09:03)
[2020-08-21] MEDS: ALLOPURINOL 100 MG (ZYLOPRIM) TAB PO SCH (09:03)
[2020-08-21] MEDS: SENNA W/DOCUSATE (SENOKOT S) TABLET PO SCH ×2 (09:04→21:16)
[2020-08-21] MEDS: amLODIPine 2.5MG (NORVASC) TAB PO SCH ×2 (09:04→21:16)
[2020-08-21] MEDS: lisINopril 20 MG (PRINIVIL) TABLET PO SCH ×2 (09:04→21:17)
[2020-08-21] MEDS: TRIAMCINOLONE 0.1% OINT (KENALOG) 15 GM TUBE TOP SCH ×2 (09:05→21:00)
[2020-08-21] MEDS: BACLOFEN 10 MG (LIORESAL) TAB PO SCH ×3 (09:05→21:17)
[2020-08-21] MEDS: meTOprolol TARTRATE 25 MG (LOPRESSOR) TABLET PO SCH ×2 (09:05→21:17)
[2020-08-21] MEDS: polyethylene glycoL POWDER 17 GM (MIRALAX) PACK PO SCH ×2 (09:05→19:34)
--- NOTE | 2020-08-21 10:22 | Occupational Ther Daily Note ---
OT Current Status-Daily Note Subjective Pt up in w/c, agreeable to OT tx. Mental Status/Objective Patient Orientation: Normal For Age Attachments: Other-See Comments (back brace OOB) ADL-Treatment Therapy Code Descriptions/Definitions Functional [place] Measure: 0=Not Assessed/NA 4=Minimal Assistance 1=Total Assistance 5=Supervision or Setup 2=Maximal Assistance 6=Modified [place] 3=Moderate Assistance 7=Complete IndependenceSCALE: Activities may be completed with or without assistive devices. 0-Ajcgqxvojp-wjiwpqc completes the activity by him/herself with no assistance from a helper. 5-Set-up or Clean-up Assistance-helper sets up or cleans up; patient completes activity. [place] assists only prior to or following the activity. 4-Supervision or Touching Assistance-helper provides verbal cues and/or touching/steadying and/or contact guard assistance as patient completes activity. Assistance may be provided throughout the activity or intermittently. 3-Partial/Moderate Assistance-helper does LESS THAN HALF the effort. [place] lifts, holds or supports trunk or limbs, but provides less than half the effort. 2-Substantial/Maximal Assistance-helper does MORE THAN HALF the effort. [place] lifts or holds trunk or limbs and provides more than half the effort. 1-Uiwglumqd-vxyqmk does ALL the effort. Patient does none of the effort to complete the activity. Or, the assistance of 2 or more helpers is required for the patient to complete the activity. If activity was not attempted, code reason: 7-Patient Refused. 9-Not Applicable-not attempted and the patient did not perform the activity before the current illness, exacerbation or injury. 10-Not Attempted due to Environmental Limitations-(lack of equipment, weather restraints, etc.). 88-Not Attempted due to Medical Conditions or Safety Concerns. Eating (QC): 6 Oral Hygiene (QC): 7 Shower/Bathe Self (QC): 5 (set up sitting in w/c) Upper Body Dressing (QC): 5 (set up with press puller shirt and back brace, increased time due to decreased LUE shoulder ROM) Lower Body Dressing (QC): 3 (min A with pant hike.) On/Off Footwear: 3 (min A with slip on shoes due to moisture post shower.) Toileting Hygiene (QC): 3 (Mod A, pt required assistance with hygiene and pant hike. Pt able to manage pants down.) Toilet Transfer (QC): 3 (Min A on/off toilet.) Other Treatment Pt up in /, agreeable to OT tx. Pt propelled [facility] to bathroom, sat at sink to shave independently. Pt then transferred from [facility] to MT, min A sit to stand. Pt doffed clothes, completed shower, donned UE clothing then transferred to [facility] to don LE clothing. Pt requests to use toilet, min A transfer from [facility] using GBs, t hen pt sat on toilet to complete toileting. Pt attempted to perform hygiene but had difficulty due to moisture on buttocks post shower. Pt stood at [facility], min A, OT performed hygiene and assisted slightly with pant hike. Pt sat in [facility], propelled into his room, then min A transfer from [facility] to recliner using FWW. Post tx, pt seated in recliner, call light in reach and all needs met. With transfers pt required min verbal cues for UE placement. Min A sit to/from stand on this date. Education OT Patient Education: Correct positioning, Modified ADL techniques, Progress toward Goal/Update tx plan, Purpose of tx/functional activities, Rehab process, Safety issues, Transfer techniques Teaching Recipient: Patient Teaching Methods: Discussion Response to Teaching: Verbalize Understanding OT Short Term Goals Short Term Goals Time Frame: Aug 20, 2020 Oral hygiene: 5 Shower/bathe self: 3 Lower body dressin Putting on/taking off footwear: 3 OT [employer] Goals Retirement Goals Time Frame: Sep 04, 2020 Eating (QC): 6 Oral Hygiene (QC): 6 Toileting Hygiene (QC): 6 Shower/Bathe Self (QC): 6 Upper Body Dressing (QC): 6 Lower Body Dressing (QC): 6 On/Off Footwear (QC): 6 Additional Goals: 1-Demonstrate ADL Tasks, 2-Verbalize Understanding, 3- ImproveStrength/Jayshree 1=Demonstrate adherence to instructed precautions during ADL tasks. 2=Patient will verbalize/demonstrate understanding of assistive devices/modifications for ADL. 3=Patient will improve strength/tolerance for activity to enable patient to perform ADL's. OT Education/Plan Problem List/Assessment Assessment: Decreased Activ Tolerance, Decreased UE Strength, Impaired I ADL's, Impaired Self-Care Skills Discharge Recommendations Plan/Recommendations: Continue POC Treatment Plan/Plan of Care Patient would benefit from OT for education, treatment and training to promote independence in ADL's, mobility, safety and/or upper extremity function for ADL's. Plan of Care: ADL Retraining, Functional Mobility, Group Exercise/Act as Ind, UE Funct Exercise/Act Treatment Duration: Sep 04, 2020 Frequency: Modified Program (IRF) (27/08) Estimated Hrs Per Day: 1.5 hours per day Rehab Potential: Fair Time/GCodes Start Time: 09:10 Stop Time: 10:10 Total Time Billed (hr/min): 60 Billed Treatment Time 1, ADL 4 MED PETERSON OT Aug 21, 2020 10:22
--- NOTE | 2020-08-21 14:14 | Therapy Group Daily Note ---
Therapy Daily Group Note Patient Education Topic Home Safety, Fall Prevention, Exercises Exercises LE Seated Exercise, ROM, Stretching, UE Exercise Session Ratio (pt:therapist): 4:1 Goal of Session: Education on ARU Expectations, Home Safety Strategies, UE/LE Strengthing Goal Met for this Session: Yes Pt Benefit of Group: Contributions to Others, F/U Use of Strategies @Home, Increased Functional Safety, Increased Functional Strength, Improved Cognition, Recognition of Peers, Socialization Other/Notes Patient was transported to the common area of rehab and participated in group therapy with other patients. Each patient had to introduce themselves and answer a question that involved memory and critical thinking. Each patient then participated in home safety bingo and were educated on different home safety topics. Intermittently patients participated in UE and LE exercise and worked on a word finding sheet. Patient was then wheeled back to his room and transfe rred to bed with nurse call, phone, tray accessible. Start Time: 13:00 Stop Time: 14:00 Total Billed Treatment Time: 60 Total Billed Treatment 1 visit GRP 60AMANDA SAMS PT Aug 21, 2020 14:14
[2020-08-21] MEDS: ENOXAPARIN 40 MG/0.4 ML (LOVENOX) SYR SC SCH (15:26)
[2020-08-21 20:00] VITALS: BP 142/75
[2020-08-21] MEDS: SIMvastatin 10 MG (ZOCOR) TAB PO SCH (21:16)
[2020-08-21] MEDS: MELATONIN 3 MG TABLET PO PRN (21:17)
[2020-08-21] MEDS: ALPRAZolam 0.25 MG (XANAX) TAB PO PRN (21:17)
[2020-08-22] MEDS: inSUlin ASPART (NovoLOG) 1 UNIT/0.01 ML (CHARGE PER UNIT) SC SCH ×4 (06:19→20:02)
[2020-08-22] MEDS: metFORMIN XR 500 MG (GLUCOPHAGE XR) TAB PO SCH ×2 (06:53→17:41)
[2020-08-22 07:15] VITALS: BP 137/84
--- NOTE | 2020-08-22 08:01 | PM&R Progress Note ---
Subjective HPI/CC On Admission Date Seen by Provider: Aug 22, 2020 Time Seen by Provider: 12:45 Subjective/Events-last exam 08/22/2020: This visit is via video chat due to Covid related restriction for this provider Patient having a good day Arms and shoulders from compensating are still painful but Voltaren gel has been helpful Bowels moved yesterday Incision is a bit red Holding Levemir due to low blood sugars but he still has some isolated elevated ones 08/21/2020: This visit is via video chat due to Covid related restriction for this provider Patient having a good day Sugar was 130 this morning so I adjusted Levemir down to 4 units twice daily to prevent hypoglycemia as occurred yesterday Bowels are moving really well No more itching K pad did not really help the shoulder pain 08/20/2020: This visit is via video chat due to Covid related restriction for this provider Patient doing pretty well today Blood sugar is running low and then later it was 46 asymptomatic so stopped the regular insulin and will hold Levemir tonight Bowels moved today Rechecking Monday for progress I have updated him on the conversation I had with Dr. Elder 08/18/2020: Patient doing pretty well Clouded images to Dr. Elder and he will review but recommended time to recover considering the DKA episode set him back quite a bit Pain pill with Voltaren gel has helped Slow progress 08/17/2020: Patient having a good day Bowels moving okay Blood pressure 117/77 Talked about his x-rays that nurse had reported to him but those details will be evaluated by Dr. Elder the expert 08/16/2020: Patient doing pretty well Had some weak legs today Blood pressure elevated at times Monitor closely 08/15/2020: Patient in a pretty good mood Family at the bedside Blood sugar was a bit low at 80 and had symptoms so adjusted his insulin a bit Pain is well controlled on regimen Neuropathy discussed 08/14/20: Patient doing well No major issues Pain is an ongoing issue BP better 08/13/2020: Pt doing pretty well but variation in BP places him at risk for orthostasis I changed Clonidine to BID prn for BP elevation and started Norvasc 2.5 twice daily and will transition to Hydralazine also. 08/12/2020: Pt doing pretty well Bowels havent moved and we have given a lot of Laxatives Sugars are okay Voltaren gel to the back Clonidine BID has helped the BP that has dipped down to low levels in the afternoon Length of stay, presumed to be 08/26/20 08/11/2020: Pt doing pretty well Left axilla pain because of compensation with his arms, will initiate a moist heating pad Bowels are moving okay Clonidine changed to BID instead of TID due to hypotension in the afternoon interfering with therapy X-rays were done and clouded to Dr. Elder 08/10/2020: Pt doing really well Had a large bowel movement yesterday Temperature at 99.4 but no other issues Sugars are better Talked to him about insulin at discharge 08/09/20: Patient doing well BM today Back pain improved Increased movement now Better today 08/08/20: Patient in a good mood Baclofen is working well for him so will maintain this Pain controlled High sugars requiring addition of insulin Wants tacos from home 08/07/2020: Patient doing pretty well Pain is still an issue Baclofen was ordered to help his back spasms No bowels are moving since loose stools for several days Adjusted insulin after reviewing several Accu-Cheks 08/06/2020: Patient doing pretty well Very motivated to walk Loose stool so holding laxatives Right knee really hurts Sodium level 128 so we will discontinue the indapamide Review of Systems General: Fatigue, Malaise Musculoskeletal: arm pain, back pain Objective Exam Vital Signs Vital Signs Date Time Temp Pulse Resp B/P (MAP) Pulse Ox O2 Delivery O2 Flow Rate FiO2 08/22/20 09:03 Room Air 08/22/20 07:15 36.4 84 16 137/84 (101) 98 Capillary Refill : General Appearance: No Apparent Distress, WD/WN, Chronically ill HEENT: PERRL/EOMI, Normal ENT Inspection, Pharynx Normal Neck: Full Range of Motion, Normal Inspection, Non Tender, Supple, Carotid Bruit Respiratory: Chest Non Tender, Lungs Clear, Normal Breath Sounds, No Accessory Muscle Use, No Respiratory Distress Cardiovascular: Regular Rate, Rhythm, No Edema, No Gallop, No JVD, No Murmur, Normal Peripheral Pulses Gastrointestinal: Normal Bowel Sounds, No Organomegaly, No Pulsatile Mass, Non Tender, Soft Back: Decreased Range of Motion, Muscle Spasm, Vertebral Tenderness Extremity: Normal Capillary Refill, Normal Inspection, Normal Range of Motion, Non Tender, No Calf Tenderness, No Pedal Edema Neurologic/Psychiatric: Alert, Oriented x3, No Motor/Sensory Deficits, Normal Mood/Affect, Motor Weakness Skin: Normal Color, Warm/Dry Lymphatic: No Adenopathy Results/Procedures Lab Patient resulted labs reviewed. FIM Transfers Therapy Code Descriptions/Definitions Functional [place] Measure: 0=Not Assessed/NA 4=Minimal Assistance 1=Total Assistance 5=Supervision or Setup 2=Maximal Assistance 6=Modified [place] 3=Moderate Assistance 7=Complete IndependenceSCALE: Activities may be completed with or without assistive devices. 2-Eitjmpoaiz-ebydcrh completes the activity by him/herself with no assistance from a helper. 5-Set-up or Clean-up Assistance-helper sets up or cleans up; patient completes activity. [place] assists only prior to or following the activity. 4-Supervision or Touching Assistance-helper provides verbal cues and/or touching/steadying and/or contact guard assistance as patient completes activity. Assistance may be provided throughout the activity or intermittently. 3-Partial/Moderate Assistance-helper does LESS THAN HALF the effort. [place] lifts, holds or supports trunk or limbs, but provides less than half the effort. 2-Substantial/Maximal Assistance-helper does MORE THAN HALF the effort. [place] lifts or holds trunk or limbs and provides more than half the effort. 5-Vsvfxbrrn-letxie does ALL the effort. Patient does none of the effort to complete the activity. Or, the assistance of 2 or more helpers is required for the patient to complete the activity. If activity was not attempted, code reason: 7-Patient Refused. 9-Not Applicable-not attempted and the patient did not perform the activity before the current illness, exacerbation or injury. 10-Not Attempted due to Environmental Limitations-(lack of equipment, weather restraints, etc.). 88-Not Attempted due to Medical Conditions or Safety Concerns. Roll Left to Right (QC): 6 Sit to Lying (QC): 5 Sit to Stand (QC): 3 Chair/Sli-cr-Pbtfo Xfer(QC): 3 Car Transfer (QC): 2 Gait Training Does the Patient Walk?: Yes Distance: 40'x3 Walk 10 feet (QC): 4 Walk 50 ft with 2 Turns(QC): 88 Walk 150 ft (QC): 88 Walking 10ft/uneven surface-QC: 88 Gait Persons Needed: 1 Gait Assistive Device: FWW Wheelchair Training Does the Pt Use a Wheelchair?: Yes Distance: 150'x2 Wheel 50 ft with 2 turns (QC): 6 Wheel 150 ft (QC): 6 Type of Wheelchair: Manual Stair Training 1 Step (curb) (QC): 88 4 Steps (QC): 88 12 Steps (QC): 88 Balance Picking up an Object (QC): 88 ADL-Treatment Eating (QC): 6 Oral Hygiene (QC): 7 Shower/Bathe Self (QC): 5 (set up sitting in w/c) Upper Body Dressing (QC): 5 (set up with lumber puller shirt and back brace, increa sed time due to decreased LUE shoulder ROM) Lower Body Dressing (QC): 3 (min A with pant hike.) On/Off Footwear (QC): 3 (min A with slip on shoes due to moisture post shower.) Toileting Hygiene (QC): 3 (Mod A, pt required assistance with hygiene and pant hike. Pt able to manage pants down.) Toilet Transfer (QC): 3 (Min A on/off toilet.) Assessment/Plan Assessment and Plan Assess & Plan/Chief Complaint Assessment: Status post lumbar spine surgery with severe debility and leg weakness Recent DKA Hbn-ey-cfwsgig diabetes history Hypertension Chronic arthritis pain Plan: Pain control Diabetes management Blood pressure management Inpatient rehab protocol 08/06/2020: Hold laxatives DC indapamide Monitor closely Fall risk 08/07/2020: Increase insulin Aggressive therapy 08/08/20: Increase insulin Baclofen 08/09/20: Monitor sugar Back pain management 08/10/2020: Monitor blood sugar Insulin at discharge will be required 08/11/2020: Monitor pain Supportive care Baclofen 08/12/2020: Pain control Intensive rehab Bowel regimen to intensify 08/13/2020: Supportive care Aggressive therapy Blood pressure management 08/14/20: Improved status Adjust insulin BP ok 08/15/2020: Pain control Insulin modified Fall risk 08/16/2020: Pain control Monitor blood pressure 08/17/2020: Patient doing pretty well today Continue aggressive therapy 08/18/2020: Continue pain control Updated Dr. Elder 08/20/2020: Continue aggressive therapy Improved overall today Decrease insulin intensity 08/21/2020: Decrease Levemir to 4 units twice daily Monitor closely Pain control 08/22/2020: Hold Levemir for hypoglycemia Monitor closely (1) Status post lumbar spine surgery for decompression of spinal cord (2) Diabetes (3) DKA (diabetic ketoacidoses) (4) Hypertension (5) Leg weakness DALY WHITNEY DO Aug 22, 2020 08:01
[2020-08-22] MEDS: ALLOPURINOL 100 MG (ZYLOPRIM) TAB PO SCH (08:03)
[2020-08-22] MEDS: glipiZIDE 5 MG (GLUCOTROL) TAB PO SCH ×2 (08:04→17:41)
[2020-08-22] MEDS: lisINopril 20 MG (PRINIVIL) TABLET PO SCH ×2 (08:04→20:02)
[2020-08-22] MEDS: meTOprolol TARTRATE 25 MG (LOPRESSOR) TABLET PO SCH ×2 (08:04→20:01)
[2020-08-22] MEDS: amLODIPine 2.5MG (NORVASC) TAB PO SCH ×2 (08:05→20:01)
[2020-08-22] MEDS: polyethylene glycoL POWDER 17 GM (MIRALAX) PACK PO SCH ×2 (08:05→20:02)
[2020-08-22] MEDS: LACTOBACILLUS ACIDOPHILUS (PROBIOTIC) CAPSULE PO SCH (08:05)
[2020-08-22] MEDS: BACLOFEN 10 MG (LIORESAL) TAB PO SCH ×3 (08:05→20:01)
[2020-08-22] MEDS: DOCUSATE SODIUM 100 MG (COLACE) CAP PO SCH ×2 (08:05→20:01)
[2020-08-22] MEDS: SENNA W/DOCUSATE (SENOKOT S) TABLET PO SCH ×2 (08:05→20:01)
[2020-08-22] MEDS: DICLOFENAC 1% GEL 100 GM (VOLTAREN) TUBE TOP PRN ×3 (08:11→19:58)
[2020-08-22] MEDS: TRIAMCINOLONE 0.1% OINT (KENALOG) 15 GM TUBE TOP SCH ×2 (08:16→20:03)
--- NOTE | 2020-08-22 10:15 | Physical Therapy Daily Note ---
PT Daily Note-Current Subjective Pt sitting in recliner upon arrival. Pt agrees to PT for amb. Pain Numeric Pain Scale: 5-Moderate Pain Location Body Site: Back Pain Description: Ache, Tightness Mental Status Patient Orientation: Person, Place, Time, Situation Attachments: Other-See Comments (Lumbar back brace) Transfers SCALE: Activities may be completed with or without assistive devices. 7-Tgzqgoewja-kuozlwa completes the activity by him/herself with no assistance from a helper. 5-Set-up or Clean-up Assistance-helper sets up or cleans up; patient completes activity. [place] assists only prior to or following the activity. 4-Supervision or Touching Assistance-helper provides verbal cues and/or touching/steadying and/or contact guard assistance as patient completes activity. Assistance may be provided throughout the activity or intermittently. 3-Partial/Moderate Assistance-helper does LESS THAN HALF the effort. [place] lifts, holds or supports trunk or limbs, but provides less than half the effort. 2-Substantial/Maximal Assistance-helper does MORE THAN HALF the effort. [place] lifts or holds trunk or limbs and provides more than half the effort. 9-Tjxjkpivm-eitgbd does ALL the effort. Patient does none of the effort to complete the activity. Or, the assistance of 2 or more helpers is required for the patient to complete the activity. If activity was not attempted, code reason: 7-Patient Refused. 9-Not Applicable-not attempted and the patient did not perform the activity before the current illness, exacerbation or injury. 10-Not Attempted due to Environmental Limitations-(lack of equipment, weather restraints, etc.). 88-Not Attempted due to Medical Conditions or Safety Concerns. Sit to Lying (QC): 5 Sit to Stand (QC): 3 Chair/Yeb-af-Zmufi Xfer(QC): 3 Weight Bearing Full Weight Bearing Full Weight Bearing Gait Training Does the Patient Walk?: Yes Distance: 50' x 4 Walk 10 feet (QC): 4 Walk 50 ft with 2 Turns(QC): 4 Walk 150 ft (QC): 4 Gait Persons Needed: 1 Gait Assistive Device: FWW Pt demonstrates increased fatigue in R LE during tx. Pt takes RB as needed for fatigue. Wheelchair Training Does the Pt Use a Wheelchair?: Yes Wheel 50 ft with 2 turns (QC): 5 Type of Wheelchair: Manual Treatments TF to standing and amb. in hallway. Pt takes RB as needed, [facility] follows for fatigue. Assessment Current Status: Fair Progress Pt reports more fatigue and soreness in R LE today. PT Short Term Goals Short Term Goals Time Frame: Aug 13, 2020 Roll Left & Right: 6 Sit to lyin Lying to sitting on side of be: 3 (met) Sit to stand: 3 Chair/auo-qb-sfygk transfer: 3 Walk 10 feet: 3 PT Nursing Home Goals Seamer Operator Goals PT Nursing Home Goals Time Frame: Aug 27, 2020 Roll Left & Right (QC): 6 Sit to Lying (QC): 4 Lying-Sitting on Side/Bed(QC): 4 Sit to Stand (QC): 4 Chair/Wqq-rt-Kdxnh Xfer(QC): 4 Toilet Transfer (QC): 4 Car Transfer (QC): 4 Does the Patient Walk: Yes Walk 10 feet (QC): 4 Walk 50ft with 2 Turns (QC): 4 Walk 150 ft (QC): 88 Walking 10ft on Uneven Surface: 4 1 Step (curb) (QC): 4 4 Steps (QC): 4 12 Steps (QC): 88 Picking up an Object (QC): 88 Wheel 50 feet with 2 turns (QC: 6 Wheel 150 feet: 6 PT Plan Problem List Problem List: Activity Tolerance, Functional Strength Treatment/Plan Treatment Plan: Continue Plan of Care Treatment Plan: Bed Mobility, Education, Functional Activity Jayshree, Functional Strength, Group Therapy, Gait, Safety, Therapeutic Exercise, Transfers Treatment Duration: Aug 27, 2020 Frequency: At least 5 of 7 days/Wk (IRF) Estimated Hrs Per Day: 1.5 hours per day Patient and/or Family Agrees t: Yes Safety Risks/Education Patient Education: Gait Training, Transfer Techniques, Correct Positioning Teaching Recipient: Patient Teaching Methods: Discussion Response to Teaching: Verbalize Understanding Time/GCodes Time In: 850 Time Out: 925 Total Billed Treatment Time: 35 Total Billed Treatment 1, GT x2 (35m) DMITRY MUELLER H[employer]MER [employer] Aug 22, 2020 10:15
[2020-08-22] MEDS: ENOXAPARIN 40 MG/0.4 ML (LOVENOX) SYR SC SCH (15:19)
[2020-08-22 20:00] VITALS: BP 148/81
[2020-08-22] MEDS: SIMvastatin 10 MG (ZOCOR) TAB PO SCH (20:01)
[2020-08-22] MEDS: CYCLOBENZAPRINE 10 MG (FLEXERIL) TAB PO PRN (20:05)
[2020-08-22] MEDS: MELATONIN 3 MG TABLET PO PRN (20:06)
[2020-08-23] MEDS: inSUlin ASPART (NovoLOG) 1 UNIT/0.01 ML (CHARGE PER UNIT) SC SCH ×4 (06:09→21:57)
[2020-08-23] MEDS: metFORMIN XR 500 MG (GLUCOPHAGE XR) TAB PO SCH ×2 (06:09→17:42)
[2020-08-23 07:13] VITALS: BP 142/75
--- NOTE | 2020-08-23 07:42 | PM&R Progress Note ---
Subjective HPI/CC On Admission Date Seen by Provider: Aug 23, 2020 Time Seen by Provider: 12:45 Subjective/Events-last exam 08/22/2020: This visit is via video chat due to Covid related restriction for this provider Patient doing really well the day No major issues Large bowel movement today Sugars are doing well without insulin Voltaren gel will be put on his arms and shoulders before physical therapy 08/22/2020: This visit is via video chat due to Covid related restriction for this provider Patient having a good day Arms and shoulders from compensating are still painful but Voltaren gel has been helpful Bowels moved yesterday Incision is a bit red Holding Levemir due to low blood sugars but he still has some isolated elevated ones 08/21/2020: This visit is via video chat due to Covid related restriction for this provider Patient having a good day Sugar was 130 this morning so I adjusted Levemir down to 4 units twice daily to prevent hypoglycemia as occurred yesterday Bowels are moving really well No more itching K pad did not really help the shoulder pain 08/20/2020: This visit is via video chat due to Covid related restriction for this provider Patient doing pretty well today Blood sugar is running low and then later it was 46 asymptomatic so stopped the regular insulin and will hold Levemir tonight Bowels moved today Rechecking Monday for progress I have updated him on the conversation I had with Dr. Elder 08/18/2020: Patient doing pretty well Clouded images to Dr. Elder and he will review but recommended time to recover considering the DKA episode set him back quite a bit Pain pill with Voltaren gel has helped Slow progress 08/17/2020: Patient having a good day Bowels moving okay Blood pressure 117/77 Talked about his x-rays that nurse had reported to him but those details will be evaluated by Dr. Elder the expert 08/16/2020: Patient doing pretty well Had some weak legs today Blood pressure elevated at times Monitor closely 08/15/2020: Patient in a pretty good mood Family at the bedside Blood sugar was a bit low at 80 and had symptoms so adjusted his insulin a bit Pain is well controlled on regimen Neuropathy discussed 08/14/20: Patient doing well No major issues Pain is an ongoing issue BP better 08/13/2020: Pt doing pretty well but variation in BP places him at risk for orthostasis I changed Clonidine to BID prn for BP elevation and started Norvasc 2.5 twice daily and will transition to Hydralazine also. 08/12/2020: Pt doing pretty well Bowels havent moved and we have given a lot of Laxatives Sugars are okay Voltaren gel to the back Clonidine BID has helped the BP that has dipped down to low levels in the afternoon Length of stay, presumed to be 08/26/20 08/11/2020: Pt doing pretty well Left axilla pain because of compensation with his arms, will initiate a moist heating pad Bowels are moving okay Clonidine changed to BID instead of TID due to hypotension in the afternoon interfering with therapy X-rays were done and clouded to Dr. Elder 08/10/2020: Pt doing really well Had a large bowel movement yesterday Temperature at 99.4 but no other issues Sugars are better Talked to him about insulin at discharge 08/09/20: Patient doing well BM today Back pain improved Increased movement now Better today 08/08/20: Patient in a good mood Baclofen is working well for him so will maintain this Pain controlled High sugars requiring addition of insulin Wants tacos from home 08/07/2020: Patient doing pretty well Pain is still an issue Baclofen was ordered to help his back spasms No bowels are moving since loose stools for several days Adjusted insulin after reviewing several Accu-Cheks 08/06/2020: Patient doing pretty well Very motivated to walk Loose stool so holding laxatives Right knee really hurts Sodium level 128 so we will discontinue the indapamide Review of Systems Musculoskeletal: arm pain, back pain, leg pain Objective Exam Vital Signs Vital Signs Date Time Temp Pulse Resp B/P (MAP) Pulse Ox O2 Delivery O2 Flow Rate FiO2 08/23/20 09:59 Room Air 08/23/20 07:13 36.8 89 18 142/75 (97) 96 Capillary Refill : General Appearance: No Apparent Distress, WD/WN, Chronically ill HEENT: PERRL/EOMI, Normal ENT Inspection, Pharynx Normal Neck: Full Range of Motion, Normal Inspection, Non Tender, Supple, Carotid Bruit Respiratory: Chest Non Tender, Lungs Clear, Normal Breath Sounds, No Accessory Muscle Use, No Respiratory Distress Cardiovascular: Regular Rate, Rhythm, No Edema, No Gallop, No JVD, No Murmur, Normal Peripheral Pulses Gastrointestinal: Normal Bowel Sounds, No Organomegaly, No Pulsatile Mass, Non Tender, Soft Back: Decreased Range of Motion, Muscle Spasm, Vertebral Tenderness Extremity: Normal Capillary Refill, Normal Inspection, Normal Range of Motion, Non Tender, No Calf Tenderness, No Pedal Edema Neurologic/Psychiatric: Alert, Oriented x3, No Motor/Sensory Deficits, Normal Mood/Affect, Motor Weakness Skin: Normal Color, Warm/Dry Lymphatic: No Adenopathy Results/Procedures Lab Patient resulted labs reviewed. FIM Transfers Therapy Code Descriptions/Definitions Functional [place] Measure: 0=Not Assessed/NA 4=Minimal Assistance 1=Total Assistance 5=Supervision or Setup 2=Maximal Assistance 6=Modified [place] 3=Moderate Assistance 7=Complete IndependenceSCALE: Activities may be completed with or without assistive devices. 3-Bxnglnlbvm-jnxtglr completes the activity by him/herself with no assistance from a helper. 5-Set-up or Clean-up Assistance-helper sets up or cleans up; patient completes activity. [place] assists only prior to or following the activity. 4-Supervision or Touching Assistance-helper provides verbal cues and/or touchin g/steadying and/or contact guard assistance as patient completes activity. Assistance may be provided throughout the activity or intermittently. 3-Partial/Moderate Assistance-helper does LESS THAN HALF the effort. [place] lifts, holds or supports trunk or limbs, but provides less than half the effort. 2-Substantial/Maximal Assistance-helper does MORE THAN HALF the effort. [place] lifts or holds trunk or limbs and provides more than half the effort. 8-Bzqbebqji-vdrzzc does ALL the effort. Patient does none of the effort to complete the activity. Or, the assistance of 2 or more helpers is required for the patient to complete the activity. If activity was not attempted, code reason: 7-Patient Refused. 9-Not Applicable-not attempted and the patient did not perform the activity before the current illness, exacerbation or injury. 10-Not Attempted due to Environmental Limitations-(lack of equipment, weather restraints, etc.). 88-Not Attempted due to Medical Conditions or Safety Concerns. Roll Left to Right (QC): 6 Sit to Lying (QC): 5 Sit to Stand (QC): 3 Chair/Ogu-wb-Kgcyl Xfer(QC): 3 Car Transfer (QC): 2 Gait Training Does the Patient Walk?: Yes Distance: 50' x 4 Walk 10 feet (QC): 4 Walk 50 ft with 2 Turns(QC): 4 Walk 150 ft (QC): 4 Walking 10ft/uneven surface-QC: 88 Gait Persons Needed: 1 Gait Assistive Device: FWW Wheelchair Training Does the Pt Use a Wheelchair?: Yes Distance: 150'x2 Wheel 50 ft with 2 turns (QC): 5 Wheel 150 ft (QC): 6 Type of Wheelchair: Manual Stair Training 1 Step (curb) (QC): 88 4 Steps (QC): 88 12 Steps (QC): 88 Balance Picking up an Object (QC): 88 ADL-Treatment Eating (QC): 6 Oral Hygiene (QC): 7 Shower/Bathe Self (QC): 5 (set up sitting in w/c) Upper Body Dressing (QC): 5 (set up with assembler for puller over hand shirt and back brace, increased time due to decreased LUE shoulder ROM) Lower Body Dressing (QC): 3 (min A with pant hike.) On/Off Footwear (QC): 3 (min A with slip on shoes due to moisture post shower.) Toileting Hygiene (QC): 3 (Mod A, pt required assistance with hygiene and pant hike. Pt able to manage pants down.) Toilet Transfer (QC): 3 (Min A on/off toilet.) Assessment/Plan Assessment and Plan Assess & Plan/Chief Complaint Assessment: Status post lumbar spine surgery with severe debility and leg weakness Recent DKA Glf-hd-[id number] diabetes history Hypertension Chronic arthritis pain Plan: Pain control Diabetes management Blood pressure management Inpatient rehab protocol 08/06/2020: Hold laxatives DC indapamide Monitor closely Fall risk 08/07/2020: Increase insulin Aggressive therapy 08/08/20: Increase insulin Baclofen 08/09/20: Monitor sugar Back pain management 08/10/2020: Monitor blood sugar Insulin at discharge will be required 08/11/2020: Monitor pain Supportive care Baclofen 08/12/2020: Pain control Intensive rehab Bowel regimen to intensify 08/13/2020: Supportive care Aggressive therapy Blood pressure management 08/14/20: Improved status Adjust insulin BP ok 08/15/2020: Pain control Insulin modified Fall risk 08/16/2020: Pain control Monitor blood pressure 08/17/2020: Patient doing pretty well today Continue aggressive therapy 08/18/2020: Continue pain control Updated Dr. Elder 08/20/2020: Continue aggressive therapy Improved overall today Decrease insulin intensity 08/21/2020: Decrease Levemir to 4 units twice daily Monitor closely Pain control 08/22/2020: Hold Levemir for hypoglycemia Monitor closely 08/23/2020: Holding insulin Pain meds (1) Status post lumbar spine surgery for decompression of spinal cord (2) Diabetes (3) DKA (diabetic ketoacidoses) (4) Hypertension (5) Leg weakness DALY WHITNEY DO Aug 23, 2020 07:42
[2020-08-23] MEDS: DOCUSATE SODIUM 100 MG (COLACE) CAP PO SCH ×2 (08:51→21:56)
[2020-08-23] MEDS: SENNA W/DOCUSATE (SENOKOT S) TABLET PO SCH ×2 (08:51→21:56)
[2020-08-23] MEDS: amLODIPine 2.5MG (NORVASC) TAB PO SCH ×2 (08:51→21:49)
[2020-08-23] MEDS: LACTOBACILLUS ACIDOPHILUS (PROBIOTIC) CAPSULE PO SCH (08:51)
[2020-08-23] MEDS: lisINopril 20 MG (PRINIVIL) TABLET PO SCH ×2 (08:52→21:48)
[2020-08-23] MEDS: ALLOPURINOL 100 MG (ZYLOPRIM) TAB PO SCH (08:52)
[2020-08-23] MEDS: meTOprolol TARTRATE 25 MG (LOPRESSOR) TABLET PO SCH ×2 (08:52→21:48)
[2020-08-23] MEDS: BACLOFEN 10 MG (LIORESAL) TAB PO SCH ×3 (08:52→21:48)
[2020-08-23] MEDS: NEO/POLY/BAC (NEOSPORIN) OINT 15 GM TUBE TOP SCH (08:52)
[2020-08-23] MEDS: glipiZIDE 5 MG (GLUCOTROL) TAB PO SCH ×2 (08:52→17:42)
[2020-08-23] MEDS: DICLOFENAC 1% GEL 100 GM (VOLTAREN) TUBE TOP PRN ×2 (08:53→14:26)
[2020-08-23] MEDS: TRIAMCINOLONE 0.1% OINT (KENALOG) 15 GM TUBE TOP SCH ×2 (08:55→21:57)
[2020-08-23] MEDS: polyethylene glycoL POWDER 17 GM (MIRALAX) PACK PO SCH ×2 (09:24→21:56)
[2020-08-23] MEDS: ENOXAPARIN 40 MG/0.4 ML (LOVENOX) SYR SC SCH (14:32)
[2020-08-23 20:00] VITALS: BP 171/88
[2020-08-23] MEDS: SIMvastatin 10 MG (ZOCOR) TAB PO SCH (21:48)
[2020-08-23] MEDS: MELATONIN 3 MG TABLET PO PRN (21:48)
[2020-08-24 06:02] LABS: BASOPHILS # (AUTO) 0.1 10^3/uL (0.0-0.1); BASOPHILS % (AUTO) 2 % (0-10); EOSINOPHILS # (AUTO) 0.4 10^3/uL (0.0-0.3); EOSINOPHILS % (AUTO) 6 % (0-10); HEMATOCRIT 41 % (40-54); LYMPHOCYTES # (AUTO) 1.5 10^3/uL (1.0-4.0); LYMPHOCYTES % (AUTO) 23 % (12-44); MEAN CORPUSCULAR HEMOGLOBIN 28 pg (25-34); MEAN CORPUSCULAR HGB CONC 34 g/dL (32-36); MEAN CORPUSCULAR VOLUME 81 fL (80-99); MONOCYTES # (AUTO) 0.6 10^3/uL (0.0-1.0); MONOCYTES % (AUTO) 9 % (0-12); NEUTROPHILS # (AUTO) 3.9 10^3/uL (1.8-7.8); NEUTROPHILS % (AUTO) 59 % (42-75); PLATELET COUNT 274 10^3/uL (130-400); WHITE BLOOD COUNT 6.6 10^3/uL (4.3-11.0)
[2020-08-24 06:15] LABS: ALBUMIN 3.7 GM/DL (3.2-4.5); CHLORIDE 102 MMOL/L (98-107); SODIUM 135 MMOL/L (135-145)
[2020-08-24 06:17] LABS: CALCIUM 9.6 MG/DL (8.5-10.1)
[2020-08-24 06:18] LABS: GLUCOSE 150 MG/DL (70-105); TOTAL PROTEIN 6.7 GM/DL (6.4-8.2)
[2020-08-24 06:19] LABS: CARBON DIOXIDE 21 MMOL/L (21-32)
[2020-08-24 06:20] LABS: BILIRUBIN,TOTAL 0.6 MG/DL (0.1-1.0)
[2020-08-24 06:21] LABS: ALKALINE PHOSPHATASE 71 U/L (40-136); CREATININE SERUM 0.67 MG/DL (0.60-1.30); GFR ESTIMATED > 60
[2020-08-24 06:22] LABS: BUN/CREATININE RATIO 19
[2020-08-24] MEDS: inSUlin ASPART (NovoLOG) 1 UNIT/0.01 ML (CHARGE PER UNIT) SC SCH ×4 (06:22→21:40)
[2020-08-24 06:24] LABS: ALANINE AMINOTRANSFERASE 13 U/L (0-55)
[2020-08-24] MEDS: metFORMIN XR 500 MG (GLUCOPHAGE XR) TAB PO SCH ×2 (06:51→17:06)
--- NOTE | 2020-08-24 07:04 | PM&R Progress Note ---
Subjective HPI/CC On Admission Date Seen by Provider: Aug 24, 2020 Time Seen by Provider: 12:45 Subjective/Events-last exam 08/24/2020: This visit is via video chat due to Covid related restriction for this provider Patient is doing well Voltaren gel improves shoulder pain BM ok Rare use of SSI 08/23/2020: This visit is via video chat due to Covid related restriction for this provider Patient doing really well the day No major issues Large bowel movement today Sugars are doing well without insulin Voltaren gel will be put on his arms and shoulders before physical therapy 08/22/2020: This visit is via video chat due to Covid related restriction for this provider Patient having a good day Arms and shoulders from compensating are still painful but Voltaren gel has been helpful Bowels moved yesterday Incision is a bit red Holding Levemir due to low blood sugars but he still has some isolated elevated ones 08/21/2020: This visit is via video chat due to Covid related restriction for this provider Patient having a good day Sugar was 130 this morning so I adjusted Levemir down to 4 units twice daily to prevent hypoglycemia as occurred yesterday Bowels are moving really well No more itching K pad did not really help the shoulder pain 08/20/2020: This visit is via video chat due to Covid related restriction for this provider Patient doing pretty well today Blood sugar is running low and then later it was 46 asymptomatic so stopped the regular insulin and will hold Levemir tonight Bowels moved today Rechecking Monday for progress I have updated him on the conversation I had with Dr. Elder 08/18/2020: Patient doing pretty well Clouded images to Dr. Elder and he will review but recommended time to recover considering the DKA episode set him back quite a bit Pain pill with Voltaren gel has helped Slow progress 08/17/2020: Patient having a good day Bowels moving okay Blood pressure 117/77 Talked about his x-rays that nurse had reported to him but those details will be evaluated by Dr. Elder the expert 08/16/2020: Patient doing pretty well Had some weak legs today Blood pressure elevated at times Monitor closely 08/15/2020: Patient in a pretty good mood Family at the bedside Blood sugar was a bit low at 80 and had symptoms so adjusted his insulin a bit Pain is well controlled on regimen Neuropathy discussed 08/14/20: Patient doing well No major issues Pain is an ongoing issue BP better 08/13/2020: Pt doing pretty well but variation in BP places him at risk for orthostasis I changed Clonidine to BID prn for BP elevation and started Norvasc 2.5 twice daily and will transition to Hydralazine also. 08/12/2020: Pt doing pretty well Bowels havent moved and we have given a lot of Laxatives Sugars are okay Voltaren gel to the back Clonidine BID has helped the BP that has dipped down to low levels in the afternoon Length of stay, presumed to be 08/26/20 08/11/2020: Pt doing pretty well Left axilla pain because of compensation with his arms, will initiate a moist heating pad Bowels are moving okay Clonidine changed to BID instead of TID due to hypotension in the afternoon interfering with therapy X-rays were done and clouded to Dr. Elder 08/10/2020: Pt doing really well Had a large bowel movement yesterday Temperature at 99.4 but no other issues Sugars are better Talked to him about insulin at discharge 08/09/20: Patient doing well BM today Back pain improved Increased movement now Better today 08/08/20: Patient in a good mood Baclofen is working well for him so will maintain this Pain controlled High sugars requiring addition of insulin Wants tacos from home 08/07/2020: Patient doing pretty well Pain is still an issue Baclofen was ordered to help his back spasms No bowels are moving since loose stools for several days Adjusted insulin after reviewing several Accu-Cheks 08/06/2020: Patient doing pretty well Very motivated to walk Loose stool so holding laxatives Right knee really hurts Sodium level 128 so we will discontinue the indapamide Review of Systems General: Fatigue Musculoskeletal: back pain Objective Exam Vital Signs Vital Signs Date Time Temp Pulse Resp B/P (MAP) Pulse Ox O2 Delivery O2 Flow Rate FiO2 08/24/20 09:00 Room Air 08/24/20 07:26 36.3 92 18 138/85 (102) 99 Capillary Refill : General Appearance: No Apparent Distress, WD/WN, Chronically ill HEENT: PERRL/EOMI, Normal ENT Inspection, Pharynx Normal Neck: Full Range of Motion, Normal Inspection, Non Tender, Supple, Carotid Bruit Respiratory: Chest Non Tender, Lungs Clear, Normal Breath Sounds, No Accessory Muscle Use, No Respiratory Distress Cardiovascular: Regular Rate, Rhythm, No Edema, No Gallop, No JVD, No Murmur, Normal Peripheral Pulses Gastrointestinal: Normal Bowel Sounds, No Organomegaly, No Pulsatile Mass, Non Tender, Soft Back: Decreased Range of Motion, Muscle Spasm, Vertebral Tenderness Extremity: Normal Capillary Refill, Normal Inspection, Normal Range of Motion, Non Tender, No Calf Tenderness, No Pedal Edema Neurologic/Psychiatric: Alert, Oriented x3, No Motor/Sensory Deficits, Normal Mood/Affect, Motor Weakness Skin: Normal Color, Warm/Dry Lymphatic: No Adenopathy Results/Procedures Lab Laboratory Tests 08/24/20 05:28 Patient resulted labs reviewed. FIM Transfers Therapy Code Descriptions/Definitions Functional [place] Measure: 0=Not Assessed/NA 4=Minimal Assistance 1=Total Assistance 5=Supervision or Setup 2=Maximal Assistance 6=Modified [place] 3=Moderate Assistance 7=Complete IndependenceSCALE: Activities may be completed with or without assistive devices. 5-Bxrujeguhc-pkmuvxu completes the activity by him/herself with no assistance from a helper. 5-Set-up or Clean-up Assistance-helper sets up or cleans up; patient completes activity. [place] assists only prior to or following the activity. 4-Supervision or Touching Assistance-helper provides verbal cues and/or touching /steadying and/or contact guard assistance as patient completes activity. Assistance may be provided throughout the activity or intermittently. 3-Partial/Moderate Assistance-helper does LESS THAN HALF the effort. [place] lifts, holds or supports trunk or limbs, but provides less than half the effort. 2-Substantial/Maximal Assistance-helper does MORE THAN HALF the effort. [place] lifts or holds trunk or limbs and provides more than half the effort. 9-Cthrkvqdl-hwlcnb does ALL the effort. Patient does none of the effort to complete the activity. Or, the assistance of 2 or more helpers is required for the patient to complete the activity. If activity was not attempted, code reason: 7-Patient Refused. 9-Not Applicable-not attempted and the patient did not perform the activity before the current illness, exacerbation or injury. 10-Not Attempted due to Environmental Limitations-(lack of equipment, weather restraints, etc.). 88-Not Attempted due to Medical Conditions or Safety Concerns. Roll Left to Right (QC): 6 Sit to Lying (QC): 5 Sit to Stand (QC): 3 Chair/Iju-ll-Ruzfq Xfer(QC): 3 Car Transfer (QC): 2 Gait Training Does the Patient Walk?: Yes Distance: 50' x 4 Walk 10 feet (QC): 4 Walk 50 ft with 2 Turns(QC): 4 Walk 150 ft (QC): 4 Walking 10ft/uneven surface-QC: 88 Gait Persons Needed: 1 Gait Assistive Device: FWW Wheelchair Training Does the Pt Use a Wheelchair?: Yes Distance: 150'x2 Wheel 50 ft with 2 turns (QC): 5 Wheel 150 ft (QC): 6 Type of Wheelchair: Manual Stair Training 1 Step (curb) (QC): 88 4 Steps (QC): 88 12 Steps (QC): 88 Balance Picking up an Object (QC): 88 ADL-Treatment Eating (QC): 6 Oral Hygiene (QC): 7 Shower/Bathe Self (QC): 5 (set up sitting in w/c) Upper Body Dressing (QC): 5 (set up with car clerk pullman shirt and back brace, increased time due to decreased LUE shoulder ROM) Lower Body Dressing (QC): 3 (min A with pant hike.) On/Off Footwear (QC): 3 (min A with slip on shoes due to moisture post shower.) Toileting Hygiene (QC): 3 (Mod A, pt required assistance with hygiene and pant hike. Pt able to manage pants down.) Toilet Transfer (QC): 3 (Min A on/off toilet.) Assessment/Plan Assessment and Plan Assess & Plan/Chief Complaint Assessment: Status post lumbar spine surgery with severe debility and leg weakness Recent DKA Qgm-fg-rpyercy diabetes history Hypertension Chronic arthritis pain Plan: Pain control Diabetes management Blood pressure management Inpatient rehab protocol 08/06/2020: Hold laxatives DC indapamide Monitor closely Fall risk 08/07/2020: Increase insulin Aggressive therapy 08/08/20: Increase insulin Baclofen 08/09/20: Monitor sugar Back pain management 08/10/2020: Monitor blood sugar Insulin at discharge will be required 08/11/2020: Monitor pain Supportive care Baclofen 08/12/2020: Pain control Intensive rehab Bowel regimen to intensify 08/13/2020: Supportive care Aggressive therapy Blood pressure management 08/14/20: Improved status Adjust insulin BP ok 08/15/2020: Pain control Insulin modified Fall risk 08/16/2020: Pain control Monitor blood pressure 08/17/2020: Patient doing pretty well today Continue aggressive therapy 08/18/2020: Continue pain control Updated Dr. Elder 08/20/2020: Continue aggressive therapy Improved overall today Decrease insulin intensity 08/21/2020: Decrease Levemir to 4 units twice daily Monitor closely Pain control 08/22/2020: Hold Levemir for hypoglycemia Monitor closely 08/23/2020: Holding insulin Pain meds 08/24/20: Monitor closely Pain control (1) Status post lumbar spine surgery for decompression of spinal cord (2) Diabetes (3) DKA (diabetic ketoacidoses) (4) Hypertension (5) Leg weakness DALY WHITNEY DO Aug 24, 2020 07:04
[2020-08-24 07:26] VITALS: BP 138/85
[2020-08-24] MEDS: LACTOBACILLUS ACIDOPHILUS (PROBIOTIC) CAPSULE PO SCH (08:15)
[2020-08-24] MEDS: amLODIPine 2.5MG (NORVASC) TAB PO SCH ×2 (08:15→21:33)
[2020-08-24] MEDS: CYCLOBENZAPRINE 10 MG (FLEXERIL) TAB PO PRN (08:15)
[2020-08-24] MEDS: DOCUSATE SODIUM 100 MG (COLACE) CAP PO SCH ×2 (08:15→21:30)
[2020-08-24] MEDS: BACLOFEN 10 MG (LIORESAL) TAB PO SCH ×3 (08:15→21:30)
[2020-08-24] MEDS: meTOprolol TARTRATE 25 MG (LOPRESSOR) TABLET PO SCH ×2 (08:15→21:30)
[2020-08-24] MEDS: SENNA W/DOCUSATE (SENOKOT S) TABLET PO SCH ×2 (08:15→21:30)
[2020-08-24] MEDS: glipiZIDE 5 MG (GLUCOTROL) TAB PO SCH ×2 (08:15→17:06)
[2020-08-24] MEDS: ALLOPURINOL 100 MG (ZYLOPRIM) TAB PO SCH (08:15)
[2020-08-24] MEDS: NEO/POLY/BAC (NEOSPORIN) OINT 15 GM TUBE TOP SCH (08:16)
[2020-08-24] MEDS: lisINopril 20 MG (PRINIVIL) TABLET PO SCH ×2 (08:16→21:31)
[2020-08-24] MEDS: polyethylene glycoL POWDER 17 GM (MIRALAX) PACK PO SCH ×2 (08:17→21:44)
[2020-08-24] MEDS: DICLOFENAC 1% GEL 100 GM (VOLTAREN) TUBE TOP PRN ×2 (08:17→21:43)
[2020-08-24] MEDS: TRIAMCINOLONE 0.1% OINT (KENALOG) 15 GM TUBE TOP SCH ×2 (08:20→21:44)
--- NOTE | 2020-08-24 09:10 | Physical Therapy Daily Note ---
PT Daily Note-Current Subjective Pt L sidelying upon arrival. Pt agrees to PT. Pain Numeric Pain Scale: 5-Moderate Pain Location Body Site: Shoulder Pain Description: Ache Mental Status Patient Orientation: Person, Place, Time, Situation Attachments: Other-See Comments (Lumbar Back Brace) Transfers SCALE: Activities may be completed with or without assistive devices. 8-Hiphsyjfdj-ounnsyb completes the activity by him/herself with no assistance from a helper. 5-Set-up or Clean-up Assistance-helper sets up or cleans up; patient completes activity. [place] assists only prior to or following the activity. 4-Supervision or Touching Assistance-helper provides verbal cues and/or touching/steadying and/or contact guard assistance as patient completes activity. Assistance may be provided throughout the activity or intermittently. 3-Partial/Moderate Assistance-helper does LESS THAN HALF the effort. [place] lifts, holds or supports trunk or limbs, but provides less than half the effort. 2-Substantial/Maximal Assistance-helper does MORE THAN HALF the effort. [place] lifts or holds trunk or limbs and provides more than half the effort. 9-Ixktcfelh-jrpqjq does ALL the effort. Patient does none of the effort to complete the activity. Or, the assistance of 2 or more helpers is required for the patient to complete the activity. If activity was not attempted, code reason: 7-Patient Refused. 9-Not Applicable-not attempted and the patient did not perform the activity before the current illness, exacerbation or injury. 10-Not Attempted due to Environmental Limitations-(lack of equipment, weather restraints, etc.). 88-Not Attempted due to Medical Conditions or Safety Concerns. Weight Bearing Full Weight Bearing Full Weight Bearing Gait Training Does the Patient Walk?: Yes Distance: 150' Walk 10 feet (QC): 4 Walk 50 ft with 2 Turns(QC): 4 Walk 150 ft (QC): 4 Gait Persons Needed: 1 Gait Assistive Device: FWW Pt has more difficult with advancing R LE then L. Wheelchair Training Does the Pt Use a Wheelchair?: Yes Wheel 50 ft with 2 turns (QC): 6 Type of Wheelchair: Manual Exercises NuStep Minutes: 15 NuStep Workload: 4 Treatments TF to EOBand dresses there before standing. Nurse gives morning meds. Pt amb. in hallway then takes short RB before using NuStep for 15m at WL 4. Pt amb. short distance before TF back to [facility]. Pt returns to room in [facility] due to fatigue. All needs met, call light in hand as OT arrives. Assessment Current Status: Good Progress Pt continues to [facility] self with ambulation but sometimes R LE fatigues and pt needs rest break. PT Short Term Goals Short Term Goals Time Frame: Aug 13, 2020 Roll Left & Right: 6 Sit to lyin Lying to sitting on side of be: 3 (met) Sit to stand: 3 Chair/tsv-vt-wnbda transfer: 3 Walk 10 feet: 3 PT Care Home Goals Care Home Goals PT Care Home Goals Time Frame: Aug 27, 2020 Roll Left & Right (QC): 6 Sit to Lying (QC): 4 Lying-Sitting on Side/Bed(QC): 4 Sit to Stand (QC): 4 Chair/Pgg-sv-Cdcty Xfer(QC): 4 Toilet Transfer (QC): 4 Car Transfer (QC): 4 Does the Patient Walk: Yes Walk 10 feet (QC): 4 Walk 50ft with 2 Turns (QC): 4 Walk 150 ft (QC): 88 Walking 10ft on Uneven Surface: 4 1 Step (curb) (QC): 4 4 Steps (QC): 4 12 Steps (QC): 88 Picking up an Object (QC): 88 Wheel 50 feet with 2 turns (QC: 6 Wheel 150 feet: 6 PT Plan Problem List Problem List: Activity Tolerance, Functional Strength, Gait Treatment/Plan Treatment Plan: Continue Plan of Care Treatment Plan: Bed Mobility, Education, Functional Activity Jayshree, Functional Strength, Group Therapy, Gait, Safety, Therapeutic Exercise, Transfers Treatment Duration: Aug 27, 2020 Frequency: At least 5 of 7 days/Wk (IRF) Estimated Hrs Per Day: 1.5 hours per day Patient and/or Family Agrees t: Yes Safety Risks/Education Patient Education: Gait Training Teaching Recipient: Patient Teaching Methods: Discussion Response to Teaching: Verbalize Understanding Time/GCodes Time In: 800 Time Out: 900 Total Billed Treatment Time: 60 Total Billed Treatment 1, FA x2 (25m), GT (20m) & EX (15m) 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
--- NOTE | 2020-08-24 10:08 | Occupational Ther Daily Note ---
OT Current Status-Daily Note Subjective Pt seated upright in w/c following PT tx, agreeable to OT tx at this time. Mental Status/Objective Patient Orientation: Normal For Age Attachments: Other-See Comments (back brace OOB) ADL-Treatment Therapy Code Descriptions/Definitions Functional [place] Measure: 0=Not Assessed/NA 4=Minimal Assistance 1=Total Assistance 5=Supervision or Setup 2=Maximal Assistance 6=Modified [place] 3=Moderate Assistance 7=Complete IndependenceSCALE: Activities may be completed with or without assistive devices. 1-Pubfrnkqct-rxscfre completes the activity by him/herself with no assistance from a helper. 5-Set-up or Clean-up Assistance-helper sets up or cleans up; patient completes activity. [place] assists only prior to or following the activity. 4-Supervision or Touching Assistance-helper provides verbal cues and/or touching/steadying and/or contact guard assistance as patient completes activity. Assistance may be provided throughout the activity or intermittently. 3-Partial/Moderate Assistance-helper does LESS THAN HALF the effort. [place] lifts, holds or supports trunk or limbs, but provides less than half the effort. 2-Substantial/Maximal Assistance-helper does MORE THAN HALF the effort. [place] lifts or holds trunk or limbs and provides more than half the effort. 6-Kqgfovsev-zmxbpy does ALL the effort. Patient does none of the effort to complete the activity. Or, the assistance of 2 or more helpers is required for the patient to complete the activity. If activity was not attempted, code reason: 7-Patient Refused. 9-Not Applicable-not attempted and the patient did not perform the activity before the current illness, exacerbation or injury. 10-Not Attempted due to Environmental Limitations-(lack of equipment, weather restraints, etc.). 88-Not Attempted due to Medical Conditions or Safety Concerns. Oral Hygiene (QC): 7 Shower/Bathe Self (QC): 5 (set up, pt able to wash/dry all parts seated on SC.) Upper Body Dressing (QC): 3 (Min A with tightening back brace) Lower Body Dressing (QC): 3 (Min A with pant hike, pt able to thread BLEs into pants with increased time using AE) On/Off Footwear: 6 (IND with slip on shoes.) Other Treatment Pt seated upright in w/c, used FWW to perform functional mobility to [place] (mod A sit to stand). Pt doffed clothes at [place], then completed shower. Pt dried off, donned overhead shirt and back brace. OT assisted pt with tightening back brace, as it was too loose. OT educated pt on making sure brace is snug when he dons it, he verbalized understanding. Pt then transferred from [place] to chair with arm rests, mod A sit to stand. Pt donned LE clothing, mod A sit to stand from chair with arm rests, OT assisted pt with pant hike. Pt transferred to w/c, then performed w/c mobility around [facility] common area/2nd floor in order to increase BUE strength and activity tolerance. Post tx, pt seated in w/c in [facility] common area visiting with a visitor, all needs met. Educated to inform staff when he wanted to return to bed or recliner. Education OT Patient Education: Correct positioning, Modified ADL techniques, Progress toward Goal/Update tx plan, Purpose of tx/functional activities Teaching Recipient: Patient Teaching Methods: Discussion Response to Teaching: Verbalize Understanding OT Short Term Goals Short Term Goals Time Frame: Aug 20, 2020 Oral hygiene: 5 Shower/bathe self: 3 Lower body dressin Putting on/taking off footwear: 3 OT Duck Operator Goals Duck Operator Goals Time Frame: Sep 04, 2020 Eating (QC): 6 Oral Hygiene (QC): 6 Toileting Hygiene (QC): 6 Shower/Bathe Self (QC): 6 Upper Body Dressing (QC): 6 Lower Body Dressing (QC): 6 On/Off Footwear (QC): 6 Additional Goals: 1-Demonstrate ADL Tasks, 2-Verbalize Understanding, 3- ImproveStrength/Jayshree 1=Demonstrate adherence to instructed precautions during ADL tasks. 2=Patient will verbalize/demonstrate understanding of assistive devices/modifications for ADL. 3=Patient will improve strength/tolerance for activity to enable patient to perform ADL's. OT Education/Plan Problem List/Assessment Assessment: Decreased Activ Tolerance, Decreased UE Strength, Impaired I ADL's, Impaired Self-Care Skills, Restricted Funct UE ROM Discharge Recommendations Plan/Recommendations: Continue POC Treatment Plan/Plan of Care Patient would benefit from OT for education, treatment and training to promote independence in ADL's, mobility, safety and/or upper extremity function for ADL's. Plan of Care: ADL Retraining, Functional Mobility, Group Exercise/Act as Ind, UE Funct Exercise/Act Treatment Duration: Sep 04, 2020 Frequency: Modified Program (IRF) (27/08) Estimated Hrs Per Day: 1.5 hours per day Rehab Potential: Fair Time/GCodes Start Time: 09:00 Stop Time: 10:00 Total Time Billed (hr/min): 60 Billed Treatment Time 1, ADL 3 (45'), FA (15') MED PETERSON OT Aug 24, 2020 10:08
--- NOTE | 2020-08-24 14:44 | Therapy Group Daily Note ---
Therapy Daily Group Note Patient Education Topic Other List Below (Transfers, Hospital Bed Education & Mobility) Exercises LE Seated Exercise, UE Exercise Session Ratio (pt:therapist): 4:1 Goal of Session: UE/LE Strengthing, Use of Adaptive Equipment Goal Met for this Session: Yes Pt Benefit of Group: Contributions to Others, F/U Use of Strategies @Home, Increased Functional Safety, Increased Functional Strength, Improved Cognition, Recognition of Peers, Socialization Other/Notes Pt ambulated using FWW to [facility] for OT/PT group. Group consisted of introductions (name, place born, favorite restaurant), socialization, B LE/UE seated exercises, education on hospital bed and mobility. Pt able to introduce self appropriately and actively listening to peers. Pt acknowledged understanding by verbalizing own experience. Pt was able to complete B LE/UE seated exercises well. After session, pt returns to bed with call light/phone in hand. All needs met in room. 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
[2020-08-24] MEDS: ENOXAPARIN 40 MG/0.4 ML (LOVENOX) SYR SC SCH (15:48)
[2020-08-24 20:00] VITALS: BP 134/71
[2020-08-24] MEDS: SIMvastatin 10 MG (ZOCOR) TAB PO SCH (21:30)
[2020-08-24] MEDS: MELATONIN 3 MG TABLET PO PRN (21:31)
[2020-08-25] MEDS: inSUlin ASPART (NovoLOG) 1 UNIT/0.01 ML (CHARGE PER UNIT) SC SCH ×4 (05:59→20:46)
[2020-08-25] MEDS: metFORMIN XR 500 MG (GLUCOPHAGE XR) TAB PO SCH ×2 (06:07→17:39)
[2020-08-25 07:49] VITALS: BP 154/87
[2020-08-25] MEDS: lisINopril 20 MG (PRINIVIL) TABLET PO SCH ×2 (08:03→21:14)
[2020-08-25] MEDS: DOCUSATE SODIUM 100 MG (COLACE) CAP PO SCH ×2 (08:03→21:14)
[2020-08-25] MEDS: SENNA W/DOCUSATE (SENOKOT S) TABLET PO SCH ×2 (08:04→21:14)
[2020-08-25] MEDS: BACLOFEN 10 MG (LIORESAL) TAB PO SCH ×3 (08:04→21:14)
[2020-08-25] MEDS: amLODIPine 2.5MG (NORVASC) TAB PO SCH ×2 (08:04→21:14)
[2020-08-25] MEDS: ALLOPURINOL 100 MG (ZYLOPRIM) TAB PO SCH (08:04)
[2020-08-25] MEDS: meTOprolol TARTRATE 25 MG (LOPRESSOR) TABLET PO SCH ×2 (08:04→21:14)
[2020-08-25] MEDS: LACTOBACILLUS ACIDOPHILUS (PROBIOTIC) CAPSULE PO SCH (08:04)
[2020-08-25] MEDS: polyethylene glycoL POWDER 17 GM (MIRALAX) PACK PO SCH ×2 (08:05→19:42)
[2020-08-25] MEDS: glipiZIDE 5 MG (GLUCOTROL) TAB PO SCH ×2 (08:05→17:40)
[2020-08-25] MEDS: TRIAMCINOLONE 0.1% OINT (KENALOG) 15 GM TUBE TOP SCH ×2 (08:05→21:17)
--- NOTE | 2020-08-25 09:05 | PM&R Progress Note ---
Subjective HPI/CC On Admission Date Seen by Provider: Aug 25, 2020 Time Seen by Provider: 12:45 Subjective/Events-last exam 08/25/2020: This visit is via video chat due to Covid related restriction for this provider Patient doing really well Bowels moved today Voltaren gel helps Blood sugar 192 and 126 Had a controlled fall but did not harm any thing or injure anything Check meds and labs 08/24/2020: This visit is via video chat due to Covid related restriction for this provider Patient is doing well Voltaren gel improves shoulder pain BM ok Rare use of SSI 08/23/2020: This visit is via video chat due to Covid related restriction for this provider Patient doing really well the day No major issues Large bowel movement today Sugars are doing well without insulin Voltaren gel will be put on his arms and shoulders before physical therapy 08/22/2020: This visit is via video chat due to Covid related restriction for this provider Patient having a good day Arms and shoulders from compensating are still painful but Voltaren gel has been helpful Bowels moved yesterday Incision is a bit red Holding Levemir due to low blood sugars but he still has some isolated elevated ones 08/21/2020: This visit is via video chat due to Covid related restriction for this provider Patient having a good day Sugar was 130 this morning so I adjusted Levemir down to 4 units twice daily to prevent hypoglycemia as occurred yesterday Bowels are moving really well No more itching K pad did not really help the shoulder pain 08/20/2020: This visit is via video chat due to Covid related restriction for this provider Patient doing pretty well today Blood sugar is running low and then later it was 46 asymptomatic so stopped the regular insulin and will hold Levemir tonight Bowels moved today Rechecking Monday for progress I have updated him on the conversation I had with Dr. Elder 08/18/2020: Patient doing pretty well Clouded images to Dr. Elder and he will review but recommended time to recover considering the DKA episode set him back quite a bit Pain pill with Voltaren gel has helped Slow progress 08/17/2020: Patient having a good day Bowels moving okay Blood pressure 117/77 Talked about his x-rays that nurse had reported to him but those details will be evaluated by Dr. Elder the expert 08/16/2020: Patient doing pretty well Had some weak legs today Blood pressure elevated at times Monitor closely 08/15/2020: Patient in a pretty good mood Family at the bedside Blood sugar was a bit low at 80 and had symptoms so adjusted his insulin a bit Pain is well controlled on regimen Neuropathy discussed 08/14/20: Patient doing well No major issues Pain is an ongoing issue BP better 08/13/2020: Pt doing pretty well but variation in BP places him at risk for orthostasis I changed Clonidine to BID prn for BP elevation and started Norvasc 2.5 twice daily and will transition to Hydralazine also. 08/12/2020: Pt doing pretty well Bowels havent moved and we have given a lot of Laxatives Sugars are okay Voltaren gel to the back Clonidine BID has helped the BP that has dipped down to low levels in the af ternoon Length of stay, presumed to be 08/26/20 08/11/2020: Pt doing pretty well Left axilla pain because of compensation with his arms, will initiate a moist heating pad Bowels are moving okay Clonidine changed to BID instead of TID due to hypotension in the afternoon interfering with therapy X-rays were done and clouded to Dr. Elder 08/10/2020: Pt doing really well Had a large bowel movement yesterday Temperature at 99.4 but no other issues Sugars are better Talked to him about insulin at discharge 08/09/20: Patient doing well BM today Back pain improved Increased movement now Better today 08/08/20: Patient in a good mood Baclofen is working well for him so will maintain this Pain controlled High sugars requiring addition of insulin Wants tacos from home 08/07/2020: Patient doing pretty well Pain is still an issue Baclofen was ordered to help his back spasms No bowels are moving since loose stools for several days Adjusted insulin after reviewing several Accu-Cheks 08/06/2020: Patient doing pretty well Very motivated to walk Loose stool so holding laxatives Right knee really hurts Sodium level 128 so we will discontinue the indapamide Review of Systems General: Fatigue, Malaise Musculoskeletal: arm pain, back pain Objective Exam Vital Signs Vital Signs Date Time Temp Pulse Resp B/P (MAP) Pulse Ox O2 Delivery O2 Flow Rate FiO2 08/26/20 07:55 36.4 94 20 145/87 (106) 98 Room Air Capillary Refill : General Appearance: No Apparent Distress, WD/WN, Chronically ill HEENT: PERRL/EOMI, Normal ENT Inspection, Pharynx Normal Neck: Full Range of Motion, Normal Inspection, Non Tender, Supple, Carotid Bruit Respiratory: Chest Non Tender, Lungs Clear, Normal Breath Sounds, No Accessory Muscle Use, No Respiratory Distress Cardiovascular: Regular Rate, Rhythm, No Edema, No Gallop, No JVD, No Murmur, Normal Peripheral Pulses Gastrointestinal: Normal Bowel Sounds, No Organomegaly, No Pulsatile Mass, Non Tender, Soft Back: Decreased Range of Motion, Muscle Spasm, Vertebral Tenderness Extremity: Normal Capillary Refill, Normal Inspection, Normal Range of Motion, Non Tender, No Calf Tenderness, No Pedal Edema Neurologic/Psychiatric: Alert, Oriented x3, No Motor/Sensory Deficits, Normal Mood/Affect, Motor Weakness Skin: Normal Color, Warm/Dry Lymphatic: No Adenopathy Results/Procedures Lab Patient resulted labs reviewed. FIM Transfers Therapy Code Descriptions/Definitions Functional [place] Measure: 0=Not Assessed/NA 4=Minimal Assistance 1=Total Assistance 5=Supervision or Setup 2=Maximal Assistance 6=Modified [place] 3=Moderate Assistance 7=Complete IndependenceSCALE: Activities may be completed with or without assistive devices. 4-Mntccuwyot-gbnrtof completes the activity by him/herself with no assistance from a helper. 5-Set-up or Clean-up Assistance-helper sets up or cleans up; patient completes activity. [place] assists only prior to or following the activity. 4-Supervision or Touching Assistance-helper provides verbal cues and/or touching/steadying and/or contact guard assistance as patient completes activity. Assistance may be provided throughout the activity or intermittently. 3-Partial/Moderate Assistance-helper does LESS THAN HALF the effort. [place] lifts, holds or supports trunk or limbs, but provides less than half the effort. 2-Substantial/Maximal Assistance-helper does MORE THAN HALF the effort. [place] lifts or holds trunk or limbs and provides more than half the effort. 8-Kfgbowuze-owalnz does ALL the effort. Patient does none of the effort to complete the activity. Or, the assistance of 2 or more helpers is required for the patient to complete the activity. If activity was not attempted, code reason: 7-Patient Refused. 9-Not Applicable-not attempted and the patient did not perform the activity before the current illness, exacerbation or injury. 10-Not Attempted due to Environmental Limitations-(lack of equipment, weather restraints, etc.). 88-Not Attempted due to Medical Conditions or Safety Concerns. Roll Left to Right (QC): 6 Sit to Lying (QC): 5 Sit to Stand (QC): 3 Chair/Mgy-ck-Sguut Xfer(QC): 3 Car Transfer (QC): 2 Gait Training Does the Patient Walk?: Yes Distance: 150' Walk 10 feet (QC): 4 Walk 50 ft with 2 Turns(QC): 4 Walk 150 ft (QC): 4 Walking 10ft/uneven surface-QC: 88 Gait Persons Needed: 1 Gait Assistive Device: FWW Wheelchair Training Does the Pt Use a Wheelchair?: Yes Distance: 150'x2 Wheel 50 ft with 2 turns (QC): 6 Wheel 150 ft (QC): 6 Type of Wheelchair: Manual Stair Training 1 Step (curb) (QC): 88 4 Steps (QC): 88 12 Steps (QC): 88 Balance Picking up an Object (QC): 88 ADL-Treatment Eating (QC): 6 Oral Hygiene (QC): 7 Shower/Bathe Self (QC): 5 (set up, pt able to wash/dry all parts seated on SC.) Upper Body Dressing (QC): 3 (Min A with tightening back brace) Lower Body Dressing (QC): 3 (Min A with pant hike, pt able to thread BLEs into pants with increased time using AE) On/Off Footwear (QC): 6 (IND with slip on shoes.) Toileting Hygiene (QC): 3 (Mod A, pt required assistance with hygiene and pant hike. Pt able to manage pants down.) Toilet Transfer (QC): 3 (Min A on/off toilet.) Assessment/Plan Assessment and Plan Assess & Plan/Chief Complaint Assessment: Status post lumbar spine surgery with severe debility and leg weakness Recent DKA Lhd-xc-ijgsgvx diabetes history Hypertension Chronic arthritis pain Plan: Pain control Diabetes management Blood pressure management Inpatient rehab protocol 08/06/2020: Hold laxatives DC indapamide Monitor closely Fall risk 08/07/2020: Increase insulin Aggressive therapy 08/08/20: Increase insulin Baclofen 08/09/20: Monitor sugar Back pain management 08/10/2020: Monitor blood sugar Insulin at discharge will be required 08/11/2020: Monitor pain Supportive care Baclofen 08/12/2020: Pain control Intensive rehab Bowel regimen to intensify 08/13/2020: Supportive care Aggressive therapy Blood pressure management 08/14/20: Improved status Adjust insulin BP ok 08/15/2020: Pain control Insulin modified Fall risk 08/16/2020: Pain control Monitor blood pressure 08/17/2020: Patient doing pretty well today Continue aggressive therapy 08/18/2020: Continue pain control Updated Dr. Elder 08/20/2020: Continue aggressive therapy Improved overall today Decrease insulin intensity 08/21/2020: Decrease Levemir to 4 units twice daily Monitor closely Pain control 08/22/2020: Hold Levemir for hypoglycemia Monitor closely 08/23/2020: Holding insulin Pain meds 08/24/20: Monitor closely Pain control 08/25/2020: Fall risk Pain control Monitor sugar (1) Status post lumbar spine surgery for decompression of spinal cord (2) Diabetes (3) DKA (diabetic ketoacidoses) (4) Hypertension (5) Leg weakness DALY WHITNEY DO Aug 25, 2020 09:05
[2020-08-25] MEDS: NEO/POLY/BAC (NEOSPORIN) OINT 15 GM TUBE TOP SCH (09:24)
--- NOTE | 2020-08-25 09:37 | Occupational Ther Daily Note ---
OT Current Status-Daily Note Subjective Pt in bed, agreeable to OT Tx. States did not sleep well last night due to shoulder pain. Pt rates pain 4-5/10 with activity in shoulders Mental Status/Objective Patient Orientation: Normal For Age ADL-Treatment Therapy Code Descriptions/Definitions Functional [place] Measure: 0=Not Assessed/NA 4=Minimal Assistance 1=Total Assistance 5=Supervision or Setup 2=Maximal Assistance 6=Modified [place] 3=Moderate Assistance 7=Complete IndependenceSCALE: Activities may be completed with or without assistive devices. 2-Nhmpzrdpun-nsbsjlf completes the activity by him/herself with no assistance from a helper. 5-Set-up or Clean-up Assistance-helper sets up or cleans up; patient completes activity. [place] assists only prior to or following the activity. 4-Supervision or Touching Assistance-helper provides verbal cues and/or touching/steadying and/or contact guard assistance as patient completes activity. Assistance may be provided throughout the activity or intermittently. 3-Partial/Moderate Assistance-helper does LESS THAN HALF the effort. [place] lifts, holds or supports trunk or limbs, but provides less than half the effort. 2-Substantial/Maximal Assistance-helper does MORE THAN HALF the effort. [place] lifts or holds trunk or limbs and provides more than half the effort. 4-Mcglplcda-kgmowp does ALL the effort. Patient does none of the effort to complete the activity. Or, the assistance of 2 or more helpers is required for the patient to complete the activity. If activity was not attempted, code reason: 7-Patient Refused. 9-Not Applicable-not attempted and the patient did not perform the activity before the current illness, exacerbation or injury. 10-Not Attempted due to Environmental Limitations-(lack of equipment, weather restraints, etc.). 88-Not Attempted due to Medical Conditions or Safety Concerns. Upper Body Dressing (QC): 5 (set up assist for assembler for puller over hand shirt and back brace) Lower Body Dressing (QC): 3 (Pt required min A with standing, able to thread BLEs and complete pant hike) On/Off Footwear: 5 (set up with slip on shoes) Other Treatment Pt laying in bed, transferred supine to sit EOB. Pt donned clothes, required min A stand from EOB. Pt then performed pant hike and transferred to w/c. Pt propelled w/c to therapy gym. In order to increase BUE Shoulder ROM, decrease pain and increase activity tolerance, pt completed pulleys x10 mins, rest breaks as needed. Pt then removed beads from moderate resistance theraputty in order to increase fine motor strength and coordination. Pt completed nut/bolt task, removing and placing nuts/bolts onto block, taking rest breaks as needed. Pt propelled w/c back to room, requests to use toilet. Pt transferred from w/c to toilet using GBs, min A. Pt completed toileting, then used GBs to stand, mod A sit to stand. He used FWW to perform functional mobility from bathroom to EOB, then transferred supine. Post tx, pt laying in bed, call light in reach and all needs met. Education OT Patient Education: Correct positioning, Energy conservation, Exercise program, Modified ADL techniques, Progress toward Goal/Update tx plan, Purpose of tx/functional activities, Rehab process Teaching Recipient: Patient Teaching Methods: Discussion Response to Teaching: Verbalize Understanding OT Short Term Goals Short Term Goals Time Frame: Aug 20, 2020 Oral hygiene: 5 Shower/bathe self: 3 Lower body dressin Putting on/taking off footwear: 3 OT Half-Way Goals Half-Way Goals Time Frame: Sep 04, 2020 Eating (QC): 6 Oral Hygiene (QC): 6 Toileting Hygiene (QC): 6 Shower/Bathe Self (QC): 6 Upper Body Dressing (QC): 6 Lower Body Dressing (QC): 6 On/Off Footwear (QC): 6 Additional Goals: 1-Demonstrate ADL Tasks, 2-Verbalize Understanding, 3- ImproveStrength/Jayshree 1=Demonstrate adherence to instructed precautions during ADL tasks. 2=Patient will verbalize/demonstrate understanding of assistive devices/modifications for ADL. 3=Patient will improve strength/tolerance for activity to enable patient to perform ADL's. OT Education/Plan Problem List/Assessment Assessment: Decreased Activ Tolerance, Decreased UE Strength, Impaired Funct Balance, Impaired I ADL's, Impaired Self-Care Skills Discharge Recommendations Plan/Recommendations: Continue POC Treatment Plan/Plan of Care Patient would benefit from OT for education, treatment and training to promote independence in ADL's, mobility, safety and/or upper extremity function for ADL's. Plan of Care: ADL Retraining, Functional Mobility, Group Exercise/Act as Ind, UE Funct Exercise/Act Treatment Duration: Sep 04, 2020 Frequency: Modified Program (IRF) (27/08) Estimated Hrs Per Day: 1.5 hours per day Rehab Potential: Fair Time/GCodes Start Time: 09:00 Stop Time: 10:30 Total Time Billed (hr/min): 90 Billed Treatment Time 1, ADL 3 (45'), EX (10'), FA 2 (35') MED PETERSON OT Aug 25, 2020 09:37
--- NOTE | 2020-08-25 12:22 | Physical Therapy Daily Note ---
PT Daily Note-Current Subjective Pt laying in bed upon arrival. Pt agrees to PT and asks to use BR first. Pain Location: Right, Left Location Body Site: Shoulder Pain Description: Ache Mental Status Patient Orientation: Person, Place, Time, Situation Attachments: Other-See Comments (Lumbar Back Brace) Transfers SCALE: Activities may be completed with or without assistive devices. 2-Hjypalsdnh-uyriuts completes the activity by him/herself with no assistance from a helper. 5-Set-up or Clean-up Assistance-helper sets up or cleans up; patient completes activity. [place] assists only prior to or following the activity. 4-Supervision or Touching Assistance-helper provides verbal cues and/or touching/steadying and/or contact guard assistance as patient completes activity. Assistance may be provided throughout the activity or intermittently. 3-Partial/Moderate Assistance-helper does LESS THAN HALF the effort. [place] lifts, holds or supports trunk or limbs, but provides less than half the effort. 2-Substantial/Maximal Assistance-helper does MORE THAN HALF the effort. [place] lifts or holds trunk or limbs and provides more than half the effort. 7-Mplxdtdyl-frajxp does ALL the effort. Patient does none of the effort to complete the activity. Or, the assistance of 2 or more helpers is required for the patient to complete the activity. If activity was not attempted, code reason: 7-Patient Refused. 9-Not Applicable-not attempted and the patient did not perform the activity before the current illness, exacerbation or injury. 10-Not Attempted due to Environmental Limitations-(lack of equipment, weather restraints, etc.). 88-Not Attempted due to Medical Conditions or Safety Concerns. Lying to Sitting/Side of Bed(Q: 4 Sit to Stand (QC): 4 Toilet Transfer (QC): 4 Weight Bearing Full Weight Bearing Full Weight Bearing Gait Training Does the Patient Walk?: Yes Distance: 30' Walk 10 feet (QC): 4 Gait Persons Needed: 1 Gait Assistive Device: FWW Wheelchair Training Does the Pt Use a Wheelchair?: Yes Wheel 50 ft with 2 turns (QC): 5 Wheel 150 ft (QC): 5 Type of Wheelchair: Manual Exercises NuStep Minutes: 15 NuStep Workload: 4 Treatments TF to standing and amb. to BR. After BM, pt reports dizzy so takes RB with MOBILE HOME TECHNICIAN monitoring for signs of valgul. Pt amb. to EOB and rested before amb. for tx. Pt sits on floor in controlled fall, Incident Report written. Pt is assisted to [facility] w/o report of pain. Pt propelled [facility] in hallway and TF to NuStep. NuStep for 15m at WL 4. Pt returns to [facility] to rest and returns to room for lunch. All needs met, call light in hand. Assessment Current Status: Fair Progress Pt reports no pain other than usual shoulder pain pt reports daily. PT Short Term Goals Short Term Goals Time Frame: Aug 13, 2020 Roll Left & Right: 6 Sit to lyin Lying to sitting on side of be: 3 (met) Sit to stand: 3 Chair/isj-ba-tmhtk transfer: 3 Walk 10 feet: 3 PT Care Home Goals Care Home Goals PT Regional Sales Consultant Goals Time Frame: Aug 27, 2020 Roll Left & Right (QC): 6 Sit to Lying (QC): 4 Lying-Sitting on Side/Bed(QC): 4 Sit to Stand (QC): 4 Chair/Fru-hp-Bteel Xfer(QC): 4 Toilet Transfer (QC): 4 Car Transfer (QC): 4 Does the Patient Walk: Yes Walk 10 feet (QC): 4 Walk 50ft with 2 Turns (QC): 4 Walk 150 ft (QC): 88 Walking 10ft on Uneven Surface: 4 1 Step (curb) (QC): 4 4 Steps (QC): 4 12 Steps (QC): 88 Picking up an Object (QC): 88 Wheel 50 feet with 2 turns (QC: 6 Wheel 150 feet: 6 PT Plan Problem List Problem List: Activity Tolerance, Functional Strength, Balance Treatment/Plan Treatment Plan: Continue Plan of Care Treatment Plan: Bed Mobility, Education, Functional Activity Jayshree, Functional Strength, Group Therapy, Gait, Safety, Therapeutic Exercise, Transfers Treatment Duration: Aug 27, 2020 Frequency: At least 5 of 7 days/Wk (IRF) Estimated Hrs Per Day: 1.5 hours per day Patient and/or Family Agrees t: Yes Safety Risks/Education Patient Education: Gait Training, Transfer Techniques, Correct Positioning, Safety Issues Teaching Recipient: Patient Teaching Methods: Discussion Response to Teaching: Verbalize Understanding Time/GCodes Time In: 1100 Time Out: 1200 Total Billed Treatment Time: 60 Total Billed Treatment 1, FA (30m), [facility] (15m) & EX (15m) DMITRY MUELLER MOBILE HOME TECHNICIAN Aug 25, 2020 12:22
[2020-08-25] MEDS: DICLOFENAC 1% GEL 100 GM (VOLTAREN) TUBE TOP PRN ×2 (13:31→21:16)
--- NOTE | 2020-08-25 14:51 | Physical Therapy Daily Note ---
PT Daily Note-Current Subjective Pt R sidelying upon arrival. Pt agrees to PT. Mental Status Patient Orientation: Person, Place, Time, Situation Transfers SCALE: Activities may be completed with or without assistive devices. 0-Keytjippuu-jjaeszs completes the activity by him/herself with no assistance from a helper. 5-Set-up or Clean-up Assistance-helper sets up or cleans up; patient completes activity. [place] assists only prior to or following the activity. 4-Supervision or Touching Assistance-helper provides verbal cues and/or touching/steadying and/or contact guard assistance as patient completes activity. Assistance may be provided throughout the activity or intermittently. 3-Partial/Moderate Assistance-helper does LESS THAN HALF the effort. [place] lifts, holds or supports trunk or limbs, but provides less than half the effort. 2-Substantial/Maximal Assistance-helper does MORE THAN HALF the effort. [place] lifts or holds trunk or limbs and provides more than half the effort. 1-Mepknpaub-bdvdot does ALL the effort. Patient does none of the effort to complete the activity. Or, the assistance of 2 or more helpers is required for the patient to complete the activity. If activity was not attempted, code reason: 7-Patient Refused. 9-Not Applicable-not attempted and the patient did not perform the activity before the current illness, exacerbation or injury. 10-Not Attempted due to Environmental Limitations-(lack of equipment, weather restraints, etc.). 88-Not Attempted due to Medical Conditions or Safety Concerns. Roll Left & Right (QC): 5 Weight Bearing Full Weight Bearing Full Weight Bearing Exercises Supine Ex: Ankle pumps, Quad Set, Glut sets, Heel Slides, Hip abd/add Supine Reps: 15 Seated Therapy Exercises: Long arc quads, Hip flexion, Hip abd/add Seated Reps: 15 Treatments Rolled over in bed to comfort for repositioning. Pt is given and reviews written HEP for Supine & Seated. Pt resting in bed with all needs met, call light in hand. Assessment Current Status: Good Progress Pt still only reporting shoulder discomfort as usual. PT Short Term Goals Short Term Goals Time Frame: Aug 13, 2020 Roll Left & Right: 6 Sit to lyin Lying to sitting on side of be: 3 (met) Sit to stand: 3 Chair/nkn-sj-avaeq transfer: 3 Walk 10 feet: 3 PT Care Home Goals Care Home Goals PT Care Home Goals Time Frame: Aug 27, 2020 Roll Left & Right (QC): 6 Sit to Lying (QC): 4 Lying-Sitting on Side/Bed(QC): 4 Sit to Stand (QC): 4 Chair/Fjp-pb-Gqwwu Xfer(QC): 4 Toilet Transfer (QC): 4 Car Transfer (QC): 4 Does the Patient Walk: Yes Walk 10 feet (QC): 4 Walk 50ft with 2 Turns (QC): 4 Walk 150 ft (QC): 88 Walking 10ft on Uneven Surface: 4 1 Step (curb) (QC): 4 4 Steps (QC): 4 12 Steps (QC): 88 Picking up an Object (QC): 88 Wheel 50 feet with 2 turns (QC: 6 Wheel 150 feet: 6 PT Plan Problem List Problem List: Activity Tolerance, Functional Strength Treatment/Plan Treatment Plan: Continue Plan of Care Treatment Plan: Bed Mobility, Education, Functional Activity Jayshree, Functional Strength, Group Therapy, Gait, Safety, Therapeutic Exercise, Transfers Treatment Duration: Aug 27, 2020 Frequency: At least 5 of 7 days/Wk (IRF) Estimated Hrs Per Day: 1.5 hours per day Patient and/or Family Agrees t: Yes Safety Risks/Education Patient Education: Issued Written HEP, Correct Positioning Teaching Recipient: Patient Teaching Methods: Demonstration, Discussion Response to Teaching: Verbalize Understanding, Return Demonstration Time/GCodes Time In: 1355 Time Out: 1425 Total Billed Treatment Time: 30 Total Billed Treatment 1, EX (15m) & FA (15m) DMITRY MUELLER SLIDE FORMING MACHINE OPERATOR Aug 25, 2020 14:51
[2020-08-25] MEDS: ENOXAPARIN 40 MG/0.4 ML (LOVENOX) SYR SC SCH (15:07)
[2020-08-25 20:00] VITALS: BP 148/89
[2020-08-25] MEDS: MELATONIN 3 MG TABLET PO PRN (21:13)
[2020-08-25] MEDS: SIMvastatin 10 MG (ZOCOR) TAB PO SCH (21:14)
[2020-08-26] MEDS: inSUlin ASPART (NovoLOG) 1 UNIT/0.01 ML (CHARGE PER UNIT) SC SCH ×4 (05:40→20:49)
[2020-08-26] MEDS: metFORMIN XR 500 MG (GLUCOPHAGE XR) TAB PO SCH ×2 (06:03→17:35)
[2020-08-26 07:55] VITALS: BP 145/87
--- NOTE | 2020-08-26 08:23 | PM&R Progress Note ---
Subjective HPI/CC On Admission Date Seen by Provider: Aug 26, 2020 Time Seen by Provider: 12:45 Subjective/Events-last exam 08/26/2020: This visit is via video chat due to Covid related restriction for this provider Patient has minimal complaints No falls Walking better with therapy Insulin rarely required on SSI BM yesterday Pain meds maintained 08/25/2020: This visit is via video chat due to Covid related restriction for this provider Patient doing really well Bowels moved today Voltaren gel helps Blood sugar 192 and 126 Had a controlled fall but did not harm any thing or injure anything Check meds and labs 08/24/2020: This visit is via video chat due to Covid related restriction for this provider Patient is doing well Voltaren gel improves shoulder pain BM ok Rare use of SSI 08/23/2020: This visit is via video chat due to Covid related restriction for this provider Patient doing really well the day No major issues Large bowel movement today Sugars are doing well without insulin Voltaren gel will be put on his arms and shoulders before physical therapy 08/22/2020: This visit is via video chat due to Covid related restriction for this provider Patient having a good day Arms and shoulders from compensating are still painful but Voltaren gel has been helpful Bowels moved yesterday Incision is a bit red Holding Levemir due to low blood sugars but he still has some isolated elevated ones 08/21/2020: This visit is via video chat due to Covid related restriction for this provider Patient having a good day Sugar was 130 this morning so I adjusted Levemir down to 4 units twice daily to prevent hypoglycemia as occurred yesterday Bowels are moving really well No more itching K pad did not really help the shoulder pain 08/20/2020: This visit is via video chat due to Covid related restriction for this provider Patient doing pretty well today Blood sugar is running low and then later it was 46 asymptomatic so stopped the regular insulin and will hold Levemir tonight Bowels moved today Rechecking Monday for progress I have updated him on the conversation I had with Dr. Elder 08/18/2020: Patient doing pretty well Clouded images to Dr. Elder and he will review but recommended time to recover considering the DKA episode set him back quite a bit Pain pill with Voltaren gel has helped Slow progress 08/17/2020: Patient having a good day Bowels moving okay Blood pressure 117/77 Talked about his x-rays that nurse had reported to him but those details will be evaluated by Dr. Elder the expert 08/16/2020: Patient doing pretty well Had some weak legs today Blood pressure elevated at times Monitor closely 08/15/2020: Patient in a pretty good mood Family at the bedside Blood sugar was a bit low at 80 and had symptoms so adjusted his insulin a bit Pain is well controlled on regimen Neuropathy discussed 08/14/20: Patient doing well No major issues Pain is an ongoing issue BP better 08/13/2020: Pt doing pretty well but variation in BP places him at risk for orthostasis I changed Clonidine to BID prn for BP elevation and started Norvasc 2.5 twice daily and will transition to Hydralazine also. 08/12/2020: Pt doing pretty well Bowels havent moved and we have given a lot of Laxatives Sugars are okay Voltaren gel to the back Clonidine BID has helped the BP that has dipped down to low levels in the afternoon Length of stay, presumed to be 08/26/20 08/11/2020: Pt doing pretty well Left axilla pain because of compensation with his arms, will initiate a moist heating pad Bowels are moving okay Clonidine changed to BID instead of TID due to hypotension in the afternoon interfering with therapy X-rays were done and clouded to Dr. Elder 08/10/2020: Pt doing really well Had a large bowel movement yesterday Temperature at 99.4 but no other issues Sugars are better Talked to him about insulin at discharge 08/09/20: Patient doing well BM today Back pain improved Increased movement now Better today 08/08/20: Patient in a good mood Baclofen is working well for him so will maintain this Pain controlled High sugars requiring addition of insulin Wants tacos from home 08/07/2020: Patient doing pretty well Pain is still an issue Baclofen was ordered to help his back spasms No bowels are moving since loose stools for several days Adjusted insulin after reviewing several Accu-Cheks 08/06/2020: Patient doing pretty well Very motivated to walk Loose stool so holding laxatives Right knee really hurts Sodium level 128 so we will discontinue the indapamide Review of Systems General: Fatigue, Malaise Objective Exam Vital Signs Vital Signs Date Time Temp Pulse Resp B/P (MAP) Pulse Ox O2 Delivery O2 Flow Rate FiO2 08/26/20 08:47 Room Air 08/26/20 07:55 36.4 94 20 145/87 (106) 98 Capillary Refill : General Appearance: No Apparent Distress, WD/WN, Chronically ill HEENT: PERRL/EOMI, Normal ENT Inspection, Pharynx Normal Neck: Full Range of Motion, Normal Inspection, Non Tender, Supple, Carotid Bruit Respiratory: Chest Non Tender, Lungs Clear, Normal Breath Sounds, No Accessory Muscle Use, No Respiratory Distress Cardiovascular: Regular Rate, Rhythm, No Edema, No Gallop, No JVD, No Murmur, Normal Peripheral Pulses Gastrointestinal: Normal Bowel Sounds, No Organomegaly, No Pulsatile Mass, Non Tender, Soft Back: Decreased Range of Motion, Muscle Spasm, Vertebral Tenderness Extremity: Normal Capillary Refill, Normal Inspection, Normal Range of Motion, Non Tender, No Calf Tenderness, No Pedal Edema Neurologic/Psychiatric: Alert, Oriented x3, No Motor/Sensory Deficits, Normal Mood/Affect, Motor Weakness Skin: Normal Color, Warm/Dry Lymphatic: No Adenopathy Results/Procedures Lab Patient resulted labs reviewed. FIM Transfers Therapy Code Descriptions/Definitions Functional [place] Measure: 0=Not Assessed/NA 4=Minimal Assistance 1=Total Assistance 5=Supervision or Setup 2=Maximal Assistance 6=Modified [place] 3=Moderate Assistance 7=Complete IndependenceSCALE: Activities may be completed with or without assistive devices. 5-Ozjlvhjanb-vgzxzgj completes the activity by him/herself with no assistance from a helper. 5-Set-up or Clean-up Assistance-helper sets up or cleans up; patient completes activity. [place] assists only prior to or following the activity. 4-Supervision or Touching Assistance-helper provides verbal cues and/or touching/steadying and/or contact guard assistance as patient completes activity. Assistance may be provided throughout the activity or intermittently. 3-Partial/Moderate Assistance-helper does LESS THAN HALF the effort. [place] lifts, holds or supports trunk or limbs, but provides less than half the effort. 2-Substantial/Maximal Assistance-helper does MORE THAN HALF the effort. [place] lifts or holds trunk or limbs and provides more than half the effort. 4-Ewyqmzaqi-zhrbzx does ALL the effort. Patient does none of the effort to complete the activity. Or, the assistance of 2 or more helpers is required for the patient to complete the activity. If activity was not attempted, code reason: 7-Patient Refused. 9-Not Applicable-not attempted and the patient did not perform the activity before the current illness, exacerbation or injury. 10-Not Attempted due to Environmental Limitations-(lack of equipment, weather restraints, etc.). 88-Not Attempted due to Medical Conditions or Safety Concerns. Roll Left to Right (QC): 5 Sit to Lying (QC): 5 Sit to Stand (QC): 4 Chair/Vtm-ya-Frbqd Xfer(QC): 3 Car Transfer (QC): 2 Gait Training Does the Patient Walk?: Yes Distance: 30' Walk 10 feet (QC): 4 Walk 50 ft with 2 Turns(QC): 4 Walk 150 ft (QC): 4 Walking 10ft/uneven surface-QC: 88 Gait Persons Needed: 1 Gait Assistive Device: FWW Wheelchair Training Does the Pt Use a Wheelchair?: Yes Distance: 150'x2 Wheel 50 ft with 2 turns (QC): 5 Wheel 150 ft (QC): 5 Type of Wheelchair: Manual Stair Training 1 Step (curb) (QC): 88 4 Steps (QC): 88 12 Steps (QC): 88 Balance Picking up an Object (QC): 88 ADL-Treatment Eating (QC): 6 Oral Hygiene (QC): 7 Shower/Bathe Self (QC): 5 (set up, pt able to wash/dry all parts seated on SC.) Upper Body Dressing (QC): 5 (set up assist for heat treat puller shirt and back brace) Lower Body Dressing (QC): 3 (Pt required min A with standing, able to thread BLEs and complete pant hike) On/Off Footwear (QC): 5 (set up with slip on shoes) Toileting Hygiene (QC): 3 (Mod A, pt required assistance with hygiene and pant hike. Pt able to manage pants down.) Toilet Transfer (QC): 3 (Min A on/off toilet.) Assessment/Plan Assessment and Plan Assess & Plan/Chief Complaint Assessment: Status post lumbar spine surgery with severe debility and leg weakness Recent DKA Syo-mv-xbbltne diabetes history Hypertension Chronic arthritis pain Plan: Pain control Diabetes management Blood pressure management Inpatient rehab protocol 08/06/2020: Hold laxatives DC indapamide Monitor closely Fall risk 08/07/2020: Increase insulin Aggressive therapy 08/08/20: Increase insulin Baclofen 08/09/20: Monitor sugar Back pain management 08/10/2020: Monitor blood sugar Insulin at discharge will be required 08/11/2020: Monitor pain Supportive care Baclofen 08/12/2020: Pain control Intensive rehab Bowel regimen to intensify 08/13/2020: Supportive care Aggressive therapy Blood pressure management 08/14/20: Improved status Adjust insulin BP ok 08/15/2020: Pain control Insulin modified Fall risk 08/16/2020: Pain control Monitor blood pressure 08/17/2020: Patient doing pretty well today Continue aggressive therapy 08/18/2020: Continue pain control Updated Dr. Elder 08/20/2020: Continue aggressive therapy Improved overall today Decrease insulin intensity 08/21/2020: Decrease Levemir to 4 units twice daily Monitor closely Pain control 08/22/2020: Hold Levemir for hypoglycemia Monitor closely 08/23/2020: Holding insulin Pain meds 08/24/20: Monitor closely Pain control 08/25/2020: Fall risk Pain control Monitor sugar 08/26/20: Monitor pain Fall risk (1) Status post lumbar spine surgery for decompression of spinal cord (2) Diabetes (3) DKA (diabetic ketoacidoses) (4) Hypertension (5) Leg weakness DALY WHITNEY DO Aug 26, 2020 08:23
[2020-08-26] MEDS: ALLOPURINOL 100 MG (ZYLOPRIM) TAB PO SCH (09:08)
[2020-08-26] MEDS: LACTOBACILLUS ACIDOPHILUS (PROBIOTIC) CAPSULE PO SCH (09:08)
[2020-08-26] MEDS: lisINopril 20 MG (PRINIVIL) TABLET PO SCH ×2 (09:09→20:51)
[2020-08-26] MEDS: glipiZIDE 5 MG (GLUCOTROL) TAB PO SCH ×2 (09:09→17:35)
[2020-08-26] MEDS: BACLOFEN 10 MG (LIORESAL) TAB PO SCH ×3 (09:09→20:51)
[2020-08-26] MEDS: meTOprolol TARTRATE 25 MG (LOPRESSOR) TABLET PO SCH ×2 (09:09→20:50)
[2020-08-26] MEDS: amLODIPine 2.5MG (NORVASC) TAB PO SCH ×2 (09:09→20:51)
[2020-08-26] MEDS: DOCUSATE SODIUM 100 MG (COLACE) CAP PO SCH ×2 (09:13→20:49)
[2020-08-26] MEDS: DICLOFENAC 1% GEL 100 GM (VOLTAREN) TUBE TOP PRN ×3 (09:13→20:49)
[2020-08-26] MEDS: polyethylene glycoL POWDER 17 GM (MIRALAX) PACK PO SCH ×2 (09:13→21:23)
[2020-08-26] MEDS: SENNA W/DOCUSATE (SENOKOT S) TABLET PO SCH ×2 (09:14→20:50)
[2020-08-26] MEDS: NEO/POLY/BAC (NEOSPORIN) OINT 15 GM TUBE TOP SCH (09:15)
--- NOTE | 2020-08-26 10:09 | Occupational Ther Daily Note ---
OT Current Status-Daily Note Subjective Pt laying in bed, agreeable to OT tx. Mental Status/Objective Patient Orientation: Normal For Age ADL-Treatment Therapy Code Descriptions/Definitions Functional [place] Measure: 0=Not Assessed/NA 4=Minimal Assistance 1=Total Assistance 5=Supervision or Setup 2=Maximal Assistance 6=Modified [place] 3=Moderate Assistance 7=Complete IndependenceSCALE: Activities may be completed with or without assistive devices. 8-Utorwehmsr-qwffdga completes the activity by him/herself with no assistance from a helper. 5-Set-up or Clean-up Assistance-helper sets up or cleans up; patient completes activity. [place] assists only prior to or following the activity. 4-Supervision or Touching Assistance-helper provides verbal cues and/or touching/steadying and/or contact guard assistance as patient completes activity. Assistance may be provided throughout the activity or intermittently. 3-Partial/Moderate Assistance-helper does LESS THAN HALF the effort. [place] lifts, holds or supports trunk or limbs, but provides less than half the effort. 2-Substantial/Maximal Assistance-helper does MORE THAN HALF the effort. [place] lifts or holds trunk or limbs and provides more than half the effort. 2-Tnppwyxzn-jryqbx does ALL the effort. Patient does none of the effort to complete the activity. Or, the assistance of 2 or more helpers is required for the patient to complete the activity. If activity was not attempted, code reason: 7-Patient Refused. 9-Not Applicable-not attempted and the patient did not perform the activity before the current illness, exacerbation or injury. 10-Not Attempted due to Environmental Limitations-(lack of equipment, weather restraints, etc.). 88-Not Attempted due to Medical Conditions or Safety Concerns. Eating (QC): 6 (IND) Oral Hygiene (QC): 7 Shower/Bathe Self (QC): 5 (set up seated on SC) Upper Body Dressing (QC): 5 (set up) Lower Body Dressing (QC): 3 (Min A sit to stand, pt able to complete pant hike and thread BLEs.) On/Off Footwear: 6 (IND with slip on shoes.) Toileting Hygiene (QC): 3 (Min A overall) Toilet Transfer (QC): 3 (Min A stand from toilet, CGA sit) Other Treatment Pt laying in bed, transferred supine to sit EOB, then used FWW to perform functional mobility into bathroom. Pt completed toileting, then transferred to WA. He completed shower, donned UE clothing and back brace, then transferred to /. Pt requests toilet, transferred from / to toilet using GBs, then transferred back to / for LE dressing. Post tx, pt seated upright in w/c in room, call light in reach and all needs met. Education OT Patient Education: Correct positioning, Modified ADL techniques, Progress toward Goal/Update tx plan, Purpose of tx/functional activities, Rehab process Teaching Recipient: Patient Teaching Methods: Discussion Response to Teaching: Verbalize Understanding OT Short Term Goals Short Term Goals Time Frame: Aug 20, 2020 Oral hygiene: 5 Shower/bathe self: 3 Lower body dressin Putting on/taking off footwear: 3 OT Care Home Goals Cable Rigger Goals Time Frame: Sep 04, 2020 Eating (QC): 6 Oral Hygiene (QC): 6 Toileting Hygiene (QC): 6 Shower/Bathe Self (QC): 6 Upper Body Dressing (QC): 6 Lower Body Dressing (QC): 6 On/Off Footwear (QC): 6 Additional Goals: 1-Demonstrate ADL Tasks, 2-Verbalize Understanding, 3- ImproveStrength/Jayshree 1=Demonstrate adherence to instructed precautions during ADL tasks. 2=Patient will verbalize/demonstrate understanding of assistive devices/modifications for ADL. 3=Patient will improve strength/tolerance for activity to enable patient to perform ADL's. OT Education/Plan Problem List/Assessment Assessment: Decreased Activ Tolerance, Decreased UE Strength, Impaired Funct Ba mendel, Impaired I ADL's, Impaired Self-Care Skills, Restricted Funct UE ROM Discharge Recommendations Plan/Recommendations: Continue POC Treatment Plan/Plan of Care Patient would benefit from OT for education, treatment and training to promote independence in ADL's, mobility, safety and/or upper extremity function for ADL's. Plan of Care: ADL Retraining, Functional Mobility, Group Exercise/Act as Ind, UE Funct Exercise/Act Treatment Duration: Sep 04, 2020 Frequency: Modified Program (IRF) (27/08) Estimated Hrs Per Day: 1.5 hours per day Rehab Potential: Fair Time/GCodes Start Time: 09:00 Stop Time: 10:00 Total Time Billed (hr/min): 60 Billed Treatment Time 1, ADL 4 MED PETERSON OT Aug 26, 2020 10:09
[2020-08-26] MEDS: TRIAMCINOLONE 0.1% OINT (KENALOG) 15 GM TUBE TOP SCH ×2 (10:13→21:23)
[2020-08-26] MEDS: CYCLOBENZAPRINE 10 MG (FLEXERIL) TAB PO PRN (10:13)
--- NOTE | 2020-08-26 11:11 | Physical Therapy Daily Note ---
PT Daily Note-Current Subjective Pt sitting up in [facility] upon arrival. Pt asks if breakfast can be reheated while EX are completed so Pt can eat. Pain Numeric Pain Scale: 5-Moderate Pain Location: Right, Left Location Body Site: Shoulder Pain Description: Ache Mental Status Patient Orientation: Person, Place, Time, Situation Attachments: Other-See Comments (Lumbar Back Brace) Transfers SCALE: Activities may be completed with or without assistive devices. 8-Qvsxmlkhep-cxqdwht completes the activity by him/herself with no assistance from a helper. 5-Set-up or Clean-up Assistance-helper sets up or cleans up; patient completes activity. [place] assists only prior to or following the activity. 4-Supervision or Touching Assistance-helper provides verbal cues and/or touchi ng/steadying and/or contact guard assistance as patient completes activity. Assistance may be provided throughout the activity or intermittently. 3-Partial/Moderate Assistance-helper does LESS THAN HALF the effort. [place] lifts, holds or supports trunk or limbs, but provides less than half the effort. 2-Substantial/Maximal Assistance-helper does MORE THAN HALF the effort. [place] lifts or holds trunk or limbs and provides more than half the effort. 5-Slosfysxa-snondu does ALL the effort. Patient does none of the effort to complete the activity. Or, the assistance of 2 or more helpers is required for the patient to complete the activity. If activity was not attempted, code reason: 7-Patient Refused. 9-Not Applicable-not attempted and the patient did not perform the activity before the current illness, exacerbation or injury. 10-Not Attempted due to Environmental Limitations-(lack of equipment, weather restraints, etc.). 88-Not Attempted due to Medical Conditions or Safety Concerns. Sit to Lying (QC): 5 Sit to Stand (QC): 4 Chair/Epr-bp-Hvmgh Xfer(QC): 4 Weight Bearing Full Weight Bearing Full Weight Bearing Gait Training Does the Patient Walk?: Yes Distance: 150' x2 Walk 10 feet (QC): 4 Walk 50 ft with 2 Turns(QC): 4 Walk 150 ft (QC): 4 Gait Persons Needed: 1 Gait Assistive Device: FWW Wheelchair Training Does the Pt Use a Wheelchair?: Yes Wheel 50 ft with 2 turns (QC): 6 Wheel 150 ft (QC): 6 Type of Wheelchair: Manual Exercises Seated Therapy Exercises: Ankle pumps, Long arc quads, Hip flexion, Hip abd/add, Glut set Seated Reps: 15 NuStep Minutes: 13 NuStep Workload: 4 Treatments Breakfast reheated and pt completes Seated Ex in [facility]. TF to standing and amb. i n hallway. Pt uses NuStep then takes short RB before amb. in hallway. TF to bed to rest and visit with Granddaughter at end of tx. All needs met, call light in hand. Assessment Current Status: Good Progress Pt fatigues and needs occasional RB. PT Short Term Goals Short Term Goals Time Frame: Aug 13, 2020 Roll Left & Right: 6 Sit to lyin Lying to sitting on side of be: 3 (met) Sit to stand: 3 Chair/xuu-fs-vqnpr transfer: 3 Walk 10 feet: 3 PT Alf Goals Project Management Director Goals PT Alf Goals Time Frame: Aug 27, 2020 Roll Left & Right (QC): 6 Sit to Lying (QC): 4 Lying-Sitting on Side/Bed(QC): 4 Sit to Stand (QC): 4 Chair/Xlo-dv-Tccrg Xfer(QC): 4 Toilet Transfer (QC): 4 Car Transfer (QC): 4 Does the Patient Walk: Yes Walk 10 feet (QC): 4 Walk 50ft with 2 Turns (QC): 4 Walk 150 ft (QC): 88 Walking 10ft on Uneven Surface: 4 1 Step (curb) (QC): 4 4 Steps (QC): 4 12 Steps (QC): 88 Picking up an Object (QC): 88 Wheel 50 feet with 2 turns (QC: 6 Wheel 150 feet: 6 PT Plan Problem List Problem List: Activity Tolerance Treatment/Plan Treatment Plan: Continue Plan of Care Treatment Plan: Bed Mobility, Education, Functional Activity Jayshree, Functional Strength, Group Therapy, Gait, Safety, Therapeutic Exercise, Transfers Treatment Duration: Aug 27, 2020 Frequency: At least 5 of 7 days/Wk (IRF) Estimated Hrs Per Day: 1.5 hours per day Patient and/or Family Agrees t: Yes Safety Risks/Education Patient Education: Transfer Techniques, Correct Positioning Teaching Recipient: Patient Teaching Methods: Discussion Response to Teaching: Verbalize Understanding Time/GCodes Time In: 1000 Time Out: 1100 Total Billed Treatment Time: 60 Total Billed Treatment 1, FA (15m), GT x2 (25m) & EX (20m) DMITRY MUELLER ROSS LIFT OPERATOR Aug 26, 2020 11:11
[2020-08-26] MEDS: ENOXAPARIN 40 MG/0.4 ML (LOVENOX) SYR SC SCH (14:19)
--- NOTE | 2020-08-26 14:26 | Therapy Group Daily Note ---
Therapy Daily Group Note Patient Education Topic Other List Below (memory) Exercises LE Seated Exercise, UE Exercise Session Ratio (pt:therapist): 4:1 Goal of Session: Memory Strategies, UE/LE Strengthing Goal Met for this Session: Yes Pt Benefit of Group: Contributions to Others, F/U Use of Strategies @Home, Increased Functional Safety, Increased Functional Strength, Improved Cognition, Recognition of Peers, Socialization Other/Notes Pt was transported via w/c to [facility] for OT/PT group. Group consisted of introductions (name, fun activity as child), socialization, B UE/LE exercises, memory strategies and memory tasks. Pt able to introduce self appropriately and actively listened to peers. Pt able to complete B UE/LE exercises with minimal modifications due to pain and weakness. Pt acknowledged understanding of memory strategies and verbalized own strategies for memory. Pt able to match 4 of 12 during memory activity. After group, pt lying in bed with call light/phone in reach. All needs met in room. Start Time: 13:00 Stop Time: 14:00 Total Billed Treatment Time: 60 Total Billed Treatment 1-MODESTA NOGUERA Aug 26, 2020 14:26
--- NOTE | 2020-08-26 17:24 | Podiatry Progress Note ---
Standard Progress Note Progress Notes/Assess & Plan Date Seen by a Provider: Aug 26, 2020 Time Seen by a Provider: 17:23 Progress/Assessment & Plan Consultation dictated. Foot care given. Follow up in office upon discharge as needed. Final Diagnosis Diabetic Neuropathy Onychomycosis AFSHIN WEBER DPM Aug 26, 2020 17:24
--- NOTE | 2020-08-26 19:49 | CONSULTATION REPORT ---
DATE OF SERVICE: 08/26/2020 REASON FOR CONSULTATION: Foot care. HISTORY OF PRESENT ILLNESS: This 65-year-old had a lumbar spine surgery in July and had an inpatient rehabilitation due to complications with diabetic ketoacidosis. The patient has difficulty reaching for and caring for his feet and would like to have some care and help with his toenails, particularly he is complaining about a painful long toenails. PAST MEDICAL HISTORY: The patient has a past medical history of ketoacidosis, hypertension, sinus tachycardia, weakness, history of lumbar fusion. ALLERGIES: HE IS ALLERGIC TO CODEINE AND TAMSULOSIN. SOCIAL HISTORY: The patient is a former smoker. Occasional alcohol use. He is currently employed with [email or web address] for extermination. PHYSICAL EXAMINATION: LOWER EXTREMITY: The patient has 1/4 dorsalis pedis pulse, 2/4 posterior tibial pulse bilaterally. Cap refill time is less than 3 seconds. Mild edema is noted bilateral ankle. NEUROLOGIC: The patient has diminished protective sensation with 10 gram monofilament wire examination bilaterally. Also diminished vibratory sensation to the forefoot bilaterally. DERMATOLOGIC: The patient has thick yellow dystrophic toenail with subungual debris R1 to 5, L1 to 5 digits. No open lesions are identified. No pressure wounds are noted to the heel bilaterally. MUSCULOSKELETAL FINDINGS: He has 4/5 muscle strength to the four major quadrants of the foot bilaterally. Some slight adductor varus contracture of the fifth toes noted bilaterally. ASSESSMENT: Diabetic neuropathy, onychomycosis. PLAN: Various options were discussed with the patient today. We discussed diabetic foot care in general. I highly recommend he follow up with a press technician in the future just for overall foot care and protection with a diabetic shoe gear. Her toenails were debrided today manually mechanically. Betadine applied including R1 to 5, L1 to 5 digits. We will see the patient back in the office upon discharge. Job ID: [id number] DocumentID: [id number] Dictated Date: 08/26/2020 17:22:28 [employer] Date: 08/26/2020 19:48:26 Dictated By: AFSHIN WEBER DPM
[2020-08-26 20:00] VITALS: BP 176/92
[2020-08-26] MEDS: SIMvastatin 10 MG (ZOCOR) TAB PO SCH (20:50)
[2020-08-26] MEDS: MELATONIN 3 MG TABLET PO PRN (20:51)
[2020-08-27] MEDS: CYCLOBENZAPRINE 10 MG (FLEXERIL) TAB PO PRN ×2 (02:06→12:08)
[2020-08-27] MEDS: inSUlin ASPART (NovoLOG) 1 UNIT/0.01 ML (CHARGE PER UNIT) SC SCH ×4 (06:06→21:42)
[2020-08-27] MEDS: metFORMIN XR 500 MG (GLUCOPHAGE XR) TAB PO SCH ×2 (06:36→17:47)
[2020-08-27 07:55] VITALS: BP 180/99
--- NOTE | 2020-08-27 08:36 | PM&R Progress Note ---
Subjective HPI/CC On Admission Date Seen by Provider: Aug 27, 2020 Time Seen by Provider: 12:45 Subjective/Events-last exam 08/27/2020: This visit is via video chat due to Covid related restriction for this provider Patient doing pretty well Voltaren gel helps his shoulder pain Bowels are moving Toenail care provided by Dr. Llanos Check meds and labs 08/26/2020: This visit is via video chat due to Covid related restriction for this provider Patient has minimal complaints No falls Walking better with therapy Insulin rarely required on SSI BM yesterday Pain meds maintained 08/25/2020: This visit is via video chat due to Covid related restriction for this provider Patient doing really well Bowels moved today Voltaren gel helps Blood sugar 192 and 126 Had a controlled fall but did not harm any thing or injure anything Check meds and labs 08/24/2020: This visit is via video chat due to Covid related restriction for this provider Patient is doing well Voltaren gel improves shoulder pain BM ok Rare use of SSI 08/23/2020: This visit is via video chat due to Covid related restriction for this provider Patient doing really well the day No major issues Large bowel movement today Sugars are doing well without insulin Voltaren gel will be put on his arms and shoulders before physical therapy 08/22/2020: This visit is via video chat due to Covid related restriction for this provider Patient having a good day Arms and shoulders from compensating are still painful but Voltaren gel has been helpful Bowels moved yesterday Incision is a bit red Holding Levemir due to low blood sugars but he still has some isolated elevated ones 08/21/2020: This visit is via video chat due to Covid related restriction for this provider Patient having a good day Sugar was 130 this morning so I adjusted Levemir down to 4 units twice daily to prevent hypoglycemia as occurred yesterday Bowels are moving really well No more itching K pad did not really help the shoulder pain 08/20/2020: This visit is via video chat due to Covid related restriction for this provider Patient doing pretty well today Blood sugar is running low and then later it was 46 asymptomatic so stopped the regular insulin and will hold Levemir tonight Bowels moved today Rechecking Monday for progress I have updated him on the conversation I had with Dr. Elder 08/18/2020: Patient doing pretty well Clouded images to Dr. Elder and he will review but recommended time to recover considering the DKA episode set him back quite a bit Pain pill with Voltaren gel has helped Slow progress 08/17/2020: Patient having a good day Bowels moving okay Blood pressure 117/77 Talked about his x-rays that nurse had reported to him but those details will be evaluated by Dr. Elder the expert 08/16/2020: Patient doing pretty well Had some weak legs today Blood pressure elevated at times Monitor closely 08/15/2020: Patient in a pretty good mood Family at the bedside Blood sugar was a bit low at 80 and had symptoms so adjusted his insulin a bit Pain is well controlled on regimen Neuropathy discussed 08/14/20: Patient doing well No major issues Pain is an ongoing issue BP better 08/13/2020: Pt doing pretty well but variation in BP places him at risk for orthostasis I changed Clonidine to BID prn for BP elevation and started Norvasc 2.5 twice daily and will transition to Hydralazine also. 08/12/2020: Pt doing pretty well Bowels havent moved and we have given a lot of Laxatives Sugars are okay Voltaren gel to the back Clonidine BID has helped the BP that has dipped down to low levels in the afternoon Length of stay, presumed to be 08/26/20 08/11/2020: Pt doing pretty well Left axilla pain because of compensation with his arms, will initiate a moist heating pad Bowels are moving okay Clonidine changed to BID instead of TID due to hypotension in the afternoon interfering with therapy X-rays were done and clouded to Dr. Elder 08/10/2020: Pt doing really well Had a large bowel movement yesterday Temperature at 99.4 but no other issues Sugars are better Talked to him about insulin at discharge 08/09/20: Patient doing well BM today Back pain improved Increased movement now Better today 08/08/20: Patient in a good mood Baclofen is working well for him so will maintain this Pain controlled High sugars requiring addition of insulin Wants tacos from home 08/07/2020: Patient doing pretty well Pain is still an issue Baclofen was ordered to help his back spasms No bowels are moving since loose stools for several days Adjusted insulin after reviewing several Accu-Cheks 08/06/2020: Patient doing pretty well Very motivated to walk Loose stool so holding laxatives Right knee really hurts Sodium level 128 so we will discontinue the indapamide Review of Systems Musculoskeletal: arm pain, back pain Objective Exam Vital Signs Vital Signs Date Time Temp Pulse Resp B/P (MAP) Pulse Ox O2 Delivery O2 Flow Rate FiO2 08/27/20 21:28 98 Room Air 08/27/20 20:05 36.8 93 18 104/63 (77) Capillary Refill : General Appearance: No Apparent Distress, WD/WN, Chronically ill HEENT: PERRL/EOMI, Normal ENT Inspection, Pharynx Normal Neck: Full Range of Motion, Normal Inspection, Non Tender, Supple, Carotid Bruit Respiratory: Chest Non Tender, Lungs Clear, Normal Breath Sounds, No Accessory Muscle Use, No Respiratory Distress Cardiovascular: Regular Rate, Rhythm, No Edema, No Gallop, No JVD, No Murmur, Normal Peripheral Pulses Gastrointestinal: Normal Bowel Sounds, No Organomegaly, No Pulsatile Mass, Non Tender, Soft Back: Decreased Range of Motion, Muscle Spasm, Vertebral Tenderness Extremity: Normal Capillary Refill, Normal Inspection, Normal Range of Motion, Non Tender, No Calf Tenderness, No Pedal Edema Neurologic/Psychiatric: Alert, Oriented x3, No Motor/Sensory Deficits, Normal Mood/Affect, Motor Weakness Skin: Normal Color, Warm/Dry Lymphatic: No Adenopathy Results/Procedures Lab Patient resulted labs reviewed. FIM Transfers Therapy Code Descriptions/Definitions Functional [place] Measure: 0=Not Assessed/NA 4=Minimal Assistance 1=Total Assistance 5=Supervision or Setup 2=Maximal Assistance 6=Modified [place] 3=Moderate Assistance 7=Complete IndependenceSCALE: Activities may be completed with or without assistive devices. 9-Frycikglmh-eyixutq completes the activity by him/herself with no assistance from a helper. 5-Set-up or Clean-up Assistance-helper sets up or cleans up; patient completes activity. [place] assists only prior to or following the activity. 4-Supervision or Touching Assistance-helper provides verbal cues and/or touching/steadying and/or contact guard assistance as patient completes activity. Assistance may be provided throughout the activity or intermittently. 3-Partial/Moderate Assistance-helper does LESS THAN HALF the effort. [place] lifts, holds or supports trunk or limbs, but provides less than half the effort. 2-Substantial/Maximal Assistance-helper does MORE THAN HALF the effort. [place] lifts or holds trunk or limbs and provides more than half the effort. 4-Hroqjqbiz-jsvusp does ALL the effort. Patient does none of the effort to complete the activity. Or, the assistance of 2 or more helpers is required for the patient to complete the activity. If activity was not attempted, code reason: 7-Patient Refused. 9-Not Applicable-not attempted and the patient did not perform the activity before the current illness, exacerbation or injury. 10-Not Attempted due to Environmental Limitations-(lack of equipment, weather restraints, etc.). 88-Not Attempted due to Medical Conditions or Safety Concerns. Roll Left to Right (QC): 5 Sit to Lying (QC): 5 Sit to Stand (QC): 4 Chair/Uhd-cf-Ajdrj Xfer(QC): 4 Car Transfer (QC): 2 Gait Training Does the Patient Walk?: Yes Distance: 150' x2 Walk 10 feet (QC): 4 Walk 50 ft with 2 Turns(QC): 4 Walk 150 ft (QC): 4 Walking 10ft/uneven surface-QC: 88 Gait Persons Needed: 1 Gait Assistive Device: FWW Wheelchair Training Does the Pt Use a Wheelchair?: Yes Distance: 150'x2 Wheel 50 ft with 2 turns (QC): 6 Wheel 150 ft (QC): 6 Type of Wheelchair: Manual Stair Training 1 Step (curb) (QC): 88 4 Steps (QC): 88 12 Steps (QC): 88 Balance Picking up an Object (QC): 88 ADL-Treatment Eating (QC): 6 (IND) Oral Hygiene (QC): 7 Shower/Bathe Self (QC): 5 (set up seated on SC) Upper Body Dressing (QC): 5 (set up) Lower Body Dressing (QC): 3 (Min A sit to stand, pt able to complete pant hike and thread BLEs.) On/Off Footwear (QC): 6 (IND with slip on shoes.) Toileting Hygiene (QC): 3 (Min A overall) Toilet Transfer (QC): 3 (Min A stand from toilet, CGA sit) Assessment/Plan Assessment and Plan Assess & Plan/Chief Complaint Assessment: Status post lumbar spine surgery with severe debility and leg weakness Recent DKA Whn-wy-cssmzot diabetes history Hypertension Chronic arthritis pain Plan: Pain control Diabetes management Blood pressure management Inpatient rehab protocol 08/06/2020: Hold laxatives DC indapamide Monitor closely Fall risk 08/07/2020: Increase insulin Aggressive therapy 08/08/20: Increase insulin Baclofen 08/09/20: Monitor sugar Back pain management 08/10/2020: Monitor blood sugar Insulin at discharge will be required 08/11/2020: Monitor pain Supportive care Baclofen 08/12/2020: Pain control Intensive rehab Bowel regimen to intensify 08/13/2020: Supportive care Aggressive therapy Blood pressure management 08/14/20: Improved status Adjust insulin BP ok 08/15/2020: Pain control Insulin modified Fall risk 08/16/2020: Pain control Monitor blood pressure 08/17/2020: Patient doing pretty well today Continue aggressive therapy 08/18/2020: Continue pain control Updated Dr. Elder 08/20/2020: Continue aggressive therapy Improved overall today Decrease insulin intensity 08/21/2020: Decrease Levemir to 4 units twice daily Monitor closely Pain control 08/22/2020: Hold Levemir for hypoglycemia Monitor closely 08/23/2020: Holding insulin Pain meds 08/24/20: Monitor closely Pain control 08/25/2020: Fall risk Pain control Monitor sugar 08/26/20: Monitor pain Fall risk 08/27/2020: Maintain aggressive therapy Voltaren gel as needed (1) Status post lumbar spine surgery for decompression of spinal cord (2) Diabetes (3) DKA (diabetic ketoacidoses) (4) Hypertension (5) Leg weakness DALY WHITNEY DO Aug 27, 2020 08:36
[2020-08-27 08:44] VITALS: BP 143/78
[2020-08-27] MEDS: LACTOBACILLUS ACIDOPHILUS (PROBIOTIC) CAPSULE PO SCH (08:48)
[2020-08-27] MEDS: meTOprolol TARTRATE 25 MG (LOPRESSOR) TABLET PO SCH ×2 (08:48→21:25)
[2020-08-27] MEDS: DOCUSATE SODIUM 100 MG (COLACE) CAP PO SCH ×2 (08:48→21:24)
[2020-08-27] MEDS: ALLOPURINOL 100 MG (ZYLOPRIM) TAB PO SCH (08:48)
[2020-08-27] MEDS: glipiZIDE 5 MG (GLUCOTROL) TAB PO SCH ×2 (08:49→17:47)
[2020-08-27] MEDS: BACLOFEN 10 MG (LIORESAL) TAB PO SCH ×3 (08:49→21:25)
[2020-08-27] MEDS: lisINopril 20 MG (PRINIVIL) TABLET PO SCH ×2 (08:49→21:24)
[2020-08-27] MEDS: amLODIPine 2.5MG (NORVASC) TAB PO SCH ×2 (08:50→21:24)
[2020-08-27] MEDS: polyethylene glycoL POWDER 17 GM (MIRALAX) PACK PO SCH ×3 (08:50→21:44)
[2020-08-27] MEDS: TRIAMCINOLONE 0.1% OINT (KENALOG) 15 GM TUBE TOP SCH ×2 (08:50→21:44)
[2020-08-27] MEDS: NEO/POLY/BAC (NEOSPORIN) OINT 15 GM TUBE TOP SCH (08:51)
[2020-08-27] MEDS: SENNA W/DOCUSATE (SENOKOT S) TABLET PO SCH ×2 (09:10→21:44)
--- NOTE | 2020-08-27 09:53 | Occupational Ther Daily Note ---
OT Current Status-Daily Note Subjective Pt reports frustration with not being able to discharge yet. 5/10 pain in shoulders/UEs. Slight dizziness at start of tx, BP 121/84 Mental Status/Objective Patient Orientation: Normal For Age Attachments: Other-See Comments (Back brace OOB) ADL-Treatment Therapy Code Descriptions/Definitions Functional [place] Measure: 0=Not Assessed/NA 4=Minimal Assistance 1=Total Assistance 5=Supervision or Setup 2=Maximal Assistance 6=Modified [place] 3=Moderate Assistance 7=Complete IndependenceSCALE: Activities may be completed with or without assistive devices. 2-Vycwohqcbd-xthqpjf completes the activity by him/herself with no assistance from a helper. 5-Set-up or Clean-up Assistance-helper sets up or cleans up; patient completes activity. [place] assists only prior to or following the activity. 4-Supervision or Touching Assistance-helper provides verbal cues and/or touching/steadying and/or contact guard assistance as patient completes activity. Assistance may be provided throughout the activity or intermittently. 3-Partial/Moderate Assistance-helper does LESS THAN HALF the effort. [place] lifts, holds or supports trunk or limbs, but provides less than half the effort. 2-Substantial/Maximal Assistance-helper does MORE THAN HALF the effort. [place] lifts or holds trunk or limbs and provides more than half the effort. 1-Gpzqkqush-iqnjpy does ALL the effort. Patient does none of the effort to complete the activity. Or, the assistance of 2 or more helpers is required for the patient to complete the activity. If activity was not attempted, code reason: 7-Patient Refused. 9-Not Applicable-not attempted and the patient did not perform the activity before the current illness, exacerbation or injury. 10-Not Attempted due to Environmental Limitations-(lack of equipment, weather restraints, etc.). 88-Not Attempted due to Medical Conditions or Safety Concerns. Oral Hygiene (QC): 7 Shower/Bathe Self (QC): 7 Upper Body Dressing (QC): 5 (set up with sheeting puller shirt and back brace) Lower Body Dressing (QC): 3 (Min A with pant hike in back, pt able to thread pants) On/Off Footwear: 6 (IND slip on shoes.) Toileting Hygiene (QC): 3 (Min A in stand, pt able to perform hygiene leaning side to side and able to manage clothing) Toilet Transfer (QC): 3 (Min A to toilet, Mod A stand ) Other Treatment [id number] OT tx. Pt laying in bed, states he is cold. Requests to use bathroom. Transferred supine to sit EOB, SBA. Pt stood from elevated bed with CGA, then used FWW into bathroom. Pt sat on toilet and completed toileting, then transferred to w/c. Pt states dizzy, BP 121/84. Pt got dressed, then performed w/c mobility to therapy gym. Pt completed pulleys x5 mins in order to increase ROM, strength, activity tolerance, and decrease pain in shoulders. Pt took 1 rest break, then stopped at 5 mins stating he couldn't tolerate any longer, increased pain. Pt took seated rest break, then completed nut/bolt task in order to increase fine motor strength and coordination. Pt placed x50 pegs into foam pegboard in order to increase fine motor strength and coordination, pt took rest breaks as needed [id number] OT/PT cotreat due to skill of 2 clinicians required which a clinical rehabilitation liaison could not perform in order to focus on higher level balance tasks, decrease fall risk, and coordinate UE/LE. OT focused on UEs, reaching, and sequencing/safety, PT focused on standing balance, transfers, and overall gross movement. Pt stood at FWW, hitting balloon in all planes, BUEs. Pt lost balance x1, able to self correct with CGA. Pt completed task x2 trials, seated rest break between. Post tx, pt seated in gym, PT present to continue tx. Education OT Patient Education: Correct positioning, Energy conservation, Exercise program, Modified ADL techniques, Progress toward Goal/Update tx plan, Purpose of tx/functional activities, Rehab process Teaching Recipient: Patient Teaching Methods: Discussion Response to Teaching: Verbalize Understanding OT Short Term Goals Short Term Goals Time Frame: Aug 20, 2020 Oral hygiene: 5 Shower/bathe self: 3 Lower body dressin Putting on/taking off footwear: 3 OT Binder Chainstitch Goals Binder Chainstitch Goals Time Frame: Sep 04, 2020 Eating (QC): 6 Oral Hygiene (QC): 6 Toileting Hygiene (QC): 6 Shower/Bathe Self (QC): 6 Upper Body Dressing (QC): 6 Lower Body Dressing (QC): 6 On/Off Footwear (QC): 6 Additional Goals: 1-Demonstrate ADL Tasks, 2-Verbalize Understanding, 3- ImproveStrength/Jayshree 1=Demonstrate adherence to instructed precautions during ADL tasks. 2=Patient will verbalize/demonstrate understanding of assistive devices/modifications for ADL. 3=Patient will improve strength/tolerance for activity to enable patient to perform ADL's. OT Education/Plan Problem List/Assessment Assessment: Decreased Activ Tolerance, Decreased UE Strength, Impaired Funct Balance, Impaired I ADL's, Impaired Self-Care Skills, Restricted Funct UE ROM Discharge Recommendations Plan/Recommendations: Continue POC Treatment Plan/Plan of Care Patient would benefit from OT for education, treatment and training to promote independence in ADL's, mobility, safety and/or upper extremity function for ADL's. Plan of Care: ADL Retraining, Functional Mobility, Group Exercise/Act as Ind, UE Funct Exercise/Act Treatment Duration: Sep 04, 2020 Frequency: Modified Program (IRF) (27/08) Estimated Hrs Per Day: 1.5 hours per day Rehab Potential: Fair Time/GCodes Start Time: 09:15 Stop Time: 10:45 Total Time Billed (hr/min): 90 Billed Treatment Time [id number] OT tx (75'), [id number] OT/PT cotreat (15') 1, ADL 2 (30'), FA 4 (60') MED PETERSON OT Aug 27, 2020 09:53
--- NOTE | 2020-08-27 12:05 | Physical Therapy Daily Note ---
PT Daily Note-Current Subjective Pt sitting in Therapy Gym working with OT upon arrival. Pt agrees to short PT/OT co-treat then PT tx. Pain Numeric Pain Scale: 4 Location Body Site: Back Pain Description: Ache Mental Status Patient Orientation: Person, Place, Time, Situation Attachments: Other-See Comments (Lumbar Back Brace) Transfers SCALE: Activities may be completed with or without assistive devices. 2-Otqumxfoqt-scopxnh completes the activity by him/herself with no assistance from a helper. 5-Set-up or Clean-up Assistance-helper sets up or cleans up; patient completes activity. [place] assists only prior to or following the activity. 4-Supervision or Touching Assistance-helper provides verbal cues and/or touching/steadying and/or contact guard assistance as patient completes activi ty. Assistance may be provided throughout the activity or intermittently. 3-Partial/Moderate Assistance-helper does LESS THAN HALF the effort. [place] lifts, holds or supports trunk or limbs, but provides less than half the effort. 2-Substantial/Maximal Assistance-helper does MORE THAN HALF the effort. [place] lifts or holds trunk or limbs and provides more than half the effort. 4-Zgpwnyqch-cbtceq does ALL the effort. Patient does none of the effort to complete the activity. Or, the assistance of 2 or more helpers is required for the patient to complete the activity. If activity was not attempted, code reason: 7-Patient Refused. 9-Not Applicable-not attempted and the patient did not perform the activity before the current illness, exacerbation or injury. 10-Not Attempted due to Environmental Limitations-(lack of equipment, weather restraints, etc.). 88-Not Attempted due to Medical Conditions or Safety Concerns. Sit to Stand (QC): 4 Weight Bearing Full Weight Bearing Full Weight Bearing Gait Training Does the Patient Walk?: Yes Distance: 150' Walk 10 feet (QC): 4 Walk 50 ft with 2 Turns(QC): 4 Walk 150 ft (QC): 4 Gait Persons Needed: 1 Gait Assistive Device: FWW Pt is followed by [facility] for fatigue at times. Wheelchair Training Does the Pt Use a Wheelchair?: Yes Wheel 50 ft with 2 turns (QC): 5 Wheel 150 ft (QC): 5 Type of Wheelchair: Manual Exercises Standing: Hip Abduction, Hamstring curls, Marching Standing Reps: 15 Treatments [id number] OT/PT cotreat due to skill of 2 clinicians required which a master certified rv technician could not perform in order to focus on higher level balance tasks, decrease fall risk, and coordinate UE/LE. OT focused on UEs, reaching, and sequencing/safety, PT focused on standing balance, transfers, and overall gross movement. Pt stood at FWW, hitting balloon in all planes, BUEs. Pt lost balance x1, able to self correct with CGA. Pt completed task x2 trials, seated rest break between. [id number]: Pt completes Standing EX at //bars then takes short RB before amb. in hallway. Pt rests in recliner at end of tx. All needs met, call light in hand. Assessment Current Status: Good Progress Pt is Min A for Transfers and is motivated to continue getting more independent with tasks. PT Short Term Goals Short Term Goals Time Frame: Aug 13, 2020 Roll Left & Right: 6 Sit to lyin Lying to sitting on side of be: 3 (met) Sit to stand: 3 Chair/ugy-dl-gfref transfer: 3 Walk 10 feet: 3 PT Detention Sergeant Goals Assisted Goals PT Detention Sergeant Goals Time Frame: Aug 27, 2020 Roll Left & Right (QC): 6 Sit to Lying (QC): 4 Lying-Sitting on Side/Bed(QC): 4 Sit to Stand (QC): 4 Chair/Nle-dv-Yepqe Xfer(QC): 4 Toilet Transfer (QC): 4 Car Transfer (QC): 4 Does the Patient Walk: Yes Walk 10 feet (QC): 4 Walk 50ft with 2 Turns (QC): 4 Walk 150 ft (QC): 88 Walking 10ft on Uneven Surface: 4 1 Step (curb) (QC): 4 4 Steps (QC): 4 12 Steps (QC): 88 Picking up an Object (QC): 88 Wheel 50 feet with 2 turns (QC: 6 Wheel 150 feet: 6 PT Plan Problem List Problem List: Activity Tolerance, Gait Treatment/Plan Treatment Plan: Continue Plan of Care Treatment Plan: Bed Mobility, Education, Functional Activity Jayshree, Functional Strength, Group Therapy, Gait, Safety, Therapeutic Exercise, Transfers Treatment Duration: Aug 27, 2020 Frequency: At least 5 of 7 days/Wk (IRF) Estimated Hrs Per Day: 1.5 hours per day Patient and/or Family Agrees t: Yes Safety Risks/Education Patient Education: Gait Training, Correct Positioning Teaching Recipient: Patient Teaching Methods: Discussion Response to Teaching: Verbalize Understanding Time/GCodes Time In: 1030 Time Out: 1130 Total Billed Treatment Time: 60 Total Billed Treatment Co-treat w/OT for 15m 1, FA x2 (25m), EX (20m) & GT (15m) DMITRY 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
--- NOTE | 2020-08-27 14:09 | Physical Therapy Daily Note ---
PT Daily Note-Current Subjective Pt sitting in recliner upon arrival. Pt asks if he can return to bed to rest. Pt agrees to PT. Pain Numeric Pain Scale: 4 Location: Right, Left Location Body Site: Shoulder Pain Description: Ache Mental Status Patient Orientation: Person, Place Transfers SCALE: Activities may be completed with or without assistive devices. 8-Amokgylmyy-xjaavuq completes the activity by him/herself with no assistance from a helper. 5-Set-up or Clean-up Assistance-helper sets up or cleans up; patient completes activity. [place] assists only prior to or following the activity. 4-Supervision or Touching Assistance-helper provides verbal cues and/or touching/steadying and/or contact guard assistance as patient completes activity. Assistance may be provided throughout the activity or intermittently. 3-Partial/Moderate Assistance-helper does LESS THAN HALF the effort. [place] lifts, holds or supports trunk or limbs, but provides less than half the effort. 2-Substantial/Maximal Assistance-helper does MORE THAN HALF the effort. [place] lifts or holds trunk or limbs and provides more than half the effort. 6-Yejtwmvjb-kgjtow does ALL the effort. Patient does none of the effort to complete the activity. Or, the assistance of 2 or more helpers is required for the patient to complete the activity. If activity was not attempted, code reason: 7-Patient Refused. 9-Not Applicable-not attempted and the patient did not perform the activity before the current illness, exacerbation or injury. 10-Not Attempted due to Environmental Limitations-(lack of equipment, weather restraints, etc.). 88-Not Attempted due to Medical Conditions or Safety Concerns. Sit to Lying (QC): 5 Sit to Stand (QC): 4 Weight Bearing Full Weight Bearing Full Weight Bearing Gait Training Does the Patient Walk?: Yes Distance: 5' Gait Persons Needed: 1 Gait Assistive Device: FWW Exercises Supine Ex: Ankle pumps, Quad Set, Glut sets, Heel Slides, Hip abd/add Supine Reps: 10 Treatments TF to standing and amb. to EOB. Pt completes Supine/R sidelying EX. Pt resting at end of tx. All needs met, call light in hand. Assessment Current Status: Good Progress Pt continues to report pain and that sometimes interferes with tx. PT Short Term Goals Short Term Goals Time Frame: Aug 13, 2020 Roll Left & Right: 6 Sit to lyin Lying to sitting on side of be: 3 (met) Sit to stand: 3 Chair/iut-hh-cryyj transfer: 3 Walk 10 feet: 3 PT Fpc Goals Fpc Goals PT Fpc Goals Time Frame: Aug 27, 2020 Roll Left & Right (QC): 6 Sit to Lying (QC): 4 Lying-Sitting on Side/Bed(QC): 4 Sit to Stand (QC): 4 Chair/Ysu-rm-Fkunr Xfer(QC): 4 Toilet Transfer (QC): 4 Car Transfer (QC): 4 Does the Patient Walk: Yes Walk 10 feet (QC): 4 Walk 50ft with 2 Turns (QC): 4 Walk 150 ft (QC): 88 Walking 10ft on Uneven Surface: 4 1 Step (curb) (QC): 4 4 Steps (QC): 4 12 Steps (QC): 88 Picking up an Object (QC): 88 Wheel 50 feet with 2 turns (QC: 6 Wheel 150 feet: 6 PT Plan Problem List Problem List: Activity Tolerance Treatment/Plan Treatment Plan: Continue Plan of Care Treatment Plan: Bed Mobility, Education, Functional Activity Jayshree, Functional Strength, Group Therapy, Gait, Safety, Therapeutic Exercise, Transfers Treatment Duration: Aug 27, 2020 Frequency: At least 5 of 7 days/Wk (IRF) Estimated Hrs Per Day: 1.5 hours per day Patient and/or Family Agrees t: Yes Safety Risks/Education Patient Education: Correct Positioning Teaching Recipient: Patient Teaching Methods: Demonstration, Discussion Response to Teaching: Verbalize Understanding, Return Demonstration Time/GCodes Time In: 1325 Time Out: 1355 Total Billed Treatment Time: 30 Total Billed Treatment 1, EX x2 (30m) DMITRY MUELLER PTA Aug 27, 2020 14:08
[2020-08-27] MEDS: ENOXAPARIN 40 MG/0.4 ML (LOVENOX) SYR SC SCH (16:06)
[2020-08-27 20:05] VITALS: BP 104/63
[2020-08-27] MEDS: MELATONIN 3 MG TABLET PO PRN (21:25)
[2020-08-27] MEDS: SIMvastatin 10 MG (ZOCOR) TAB PO SCH (21:25)
[2020-08-27] MEDS: DICLOFENAC 1% GEL 100 GM (VOLTAREN) TUBE TOP PRN (21:29)
[2020-08-28] MEDS: inSUlin ASPART (NovoLOG) 1 UNIT/0.01 ML (CHARGE PER UNIT) SC SCH ×4 (06:04→21:16)
[2020-08-28] MEDS: metFORMIN XR 500 MG (GLUCOPHAGE XR) TAB PO SCH ×2 (06:54→17:02)
[2020-08-28 07:47] VITALS: BP 101/70
[2020-08-28] MEDS: glipiZIDE 5 MG (GLUCOTROL) TAB PO SCH ×2 (07:49→17:03)
[2020-08-28] MEDS: BACLOFEN 10 MG (LIORESAL) TAB PO SCH ×3 (07:49→21:11)
[2020-08-28] MEDS: DOCUSATE SODIUM 100 MG (COLACE) CAP PO SCH ×2 (07:49→21:18)
[2020-08-28] MEDS: LACTOBACILLUS ACIDOPHILUS (PROBIOTIC) CAPSULE PO SCH (07:49)
[2020-08-28] MEDS: ALLOPURINOL 100 MG (ZYLOPRIM) TAB PO SCH (07:49)
[2020-08-28] MEDS: lisINopril 20 MG (PRINIVIL) TABLET PO SCH ×2 (07:50→21:11)
[2020-08-28] MEDS: meTOprolol TARTRATE 25 MG (LOPRESSOR) TABLET PO SCH ×2 (07:50→21:11)
[2020-08-28] MEDS: SENNA W/DOCUSATE (SENOKOT S) TABLET PO SCH ×2 (07:50→21:18)
[2020-08-28] MEDS: amLODIPine 2.5MG (NORVASC) TAB PO SCH ×2 (07:50→21:11)
[2020-08-28] MEDS: NEO/POLY/BAC (NEOSPORIN) OINT 15 GM TUBE TOP SCH (07:51)
[2020-08-28] MEDS: DICLOFENAC 1% GEL 100 GM (VOLTAREN) TUBE TOP PRN ×3 (07:51→21:15)
--- NOTE | 2020-08-28 08:03 | PM&R Progress Note ---
Subjective HPI/CC On Admission Date Seen by Provider: Aug 28, 2020 Time Seen by Provider: 12:45 Subjective/Events-last exam 08/28/2020: This visit is via video chat due to Covid related restriction for this provider Patient doing pretty well today Bowels moved today Rash around incision is being treated Blood pressure stable 101/70 08/27/2020: This visit is via video chat due to Covid related restriction for this provider Patient doing pretty well Voltaren gel helps his shoulder pain Bowels are moving Toenail care provided by Dr. Llanos Check meds and labs 08/26/2020: This visit is via video chat due to Covid related restriction for this provider Patient has minimal complaints No falls Walking better with therapy Insulin rarely required on SSI BM yesterday Pain meds maintained 08/25/2020: This visit is via video chat due to Covid related restriction for this provider Patient doing really well Bowels moved today Voltaren gel helps Blood sugar 192 and 126 Had a controlled fall but did not harm any thing or injure anything Check meds and labs 08/24/2020: This visit is via video chat due to Covid related restriction for this provider Patient is doing well Voltaren gel improves shoulder pain BM ok Rare use of SSI 08/23/2020: This visit is via video chat due to Covid related restriction for this provider Patient doing really well the day No major issues Large bowel movement today Sugars are doing well without insulin Voltaren gel will be put on his arms and shoulders before physical therapy 08/22/2020: This visit is via video chat due to Covid related restriction for this provider Patient having a good day Arms and shoulders from compensating are still painful but Voltaren gel has been helpful Bowels moved yesterday Incision is a bit red Holding Levemir due to low blood sugars but he still has some isolated elevated ones 08/21/2020: This visit is via video chat due to Covid related restriction for this provider Patient having a good day Sugar was 130 this morning so I adjusted Levemir down to 4 units twice daily to prevent hypoglycemia as occurred yesterday Bowels are moving really well No more itching K pad did not really help the shoulder pain 08/20/2020: This visit is via video chat due to Covid related restriction for this provider Patient doing pretty well today Blood sugar is running low and then later it was 46 asymptomatic so stopped the regular insulin and will hold Levemir tonight Bowels moved today Rechecking Monday for progress I have updated him on the conversation I had with Dr. Elder 08/18/2020: Patient doing pretty well Clouded images to Dr. Elder and he will review but recommended time to recover considering the DKA episode set him back quite a bit Pain pill with Voltaren gel has helped Slow progress 08/17/2020: Patient having a good day Bowels moving okay Blood pressure 117/77 Talked about his x-rays that nurse had reported to him but those details will be evaluated by Dr. Elder the expert 08/16/2020: Patient doing pretty well Had some weak legs today Blood pressure elevated at times Monitor closely 08/15/2020: Patient in a pretty good mood Family at the bedside Blood sugar was a bit low at 80 and had symptoms so adjusted his insulin a bit Pain is well controlled on regimen Neuropathy discussed 08/14/20: Patient doing well No major issues Pain is an ongoing issue BP better 08/13/2020: Pt doing pretty well but variation in BP places him at risk for orthostasis I changed Clonidine to BID prn for BP elevation and started Norvasc 2.5 twice daily and will transition to Hydralazine also. 08/12/2020: Pt doing pretty well Bowels havent moved and we have given a lot of Laxatives Sugars are okay Voltaren gel to the back Clonidine BID has helped the BP that has dipped down to low levels in the afternoon Length of stay, presumed to be 08/26/20 08/11/2020: Pt doing pretty well Left axilla pain because of compensation with his arms, will initiate a moist heating pad Bowels are moving okay Clonidine changed to BID instead of TID due to hypotension in the afternoon interfering with therapy X-rays were done and clouded to Dr. Elder 08/10/2020: Pt doing really well Had a large bowel movement yesterday Temperature at 99.4 but no other issues Sugars are better Talked to him about insulin at discharge 08/09/20: Patient doing well BM today Back pain improved Increased movement now Better today 08/08/20: Patient in a good mood Baclofen is working well for him so will maintain this Pain controlled High sugars requiring addition of insulin Wants tacos from home 08/07/2020: Patient doing pretty well Pain is still an issue Baclofen was ordered to help his back spasms No bowels are moving since loose stools for several days Adjusted insulin after reviewing several Accu-Cheks 08/06/2020: Patient doing pretty well Very motivated to walk Loose stool so holding laxatives Right knee really hurts Sodium level 128 so we will discontinue the indapamide Review of Systems General: Fatigue Musculoskeletal: arm pain, back pain Objective Exam Vital Signs Vital Signs Date Time Temp Pulse Resp B/P (MAP) Pulse Ox O2 Delivery O2 Flow Rate FiO2 08/29/20 07:29 36.4 88 20 133/79 (97) 98 Room Air Capillary Refill : General Appearance: No Apparent Distress, WD/WN, Chronically ill HEENT: PERRL/EOMI, Normal ENT Inspection, Pharynx Normal Neck: Full Range of Motion, Normal Inspection, Non Tender, Supple, Carotid Bruit Respiratory: Chest Non Tender, Lungs Clear, Normal Breath Sounds, No Accessory Muscle Use, No Respiratory Distress Cardiovascular: Regular Rate, Rhythm, No Edema, No Gallop, No JVD, No Murmur, Normal Peripheral Pulses Gastrointestinal: Normal Bowel Sounds, No Organomegaly, No Pulsatile Mass, Non Tender, Soft Back: Decreased Range of Motion, Muscle Spasm, Vertebral Tenderness Extremity: Normal Capillary Refill, Normal Inspection, Normal Range of Motion, Non Tender, No Calf Tenderness, No Pedal Edema Neurologic/Psychiatric: Alert, Oriented x3, No Motor/Sensory Deficits, Normal Mood/Affect, Motor Weakness Skin: Normal Color, Warm/Dry Lymphatic: No Adenopathy Results/Procedures Lab Patient resulted labs reviewed. FIM Transfers Therapy Code Descriptions/Definitions Functional [place] Measure: 0=Not Assessed/NA 4=Minimal Assistance 1=Total Assistance 5=Supervision or Setup 2=Maximal Assistance 6=Modified [place] 3=Moderate Assistance 7=Complete IndependenceSCALE: Activities may be completed with or without assistive devices. 2-Jzvaloanzi-mpyxmle completes the activity by him/herself with no assistance from a helper. 5-Set-up or Clean-up Assistance-helper sets up or cleans up; patient completes activity. [place] assists only prior to or following the activity. 4-Supervision or Touching Assistance-helper provides verbal cues and/or touching/steadying and/or contact guard assistance as patient completes activity. Assistance may be provided throughout the activity or intermittently. 3-Partial/Moderate Assistance-helper does LESS THAN HALF the effort. [place] lifts, holds or supports trunk or limbs, but provides less than half the effort. 2-Substantial/Maximal Assistance-helper does MORE THAN HALF the effort. [place] lifts or holds trunk or limbs and provides more than half the effort. 7-Mnfwjyuof-fwduxr does ALL the effort. Patient does none of the effort to complete the activity. Or, the assistance of 2 or more helpers is required for the patient to complete the activity. If activity was not attempted, code reason: 7-Patient Refused. 9-Not Applicable-not attempted and the patient did not perform the activity before the current illness, exacerbation or injury. 10-Not Attempted due to Environmental Limitations-(lack of equipment, weather restraints, etc.). 88-Not Attempted due to Medical Conditions or Safety Concerns. Roll Left to Right (QC): 5 Sit to Lying (QC): 5 Sit to Stand (QC): 4 Chair/Gkt-rv-Pvjet Xfer(QC): 4 Car Transfer (QC): 2 Gait Training Does the Patient Walk?: Yes Distance: 5' Walk 10 feet (QC): 4 Walk 50 ft with 2 Turns(QC): 4 Walk 150 ft (QC): 4 Walking 10ft/uneven surface-QC: 88 Gait Persons Needed: 1 Gait Assistive Device: FWW Wheelchair Training Does the Pt Use a Wheelchair?: Yes Distance: 150'x2 Wheel 50 ft with 2 turns (QC): 5 Wheel 150 ft (QC): 5 Type of Wheelchair: Manual Stair Training 1 Step (curb) (QC): 88 4 Steps (QC): 88 12 Steps (QC): 88 Balance Picking up an Object (QC): 88 ADL-Treatment Eating (QC): 6 (IND) Oral Hygiene (QC): 7 Shower/Bathe Self (QC): 7 Upper Body Dressing (QC): 5 (set up with chute puller shirt and back brace) Lower Body Dressing (QC): 3 (Min A with pant hike in back, pt able to thread pants) On/Off Footwear (QC): 6 (IND slip on shoes.) Toileting Hygiene (QC): 3 (Min A in stand, pt able to perform hygiene leaning side to side and able to manage clothing) Toilet Transfer (QC): 3 (Min A to toilet, Mod A stand ) Assessment/Plan Assessment and Plan Assess & Plan/Chief Complaint Assessment: Status post lumbar spine surgery with severe debility and leg weakness Recent DKA Sdt-fv-gnknapb diabetes history Hypertension Chronic arthritis pain Plan: Pain control Diabetes management Blood pressure management Inpatient rehab protocol 08/06/2020: Hold laxatives DC indapamide Monitor closely Fall risk 08/07/2020: Increase insulin Aggressive therapy 08/08/20: Increase insulin Baclofen 08/09/20: Monitor sugar Back pain management 08/10/2020: Monitor blood sugar Insulin at discharge will be required 08/11/2020: Monitor pain Supportive care Baclofen 08/12/2020: Pain control Intensive rehab Bowel regimen to intensify 08/13/2020: Supportive care Aggressive therapy Blood pressure management 08/14/20: Improved status Adjust insulin BP ok 08/15/2020: Pain control Insulin modified Fall risk 08/16/2020: Pain control Monitor blood pressure 08/17/2020: Patient doing pretty well today Continue aggressive therapy 08/18/2020: Continue pain control Updated Dr. Elder 08/20/2020: Continue aggressive therapy Improved overall today Decrease insulin intensity 08/21/2020: Decrease Levemir to 4 units twice daily Monitor closely Pain control 08/22/2020: Hold Levemir for hypoglycemia Monitor closely 08/23/2020: Holding insulin Pain meds 08/24/20: Monitor closely Pain control 08/25/2020: Fall risk Pain control Monitor sugar 08/26/20: Monitor pain Fall risk 08/27/2020: Maintain aggressive therapy Voltaren gel as needed 08/28/2020: Aggressive treatment Voltaren gel Pain control (1) Status post lumbar spine surgery for decompression of spinal cord (2) Diabetes (3) DKA (diabetic ketoacidoses) (4) Hypertension (5) Leg weakness DALY WHITNEY DO Aug 28, 2020 08:03
--- NOTE | 2020-08-28 08:45 | Occupational Ther Daily Note ---
OT Current Status-Daily Note Subjective Pt up in recliner, agreeable to OT tx with focus on ADLs. Mental Status/Objective Patient Orientation: Normal For Age Attachments: Other-See Comments (back brace OOB) ADL-Treatment Therapy Code Descriptions/Definitions Functional [place] Measure: 0=Not Assessed/NA 4=Minimal Assistance 1=Total Assistance 5=Supervision or Setup 2=Maximal Assistance 6=Modified [place] 3=Moderate Assistance 7=Complete IndependenceSCALE: Activities may be completed with or without assistive devices. 0-Ktfllbugiw-uzaeeai completes the activity by him/herself with no assistance from a helper. 5-Set-up or Clean-up Assistance-helper sets up or cleans up; patient completes activity. [place] assists only prior to or following the activity. 4-Supervision or Touching Assistance-helper provides verbal cues and/or touching/steadying and/or contact guard assistance as patient completes activity. Assistance may be provided throughout the activity or intermittently. 3-Partial/Moderate Assistance-helper does LESS THAN HALF the effort. [place] lifts, holds or supports trunk or limbs, but provides less than half the effort. 2-Substantial/Maximal Assistance-helper does MORE THAN HALF the effort. [place] lifts or holds trunk or limbs and provides more than half the effort. 7-Odvmxksht-sucnkl does ALL the effort. Patient does none of the effort to complete the activity. Or, the assistance of 2 or more helpers is required for the patient to complete the activity. If activity was not attempted, code reason: 7-Patient Refused. 9-Not Applicable-not attempted and the patient did not perform the activity before the current illness, exacerbation or injury. 10-Not Attempted due to Environmental Limitations-(lack of equipment, weather restraints, etc.). 88-Not Attempted due to Medical Conditions or Safety Concerns. Eating (QC): 6 (IND) Oral Hygiene (QC): 7 Shower/Bathe Self (QC): 5 (set up, pt able to wash/dry all parts seated on SC.) Upper Body Dressing (QC): 5 (set up of tshirt and back brace) Lower Body Dressing (QC): 3 (Min A with pant hike in back, pt able to thread BLEs.) On/Off Footwear: 6 (IND slip on shoes.) Other Treatment Pt seated in recliner, agreeable to OT tx. Pt used FWW to perform functional mobility to bathroom, transferring to SC. Pt doffed clothes, and completed shower. Pt donned UE clothing, then transferred to w/c to don LE clothing. Pt propelled w/c to therapy gym. In order to increase shoulder ROM, decrease pain and increase activity tolerance, pt completed pulleys x10 mins. Pt returned to room in w/c, transferred to bed. Post tx, pt laying in bed, call light in reach and all needs met. Education OT Patient Education: Correct positioning, Energy conservation, Exercise program, Modified ADL techniques, Progress toward Goal/Update tx plan, Purpose of tx/functional activities, Rehab process Teaching Recipient: Patient Teaching Methods: Discussion Response to Teaching: Verbalize Understanding OT Short Term Goals Short Term Goals Time Frame: Aug 20, 2020 Oral hygiene: 5 Shower/bathe self: 3 Lower body dressin Putting on/taking off footwear: 3 OT Penitentiary Goals Penitentiary Goals Time Frame: Sep 04, 2020 Eating (QC): 6 Oral Hygiene (QC): 6 Toileting Hygiene (QC): 6 Shower/Bathe Self (QC): 6 Upper Body Dressing (QC): 6 Lower Body Dressing (QC): 6 On/Off Footwear (QC): 6 Additional Goals: 1-Demonstrate ADL Tasks, 2-Verbalize Understanding, 3- ImproveStrength/Jayshree 1=Demonstrate adherence to instructed precautions during ADL tasks. 2=Patient will verbalize/demonstrate understanding of assistive devices/modifications for ADL. 3=Patient will improve strength/tolerance for activity to enable patient to perform ADL's. OT Education/Plan Problem List/Assessment Assessment: Decreased Activ Tolerance, Decreased UE Strength, Impaired Funct Balance, Impaired I ADL's, Impaired Self-Care Skills, Restricted Funct UE ROM Discharge Recommendations Plan/Recommendations: Continue POC Treatment Plan/Plan of Care Patient would benefit from OT for education, treatment and training to promote i ndependence in ADL's, mobility, safety and/or upper extremity function for ADL's. Plan of Care: ADL Retraining, Functional Mobility, Group Exercise/Act as Ind, UE Funct Exercise/Act Treatment Duration: Sep 04, 2020 Frequency: Modified Program (IRF) (27/08) Estimated Hrs Per Day: 1.5 hours per day Rehab Potential: Fair Time/GCodes Start Time: 08:00 Stop Time: 09:00 Total Time Billed (hr/min): 60 Billed Treatment Time 1, ADL 3 (45'), EX (15') MED PETERSON OT Aug 28, 2020 08:45
[2020-08-28] MEDS: TRIAMCINOLONE 0.1% OINT (KENALOG) 15 GM TUBE TOP SCH ×2 (09:06→21:18)
[2020-08-28] MEDS: polyethylene glycoL POWDER 17 GM (MIRALAX) PACK PO SCH ×2 (09:06→21:18)
--- NOTE | 2020-08-28 12:22 | Physical Therapy Daily Note ---
PT Daily Note-Current Subjective Pt reports he is making progress. Mental Status Patient Orientation: Normal For Age Transfers SCALE: Activities may be completed with or without assistive devices. 1-Hgtkfztdhj-wnfwxey completes the activity by him/herself with no assistance from a helper. 5-Set-up or Clean-up Assistance-helper sets up or cleans up; patient completes activity. [place] assists only prior to or following the activity. 4-Supervision or Touching Assistance-helper provides verbal cues and/or touching/steadying and/or contact guard assistance as patient completes activity. Assistance may be provided throughout the activity or intermittently. 3-Partial/Moderate Assistance-helper does LESS THAN HALF the effort. [place] lifts, holds or supports trunk or limbs, but provides less than half the effort. 2-Substantial/Maximal Assistance-helper does MORE THAN HALF the effort. [place] lifts or holds trunk or limbs and provides more than half the effort. 6-Lfwmphzou-unwqio does ALL the effort. Patient does none of the effort to complete the activity. Or, the assistance of 2 or more helpers is required for the patient to complete the activity. If activity was not attempted, code reason: 7-Patient Refused. 9-Not Applicable-not attempted and the patient did not perform the activity before the current illness, exacerbation or injury. 10-Not Attempted due to Environmental Limitations-(lack of equipment, weather restraints, etc.). 88-Not Attempted due to Medical Conditions or Safety Concerns. Roll Left & Right (QC): 5 Sit to Lying (QC): 5 Lying to Sitting/Side of Bed(Q: 5 Sit to Stand (QC): 5 Chair/Yps-hd-Twyjj Xfer(QC): 5 Weight Bearing Full Weight Bearing Full Weight Bearing Gait Training Does the Patient Walk?: Yes Gait Persons Needed: 1 Gait Assistive Device: FWW Gait training with FWW with education on upright posture. Elevated walker by 2 inches to promote standing tall. Ambulate 200ft, 100ft, 100ft, 100ft all with FWW and verbal cuing for upright posture. Followed by w/c for safety. Exercises Supine Ex: Ankle pumps, Quad Set, Glut sets, Lower trunk rotation, Heel Slides, Short Arc Quads, Resisted flex/ext, D1 F/E UE, D2 F/E UE, Hip abd/add Supine Reps: [address] Ex=Flex, Abd, Ext, Marching, Mini squats Standing Reps: 10 Supine (B) LE nerve glides x 30 reps Assessment Current Status: Good Progress Pt showing gains with stability during standing activity. Gait distance is improving. He is showing improved control of the (R) quad and glute during stance. Pt will beneift from continued PT to address safety, strength, and standing balance safety. PT Short Term Goals Short Term Goals Time Frame: Aug 13, 2020 Roll Left & Right: 6 Sit to lyin Lying to sitting on side of be: 3 (met) Sit to stand: 3 Chair/lnl-hc-zgdsy transfer: 3 Walk 10 feet: 3 PT Efficiency Analyst Goals Efficiency Analyst Goals PT Alf Goals Time Frame: Aug 27, 2020 Roll Left & Right (QC): 6 Sit to Lying (QC): 4 Lying-Sitting on Side/Bed(QC): 4 Sit to Stand (QC): 4 Chair/Ije-lc-Hdmla Xfer(QC): 4 Toilet Transfer (QC): 4 Car Transfer (QC): 4 Does the Patient Walk: Yes Walk 10 feet (QC): 4 Walk 50ft with 2 Turns (QC): 4 Walk 150 ft (QC): 88 Walking 10ft on Uneven Surface: 4 1 Step (curb) (QC): 4 4 Steps (QC): 4 12 Steps (QC): 88 Picking up an Object (QC): 88 Wheel 50 feet with 2 turns (QC: 6 Wheel 150 feet: 6 PT Plan Treatment/Plan Treatment Plan: Continue Plan of Care Treatment Plan: Bed Mobility, Education, Functional Activity Jayshree, Functional Strength, Group Therapy, Gait, Safety, Therapeutic Exercise, Transfers Treatment Duration: Aug 27, 2020 Frequency: At least 5 of 7 days/Wk (IRF) Estimated Hrs Per Day: 1.5 hours per day Patient and/or Family Agrees t: Yes Time/GCodes Time In: 1100 Time Out: 1200 Total Billed Treatment Time: 60 Total Billed Treatment visit, Gt 30 min, ex 30 min AMADEO FERGUSON PT Aug 28, 2020 12:22
[2020-08-28] MEDS: ENOXAPARIN 40 MG/0.4 ML (LOVENOX) SYR SC SCH (14:25)
--- NOTE | 2020-08-28 14:44 | Therapy Group Daily Note ---
Therapy Daily Group Note Patient Education Topic Home Safety, Other List Below (pain management) Exercises LE Seated Exercise, UE Exercise Session Ratio (pt:therapist): 8:2 Goal of Session: Education on ARU Expectations, Home Safety Strategies, UE/LE Strengthing, Other (list) (pain management) Goal Met for this Session: Yes Pt Benefit of Group: Contributions to Others, F/U Use of Strategies @Home, Increased Functional Safety, Increased Functional Strength, Improved Cognition, Recognition of Peers, Socialization Other/Notes Pt transported via w/c to therapy gym for OT/PT group. Group consisted of introductions (name, place living, childhood memory), socialization, B UE/LE seated exercises, education of pain management and home safety activity. Pt introduced self appropriately and actively listened to peers. Pt was able to complete B UE/LE seated exercises, tolerated well. Pt acknowledged understanding of pain management education by giving personal story and strategies. Pt attended to home safety activity and answered questions appropriately. After therapy, pt lying in bed with call light/phone in reach. All needs met in room. Start Time: 13:00 Stop Time: 14:00 Total Billed Treatment Time: 60 Total Billed Treatment 1-GRP MODESTA COTE Aug 28, 2020 14:44
[2020-08-28 20:28] VITALS: BP 136/82
[2020-08-28] MEDS: SIMvastatin 10 MG (ZOCOR) TAB PO SCH (21:11)
[2020-08-28] MEDS: MELATONIN 3 MG TABLET PO PRN (21:11)
[2020-08-29] MEDS: inSUlin ASPART (NovoLOG) 1 UNIT/0.01 ML (CHARGE PER UNIT) SC SCH ×4 (06:00→20:40)
[2020-08-29] MEDS: metFORMIN XR 500 MG (GLUCOPHAGE XR) TAB PO SCH ×2 (06:48→18:09)
[2020-08-29 07:29] VITALS: BP 133/79
[2020-08-29] MEDS: amLODIPine 2.5MG (NORVASC) TAB PO SCH ×2 (08:31→20:58)
[2020-08-29] MEDS: meTOprolol TARTRATE 25 MG (LOPRESSOR) TABLET PO SCH ×2 (08:31→20:59)
[2020-08-29] MEDS: lisINopril 20 MG (PRINIVIL) TABLET PO SCH ×2 (08:31→20:58)
[2020-08-29] MEDS: LACTOBACILLUS ACIDOPHILUS (PROBIOTIC) CAPSULE PO SCH (08:31)
[2020-08-29] MEDS: BACLOFEN 10 MG (LIORESAL) TAB PO SCH ×3 (08:31→20:58)
[2020-08-29] MEDS: ALLOPURINOL 100 MG (ZYLOPRIM) TAB PO SCH (08:31)
[2020-08-29] MEDS: glipiZIDE 5 MG (GLUCOTROL) TAB PO SCH ×2 (08:31→18:09)
[2020-08-29] MEDS: DOCUSATE SODIUM 100 MG (COLACE) CAP PO SCH ×2 (08:33→21:00)
[2020-08-29] MEDS: polyethylene glycoL POWDER 17 GM (MIRALAX) PACK PO SCH ×2 (08:33→21:00)
[2020-08-29] MEDS: SENNA W/DOCUSATE (SENOKOT S) TABLET PO SCH ×2 (08:33→21:00)
[2020-08-29] MEDS: NEO/POLY/BAC (NEOSPORIN) OINT 15 GM TUBE TOP SCH (08:35)
[2020-08-29] MEDS: TRIAMCINOLONE 0.1% OINT (KENALOG) 15 GM TUBE TOP SCH ×2 (08:36→20:59)
--- NOTE | 2020-08-29 08:36 | PM&R Progress Note ---
Subjective HPI/CC On Admission Date Seen by Provider: Aug 29, 2020 Time Seen by Provider: 13:00 Subjective/Events-last exam 08/29/2020: This visit is via video chat due to Covid related restriction for this provider Patient has no new issues Blood pressure is really good Melatonin really helps him sleep and it is dosed at 3 mg to send into the pharmacy at discharge Voltaren gel really helps him 08/28/2020: This visit is via video chat due to Covid related restriction for this provider Patient doing pretty well today Bowels moved today Rash around incision is being treated Blood pressure stable 101/70 08/27/2020: This visit is via video chat due to Covid related restriction for this provider Patient doing pretty well Voltaren gel helps his shoulder pain Bowels are moving Toenail care provided by Dr. Llanos Check meds and labs 08/26/2020: This visit is via video chat due to Covid related restriction for this provider Patient has minimal complaints No falls Walking better with therapy Insulin rarely required on SSI BM yesterday Pain meds maintained 08/25/2020: This visit is via video chat due to Covid related restriction for this provider Patient doing really well Bowels moved today Voltaren gel helps Blood sugar 192 and 126 Had a controlled fall but did not harm any thing or injure anything Check meds and labs 08/24/2020: This visit is via video chat due to Covid related restriction for this provider Patient is doing well Voltaren gel improves shoulder pain BM ok Rare use of SSI 08/23/2020: This visit is via video chat due to Covid related restriction for this provider Patient doing really well the day No major issues Large bowel movement today Sugars are doing well without insulin Voltaren gel will be put on his arms and shoulders before physical therapy 08/22/2020: This visit is via video chat due to Covid related restriction for this provider Patient having a good day Arms and shoulders from compensating are still painful but Voltaren gel has been helpful Bowels moved yesterday Incision is a bit red Holding Levemir due to low blood sugars but he still has some isolated elevated ones 08/21/2020: This visit is via video chat due to Covid related restriction for this provider Patient having a good day Sugar was 130 this morning so I adjusted Levemir down to 4 units twice daily to prevent hypoglycemia as occurred yesterday Bowels are moving really well No more itching K pad did not really help the shoulder pain 08/20/2020: This visit is via video chat due to Covid related restriction for this provider Patient doing pretty well today Blood sugar is running low and then later it was 46 asymptomatic so stopped the regular insulin and will hold Levemir tonight Bowels moved today Rechecking Monday for progress I have updated him on the conversation I had with Dr. Elder 08/18/2020: Patient doing pretty well Clouded images to Dr. Elder and he will review but recommended time to recover considering the DKA episode set him back quite a bit Pain pill with Voltaren gel has helped Slow progress 08/17/2020: Patient having a good day Bowels moving okay Blood pressure 117/77 Talked about his x-rays that nurse had reported to him but those details will be evaluated by Dr. Elder the expert 08/16/2020: Patient doing pretty well Had some weak legs today Blood pressure elevated at times Monitor closely 08/15/2020: Patient in a pretty good mood Family at the bedside Blood sugar was a bit low at 80 and had symptoms so adjusted his insulin a bit Pain is well controlled on regimen Neuropathy discussed 08/14/20: Patient doing well No major issues Pain is an ongoing issue BP better 08/13/2020: Pt doing pretty well but variation in BP places him at risk for orthostasis I changed Clonidine to BID prn for BP elevation and started Norvasc 2.5 twice daily and will transition to Hydralazine also. 08/12/2020: Pt doing pretty well Bowels havent moved and we have given a lot of Laxatives Sugars are okay Voltaren gel to the back Clonidine BID has helped the BP that has dipped down to low levels in the afternoon Length of stay, presumed to be 08/26/20 08/11/2020: Pt doing pretty well Left axilla pain because of compensation with his arms, will initiate a moist heating pad Bowels are moving okay Clonidine changed to BID instead of TID due to hypotension in the afternoon interfering with therapy X-rays were done and clouded to Dr. Elder 08/10/2020: Pt doing really well Had a large bowel movement yesterday Temperature at 99.4 but no other issues Sugars are better Talked to him about insulin at discharge 08/09/20: Patient doing well BM today Back pain improved Increased movement now Better today 08/08/20: Patient in a good mood Baclofen is working well for him so will maintain this Pain controlled High sugars requiring addition of insulin Wants tacos from home 08/07/2020: Patient doing pretty well Pain is still an issue Baclofen was ordered to help his back spasms No bowels are moving since loose stools for several days Adjusted insulin after reviewing several Accu-Cheks 08/06/2020: Patient doing pretty well Very motivated to walk Loose stool so holding laxatives Right knee really hurts Sodium level 128 so we will discontinue the indapamide Review of Systems General: Fatigue, Malaise Musculoskeletal: arm pain, back pain Objective Exam Vital Signs Vital Signs Date Time Temp Pulse Resp B/P (MAP) Pulse Ox O2 Delivery O2 Flow Rate FiO2 08/29/20 09:00 Room Air 08/29/20 07:29 36.4 88 20 133/79 (97) 98 Capillary Refill : General Appearance: No Apparent Distress, WD/WN, Chronically ill HEENT: PERRL/EOMI, Normal ENT Inspection, Pharynx Normal Neck: Full Range of Motion, Normal Inspection, Non Tender, Supple, Carotid Bruit Respiratory: Chest Non Tender, Lungs Clear, Normal Breath Sounds, No Accessory Muscle Use, No Respiratory Distress Cardiovascular: Regular Rate, Rhythm, No Edema, No Gallop, No JVD, No Murmur, Normal Peripheral Pulses Gastrointestinal: Normal Bowel Sounds, No Organomegaly, No Pulsatile Mass, Non Tender, Soft Back: Decreased Range of Motion, Muscle Spasm, Vertebral Tenderness Extremity: Normal Capillary Refill, Normal Inspection, Normal Range of Motion, Non Tender, No Calf Tenderness, No Pedal Edema Neurologic/Psychiatric: Alert, Oriented x3, No Motor/Sensory Deficits, Normal Mood/Affect, Motor Weakness Skin: Normal Color, Warm/Dry Lymphatic: No Adenopathy Results/Procedures Lab Patient resulted labs reviewed. FIM Transfers Therapy Code Descriptions/Definitions Functional [place] Measure: 0=Not Assessed/NA 4=Minimal Assistance 1=Total Assistance 5=Supervision or Setup 2=Maximal Assistance 6=Modified [place] 3=Moderate Assistance 7=Complete IndependenceSCALE: Activities may be completed with or without assistive devices. 9-Gafyixqjeg-gnmhlec completes the activity by him/herself with no assistance from a helper. 5-Set-up or Clean-up Assistance-helper sets up or cleans up; patient completes activity. [place] assists only prior to or following the activity. 4-Supervision or Touching Assistance-helper provides verbal cues and/or touching/steadying and/or contact guard assistance as patient completes activity. Assistance may be provided throughout the activity or intermittently. 3-Partial/Moderate Assistance-helper does LESS THAN HALF the effort. [place] lifts, holds or supports trunk or limbs, but provides less than half the effort. 2-Substantial/Maximal Assistance-helper does MORE THAN HALF the effort. [place] lifts or holds trunk or limbs and provides more than half the effort. 3-Iiancyfgu-anextx does ALL the effort. Patient does none of the effort to complete the activity. Or, the assistance of 2 or more helpers is required for the patient to complete the activity. If activity was not attempted, code reason: 7-Patient Refused. 9-Not Applicable-not attempted and the patient did not perform the activity before the current illness, exacerbation or injury. 10-Not Attempted due to Environmental Limitations-(lack of equipment, weather restraints, etc.). 88-Not Attempted due to Medical Conditions or Safety Concerns. Roll Left to Right (QC): 5 Sit to Lying (QC): 5 Sit to Stand (QC): 5 Chair/Ott-lm-Adzgv Xfer(QC): 5 Car Transfer (QC): 2 Gait Training Does the Patient Walk?: Yes Distance: 5' Walk 10 feet (QC): 4 Walk 50 ft with 2 Turns(QC): 4 Walk 150 ft (QC): 4 Walking 10ft/uneven surface-QC: 88 Gait Persons Needed: 1 Gait Assistive Device: FWW Wheelchair Training Does the Pt Use a Wheelchair?: Yes Distance: 150'x2 Wheel 50 ft with 2 turns (QC): 5 Wheel 150 ft (QC): 5 Type of Wheelchair: Manual Stair Training 1 Step (curb) (QC): 88 4 Steps (QC): 88 12 Steps (QC): 88 Balance Picking up an Object (QC): 88 ADL-Treatment Eating (QC): 6 (IND) Oral Hygiene (QC): 7 Shower/Bathe Self (QC): 5 (set up, pt able to wash/dry all parts seated on SC.) Upper Body Dressing (QC): 5 (set up of tshirt and back brace) Lower Body Dressing (QC): 3 (Min A with pant hike in back, pt able to thread BLEs.) On/Off Footwear (QC): 6 (IND slip on shoes.) Toileting Hygiene (QC): 3 (Min A in stand, pt able to perform hygiene leaning side to side and able to manage clothing) Toilet Transfer (QC): 3 (Min A to toilet, Mod A stand ) Assessment/Plan Assessment and Plan Assess & Plan/Chief Complaint Assessment: Status post lumbar spine surgery with severe debility and leg weakness Recent DKA Saf-op-nmlzodg diabetes history Hypertension Chronic arthritis pain Plan: Pain control Diabetes management Blood pressure management Inpatient rehab protocol 08/06/2020: Hold laxatives DC indapamide Monitor closely Fall risk 08/07/2020: Increase insulin Aggressive therapy 08/08/20: Increase insulin Baclofen 08/09/20: Monitor sugar Back pain management 08/10/2020: Monitor blood sugar Insulin at discharge will be required 08/11/2020: Monitor pain Supportive care Baclofen 08/12/2020: Pain control Intensive rehab Bowel regimen to intensify 08/13/2020: Supportive care Aggressive therapy Blood pressure management 08/14/20: Improved status Adjust insulin BP ok 08/15/2020: Pain control Insulin modified Fall risk 08/16/2020: Pain control Monitor blood pressure 08/17/2020: Patient doing pretty well today Continue aggressive therapy 08/18/2020: Continue pain control Updated Dr. Elder 08/20/2020: Continue aggressive therapy Improved overall today Decrease insulin intensity 08/21/2020: Decrease Levemir to 4 units twice daily Monitor closely Pain control 08/22/2020: Hold Levemir for hypoglycemia Monitor closely 08/23/2020: Holding insulin Pain meds 08/24/20: Monitor closely Pain control 08/25/2020: Fall risk Pain control Monitor sugar 08/26/20: Monitor pain Fall risk 08/27/2020: Maintain aggressive therapy Voltaren gel as needed 08/28/2020: Aggressive treatment Voltaren gel Pain control 08/29/2020: Maintain good pain control Voltaren gel Melatonin really help sleep Blood sugars reviewed Blood pressure good (1) Status post lumbar spine surgery for decompression of spinal cord (2) Diabetes (3) DKA (diabetic ketoacidoses) (4) Hypertension (5) Leg weakness DALY WHITNEY DO Aug 29, 2020 08:36
--- NOTE | 2020-08-29 13:13 | Physical Therapy Daily Note ---
PT Daily Note-Current Subjective Pt in bed, agreeable. No pain reported. Mental Status Patient Orientation: Person, Place, Time, Situation LSO Transfers SCALE: Activities may be completed with or without assistive devices. 6-Btfahrtdke-meowfwq completes the activity by him/herself with no assistance from a helper. 5-Set-up or Clean-up Assistance-helper sets up or cleans up; patient completes activity. [place] assists only prior to or following the activity. 4-Supervision or Touching Assistance-helper provides verbal cues and/or touching/steadying and/or contact guard assistance as patient completes activity. Assistance may be provided throughout the activity or intermittently. 3-Partial/Moderate Assistance-helper does LESS THAN HALF the effort. [place] lifts, holds or supports trunk or limbs, but provides less than half the effort. 2-Substantial/Maximal Assistance-helper does MORE THAN HALF the effort. [place] lifts or holds trunk or limbs and provides more than half the effort. 5-Dfrqsdglu-drbgpa does ALL the effort. Patient does none of the effort to complete the activity. Or, the assistance of 2 or more helpers is required for the patient to complete the activity. If activity was not attempted, code reason: 7-Patient Refused. 9-Not Applicable-not attempted and the patient did not perform the activity before the current illness, exacerbation or injury. 10-Not Attempted due to Environmental Limitations-(lack of equipment, weather restraints, etc.). 88-Not Attempted due to Medical Conditions or Safety Concerns. Sit to Lying (QC): 5 (HOB elevated) Sit to Stand (QC): 5 (multiple attempts but able to achieve with SBA) Weight Bearing Right Lower Extremity: Right Full Weight Bearing Left Lower Extremity: Left Full Weight Bearing Gait Training Does the Patient Walk?: Yes Distance: 100 Walk 10 feet (QC): 4 Walk 50 ft with 2 Turns(QC): 4 Gait Persons Needed: 2 Gait Assistive Device: FWW Pt ambulates with CGA + WCH following close. Antalgic gait with decreased proprioception (B). Towards end of gait trip, Pt reports need to sit immediately due to feeling as if (R) LE was giving out. Wheelchair Training Does the Pt Use a Wheelchair?: No Treatments Gait training with FWW. Up in chair with LSO in place for lunch, needs met. Assessment Current Status: Good Progress Pt tolerated well. Gait antalgic, LE functional strength limited, especially on (R). PT Short Term Goals Short Term Goals Time Frame: Aug 13, 2020 Roll Left & Right: 6 Sit to lyin Lying to sitting on side of be: 3 (met) Sit to stand: 3 Chair/gwq-yt-xnzmr transfer: 3 Walk 10 feet: 3 PT Referral Coordinator Goals Shelter Goals PT Referral Coordinator Goals Time Frame: Aug 27, 2020 Roll Left & Right (QC): 6 Sit to Lying (QC): 4 Lying-Sitting on Side/Bed(QC): 4 Sit to Stand (QC): 4 Chair/Akb-mb-Qkqdg Xfer(QC): 4 Toilet Transfer (QC): 4 Car Transfer (QC): 4 Does the Patient Walk: Yes Walk 10 feet (QC): 4 Walk 50ft with 2 Turns (QC): 4 Walk 150 ft (QC): 88 Walking 10ft on Uneven Surface: 4 1 Step (curb) (QC): 4 4 Steps (QC): 4 12 Steps (QC): 88 Picking up an Object (QC): 88 Wheel 50 feet with 2 turns (QC: 6 Wheel 150 feet: 6 PT Plan Problem List Problem List: Activity Tolerance, Functional Strength, Safety, Balance, Gait, Transfer, Bed Mobility, ROM Treatment/Plan Treatment Plan: Continue Plan of Care Treatment Plan: Bed Mobility, Education, Functional Activity Jayshree, Functional Strength, Group Therapy, Gait, Safety, Therapeutic Exercise, Transfers Treatment Duration: Aug 27, 2020 Frequency: At least 5 of 7 days/Wk (IRF) Estimated Hrs Per Day: 1.5 hours per day Patient and/or Family Agrees t: Yes Time/GCodes Time In: 1210 Time Out: 1228 Total Billed Treatment Time: 18 Total Billed Treatment 1, GT x 18' CAR COOK DPT Aug 29, 2020 13:13
[2020-08-29] MEDS: ENOXAPARIN 40 MG/0.4 ML (LOVENOX) SYR SC SCH (16:38)
[2020-08-29 20:00] VITALS: BP 139/85
[2020-08-29] MEDS: MELATONIN 3 MG TABLET PO PRN (20:58)
[2020-08-29] MEDS: SIMvastatin 10 MG (ZOCOR) TAB PO SCH (20:59)
[2020-08-29] MEDS: DICLOFENAC 1% GEL 100 GM (VOLTAREN) TUBE TOP PRN (22:34)
[2020-08-30] MEDS: CYCLOBENZAPRINE 10 MG (FLEXERIL) TAB PO PRN (00:11)
[2020-08-30] MEDS: inSUlin ASPART (NovoLOG) 1 UNIT/0.01 ML (CHARGE PER UNIT) SC SCH ×4 (05:47→20:57)
--- NOTE | 2020-08-30 07:00 | PM&R Progress Note ---
Subjective HPI/CC On Admission Date Seen by Provider: Aug 30, 2020 Time Seen by Provider: 10:00 Subjective/Events-last exam 08/30/2020: Patient having a pretty good day Was a bit cranky earlier this morning Having low back pain today Bowels moved today Talked about discharge plan later in the week 08/29/2020: This visit is via video chat due to Covid related restriction for this provider Patient has no new issues Blood pressure is really good Melatonin really helps him sleep and it is dosed at 3 mg to send into the pharmacy at discharge Voltaren gel really helps him 08/28/2020: This visit is via video chat due to Covid related restriction for this provider Patient doing pretty well today Bowels moved today Rash around incision is being treated Blood pressure stable 101/70 08/27/2020: This visit is via video chat due to Covid related restriction for this provider Patient doing pretty well Voltaren gel helps his shoulder pain Bowels are moving Toenail care provided by Dr. Llanos Check meds and labs 08/26/2020: This visit is via video chat due to Covid related restriction for this provider Patient has minimal complaints No falls Walking better with therapy Insulin rarely required on SSI BM yesterday Pain meds maintained 08/25/2020: This visit is via video chat due to Covid related restriction for this provider Patient doing really well Bowels moved today Voltaren gel helps Blood sugar 192 and 126 Had a controlled fall but did not harm any thing or injure anything Check meds and labs 08/24/2020: This visit is via video chat due to Covid related restriction for this provider Patient is doing well Voltaren gel improves shoulder pain BM ok Rare use of SSI 08/23/2020: This visit is via video chat due to Covid related restriction for this provider Patient doing really well the day No major issues Large bowel movement today Sugars are doing well without insulin Voltaren gel will be put on his arms and shoulders before physical therapy 08/22/2020: This visit is via video chat due to Covid related restriction for this provider Patient having a good day Arms and shoulders from compensating are still painful but Voltaren gel has been helpful Bowels moved yesterday Incision is a bit red Holding Levemir due to low blood sugars but he still has some isolated elevated ones 08/21/2020: This visit is via video chat due to Covid related restriction for this provider Patient having a good day Sugar was 130 this morning so I adjusted Levemir down to 4 units twice daily to prevent hypoglycemia as occurred yesterday Bowels are moving really well No more itching K pad did not really help the shoulder pain 08/20/2020: This visit is via video chat due to Covid related restriction for this provider Patient doing pretty well today Blood sugar is running low and then later it was 46 asymptomatic so stopped the regular insulin and will hold Levemir tonight Bowels moved today Rechecking Monday for progress I have updated him on the conversation I had with Dr. Elder 08/18/2020: Patient doing pretty well Clouded images to Dr. Elder and he will review but recommended time to recover considering the DKA episode set him back quite a bit Pain pill with Voltaren gel has helped Slow progress 08/17/2020: Patient having a good day Bowels moving okay Blood pressure 117/77 Talked about his x-rays that nurse had reported to him but those details will be evaluated by Dr. Elder the expert 08/16/2020: Patient doing pretty well Had some weak legs today Blood pressure elevated at times Monitor closely 08/15/2020: Patient in a pretty good mood Family at the bedside Blood sugar was a bit low at 80 and had symptoms so adjusted his insulin a bit Pain is well controlled on regimen Neuropathy discussed 08/14/20: Patient doing well No major issues Pain is an ongoing issue BP better 08/13/2020: Pt doing pretty well but variation in BP places him at risk for orthostasis I changed Clonidine to BID prn for BP elevation and started Norvasc 2.5 twice daily and will transition to Hydralazine also. 08/12/2020: Pt doing pretty well Bowels havent moved and we have given a lot of Laxatives Sugars are okay Voltaren gel to the back Clonidine BID has helped the BP that has dipped down to low levels in the afternoon Length of stay, presumed to be 08/26/20 08/11/2020: Pt doing pretty well Left axilla pain because of compensation with his arms, will initiate a moist he ating pad Bowels are moving okay Clonidine changed to BID instead of TID due to hypotension in the afternoon interfering with therapy X-rays were done and clouded to Dr. Elder 08/10/2020: Pt doing really well Had a large bowel movement yesterday Temperature at 99.4 but no other issues Sugars are better Talked to him about insulin at discharge 08/09/20: Patient doing well BM today Back pain improved Increased movement now Better today 08/08/20: Patient in a good mood Baclofen is working well for him so will maintain this Pain controlled High sugars requiring addition of insulin Wants tacos from home 08/07/2020: Patient doing pretty well Pain is still an issue Baclofen was ordered to help his back spasms No bowels are moving since loose stools for several days Adjusted insulin after reviewing several Accu-Cheks 08/06/2020: Patient doing pretty well Very motivated to walk Loose stool so holding laxatives Right knee really hurts Sodium level 128 so we will discontinue the indapamide Review of Systems General: Fatigue, Malaise Neurological: Weakness Objective Exam Vital Signs Vital Signs Date Time Temp Pulse Resp B/P (MAP) Pulse Ox O2 Delivery O2 Flow Rate FiO2 08/30/20 20:55 97 Room Air 08/30/20 20:25 37.2 96 16 140/75 (96) Capillary Refill : General Appearance: No Apparent Distress, WD/WN, Chronically ill HEENT: PERRL/EOMI, Normal ENT Inspection, Pharynx Normal Neck: Full Range of Motion, Normal Inspection, Non Tender, Supple, Carotid Bruit Respiratory: Chest Non Tender, Lungs Clear, Normal Breath Sounds, No Accessory Muscle Use, No Respiratory Distress Cardiovascular: Regular Rate, Rhythm, No Edema, No Gallop, No JVD, No Murmur, Normal Peripheral Pulses Gastrointestinal: Normal Bowel Sounds, No Organomegaly, No Pulsatile Mass, Non Tender, Soft Back: Decreased Range of Motion, Muscle Spasm, Vertebral Tenderness Extremity: Normal Capillary Refill, Normal Inspection, Normal Range of Motion, Non Tender, No Calf Tenderness, No Pedal Edema Neurologic/Psychiatric: Alert, Oriented x3, No Motor/Sensory Deficits, Normal Mood/Affect, Motor Weakness Skin: Normal Color, Warm/Dry Lymphatic: No Adenopathy Results/Procedures Lab Patient resulted labs reviewed. FIM Transfers Therapy Code Descriptions/Definitions Functional [place] Measure: 0=Not Assessed/NA 4=Minimal Assistance 1=Total Assistance 5=Supervision or Setup 2=Maximal Assistance 6=Modified [place] 3=Moderate Assistance 7=Complete IndependenceSCALE: Activities may be completed with or without assistive devices. 6-Nadolhewjj-qryhkle completes the activity by him/herself with no assistance from a helper. 5-Set-up or Clean-up Assistance-helper sets up or cleans up; patient completes activity. [place] assists only prior to or following the activity. 4-Supervision or Touching Assistance-helper provides verbal cues and/or touching/steadying and/or contact guard assistance as patient completes activity. Assistance may be provided throughout the activity or intermittently. 3-Partial/Moderate Assistance-helper does LESS THAN HALF the effort. [place] lifts, holds or supports trunk or limbs, but provides less than half the effort. 2-Substantial/Maximal Assistance-helper does MORE THAN HALF the effort. [place] lifts or holds trunk or limbs and provides more than half the effort. 5-Onveyychd-bztaro does ALL the effort. Patient does none of the effort to complete the activity. Or, the assistance of 2 or more helpers is required for the patient to complete the activity. If activity was not attempted, code reason: 7-Patient Refused. 9-Not Applicable-not attempted and the patient did not perform the activity before the current illness, exacerbation or injury. 10-Not Attempted due to Environmental Limitations-(lack of equipment, weather restraints, etc.). 88-Not Attempted due to Medical Conditions or Safety Concerns. Roll Left to Right (QC): 5 Sit to Lying (QC): 5 (HOB elevated) Sit to Stand (QC): 5 (multiple attempts but able to achieve with SBA) Chair/Pki-ts-Pafoc Xfer(QC): 5 Car Transfer (QC): 2 Gait Training Does the Patient Walk?: Yes Distance: 100 Walk 10 feet (QC): 4 Walk 50 ft with 2 Turns(QC): 4 Walk 150 ft (QC): 4 Walking 10ft/uneven surface-QC: 88 Gait Persons Needed: 2 Gait Assistive Device: FWW Wheelchair Training Does the Pt Use a Wheelchair?: No Distance: 150'x2 Wheel 50 ft with 2 turns (QC): 5 Wheel 150 ft (QC): 5 Type of Wheelchair: Manual Stair Training 1 Step (curb) (QC): 88 4 Steps (QC): 88 12 Steps (QC): 88 Balance Picking up an Object (QC): 88 ADL-Treatment Eating (QC): 6 (IND) Oral Hygiene (QC): 7 Shower/Bathe Self (QC): 5 (set up, pt able to wash/dry all parts seated on SC.) Upper Body Dressing (QC): 5 (set up of tshirt and back brace) Lower Body Dressing (QC): 3 (Min A with pant hike in back, pt able to thread BLEs.) On/Off Footwear (QC): 6 (IND slip on shoes.) Toileting Hygiene (QC): 3 (Min A in stand, pt able to perform hygiene leaning side to side and able to manage clothing) Toilet Transfer (QC): 3 (Min A to toilet, Mod A stand ) Assessment/Plan Assessment and Plan Assess & Plan/Chief Complaint Assessment: Status post lumbar spine surgery with severe debility and leg weakness Recent DKA [id number] diabetes history Hypertension Chronic arthritis pain Plan: Pain control Diabetes management Blood pressure management Inpatient rehab protocol 08/06/2020: Hold laxatives DC indapamide Monitor closely Fall risk 08/07/2020: Increase insulin Aggressive therapy 08/08/20: Increase insulin Baclofen 08/09/20: Monitor sugar Back pain management 08/10/2020: Monitor blood sugar Insulin at discharge will be required 08/11/2020: Monitor pain Supportive care Baclofen 08/12/2020: Pain control Intensive rehab Bowel regimen to intensify 08/13/2020: Supportive care Aggressive therapy Blood pressure management 08/14/20: Improved status Adjust insulin BP ok 08/15/2020: Pain control Insulin modified Fall risk 08/16/2020: Pain control Monitor blood pressure 08/17/2020: Patient doing pretty well today Continue aggressive therapy 08/18/2020: Continue pain control Updated Dr. Elder 08/20/2020: Continue aggressive therapy Improved overall today Decrease insulin intensity 08/21/2020: Decrease Levemir to 4 units twice daily Monitor closely Pain control 08/22/2020: Hold Levemir for hypoglycemia Monitor closely 08/23/2020: Holding insulin Pain meds 08/24/20: Monitor closely Pain control 08/25/2020: Fall risk Pain control Monitor sugar 08/26/20: Monitor pain Fall risk 08/27/2020: Maintain aggressive therapy Voltaren gel as needed 08/28/2020: Aggressive treatment Voltaren gel Pain control 08/29/2020: Maintain good pain control Voltaren gel Melatonin really help sleep Blood sugars reviewed Blood pressure good 08/30/2020: Pain control Monitor blood sugar (1) Status post lumbar spine surgery for decompression of spinal cord (2) Diabetes (3) DKA (diabetic ketoacidoses) (4) Hypertension (5) Leg weakness DALY WHITNEY DO Aug 30, 2020 07:00
[2020-08-30] MEDS: metFORMIN XR 500 MG (GLUCOPHAGE XR) TAB PO SCH ×2 (07:23→17:27)
[2020-08-30 07:28] VITALS: BP 125/81
[2020-08-30] MEDS: glipiZIDE 5 MG (GLUCOTROL) TAB PO SCH ×2 (09:40→17:27)
[2020-08-30] MEDS: LACTOBACILLUS ACIDOPHILUS (PROBIOTIC) CAPSULE PO SCH (09:40)
[2020-08-30] MEDS: amLODIPine 2.5MG (NORVASC) TAB PO SCH ×2 (09:41→20:54)
[2020-08-30] MEDS: BACLOFEN 10 MG (LIORESAL) TAB PO SCH ×3 (09:41→20:54)
[2020-08-30] MEDS: meTOprolol TARTRATE 25 MG (LOPRESSOR) TABLET PO SCH ×2 (09:41→20:53)
[2020-08-30] MEDS: ALLOPURINOL 100 MG (ZYLOPRIM) TAB PO SCH (09:41)
[2020-08-30] MEDS: lisINopril 20 MG (PRINIVIL) TABLET PO SCH ×2 (09:41→20:54)
[2020-08-30] MEDS: polyethylene glycoL POWDER 17 GM (MIRALAX) PACK PO SCH ×2 (09:43→21:08)
[2020-08-30] MEDS: DOCUSATE SODIUM 100 MG (COLACE) CAP PO SCH ×2 (09:43→20:53)
[2020-08-30] MEDS: SENNA W/DOCUSATE (SENOKOT S) TABLET PO SCH ×2 (09:43→21:08)
[2020-08-30] MEDS: TRIAMCINOLONE 0.1% OINT (KENALOG) 15 GM TUBE TOP SCH ×2 (09:47→21:02)
[2020-08-30] MEDS: NEO/POLY/BAC (NEOSPORIN) OINT 15 GM TUBE TOP SCH (09:47)
[2020-08-30] MEDS: ENOXAPARIN 40 MG/0.4 ML (LOVENOX) SYR SC SCH (16:18)
[2020-08-30 20:25] VITALS: BP 140/75
[2020-08-30] MEDS: SIMvastatin 10 MG (ZOCOR) TAB PO SCH (20:53)
[2020-08-30] MEDS: DICLOFENAC 1% GEL 100 GM (VOLTAREN) TUBE TOP PRN (20:58)
[2020-08-31] MEDS: inSUlin ASPART (NovoLOG) 1 UNIT/0.01 ML (CHARGE PER UNIT) SC SCH ×4 (06:00→20:47)
--- NOTE | 2020-08-31 06:00 | PM&R Progress Note ---
Subjective HPI/CC On Admission Date Seen by Provider: Aug 31, 2020 Time Seen by Provider: 09:00 Subjective/Events-last exam 08/31/2020: Pt doing pretty well Bowels moved yesterday Blood sugar 193 and 162 Will discharge at the end of the week BP elevated before morning meds 08/30/2020: Patient having a pretty good day Was a bit cranky earlier this morning Having low back pain today Bowels moved today Talked about discharge plan later in the week 08/29/2020: This visit is via video chat due to Covid related restriction for this provider Patient has no new issues Blood pressure is really good Melatonin really helps him sleep and it is dosed at 3 mg to send into the pharmacy at discharge Voltaren gel really helps him 08/28/2020: This visit is via video chat due to Covid related restriction for this provider Patient doing pretty well today Bowels moved today Rash around incision is being treated Blood pressure stable 101/70 08/27/2020: This visit is via video chat due to Covid related restriction for this provider Patient doing pretty well Voltaren gel helps his shoulder pain Bowels are moving Toenail care provided by Dr. Llanos Check meds and labs 08/26/2020: This visit is via video chat due to Covid related restriction for this provider Patient has minimal complaints No falls Walking better with therapy Insulin rarely required on SSI BM yesterday Pain meds maintained 08/25/2020: This visit is via video chat due to Covid related restriction for this provider Patient doing really well Bowels moved today Voltaren gel helps Blood sugar 192 and 126 Had a controlled fall but did not harm any thing or injure anything Check meds and labs 08/24/2020: This visit is via video chat due to Covid related restriction for this provider Patient is doing well Voltaren gel improves shoulder pain BM ok Rare use of SSI 08/23/2020: This visit is via video chat due to Covid related restriction for this provider Patient doing really well the day No major issues Large bowel movement today Sugars are doing well without insulin Voltaren gel will be put on his arms and shoulders before physical therapy 08/22/2020: This visit is via video chat due to Covid related restriction for this provider Patient having a good day Arms and shoulders from compensating are still painful but Voltaren gel has been helpful Bowels moved yesterday Incision is a bit red Holding Levemir due to low blood sugars but he still has some isolated elevated ones 08/21/2020: This visit is via video chat due to Covid related restriction for this provider Patient having a good day Sugar was 130 this morning so I adjusted Levemir down to 4 units twice daily to prevent hypoglycemia as occurred yesterday Bowels are moving really well No more itching K pad did not really help the shoulder pain 08/20/2020: This visit is via video chat due to Covid related restriction for this provider Patient doing pretty well today Blood sugar is running low and then later it was 46 asymptomatic so stopped the regular insulin and will hold Levemir tonight Bowels moved today Rechecking Monday for progress I have updated him on the conversation I had with Dr. Elder 08/18/2020: Patient doing pretty well Clouded images to Dr. Elder and he will review but recommended time to recover considering the DKA episode set him back quite a bit Pain pill with Voltaren gel has helped Slow progress 08/17/2020: Patient having a good day Bowels moving okay Blood pressure 117/77 Talked about his x-rays that nurse had reported to him but those details will be evaluated by Dr. Elder the expert 08/16/2020: Patient doing pretty well Had some weak legs today Blood pressure elevated at times Monitor closely 08/15/2020: Patient in a pretty good mood Family at the bedside Blood sugar was a bit low at 80 and had symptoms so adjusted his insulin a bit Pain is well controlled on regimen Neuropathy discussed 08/14/20: Patient doing well No major issues Pain is an ongoing issue BP better 08/13/2020: Pt doing pretty well but variation in BP places him at risk for orthostasis I changed Clonidine to BID prn for BP elevation and started Norvasc 2.5 twice daily and will transition to Hydralazine also. 08/12/2020: Pt doing pretty well Bowels havent moved and we have given a lot of Laxatives Sugars are okay Voltaren gel to the back Clonidine BID has helped the BP that has dipped down to low levels in the afternoon Length of stay, presumed to be 08/26/20 08/11/2020: Pt doing pretty well Left axilla pain because of compensation with his arms, will initiate a moist heating pad Bowels are moving okay Clonidine changed to BID instead of TID due to hypotension in the afternoon interfering with therapy X-rays were done and clouded to Dr. Elder 08/10/2020: Pt doing really well Had a large bowel movement yesterday Temperature at 99.4 but no other issues Sugars are better Talked to him about insulin at discharge 08/09/20: Patient doing well BM today Back pain improved Increased movement now Better today 08/08/20: Patient in a good mood Baclofen is working well for him so will maintain this Pain controlled High sugars requiring addition of insulin Wants tacos from home 08/07/2020: Patient doing pretty well Pain is still an issue Baclofen was ordered to help his back spasms No bowels are moving since loose stools for several days Adjusted insulin after reviewing several Accu-Cheks 08/06/2020: Patient doing pretty well Very motivated to walk Loose stool so holding laxatives Right knee really hurts Sodium level 128 so we will discontinue the indapamide Review of Systems General: Fatigue Musculoskeletal: back pain Objective Exam Vital Signs Vital Signs Date Time Temp Pulse Resp B/P (MAP) Pulse Ox O2 Delivery O2 Flow Rate FiO2 08/31/20 21:00 Room Air 08/31/20 20:00 36.2 89 20 123/58 (79) 98 Capillary Refill : General Appearance: No Apparent Distress, WD/WN, Chronically ill HEENT: PERRL/EOMI, Normal ENT Inspection, Pharynx Normal Neck: Full Range of Motion, Normal Inspection, Non Tender, Supple, Carotid Brui t Respiratory: Chest Non Tender, Lungs Clear, Normal Breath Sounds, No Accessory Muscle Use, No Respiratory Distress Cardiovascular: Regular Rate, Rhythm, No Edema, No Gallop, No JVD, No Murmur, Normal Peripheral Pulses Gastrointestinal: Normal Bowel Sounds, No Organomegaly, No Pulsatile Mass, Non Tender, Soft Back: Decreased Range of Motion, Muscle Spasm, Vertebral Tenderness Extremity: Normal Capillary Refill, Normal Inspection, Normal Range of Motion, Non Tender, No Calf Tenderness, No Pedal Edema Neurologic/Psychiatric: Alert, Oriented x3, No Motor/Sensory Deficits, Normal Mood/Affect, Motor Weakness Skin: Normal Color, Warm/Dry Lymphatic: No Adenopathy Results/Procedures Lab Laboratory Tests 08/31/20 05:47 Patient resulted labs reviewed. FIM Transfers Therapy Code Descriptions/Definitions Functional [place] Measure: 0=Not Assessed/NA 4=Minimal Assistance 1=Total Assistance 5=Supervision or Setup 2=Maximal Assistance 6=Modified [place] 3=Moderate Assistance 7=Complete IndependenceSCALE: Activities may be completed with or without assistive devices. 0-Mqwqgbdroz-vwgayvs completes the activity by him/herself with no assistance from a helper. 5-Set-up or Clean-up Assistance-helper sets up or cleans up; patient completes activity. [place] assists only prior to or following the activity. 4-Supervision or Touching Assistance-helper provides verbal cues and/or touching/steadying and/or contact guard assistance as patient completes activity. Assistance may be provided throughout the activity or intermittently. 3-Partial/Moderate Assistance-helper does LESS THAN HALF the effort. [place] lifts, holds or supports trunk or limbs, but provides less than half the effort. 2-Substantial/Maximal Assistance-helper does MORE THAN HALF the effort. [place] lifts or holds trunk or limbs and provides more than half the effort. 4-Dnatwbrxi-hnscta does ALL the effort. Patient does none of the effort to complete the activity. Or, the assistance of 2 or more helpers is required for the patient to complete the activity. If activity was not attempted, code reason: 7-Patient Refused. 9-Not Applicable-not attempted and the patient did not perform the activity before the current illness, exacerbation or injury. 10-Not Attempted due to Environmental Limitations-(lack of equipment, weather restraints, etc.). 88-Not Attempted due to Medical Conditions or Safety Concerns. Roll Left to Right (QC): 5 Sit to Lying (QC): 5 (HOB elevated) Sit to Stand (QC): 5 (multiple attempts but able to achieve with SBA) Chair/Vjx-sa-Pfzar Xfer(QC): 5 Car Transfer (QC): 2 Gait Training Does the Patient Walk?: Yes Distance: 100 Walk 10 feet (QC): 4 Walk 50 ft with 2 Turns(QC): 4 Walk 150 ft (QC): 4 Walking 10ft/uneven surface-QC: 88 Gait Persons Needed: 2 Gait Assistive Device: FWW Wheelchair Training Does the Pt Use a Wheelchair?: No Distance: 150'x2 Wheel 50 ft with 2 turns (QC): 5 Wheel 150 ft (QC): 5 Type of Wheelchair: Manual Stair Training 1 Step (curb) (QC): 88 4 Steps (QC): 88 12 Steps (QC): 88 Balance Picking up an Object (QC): 88 ADL-Treatment Eating (QC): 6 (IND) Oral Hygiene (QC): 7 Shower/Bathe Self (QC): 5 (set up, pt able to wash/dry all parts seated on SC.) Upper Body Dressing (QC): 5 (set up of tshirt and back brace) Lower Body Dressing (QC): 3 (Min A with pant hike in back, pt able to thread BLEs.) On/Off Footwear (QC): 6 (IND slip on shoes.) Toileting Hygiene (QC): 3 (Min A in stand, pt able to perform hygiene leaning side to side and able to manage clothing) Toilet Transfer (QC): 3 (Min A to toilet, Mod A stand ) Assessment/Plan Assessment and Plan Assess & Plan/Chief Complaint Assessment: Status post lumbar spine surgery with severe debility and leg weakness Recent DKA Nbt-[id number] diabetes history Hypertension Chronic arthritis pain Plan: Pain control Diabetes management Blood pressure management Inpatient rehab protocol 08/06/2020: Hold laxatives DC indapamide Monitor closely Fall risk 08/07/2020: Increase insulin Aggressive therapy 08/08/20: Increase insulin Baclofen 08/09/20: Monitor sugar Back pain management 08/10/2020: Monitor blood sugar Insulin at discharge will be required 08/11/2020: Monitor pain Supportive care Baclofen 08/12/2020: Pain control Intensive rehab Bowel regimen to intensify 08/13/2020: Supportive care Aggressive therapy Blood pressure management 08/14/20: Improved status Adjust insulin BP ok 08/15/2020: Pain control Insulin modified Fall risk 08/16/2020: Pain control Monitor blood pressure 08/17/2020: Patient doing pretty well today Continue aggressive therapy 08/18/2020: Continue pain control Updated Dr. Elder 08/20/2020: Continue aggressive therapy Improved overall today Decrease insulin intensity 08/21/2020: Decrease Levemir to 4 units twice daily Monitor closely Pain control 08/22/2020: Hold Levemir for hypoglycemia Monitor closely 08/23/2020: Holding insulin Pain meds 08/24/20: Monitor closely Pain control 08/25/2020: Fall risk Pain control Monitor sugar 08/26/20: Monitor pain Fall risk 08/27/2020: Maintain aggressive therapy Voltaren gel as needed 08/28/2020: Aggressive treatment Voltaren gel Pain control 08/29/2020: Maintain good pain control Voltaren gel Melatonin really help sleep Blood sugars reviewed Blood pressure good 08/30/2020: Pain control Monitor blood sugar 08/31/2020: Discharge planned on Monitor closely (1) Status post lumbar spine surgery for decompression of spinal cord (2) Diabetes (3) DKA (diabetic ketoacidoses) (4) Hypertension (5) Leg weakness DALY WHITNEY DO Aug 31, 2020 06:00
[2020-08-31] MEDS: metFORMIN XR 500 MG (GLUCOPHAGE XR) TAB PO SCH ×2 (06:34→17:25)
[2020-08-31 06:36] LABS: BASOPHILS # (AUTO) 0.1 10^3/uL (0.0-0.1); BASOPHILS % (AUTO) 2 % (0-10); EOSINOPHILS # (AUTO) 0.4 10^3/uL (0.0-0.3); EOSINOPHILS % (AUTO) 6 % (0-10); HEMATOCRIT 43 % (40-54); HEMOGLOBIN 14.6 g/dL (13.3-17.7); LYMPHOCYTES # (AUTO) 1.5 10^3/uL (1.0-4.0); LYMPHOCYTES % (AUTO) 21 % (12-44); MEAN CORPUSCULAR HEMOGLOBIN 27 pg (25-34); MEAN CORPUSCULAR HGB CONC 34 g/dL (32-36); MEAN CORPUSCULAR VOLUME 81 fL (80-99); MEAN PLATELET VOLUME 10.1 fL (9.0-12.2); MONOCYTES # (AUTO) 0.7 10^3/uL (0.0-1.0); MONOCYTES % (AUTO) 9 % (0-12); NEUTROPHILS # (AUTO) 4.4 10^3/uL (1.8-7.8); NEUTROPHILS % (AUTO) 61 % (42-75); PLATELET COUNT 223 10^3/uL (130-400); WHITE BLOOD COUNT 7.2 10^3/uL (4.3-11.0)
[2020-08-31 06:54] LABS: ALANINE AMINOTRANSFERASE 12 U/L (0-55); ALBUMIN 3.8 GM/DL (3.2-4.5); ALKALINE PHOSPHATASE 71 U/L (40-136); BILIRUBIN,TOTAL 0.6 MG/DL (0.1-1.0); BUN/CREATININE RATIO 17; CALCIUM 9.5 MG/DL (8.5-10.1); CARBON DIOXIDE 22 MMOL/L (21-32); CHLORIDE 103 MMOL/L (98-107); GFR ESTIMATED > 60; GLUCOSE 140 MG/DL (70-105); POTASSIUM 4.1 MMOL/L (3.6-5.0); SODIUM 135 MMOL/L (135-145); TOTAL PROTEIN 6.6 GM/DL (6.4-8.2)
[2020-08-31 07:48] VITALS: BP 172/94
[2020-08-31] MEDS: lisINopril 20 MG (PRINIVIL) TABLET PO SCH ×2 (08:02→21:17)
[2020-08-31] MEDS: amLODIPine 2.5MG (NORVASC) TAB PO SCH ×2 (08:02→21:16)
[2020-08-31] MEDS: BACLOFEN 10 MG (LIORESAL) TAB PO SCH ×3 (08:02→21:15)
[2020-08-31] MEDS: meTOprolol TARTRATE 25 MG (LOPRESSOR) TABLET PO SCH ×2 (08:02→21:15)
[2020-08-31] MEDS: DOCUSATE SODIUM 100 MG (COLACE) CAP PO SCH ×2 (08:03→21:16)
[2020-08-31] MEDS: polyethylene glycoL POWDER 17 GM (MIRALAX) PACK PO SCH ×2 (08:03→21:14)
[2020-08-31] MEDS: glipiZIDE 5 MG (GLUCOTROL) TAB PO SCH ×2 (08:03→17:25)
[2020-08-31] MEDS: ALLOPURINOL 100 MG (ZYLOPRIM) TAB PO SCH (08:03)
[2020-08-31] MEDS: LACTOBACILLUS ACIDOPHILUS (PROBIOTIC) CAPSULE PO SCH (08:03)
[2020-08-31] MEDS: SENNA W/DOCUSATE (SENOKOT S) TABLET PO SCH ×2 (08:06→21:15)
[2020-08-31] MEDS: NEO/POLY/BAC (NEOSPORIN) OINT 15 GM TUBE TOP SCH (08:06)
[2020-08-31] MEDS: TRIAMCINOLONE 0.1% OINT (KENALOG) 15 GM TUBE TOP SCH ×2 (08:07→21:19)
--- NOTE | 2020-08-31 08:26 | Occupational Ther Daily Note ---
OT Current Status-Daily Note Subjective Pt agreeable to OT Tx wtih focus on ADLs, states he is hopeful he may be able to discharge later this week. Mental Status/Objective Patient Orientation: Normal For Age Attachments: Other-See Comments (back brace OOB) ADL-Treatment Therapy Code Descriptions/Definitions Functional [place] Measure: 0=Not Assessed/NA 4=Minimal Assistance 1=Total Assistance 5=Supervision or Setup 2=Maximal Assistance 6=Modified [place] 3=Moderate Assistance 7=Complete IndependenceSCALE: Activities may be completed with or without assistive devices. 0-Jpgvinjeyp-hssicng completes the activity by him/herself with no assistance from a helper. 5-Set-up or Clean-up Assistance-helper sets up or cleans up; patient completes activity. [place] assists only prior to or following the activity. 4-Supervision or Touching Assistance-helper provides verbal cues and/or touching/steadying and/or contact guard assistance as patient completes activity. Assistance may be provided throughout the activity or intermittently. 3-Partial/Moderate Assistance-helper does LESS THAN HALF the effort. [place] lifts, holds or supports trunk or limbs, but provides less than half the effort. 2-Substantial/Maximal Assistance-helper does MORE THAN HALF the effort. [place] lifts or holds trunk or limbs and provides more than half the effort. 1-Hgzaaqwfl-lxrmdx does ALL the effort. Patient does none of the effort to complete the activity. Or, the assistance of 2 or more helpers is required for the patient to complete the activity. If activity was not attempted, code reason: 7-Patient Refused. 9-Not Applicable-not attempted and the patient did not perform the activity before the current illness, exacerbation or injury. 10-Not Attempted due to Environmental Limitations-(lack of equipment, weather restraints, etc.). 88-Not Attempted due to Medical Conditions or Safety Concerns. Eating (QC): 6 Oral Hygiene (QC): 6 (seated at sink.) Shower/Bathe Self (QC): 6 (IND seated on SC.) Upper Body Dressing (QC): 5 (set up of focus puller shirt and back brace.) On/Off Footwear: 6 (IND with slip on shoes.) Other Treatment Pt laying in bed, transferred to w/c, CGA sit to stand from elevated surface. Pt propelled into bathroom, shaved and completed oral care at sink independently. Pt then transferred from / to IN using GBs, CGA. Pt completed shower, donned UE clothing, and transferred to w/c to don LE clothing. Pt propelled w/c to therapy gym, completed pulleys x5 mins in order to increase UE ROM, decrease pain, and increase strength. Pt propelled w/c back to room. Post tx, pt seated in w/c, call light in reach and all needs met. Education OT Patient Education: Correct positioning, Modified ADL techniques, Progress toward Goal/Update tx plan, Purpose of tx/functional activities, Rehab process Teaching Recipient: Patient Teaching Methods: Discussion Response to Teaching: Verbalize Understanding OT Short Term Goals Short Term Goals Time Frame: Aug 20, 2020 Oral hygiene: 5 Shower/bathe self: 3 Lower body dressin Putting on/taking off footwear: 3 OT Motor Vehicle Escort Driver Goals Motor Vehicle Escort Driver Goals Time Frame: Sep 04, 2020 Eating (QC): 6 Oral Hygiene (QC): 6 Toileting Hygiene (QC): 6 Shower/Bathe Self (QC): 6 Upper Body Dressing (QC): 6 Lower Body Dressing (QC): 6 On/Off Footwear (QC): 6 Additional Goals: 1-Demonstrate ADL Tasks, 2-Verbalize Understanding, 3- ImproveStrength/Jayshree 1=Demonstrate adherence to instructed precautions during ADL tasks. 2=Patient will verbalize/demonstrate understanding of assistive devices/modifications for ADL. 3=Patient will improve strength/tolerance for activity to enable patient to perform ADL's. OT Education/Plan Problem List/Assessment Assessment: Decreased Activ Tolerance, Decreased UE Strength, Impaired Funct Balance, Impaired I ADL's, Impaired Self-Care Skills, Restricted Funct UE ROM Discharge Recommendations Plan/Recommendations: Continue POC Treatment Plan/Plan of Care Patient would benefit from OT for education, treatment and training to promote independence in ADL's, mobility, safety and/or upper extremity function for ADL's. Plan of Care: ADL Retraining, Functional Mobility, Group Exercise/Act as Ind, UE Funct Exercise/Act Treatment Duration: Sep 04, 2020 Frequency: Modified Program (IRF) (27/08) Estimated Hrs Per Day: 1.5 hours per day Rehab Potential: Fair Time/GCodes Start Time: 08:00 Stop Time: 09:00 Total Time Billed (hr/min): 60 Billed Treatment Time 1, ADL 3 (45'), FA (15') MED PETERSON OT Aug 31, 2020 08:26
--- NOTE | 2020-08-31 14:26 | Physical Therapy Daily Note ---
PT Daily Note-Current Subjective Agrees to PT. Reports he feels he has made so much progress here. Hopes to go home Monday or . Mental Status Patient Orientation: Person, Place, Time, Situation Transfers SCALE: Activities may be completed with or without assistive devices. 5-Cnqptijrtk-lslhjij completes the activity by him/herself with no assistance from a helper. 5-Set-up or Clean-up Assistance-helper sets up or cleans up; patient completes activity. [place] assists only prior to or following the activity. 4-Supervision or Touching Assistance-helper provides verbal cues and/or touching/steadying and/or contact guard assistance as patient completes activity. Assistance may be provided throughout the activity or intermittently. 3-Partial/Moderate Assistance-helper does LESS THAN HALF the effort. [place] lifts, holds or supports trunk or limbs, but provides less than half the effort. 2-Substantial/Maximal Assistance-helper does MORE THAN HALF the effort. [place] lifts or holds trunk or limbs and provides more than half the effort. 1-Cnhooxhlb-fqcdjg does ALL the effort. Patient does none of the effort to complete the activity. Or, the assistance of 2 or more helpers is required for the patient to complete the activity. If activity was not attempted, code reason: 7-Patient Refused. 9-Not Applicable-not attempted and the patient did not perform the activity before the current illness, exacerbation or injury. 10-Not Attempted due to Environmental Limitations-(lack of equipment, weather restraints, etc.). 88-Not Attempted due to Medical Conditions or Safety Concerns. Sit to Stand (QC): 3 (min assist with cues for hand placement. ) Chair/Hwq-vl-Etmux Xfer(QC): 4 (CGA for safety and balance. ) Toilet Transfer (QC): 4 Weight Bearing Right Lower Extremity: Right Full Weight Bearing Left Lower Extremity: Left Full Weight Bearing Gait Training Does the Patient Walk?: Yes Walk 10 feet (QC): 4 Walk 50 ft with 2 Turns(QC): 4 Walk 150 ft (QC): 4 Gait Persons Needed: 1 Gait Assistive Device: FWW Pt ambulated x 50 ft, 150 , 50 ft and 150 ft with FWW with close CGA. Applied AFO right for partial time of walking, correct foot drop and eliminates steppage gait that is present without AFO. Pt expressed that he does like the AFO. Wheelchair Training Wheel 50 ft with 2 turns (QC): 6 Wheel 150 ft (QC): 6 Stair Training 1 Step (curb) (QC): 4 (CGA with cues for sequencing and instruction on reason behind sequence) Treatments Functional mobility training that included multiple transfers, curb step and application of AFO this date. Assessment Current Status: Good Progress Progressing well. Strength and mobility progressing. Improved gait with AFO, will continue to trial and send home with pt if he desires. PT Short Term Goals Short Term Goals Time Frame: Aug 13, 2020 Roll Left & Right: 6 Sit to lyin Lying to sitting on side of be: 3 (met) Sit to stand: 3 (met) Chair/pma-aw-kiopz transfer: 3 (met) Walk 10 feet: 3 (met) PT [employer] Goals Halfway Goals PT Halfway Goals Time Frame: Aug 27, 2020 Roll Left & Right (QC): 6 Sit to Lying (QC): 4 Lying-Sitting on Side/Bed(QC): 4 Sit to Stand (QC): 4 Chair/Wkv-di-Xlxct Xfer(QC): 4 Toilet Transfer (QC): 4 Car Transfer (QC): 4 Does the Patient Walk: Yes Walk 10 feet (QC): 4 Walk 50ft with 2 Turns (QC): 4 Walk 150 ft (QC): 88 Walking 10ft on Uneven Surface: 4 1 Step (curb) (QC): 4 4 Steps (QC): 4 12 Steps (QC): 88 Picking up an Object (QC): 88 Wheel 50 feet with 2 turns (QC: 6 Wheel 150 feet: 6 PT Plan Problem List Problem List: Activity Tolerance, Functional Strength, Safety, Balance, Gait, Transfer, Bed Mobility Treatment/Plan Treatment Plan: Continue Plan of Care Treatment Plan: Bed Mobility, Education, Functional Activity Jayshree, Functional Strength, Group Therapy, Gait, Safety, Therapeutic Exercise, Transfers Treatment Duration: Aug 27, 2020 Frequency: At least 5 of 7 days/Wk (IRF) Estimated Hrs Per Day: 1.5 hours per day Patient and/or Family Agrees t: Yes Safety Risks/Education Patient Education: Transfer Techniques, Steps Teaching Recipient: Patient Teaching Methods: Demonstration, Discussion Response to Teaching: Return Demonstration, Reinforcement Needed Discharge Recommendations Therapy Discharge Recommendati: Post Acute PT Time/GCodes Time In: 945 Time Out: 1045 Total Billed Treatment Time: 60 Total Billed Treatment visit FA 60 MODESTA CHEN PT Aug 31, 2020 14:26
--- NOTE | 2020-08-31 14:43 | Therapy Group Daily Note ---
Therapy Daily Group Note Patient Education Topic Fall Prevention (fall education) Exercises LE Seated Exercise, UE Exercise Session Ratio (pt:therapist): 4:1 Goal of Session: Home Safety Strategies, UE/LE Strengthing Goal Met for this Session: Yes Pt Benefit of Group: Contributions to Others, Increased Functional Safety, Increased Functional Strength, Socialization Other/Notes This group session was a combination of social interaction, functional U/LE strength training, cognition with reading, understanding and demonstrating an exercise to the group, recall of favorite events/activities, as well as U/LE strengthening. Education on fall prevention and safety completed as well. This patient was able to interact appropriately with good recall of safety and past events. Excellent participation and interaction with group with words of en couragement to others. Start Time: 13:00 Stop Time: 14:00 Total Billed Treatment Time: 60 Total Billed Treatment visit GRP 60 MODESTA CHEN PT Aug 31, 2020 14:43
[2020-08-31] MEDS: ENOXAPARIN 40 MG/0.4 ML (LOVENOX) SYR SC SCH (15:17)
[2020-08-31 20:00] VITALS: BP 123/58
[2020-08-31] MEDS: DICLOFENAC 1% GEL 100 GM (VOLTAREN) TUBE TOP PRN (21:13)
[2020-08-31] MEDS: MELATONIN 3 MG TABLET PO PRN (21:15)
[2020-08-31] MEDS: SIMvastatin 10 MG (ZOCOR) TAB PO SCH (21:16)
--- NOTE | 2020-09-01 05:25 | PM&R Progress Note ---
Subjective HPI/CC On Admission Date Seen by Provider: Sep 01, 2020 Time Seen by Provider: 09:00 Subjective/Events-last exam 09/01/2020: Pt had some nausea and vomiting today but otherwise is doing very well Bowels move two days ago, will give laxatives Checked meds and labs, blood sugars are good 08/31/2020: Pt doing pretty well Bowels moved yesterday Blood sugar 193 and 162 Will discharge at the end of the week BP elevated before morning meds 08/30/2020: Patient having a pretty good day Was a bit cranky earlier this morning Having low back pain today Bowels moved today Talked about discharge plan later in the week 08/29/2020: This visit is via video chat due to Covid related restriction for this provider Patient has no new issues Blood pressure is really good Melatonin really helps him sleep and it is dosed at 3 mg to send into the pharmacy at discharge Voltaren gel really helps him 08/28/2020: This visit is via video chat due to Covid related restriction for this provider Patient doing pretty well today Bowels moved today Rash around incision is being treated Blood pressure stable 101/70 08/27/2020: This visit is via video chat due to Covid related restriction for this provider Patient doing pretty well Voltaren gel helps his shoulder pain Bowels are moving Toenail care provided by Dr. Llanos Check meds and labs 08/26/2020: This visit is via video chat due to Covid related restriction for this provider Patient has minimal complaints No falls Walking better with therapy Insulin rarely required on SSI BM yesterday Pain meds maintained 08/25/2020: This visit is via video chat due to Covid related restriction for this provider Patient doing really well Bowels moved today Voltaren gel helps Blood sugar 192 and 126 Had a controlled fall but did not harm any thing or injure anything Check meds and labs 08/24/2020: This visit is via video chat due to Covid related restriction for this provider Patient is doing well Voltaren gel improves shoulder pain BM ok Rare use of SSI 08/23/2020: This visit is via video chat due to Covid related restriction for this provider Patient doing really well the day No major issues Large bowel movement today Sugars are doing well without insulin Voltaren gel will be put on his arms and shoulders before physical therapy 08/22/2020: This visit is via video chat due to Covid related restriction for this provider Patient having a good day Arms and shoulders from compensating are still painful but Voltaren gel has been helpful Bowels moved yesterday Incision is a bit red Holding Levemir due to low blood sugars but he still has some isolated elevated ones 08/21/2020: This visit is via video chat due to Covid related restriction for this provider Patient having a good day Sugar was 130 this morning so I adjusted Levemir down to 4 units twice daily to prevent hypoglycemia as occurred yesterday Bowels are moving really well No more itching K pad did not really help the shoulder pain 08/20/2020: This visit is via video chat due to Covid related restriction for this provider Patient doing pretty well today Blood sugar is running low and then later it was 46 asymptomatic so stopped the regular insulin and will hold Levemir tonight Bowels moved today Rechecking Monday for progress I have updated him on the conversation I had with Dr. Elder 08/18/2020: Patient doing pretty well Clouded images to Dr. Elder and he will review but recommended time to recover considering the DKA episode set him back quite a bit Pain pill with Voltaren gel has helped Slow progress 08/17/2020: Patient having a good day Bowels moving okay Blood pressure 117/77 Talked about his x-rays that nurse had reported to him but those details will be evaluated by Dr. Elder the expert 08/16/2020: Patient doing pretty well Had some weak legs today Blood pressure elevated at times Monitor closely 08/15/2020: Patient in a pretty good mood Family at the bedside Blood sugar was a bit low at 80 and had symptoms so adjusted his insulin a bit Pain is well controlled on regimen Neuropathy discussed 08/14/20: Patient doing well No major issues Pain is an ongoing issue BP better 08/13/2020: Pt doing pretty well but variation in BP places him at risk for orthostasis I changed Clonidine to BID prn for BP elevation and started Norvasc 2.5 twice daily and will transition to Hydralazine also. 08/12/2020: Pt doing pretty well Bowels havent moved and we have given a lot of Laxatives Sugars are okay Voltaren gel to the back Clonidine BID has helped the BP that has dipped down to low levels in the afternoon Length of stay, presumed to be 08/26/20 08/11/2020: Pt doing pretty well Left axilla pain because of compensation with his arms, will initiate a moist heating pad Bowels are moving okay Clonidine changed to BID instead of TID due to hypotension in the afternoon interfering with therapy X-rays were done and clouded to Dr. Elder 08/10/2020: Pt doing really well Had a large bowel movement yesterday Temperature at 99.4 but no other issues Sugars are better Talked to him about insulin at discharge 08/09/20: Patient doing well BM today Back pain improved Increased movement now Better today 08/08/20: Patient in a good mood Baclofen is working well for him so will maintain this Pain controlled High sugars requiring addition of insulin Wants tacos from home 08/07/2020: Patient doing pretty well Pain is still an issue Baclofen was ordered to help his back spasms No bowels are moving since loose stools for several days Adjusted insulin after reviewing several Accu-Cheks 08/06/2020: Patient doing pretty well Very motivated to walk Loose stool so holding laxatives Right knee really hurts Sodium level 128 so we will discontinue the indapamide Review of Systems General: Fatigue, Malaise Musculoskeletal: back pain Neurological: Weakness Objective Exam Vital Signs Vital Signs Date Time Temp Pulse Resp B/P (MAP) Pulse Ox O2 Delivery O2 Flow Rate FiO2 09/01/20 20:54 Room Air 09/01/20 20:00 36.4 91 14 118/58 (78) 93 09/01/20 06:41 0.00 Capillary Refill : General Appearance: No Apparent Distress, WD/WN, Chronically ill HEENT: PERRL/EOMI, Normal ENT Inspection, Pharynx Normal Neck: Full Range of Motion, Normal Inspection, Non Tender, Supple, Carotid Bruit Respiratory: Chest Non Tender, Lungs Clear, Normal Breath Sounds, No Accessory Muscle Use, No Respiratory Distress Cardiovascular: Regular Rate, Rhythm, No Edema, No Gallop, No JVD, No Murmur, Normal Peripheral Pulses Gastrointestinal: Normal Bowel Sounds, No Organomegaly, No Pulsatile Mass, Non Tender, Soft Back: Decreased Range of Motion, Muscle Spasm, Vertebral Tenderness Extremity: Normal Capillary Refill, Normal Inspection, Normal Range of Motion, Non Tender, No Calf Tenderness, No Pedal Edema Neurologic/Psychiatric: Alert, Oriented x3, No Motor/Sensory Deficits, Normal Mood/Affect, Motor Weakness Skin: Normal Color, Warm/Dry Lymphatic: No Adenopathy Results/Procedures Lab Patient resulted labs reviewed. FIM Transfers Therapy Code Descriptions/Definitions Functional [place] Measure: 0=Not Assessed/NA 4=Minimal Assistance 1=Total Assistance 5=Supervision or Setup 2=Maximal Assistance 6=Modified [place] 3=Moderate Assistance 7=Complete IndependenceSCALE: Activities may be completed with or without assistive devices. 9-Xxftbiawlg-neitrir completes the activity by him/herself with no assistance from a helper. 5-Set-up or Clean-up Assistance-helper sets up or cleans up; patient completes activity. [place] assists only prior to or following the activity. 4-Supervision or Touching Assistance-helper provides verbal cues and/or touching/steadying and/or contact guard assistance as patient completes activity. Assistance may be provided throughout the activity or intermittently. 3-Partial/Moderate Assistance-helper does LESS THAN HALF the effort. [place] lifts, holds or supports trunk or limbs, but provides less than half the effort. 2-Substantial/Maximal Assistance-helper does MORE THAN HALF the effort. [place] lifts or holds trunk or limbs and provides more than half the effort. 6-[place]-igevam does ALL the effort. Patient does none of the effort to complete the activity. Or, the assistance of 2 or more helpers is required for the patient to complete the activity. If activity was not attempted, code reason: 7-Patient Refused. 9-Not Applicable-not attempted and the patient did not perform the activity before the current illness, exacerbation or injury. 10-Not Attempted due to Environmental Limitations-(lack of equipment, weather restraints, etc.). 88-Not Attempted due to Medical Conditions or Safety Concerns. Roll Left to Right (QC): 5 Sit to Lying (QC): 5 (HOB elevated) Sit to Stand (QC): 3 (min assist with cues for hand placement. ) Chair/Nlj-bu-Cnoqk Xfer(QC): 4 (CGA for safety and balance. ) Car Transfer (QC): 2 Gait Training Does the Patient Walk?: Yes Distance: 100 Walk 10 feet (QC): 4 Walk 50 ft with 2 Turns(QC): 4 Walk 150 ft (QC): 4 Walking 10ft/uneven surface-QC: 88 Gait Persons Needed: 1 Gait Assistive Device: FWW Wheelchair Training Does the Pt Use a Wheelchair?: No Distance: 150'x2 Wheel 50 ft with 2 turns (QC): 6 Wheel 150 ft (QC): 6 Type of Wheelchair: Manual Stair Training 1 Step (curb) (QC): 4 (CGA with cues for sequencing and instruction on reason behind sequence) 4 Steps (QC): 88 12 Steps (QC): 88 Balance Picking up an Object (QC): 88 ADL-Treatment Eating (QC): 6 Oral Hygiene (QC): 6 (seated at sink.) Shower/Bathe Self (QC): 6 (IND seated on SC.) Upper Body Dressing (QC): 5 (set up of pick pulling machine tender shirt and back brace.) Lower Body Dressing (QC): 3 (Min A with pant hike in back, pt able to thread BLEs.) On/Off Footwear (QC): 6 (IND with slip on shoes.) Toileting Hygiene (QC): 3 (Min A in stand, pt able to perform hygiene leaning side to side and able to manage clothing) Toilet Transfer (QC): 3 (Min A to toilet, Mod A stand ) Assessment/Plan Assessment and Plan Assess & Plan/Chief Complaint Assessment: Status post lumbar spine surgery with severe debility and leg weakness Recent DKA Hrn-ns-ueckftr diabetes history Hypertension Chronic arthritis pain Plan: Pain control Diabetes management Blood pressure management Inpatient rehab protocol 08/06/2020: Hold laxatives DC indapamide Monitor closely Fall risk 08/07/2020: Increase insulin Aggressive therapy 08/08/20: Increase insulin Baclofen 08/09/20: Monitor sugar Back pain management 08/10/2020: Monitor blood sugar Insulin at discharge will be required 08/11/2020: Monitor pain Supportive care Baclofen 08/12/2020: Pain control Intensive rehab Bowel regimen to intensify 08/13/2020: Supportive care Aggressive therapy Blood pressure management 08/14/20: Improved status Adjust insulin BP ok 08/15/2020: Pain control Insulin modified Fall risk 08/16/2020: Pain control Monitor blood pressure 08/17/2020: Patient doing pretty well today Continue aggressive therapy 08/18/2020: Continue pain control Updated Dr. Elder 08/20/2020: Continue aggressive therapy Improved overall today Decrease insulin intensity 08/21/2020: Decrease Levemir to 4 units twice daily Monitor closely Pain control 08/22/2020: Hold Levemir for hypoglycemia Monitor closely 08/23/2020: Holding insulin Pain meds 08/24/20: Monitor closely Pain control 08/25/2020: Fall risk Pain control Monitor sugar 08/26/20: Monitor pain Fall risk 08/27/2020: Maintain aggressive therapy Voltaren gel as needed 08/28/2020: Aggressive treatment Voltaren gel Pain control 08/29/2020: Maintain good pain control Voltaren gel Melatonin really help sleep Blood sugars reviewed Blood pressure good 08/30/2020: Pain control Monitor blood sugar 08/31/2020: Discharge planned on Monitor closely 09/01/2020: Monitor for recurrent nausea Monitor closely (1) Status post lumbar spine surgery for decompression of spinal cord (2) Diabetes (3) DKA (diabetic ketoacidoses) (4) Hypertension (5) Leg weakness DALY WHITNEY DO Sep 01, 2020 05:25
[2020-09-01] MEDS: inSUlin ASPART (NovoLOG) 1 UNIT/0.01 ML (CHARGE PER UNIT) SC SCH ×4 (05:36→22:11)
[2020-09-01] MEDS: metFORMIN XR 500 MG (GLUCOPHAGE XR) TAB PO SCH ×2 (06:15→17:21)
[2020-09-01 07:33] VITALS: BP 135/70
[2020-09-01] MEDS: LACTOBACILLUS ACIDOPHILUS (PROBIOTIC) CAPSULE PO SCH (08:12)
[2020-09-01] MEDS: SENNA W/DOCUSATE (SENOKOT S) TABLET PO SCH ×2 (08:12→22:12)
[2020-09-01] MEDS: lisINopril 20 MG (PRINIVIL) TABLET PO SCH ×2 (08:12→22:12)
[2020-09-01] MEDS: glipiZIDE 5 MG (GLUCOTROL) TAB PO SCH ×2 (08:13→17:21)
[2020-09-01] MEDS: CYCLOBENZAPRINE 10 MG (FLEXERIL) TAB PO PRN ×2 (08:13→22:11)
[2020-09-01] MEDS: DOCUSATE SODIUM 100 MG (COLACE) CAP PO SCH ×2 (08:13→22:12)
[2020-09-01] MEDS: BACLOFEN 10 MG (LIORESAL) TAB PO SCH ×3 (08:14→22:11)
[2020-09-01] MEDS: amLODIPine 2.5MG (NORVASC) TAB PO SCH ×2 (08:14→22:13)
[2020-09-01] MEDS: meTOprolol TARTRATE 25 MG (LOPRESSOR) TABLET PO SCH ×2 (08:14→22:12)
[2020-09-01] MEDS: ALLOPURINOL 100 MG (ZYLOPRIM) TAB PO SCH (08:14)
[2020-09-01] MEDS: polyethylene glycoL POWDER 17 GM (MIRALAX) PACK PO SCH ×2 (08:15→22:10)
[2020-09-01] MEDS: NEO/POLY/BAC (NEOSPORIN) OINT 15 GM TUBE TOP SCH (08:16)
[2020-09-01] MEDS: TRIAMCINOLONE 0.1% OINT (KENALOG) 15 GM TUBE TOP SCH ×2 (08:16→22:10)
--- NOTE | 2020-09-01 09:35 | Occupational Ther Daily Note ---
OT Current Status-Daily Note Subjective Pt agreeable to OT Tx. Mental Status/Objective Patient Orientation: Normal For Age ADL-Treatment Therapy Code Descriptions/Definitions Functional [place] Measure: 0=Not Assessed/NA 4=Minimal Assistance 1=Total Assistance 5=Supervision or Setup 2=Maximal Assistance 6=Modified [place] 3=Moderate Assistance 7=Complete IndependenceSCALE: Activities may be completed with or without assistive devices. 3-Rjpypqqodc-bgbdluc completes the activity by him/herself with no assistance from a helper. 5-Set-up or Clean-up Assistance-helper sets up or cleans up; patient completes activity. [place] assists only prior to or following the activity. 4-Supervision or Touching Assistance-helper provides verbal cues and/or touching/steadying and/or contact guard assistance as patient completes activity . Assistance may be provided throughout the activity or intermittently. 3-Partial/Moderate Assistance-helper does LESS THAN HALF the effort. [place] lifts, holds or supports trunk or limbs, but provides less than half the effort. 2-Substantial/Maximal Assistance-helper does MORE THAN HALF the effort. [place] lifts or holds trunk or limbs and provides more than half the effort. 6-Qgbsurnsc-mszqie does ALL the effort. Patient does none of the effort to complete the activity. Or, the assistance of 2 or more helpers is required for the patient to complete the activity. If activity was not attempted, code reason: 7-Patient Refused. 9-Not Applicable-not attempted and the patient did not perform the activity before the current illness, exacerbation or injury. 10-Not Attempted due to Environmental Limitations-(lack of equipment, weather restraints, etc.). 88-Not Attempted due to Medical Conditions or Safety Concerns. Upper Body Dressing (QC): 5 (set up) Lower Body Dressing (QC): 4 (CGA) On/Off Footwear: 3 (Min A with tennis shoes (with adaptive laces), and R AFO. AE for socks.) Other Treatment [id number] Pt laying in bed, transferred supine to sit EOB to don clothes. Pt u sed AE as needed for LE clothing. Pt transferred to w/c, propelling to therapy gym. OT switched out laces for elastic laces with pt permission. Pt then attempted to don adapted shoes, requiring min A with RLE AFO and shoe. Pt propelled back to room, requesting to use toilet. Pt transferred from w/c to toilet using GBs, CGA. Post tx, pt seated on toilet, all needs met, instructed to pull call light when done. [id number] Pt supine, transferred to EOB then to w/c, CGA from elevated surface. Pt propelled w/c to therapy gym. Pt states his shoulders have been bothering him more today, did not verbalize pain rating. In order to increase BUE ROM, decrease pain, and increase strength/activity tolerance, pt completed pulleys, tolerating x5 mins. Pt propelled back to his room, transferring to bed (min A sit to stand, SBA sit to supine). Post tx, pt laying in bed, call light in reach and all needs met. Education OT Patient Education: Correct positioning, Energy conservation, Exercise pro gram, Modified ADL techniques, Progress toward Goal/Update tx plan, Purpose of tx/functional activities, Rehab process Teaching Recipient: Patient Teaching Methods: Discussion Response to Teaching: Verbalize Understanding OT Short Term Goals Short Term Goals Time Frame: Aug 20, 2020 Oral hygiene: 5 Shower/bathe self: 3 Lower body dressin Putting on/taking off footwear: 3 OT Jewelry Inspector Goals Long-Term Goals Time Frame: Sep 04, 2020 Eating (QC): 6 Oral Hygiene (QC): 6 Toileting Hygiene (QC): 6 Shower/Bathe Self (QC): 6 Upper Body Dressing (QC): 6 Lower Body Dressing (QC): 6 On/Off Footwear (QC): 6 Additional Goals: 1-Demonstrate ADL Tasks, 2-Verbalize Understanding, 3- ImproveStrength/Jayshree 1=Demonstrate adherence to instructed precautions during ADL tasks. 2=Patient will verbalize/demonstrate understanding of assistive devices/modifications for ADL. 3=Patient will improve strength/tolerance for activity to enable patient to perform ADL's. OT Education/Plan Problem List/Assessment Assessment: Decreased Activ Tolerance, Decreased UE Strength, Impaired Funct Balance, Impaired I ADL's, Impaired Self-Care Skills, Restricted Funct UE ROM Discharge Recommendations Plan/Recommendations: Continue POC Treatment Plan/Plan of Care Patient would benefit from OT for education, treatment and training to promote independence in ADL's, mobility, safety and/or upper extremity function for AD L's. Plan of Care: ADL Retraining, Functional Mobility, Group Exercise/Act as Ind, UE Funct Exercise/Act Treatment Duration: Sep 04, 2020 Frequency: Modified Program (IRF) (27/08) Estimated Hrs Per Day: 1.5 hours per day Rehab Potential: Fair Time/GCodes Start Time: 08:00 ([id number]) Stop Time: 13:30 ([id number]) Total Time Billed (hr/min): 90 Billed Treatment Time [id number] 1, ADL 4 [id number] 1, EX (10'), FA (20') MED PETERSON OT Sep 01, 2020 09:35
--- NOTE | 2020-09-01 11:46 | Physical Therapy Daily Note ---
PT Daily Note-Current Subjective Pt. states "I feel like shit today." He reports he just vomited and feels lightheaded. Nursing states he just had Zofran. Pt. reports he doesn't think he can do much therapy today, "but I don't want this to mess up me going home this week." On second entry into patient's room, he states he is doing a little better but still lightheaded. Mental Status Patient Orientation: Person, Place, Time, Situation Transfers SCALE: Activities may be completed with or without assistive devices. 5-Vucjegijfc-eympmhm completes the activity by him/herself with no assistance from a helper. 5-Set-up or Clean-up Assistance-helper sets up or cleans up; patient completes activity. [place] assists only prior to or following the activity. 4-Supervision or Touching Assistance-helper provides verbal cues and/or touching/steadying and/or contact guard assistance as patient completes activity. Assistance may be provided throughout the activity or intermittently. 3-Partial/Moderate Assistance-helper does LESS THAN HALF the effort. [place] lifts, holds or supports trunk or limbs, but provides less than half the effort. 2-Substantial/Maximal Assistance-helper does MORE THAN HALF the effort. [place] lifts or holds trunk or limbs and provides more than half the effort. 6-Mapvgeffc-crabwv does ALL the effort. Patient does none of the effort to complete the activity. Or, the assistance of 2 or more helpers is required for the patient to complete the activity. If activity was not attempted, code reason: 7-Patient Refused. 9-Not Applicable-not attempted and the patient did not perform the activity before the current illness, exacerbation or injury. 10-Not Attempted due to Environmental Limitations-(lack of equipment, weather restraints, etc.). 88-Not Attempted due to Medical Conditions or Safety Concerns. Lying to Sitting/Side of Bed(Q: 4 (elevates head of bed) Sit to Stand (QC): 4 Weight Bearing Right Lower Extremity: Right Full Weight Bearing Left Lower Extremity: Left Full Weight Bearing Gait Training Does the Patient Walk?: Yes Distance: x 70 ft, x 35 ft, x 35 ft Walk 10 feet (QC): 4 Gait Persons Needed: 2 Gait Assistive Device: FWW min A x 1 and w/c follow x 1 Exercises Supine Ex: Ankle pumps, Quad Set, Glut sets, Hip abd/add Supine Reps: 10 Seated Therapy Exercises: Ankle pumps, Long arc quads, Hip flexion, Hip abd/add Seated Reps: 20 (2 x 10 reps) Standing: Sit to Stand Standing Reps: 4 Treatments transfers, LE exercises, gait training Assessment Current Status: Good Progress, Fair Progress On initial visit, patient completed supine to sit only and became lightheaded and requested to hold therapy for awhile. On second attempt, patient still not feeling well but able to participate in therapy. He required more rest breaks today and overall less activity level but remained motivated to discharge home this week. Pt. able to ambulate about 1/2 of prior days distance and became more fatigued in LE's. Pt. has difficulty with exercises on the R LE. Pt. in bedside chair post session with call light and all needs met. PT Short Term Goals Short Term Goals Time Frame: Aug 13, 2020 Roll Left & Right: 6 Sit to lyin Lying to sitting on side of be: 3 (met) Sit to stand: 3 (met) Chair/mft-bj-bhaae transfer: 3 (met) Walk 10 feet: 3 (met) PT Residential Goals Production Inspector Goals PT Residential Goals Time Frame: Aug 27, 2020 Roll Left & Right (QC): 6 Sit to Lying (QC): 4 Lying-Sitting on Side/Bed(QC): 4 Sit to Stand (QC): 4 Chair/Mwh-kn-Oiaho Xfer(QC): 4 Toilet Transfer (QC): 4 Car Transfer (QC): 4 Does the Patient Walk: Yes Walk 10 feet (QC): 4 Walk 50ft with 2 Turns (QC): 4 Walk 150 ft (QC): 88 Walking 10ft on Uneven Surface: 4 1 Step (curb) (QC): 4 4 Steps (QC): 4 12 Steps (QC): 88 Picking up an Object (QC): 88 Wheel 50 feet with 2 turns (QC: 6 Wheel 150 feet: 6 PT Plan Treatment/Plan Treatment Plan: Continue Plan of Care Treatment Plan: Bed Mobility, Education, Functional Activity Jayshree, Functional Strength, Group Therapy, Gait, Safety, Therapeutic Exercise, Transfers Treatment Duration: Aug 27, 2020 Frequency: At least 5 of 7 days/Wk (IRF) Estimated Hrs Per Day: 1.5 hours per day Patient and/or Family Agrees t: Yes Time/GCodes Time In: 1000 Time Out: 1215 Total Billed Treatment Time: 60 Total Billed Treatment 1, FA ([id number]), FA, Ex, GT ([id number]) RAFAL INGRAM PT Sep 01, 2020 11:46
[2020-09-01] MEDS: ENOXAPARIN 40 MG/0.4 ML (LOVENOX) SYR SC SCH (15:07)
--- NOTE | 2020-09-01 15:23 | Physical Therapy Daily Note ---
PT Daily Note-Current Subjective Pt L sidelying in bed upon arrival. Pt agrees to PT, reporting still feeling queasy but better than morning tx. Pain Numeric Pain Scale: 3 Location: Right, Left Location Body Site: Shoulder Pain Description: Ache Mental Status Patient Orientation: Person, Place, Time, Situation Transfers SCALE: Activities may be completed with or without assistive devices. 7-Xxsrwytrzs-dfjzbxa completes the activity by him/herself with no assistance from a helper. 5-Set-up or Clean-up Assistance-helper sets up or cleans up; patient completes activity. [place] assists only prior to or following the activity. 4-Supervision or Touching Assistance-helper provides verbal cues and/or touching/steadying and/or contact guard assistance as patient completes activity. Assistance may be provided throughout the activity or intermittently. 3-Partial/Moderate Assistance-helper does LESS THAN HALF the effort. [place] lifts, holds or supports trunk or limbs, but provides less than half the effort. 2-Substantial/Maximal Assistance-helper does MORE THAN HALF the effort. [place] lifts or holds trunk or limbs and provides more than half the effort. 1-Yghuoyosj-aioefn does ALL the effort. Patient does none of the effort to complete the activity. Or, the assistance of 2 or more helpers is required for the patient to complete the activity. If activity was not attempted, code reason: 7-Patient Refused. 9-Not Applicable-not attempted and the patient did not perform the activity before the current illness, exacerbation or injury. 10-Not Attempted due to Environmental Limitations-(lack of equipment, weather restraints, etc.). 88-Not Attempted due to Medical Conditions or Safety Concerns. Weight Bearing Right Lower Extremity: Right Full Weight Bearing Left Lower Extremity: Left Full Weight Bearing Exercises Supine Ex: Ankle pumps, Quad Set, Glut sets, Heel Slides, Straight leg raise, Hip abd/add Supine Reps: 15 Treatments Pt is visiting with family upon arrival. Pt completes Supine Ex in bed. Pt is given longer red Tband for LE Ex resistance. HAND BULLDOZER reviews with how to hold gait belt, benefits of resistance EX and progress seen with pt & family. Pt resting at end of tx with all needs met, call light in hand. Assessment Current Status: Fair Progress Pt feeling queasy today but feeling better than morning tx. PT Short Term Goals Short Term Goals Time Frame: Aug 13, 2020 Roll Left & Right: 6 Sit to lyin Lying to sitting on side of be: 3 (met) Sit to stand: 3 (met) Chair/nhc-dz-vsmsp transfer: 3 (met) Walk 10 feet: 3 (met) PT Thread Spinner Goals Thread Spinner Goals PT Thread Spinner Goals Time Frame: Aug 27, 2020 Roll Left & Right (QC): 6 Sit to Lying (QC): 4 Lying-Sitting on Side/Bed(QC): 4 Sit to Stand (QC): 4 Chair/Ofj-ez-Jwxht Xfer(QC): 4 Toilet Transfer (QC): 4 Car Transfer (QC): 4 Does the Patient Walk: Yes Walk 10 feet (QC): 4 Walk 50ft with 2 Turns (QC): 4 Walk 150 ft (QC): 88 Walking 10ft on Uneven Surface: 4 1 Step (curb) (QC): 4 4 Steps (QC): 4 12 Steps (QC): 88 Picking up an Object (QC): 88 Wheel 50 feet with 2 turns (QC: 6 Wheel 150 feet: 6 PT Plan Problem List Problem List: Activity Tolerance Treatment/Plan Treatment Plan: Continue Plan of Care Treatment Plan: Bed Mobility, Education, Functional Activity Jayshree, Functional Strength, Group Therapy, Gait, Safety, Therapeutic Exercise, Transfers Treatment Duration: Aug 27, 2020 Frequency: At least 5 of 7 days/Wk (IRF) Estimated Hrs Per Day: 1.5 hours per day Patient and/or Family Agrees t: Yes Safety Risks/Education Patient Education: Correct Positioning, Safety Issues Teaching Recipient: Patient Teaching Methods: Discussion Response to Teaching: Verbalize Understanding Time/GCodes Time In: 1425 Time Out: 1500 Total Billed Treatment Time: 35 Total Billed Treatment 1, EX (20m) & FA (15m) DMITRY MUELLER HAND BULLDOZER Sep 01, 2020 15:23
[2020-09-01 20:00] VITALS: BP 118/58
[2020-09-01] MEDS: BISACODYL 10 MG SUPP (DULCOLAX) PR PRN (20:10)
[2020-09-01] MEDS: SIMvastatin 10 MG (ZOCOR) TAB PO SCH (22:11)
[2020-09-01] MEDS: MELATONIN 3 MG TABLET PO PRN (22:12)
[2020-09-01] MEDS: DICLOFENAC 1% GEL 100 GM (VOLTAREN) TUBE TOP PRN (22:13)
[2020-09-02] MEDS: ALPRAZolam 0.25 MG (XANAX) TAB PO PRN (01:24)
[2020-09-02] MEDS: diphenhydrAMINE 25 MG TAB (BENADRYL) PO PRN ×3 (01:24→20:09)
[2020-09-02] MEDS: inSUlin ASPART (NovoLOG) 1 UNIT/0.01 ML (CHARGE PER UNIT) SC SCH ×4 (05:43→21:30)
--- NOTE | 2020-09-02 06:10 | PM&R Progress Note ---
Subjective HPI/CC On Admission Date Seen by Provider: Sep 02, 2020 Time Seen by Provider: 10:00 Subjective/Events-last exam 09/02/2020: Pt doing pretty well Discharge is planned for tomorrow Bowels moved after suppository and now he is having loose stools Checked meds and labs Sugar is good 09/01/2020: Pt had some nausea and vomiting today but otherwise is doing very well Bowels move two days ago, will give laxatives Checked meds and labs, blood sugars are good 08/31/2020: Pt doing pretty well Bowels moved yesterday Blood sugar 193 and 162 Will discharge at the end of the week BP elevated before morning meds 08/30/2020: Patient having a pretty good day Was a bit cranky earlier this morning Having low back pain today Bowels moved today Talked about discharge plan later in the week 08/29/2020: This visit is via video chat due to Covid related restriction for this provider Patient has no new issues Blood pressure is really good Melatonin really helps him sleep and it is dosed at 3 mg to send into the pharmacy at discharge Voltaren gel really helps him 08/28/2020: This visit is via video chat due to Covid related restriction for this provider Patient doing pretty well today Bowels moved today Rash around incision is being treated Blood pressure stable 101/70 08/27/2020: This visit is via video chat due to Covid related restriction for this provider Patient doing pretty well Voltaren gel helps his shoulder pain Bowels are moving Toenail care provided by Dr. Llanos Check meds and labs 08/26/2020: This visit is via video chat due to Covid related restriction for this provider Patient has minimal complaints No falls Walking better with therapy Insulin rarely required on SSI BM yesterday Pain meds maintained 08/25/2020: This visit is via video chat due to Covid related restriction for this provider Patient doing really well Bowels moved today Voltaren gel helps Blood sugar 192 and 126 Had a controlled fall but did not harm any thing or injure anything Check meds and labs 08/24/2020: This visit is via video chat due to Covid related restriction for this provider Patient is doing well Voltaren gel improves shoulder pain BM ok Rare use of SSI 08/23/2020: This visit is via video chat due to Covid related restriction for this provider Patient doing really well the day No major issues Large bowel movement today Sugars are doing well without insulin Voltaren gel will be put on his arms and shoulders before physical therapy 08/22/2020: This visit is via video chat due to Covid related restriction for this provider Patient having a good day Arms and shoulders from compensating are still painful but Voltaren gel has been helpful Bowels moved yesterday Incision is a bit red Holding Levemir due to low blood sugars but he still has some isolated elevated ones 08/21/2020: This visit is via video chat due to Covid related restriction for this provider Patient having a good day Sugar was 130 this morning so I adjusted Levemir down to 4 units twice daily to prevent hypoglycemia as occurred yesterday Bowels are moving really well No more itching K pad did not really help the shoulder pain 08/20/2020: This visit is via video chat due to Covid related restriction for this provider Patient doing pretty well today Blood sugar is running low and then later it was 46 asymptomatic so stopped the regular insulin and will hold Levemir tonight Bowels moved today Rechecking Monday for progress I have updated him on the conversation I had with Dr. Elder 08/18/2020: Patient doing pretty well Clouded images to Dr. Elder and he will review but recommended time to recover considering the DKA episode set him back quite a bit Pain pill with Voltaren gel has helped Slow progress 08/17/2020: Patient having a good day Bowels moving okay Blood pressure 117/77 Talked about his x-rays that nurse had reported to him but those details will be evaluated by Dr. Elder the expert 08/16/2020: Patient doing pretty well Had some weak legs today Blood pressure elevated at times Monitor closely 08/15/2020: Patient in a pretty good mood Family at the bedside Blood sugar was a bit low at 80 and had symptoms so adjusted his insulin a bit Pain is well controlled on regimen Neuropathy discussed 08/14/20: Patient doing well No major issues Pain is an ongoing issue BP better 08/13/2020: Pt doing pretty well but variation in BP places him at risk for orthostasis I changed Clonidine to BID prn for BP elevation and started Norvasc 2.5 twice daily and will transition to Hydralazine also. 08/12/2020: Pt doing pretty well Bowels havent moved and we have given a lot of Laxatives Sugars are okay Voltaren gel to the back Clonidine BID has helped the BP that has dipped down to low levels in the afternoon Length of stay, presumed to be 08/26/20 08/11/2020: Pt doing pretty well Left axilla pain because of compensation with his arms, will initiate a moist heating pad Bowels are moving okay Clonidine changed to BID instead of TID due to hypotension in the afternoon interfering with therapy X-rays were done and clouded to Dr. Elder 08/10/2020: Pt doing really well Had a large bowel movement yesterday Temperature at 99.4 but no other issues Sugars are better Talked to him about insulin at discharge 08/09/20: Patient doing well BM today Back pain improved Increased movement now Better today 08/08/20: Patient in a good mood Baclofen is working well for him so will maintain this Pain controlled High sugars requiring addition of insulin Wants tacos from home 08/07/2020: Patient doing pretty well Pain is still an issue Baclofen was ordered to help his back spasms No bowels are moving since loose stools for several days Adjusted insulin after reviewing several Accu-Cheks 08/06/2020: Patient doing pretty well Very motivated to walk Loose stool so holding laxatives Right knee really hurts Sodium level 128 so we will discontinue the indapamide Review of Systems General: Fatigue, Malaise Musculoskeletal: arm pain, back pain Objective Exam Vital Signs Vital Signs Date Time Temp Pulse Resp B/P (MAP) Pulse Ox O2 Delivery O2 Flow Rate FiO2 09/02/20 20:30 Room Air 09/02/20 20:00 37.2 91 16 139/72 (94) 95 09/01/20 06:41 0.00 Capillary Refill : General Appearance: No Apparent Distress, WD/WN, Chronically ill HEENT: PERRL/EOMI, Normal ENT Inspection, Pharynx Normal Neck: Full Range of Motion, Normal Inspection, Non Tender, Supple, Carotid Bruit Respiratory: Chest Non Tender, Lungs Clear, Normal Breath Sounds, No Accessory Muscle Use, No Respiratory Distress Cardiovascular: Regular Rate, Rhythm, No Edema, No Gallop, No JVD, No Murmur, Normal Peripheral Pulses Gastrointestinal: Normal Bowel Sounds, No Organomegaly, No Pulsatile Mass, Non Tender, Soft Back: Decreased Range of Motion, Muscle Spasm, Vertebral Tenderness Extremity: Normal Capillary Refill, Normal Inspection, Normal Range of Motion, Non Tender, No Calf Tenderness, No Pedal Edema Neurologic/Psychiatric: Alert, Oriented x3, No Motor/Sensory Deficits, Normal Mood/Affect, Motor Weakness Skin: Normal Color, Warm/Dry Lymphatic: No Adenopathy Results/Procedures Lab Patient resulted labs reviewed. FIM Transfers Therapy Code Descriptions/Definitions Functional [place] Measure: 0=Not Assessed/NA 4=Minimal Assistance 1=Total Assistance 5=Supervision or Setup 2=Maximal Assistance 6=Modified [place] 3=Moderate Assistance 7=Complete IndependenceSCALE: Activities may be completed with or without assistive devices. 0-Fjxkkatdaf-uyieqyy completes the activity by him/herself with no assistance from a helper. 5-Set-up or Clean-up Assistance-helper sets up or cleans up; patient completes activity. [place] assists only prior to or following the activity. 4-Supervision or Touching Assistance-helper provides verbal cues and/or touching/steadying and/or contact guard assistance as patient completes activity. Assistance may be provided throughout the activity or intermittently. 3-Partial/Moderate Assistance-helper does LESS THAN HALF the effort. [place] lifts, holds or supports trunk or limbs, but provides less than half the effort. 2-Substantial/Maximal Assistance-helper does MORE THAN HALF the effort. [place] lifts or holds trunk or limbs and provides more than half the effort. 3-Jqsxlmgdi-ssphps does ALL the effort. Patient does none of the effort to complete the activity. Or, the assistance of 2 or more helpers is required for the patient to complete the activity. If activity was not attempted, code reason: 7-Patient Refused. 9-Not Applicable-not attempted and the patient did not perform the activity before the current illness, exacerbation or injury. 10-Not Attempted due to Environmental Limitations-(lack of equipment, weather restraints, etc.). 88-Not Attempted due to Medical Conditions or Safety Concerns. Roll Left to Right (QC): 5 Sit to Lying (QC): 5 (HOB elevated) Sit to Stand (QC): 4 Chair/Tzi-kr-Fdeqw Xfer(QC): 4 (CGA for safety and balance. ) Car Transfer (QC): 2 Gait Training Does the Patient Walk?: Yes Distance: x 70 ft, x 35 ft, x 35 ft Walk 10 feet (QC): 4 Walk 50 ft with 2 Turns(QC): 4 Walk 150 ft (QC): 4 Walking 10ft/uneven surface-QC: 88 Gait Persons Needed: 2 Gait Assistive Device: FWW Wheelchair Training Does the Pt Use a Wheelchair?: Yes Distance: 150'x2 Wheel 50 ft with 2 turns (QC): 6 Wheel 150 ft (QC): 6 Type of Wheelchair: Manual Stair Training 1 Step (curb) (QC): 4 (CGA with cues for sequencing and instruction on reason behind sequence) 4 Steps (QC): 88 12 Steps (QC): 88 Balance Picking up an Object (QC): 88 ADL-Treatment Eating (QC): 6 Shower/Bathe Self (QC): 6 (IND seated on SC.) Upper Body Dressing (QC): 5 (set up) Lower Body Dressing (QC): 4 (CGA) On/Off Footwear (QC): 3 (Min A with tennis shoes (with adaptive laces), and R AFO. AE for socks.) Toileting Hygiene (QC): 3 (Min A in stand, pt able to perform hygiene leaning side to side and able to manage clothing) Toilet Transfer (QC): 3 (Min A to toilet, Mod A stand ) Assessment/Plan Assessment and Plan Assess & Plan/Chief Complaint Assessment: Status post lumbar spine surgery with severe debility and leg weakness Recent DKA Qov-et-gbzgjhp diabetes history Hypertension Chronic arthritis pain Plan: Pain control Diabetes management Blood pressure management Inpatient rehab protocol 08/06/2020: Hold laxatives DC indapamide Monitor closely Fall risk 08/07/2020: Increase insulin Aggressive therapy 08/08/20: Increase insulin Baclofen 08/09/20: Monitor sugar Back pain management 08/10/2020: Monitor blood sugar Insulin at discharge will be required 08/11/2020: Monitor pain Supportive care Baclofen 08/12/2020: Pain control Intensive rehab Bowel regimen to intensify 08/13/2020: Supportive care Aggressive therapy Blood pressure management 08/14/20: Improved status Adjust insulin BP ok 08/15/2020: Pain control Insulin modified Fall risk 08/16/2020: Pain control Monitor blood pressure 08/17/2020: Patient doing pretty well today Continue aggressive therapy 08/18/2020: Continue pain control Updated Dr. Elder 08/20/2020: Continue aggressive therapy Improved overall today Decrease insulin intensity 08/21/2020: Decrease Levemir to 4 units twice daily Monitor closely Pain control 08/22/2020: Hold Levemir for hypoglycemia Monitor closely 08/23/2020: Holding insulin Pain meds 08/24/20: Monitor closely Pain control 08/25/2020: Fall risk Pain control Monitor sugar 08/26/20: Monitor pain Fall risk 08/27/2020: Maintain aggressive therapy Voltaren gel as needed 08/28/2020: Aggressive treatment Voltaren gel Pain control 08/29/2020: Maintain good pain control Voltaren gel Melatonin really help sleep Blood sugars reviewed Blood pressure good 08/30/2020: Pain control Monitor blood sugar 08/31/2020: Discharge planned on Monitor closely 09/01/2020: Monitor for recurrent nausea Monitor closely 09/02/2020: Traumatic recovery Discharge tomorrow as planned (1) Status post lumbar spine surgery for decompression of spinal cord (2) Diabetes (3) DKA (diabetic ketoacidoses) (4) Hypertension (5) Leg weakness DALY WHITNEY DO Sep 02, 2020 06:10
[2020-09-02] MEDS: metFORMIN XR 500 MG (GLUCOPHAGE XR) TAB PO SCH ×2 (06:22→17:38)
[2020-09-02 07:46] VITALS: BP 118/71
[2020-09-02] MEDS: meTOprolol TARTRATE 25 MG (LOPRESSOR) TABLET PO SCH ×2 (08:22→20:03)
[2020-09-02] MEDS: lisINopril 20 MG (PRINIVIL) TABLET PO SCH ×2 (08:22→20:03)
[2020-09-02] MEDS: amLODIPine 2.5MG (NORVASC) TAB PO SCH ×2 (08:22→20:02)
[2020-09-02] MEDS: glipiZIDE 5 MG (GLUCOTROL) TAB PO SCH ×2 (08:22→17:38)
[2020-09-02] MEDS: LACTOBACILLUS ACIDOPHILUS (PROBIOTIC) CAPSULE PO SCH (08:22)
[2020-09-02] MEDS: TRIAMCINOLONE 0.1% OINT (KENALOG) 15 GM TUBE TOP SCH ×2 (08:23→20:04)
[2020-09-02] MEDS: ALLOPURINOL 100 MG (ZYLOPRIM) TAB PO SCH (08:23)
[2020-09-02] MEDS: BACLOFEN 10 MG (LIORESAL) TAB PO SCH ×3 (08:23→20:02)
[2020-09-02] MEDS: NEO/POLY/BAC (NEOSPORIN) OINT 15 GM TUBE TOP SCH (08:23)
[2020-09-02] MEDS: polyethylene glycoL POWDER 17 GM (MIRALAX) PACK PO SCH ×2 (08:24→19:34)
[2020-09-02] MEDS: DOCUSATE SODIUM 100 MG (COLACE) CAP PO SCH ×2 (08:25→19:34)
[2020-09-02] MEDS: SENNA W/DOCUSATE (SENOKOT S) TABLET PO SCH ×2 (08:26→19:34)
--- NOTE | 2020-09-02 10:23 | Occupational Ther Daily Note ---
OT Current Status-Daily Note Subjective Pt in bed sleeping, easily awoken and agreeable to OT tx. Mental Status/Objective Patient Orientation: Normal For Age Attachments: Other-See Comments (Back brace OOB) ADL-Treatment Therapy Code Descriptions/Definitions Functional [place] Measure: 0=Not Assessed/NA 4=Minimal Assistance 1=Total Assistance 5=Supervision or Setup 2=Maximal Assistance 6=Modified [place] 3=Moderate Assistance 7=Complete IndependenceSCALE: Activities may be completed with or without assistive devices. 3-Zqbzrljfrm-wxvyqxu completes the activity by him/herself with no assistance from a helper. 5-Set-up or Clean-up Assistance-helper sets up or cleans up; patient completes activity. [place] assists only prior to or following the activity. 4-Supervision or Touching Assistance-helper provides verbal cues and/or touching/steadying and/or contact guard assistance as patient completes activity. Assistance may be provided throughout the activity or intermittently. 3-Partial/Moderate Assistance-helper does LESS THAN HALF the effort. [place] lifts, holds or supports trunk or limbs, but provides less than half the effort. 2-Substantial/Maximal Assistance-helper does MORE THAN HALF the effort. [place] lifts or holds trunk or limbs and provides more than half the effort. 8-Snvlbtoat-vxoxzv does ALL the effort. Patient does none of the effort to complete the activity. Or, the assistance of 2 or more helpers is required for the patient to complete the activity. If activity was not attempted, code reason: 7-Patient Refused. 9-Not Applicable-not attempted and the patient did not perform the activity before the current illness, exacerbation or injury. 10-Not Attempted due to Environmental Limitations-(lack of equipment, weather restraints, etc.). 88-Not Attempted due to Medical Conditions or Safety Concerns. Eating (QC): 6 Oral Hygiene (QC): 6 Shower/Bathe Self (QC): 6 (IND seated on SC) Upper Body Dressing (QC): 5 Lower Body Dressing (QC): 4 (CGA) On/Off Footwear: 3 (Min A with tennis shoes and R AFO. IND with slip on house shoes.) Toileting Hygiene (QC): 4 (CGA) Toilet Transfer (QC): 3 (CGA to toilet, Min A standing from toilet) Other Treatment Pt laying in bed, transferred supine to sit EOB without assistance. Back brace (set up) and house shoes (IND) donned, then pt used FWW to perform functional mobility to bathroom and onto toilet, CGA. Pt completed toileting, then used FWW to transfer to MO. Pt completed shower seated, donned back brace, then transferred to w/ to don LE clothing. Pt requests to use toilet, transferred from w/c to toilet using GBs, CGA to toilet. He completed toileting, then used GBs to transfer back to /, min A. Pt sat at sink for oral care, then donned tennis shoes and R AFO (min A). Pt's nurse assessed incision on his back, then pt donned socket puller shirt and back brace with set up assist. Post tx, pt seated in w/, all needs met, PT present for tx. Education OT Patient Education: Correct positioning, Energy conservation, Modified ADL techniques, Progress toward Goal/Update tx plan, Purpose of tx/functional activities, Reviewed precautions, Safety issues Teaching Recipient: Patient Teaching Methods: Discussion Response to Teaching: Verbalize Understanding OT Short Term Goals Short Term Goals Time Frame: Aug 20, 2020 Oral hygiene: 5 Shower/bathe self: 3 Lower body dressin Putting on/taking off footwear: 3 OT Long-Term Goals Nutrition Services Manager Goals Time Frame: Sep 04, 2020 Eating (QC): 6 (Met) Oral Hygiene (QC): 6 (Met) Toileting Hygiene (QC): 6 (not met) Shower/Bathe Self (QC): 6 (Met) Upper Body Dressing (QC): 6 (not met, set up) Lower Body Dressing (QC): 6 (not met, CGA) On/Off Footwear (QC): 6 (not met) Additional Goals: 1-Demonstrate ADL Tasks, 2-Verbalize Understanding, 3- ImproveStrength/Jayshree 1=Demonstrate adherence to instructed precautions during ADL tasks. 2=Patient will verbalize/demonstrate understanding of assistive devices/modifications for ADL. 3=Patient will improve strength/tolerance for activity to enable patient to perform ADL's. OT Education/Plan Problem List/Assessment Assessment: Decreased Activ Tolerance, Decreased UE Strength, Impaired Funct Balance, Impaired I ADL's, Impaired Self-Care Skills Discharge Recommendations Plan/Recommendations: Continue POC Treatment Plan/Plan of Care Patient would benefit from OT for education, treatment and training to promote independence in ADL's, mobility, safety and/or upper extremity function for ADL's. Plan of Care: ADL Retraining, Functional Mobility, Group Exercise/Act as Ind, UE Funct Exercise/Act Treatment Duration: Sep 04, 2020 Frequency: Modified Program (IRF) (27/08) Estimated Hrs Per Day: 1.5 hours per day Rehab Potential: Fair Time/GCodes Start Time: 09:00 Stop Time: 10:00 Total Time Billed (hr/min): 60 Billed Treatment Time 1, ADL 4 MED PETERSON OT Sep 02, 2020 10:23
--- NOTE | 2020-09-02 13:29 | Physical Therapy Daily Note ---
PT Daily Note-Current Subjective Pt ready for PT, agreeable. Pt hears news that he is being DC'd tomorrow during session. Pt states many times "That made my day. I will do whatever you want me to do." Pt rates pain 3/10 in LB, hips and legs. Pt reports he already has all equipment in place and support of family and friends that will be present at all times when he is released. Appearance Pt wearing back brace and AFO upon arrival in preparation for PT session. Mental Status Patient Orientation: Person, Place, Situation Transfers SCALE: Activities may be completed with or without assistive devices. 7-Bgtzjdwbdz-ihbsduz completes the activity by him/herself with no assistance from a helper. 5-Set-up or Clean-up Assistance-helper sets up or cleans up; patient completes activity. [place] assists only prior to or following the activity. 4-Supervision or Touching Assistance-helper provides verbal cues and/or touching/steadying and/or contact guard assistance as patient completes activity. Assistance may be provided throughout the activity or intermittently. 3-Partial/Moderate Assistance-helper does LESS THAN HALF the effort. [place] lifts, holds or supports trunk or limbs, but provides less than half the effort. 2-Substantial/Maximal Assistance-helper does MORE THAN HALF the effort. [place] lifts or holds trunk or limbs and provides more than half the effort. 1-Kqkgpcwxb-qkajok does ALL the effort. Patient does none of the effort to complete the activity. Or, the assistance of 2 or more helpers is required for the patient to complete the activity. If activity was not attempted, code reason: 7-Patient Refused. 9-Not Applicable-not attempted and the patient did not perform the activity before the current illness, exacerbation or injury. 10-Not Attempted due to Environmental Limitations-(lack of equipment, weather restraints, etc.). 88-Not Attempted due to Medical Conditions or Safety Concerns. Sit to Stand (QC): 5 Chair/Ivx-dl-Ryuyt Xfer(QC): 5 Car Transfer (QC): 6 Pt requiring min A to stand from w/c initially. Pt managed to complete sit- stand transfers mod (I) once he was warmed up. Pt does require vc's for proper and safe transfers. Pt showing good retention toward end of treatment. Weight Bearing Right Lower Extremity: Right Full Weight Bearing Left Lower Extremity: Left Full Weight Bearing Gait Training Does the Patient Walk?: Yes Walk 10 feet (QC): 6 Walk 50 ft with 2 Turns(QC): 6 Walk 150 ft (QC): 88 Walking 10ft/uneven surface-QC: 6 Gait Persons Needed: 1 Gait Assistive Device: FWW Pt amb with FWW 120', 100', 100', 120' with CGA and close f/u of w/c. Pt practiced step up on 6" step x 10 (L) LE with //bars for support. Practiced ambulation across 6" curb step in //bars with CGA throughout and vc's to maintain (R) knee ext. (B) LE fatigue prior to 150ft requiring seated rest break Wheelchair Training Does the Pt Use a Wheelchair?: Yes Wheel 50 ft with 2 turns (QC): 6 Wheel 150 ft (QC): 6 Type of Wheelchair: Manual Stair Training 1 Step (curb) (QC): 6 4 Steps (QC): 88 12 Steps (QC): 88 Steps not attempted due to (B) LE on level ground Balance Picking up an Object (QC): 88 Special Test Comments Pt unable to bend forward per protocol post surgery Exercises Seated Therapy Exercises: Ankle pumps, Long arc quads, Hip abd/add Seated Reps: 5 Treatments Emphasized safe mobility, planning, positioning and setting self up for easy transfers. Pt receptive and verbalized understanding. Pt appeared to improve by decreased dependence over the course of the treatment session. Assessment Current Status: Good Progress Pt continues to require CGA-min A for transfers and mobility. Pt has made good progress toward all goals. Pt resting in recliner with call light and all needs met. Nurse aid present. PT Short Term Goals Short Term Goals Time Frame: Aug 13, 2020 Roll Left & Right: 6 Sit to lyin Lying to sitting on side of be: 3 (met) Sit to stand: 3 (met) Chair/vzg-ch-vcmrh transfer: 3 (met) Walk 10 feet: 3 (met) PT Keypuncher Goals Fdc Goals PT Keypuncher Goals Time Frame: Aug 27, 2020 Roll Left & Right (QC): 6 Sit to Lying (QC): 4 Lying-Sitting on Side/Bed(QC): 4 Sit to Stand (QC): 4 Chair/Ayf-mr-Tpgmk Xfer(QC): 4 Toilet Transfer (QC): 4 Car Transfer (QC): 4 Does the Patient Walk: Yes Walk 10 feet (QC): 4 Walk 50ft with 2 Turns (QC): 4 Walk 150 ft (QC): 88 Walking 10ft on Uneven Surface: 4 1 Step (curb) (QC): 4 4 Steps (QC): 4 12 Steps (QC): 88 Picking up an Object (QC): 88 Wheel 50 feet with 2 turns (QC: 6 Wheel 150 feet: 6 PT Plan Treatment/Plan Treatment Plan: Continue Plan of Care Treatment Plan: Bed Mobility, Education, Functional Activity Jayshree, Functional Strength, Group Therapy, Gait, Safety, Therapeutic Exercise, Transfers Treatment Duration: Aug 27, 2020 Frequency: At least 5 of 7 days/Wk (IRF) Estimated Hrs Per Day: 1.5 hours per day Patient and/or Family Agrees t: Yes Time/GCodes Time In: 1000 Time Out: 1100 Total Billed Treatment Time: 60 Total Billed Treatment 1, Ther ex 15', Gait 45' RAJANI SANTACRUZ CPTA Sep 02, 2020 13:29
--- NOTE | 2020-09-02 15:07 | Therapy Group Daily Note ---
Therapy Daily Group Note Patient Education Topic Energy Cons Exercises LE Seated Exercise, UE Exercise Session Ratio (pt:therapist): 4:1 Goal of Session: Energy Conservation Tech., UE/LE Strengthing Goal Met for this Session: Yes Pt Benefit of Group: Contributions to Others, F/U Use of Strategies @Home, Increased Functional Safety, Increased Functional Strength, Improved Cognition, Recognition of Peers, Socialization Other/Notes Pt is propelled to PT/OT Group in [facility]. Group consists of Introductions (Name, Location & Favorite Childhood Summer Activity), Socialization, Seated UE/LE Ex ercises, Explanation of Weekly ARU Meeting as well as Energy Conservation Techniques. Pt participated in Group by actively listening to other patients, properly introducing self and completing UE/LE Exercises. Pt returns to room to rest in [facility] at end of Group with all needs met, call light in hand. Start Time: 13:00 Stop Time: 14:00 Total Billed Treatment Time: 60 Total Billed Treatment 1, GRP DMITRY MUELLER HOME INSPECTOR Sep 02, 2020 15:07
[2020-09-02] MEDS: ENOXAPARIN 40 MG/0.4 ML (LOVENOX) SYR SC SCH (15:44)
[2020-09-02 20:00] VITALS: BP 139/72
[2020-09-02] MEDS: MELATONIN 3 MG TABLET PO PRN (20:03)
[2020-09-02] MEDS: SIMvastatin 10 MG (ZOCOR) TAB PO SCH (20:03)
[2020-09-02] MEDS: MICONAZOLE 2% POWDER (DESENEX AF) 90 GM TOP SCH (20:04)
[2020-09-03] MEDS: diphenhydrAMINE 25 MG TAB (BENADRYL) PO PRN (02:27)
[2020-09-03] MEDS: inSUlin ASPART (NovoLOG) 1 UNIT/0.01 ML (CHARGE PER UNIT) SC SCH (05:24)
[2020-09-03] MEDS: metFORMIN XR 500 MG (GLUCOPHAGE XR) TAB PO SCH (06:05)
[2020-09-03] MEDS ORDERED: METO-333 PO (06:21)
[2020-09-03] MEDS ORDERED: DICL100G13 TOP (06:21)
[2020-09-03] MEDS ORDERED: SENN1TAB76 PO (06:21)
[2020-09-03] MEDS ORDERED: AMLO2.5T4 PO (06:21)
[2020-09-03] MEDS ORDERED: BACL10TA PO (06:21)
[2020-09-03] MEDS ORDERED: CYCL10TA9 PO (06:21)
[2020-09-03] MEDS ORDERED: OXC5T PO (06:21)
--- NOTE | 2020-09-03 06:23 | D/C HH Face to Face Order ---
D/C Face to Face Orders Reconcile Patient Problems Problems Reviewed?: Yes Instructions for Patient Via [facility] [employer], Patient Instructions/FollowUp: [facility] in [address] Elder as scheduled Physician to follow Patient: [facility] Discharge Diet for Home: ADA Diet Patient Problems: Lumbar spine surgery Diabetes Patient Data-Allergies,Ht & Wt Patient Allergies: Coded Allergies: codeine (Verified Allergy, Mild, 11/27/11) tamsulosin (Unverified Allergy, Unknown, 09/17/14) Height (Feet): 5 Height (Inches): 9.00 Weight (Pounds): 212 Home Health Need/Face to Face Date of Face to Face: Sep 03, 2020 Clinical Findings: Generalized weakness and fatigue, Instability, Muscle we akness, Unsteady gait I have seen Pt [id number]: Yes Discharged To: Home Diagnosis/Conditions: Lumbar spine surgery Diabetes Patient is Homebound due to: Valeria fall risk due to instabilty, Muscle weakness, Pain w/ambulation Homebound Status Due to the above stated illness, injury or surgical procedure (medical condition or diagnosis) and associated clinical findings, the patient is ho mebound because of his/her inability to leave home except with aid of a supportive device and/or person AND leaving the home requires a considerable and taxing effort or is medically contraindicated. Pt req the following assistanc: [facility] Nursing Orders Home Health Services Order: Nursing Services, Social Services Assistant-Evaluate & Treat, Physical Therapy-Evaluate & Treat Certify Stmt I certify that this patient is under my care and that I, a nurse practitioner or a physician; a assistant attorney general working with me, had a face to face encounter that - meets the physician face to face encounter requirements with this patient as dated. DALY WHITNEY DO Sep 03, 2020 06:23
--- NOTE | 2020-09-03 06:23 | Discharge Summary ---
Diagnosis/Chief Complaint Date of Admission Aug 05, 2020 at 16:30 Date of Discharge Discharge Date: Sep 03, 2020 Discharge Diagnosis Assessment: Status post lumbar spine surgery with severe debility and leg weakness Recent DKA [id number] diabetes history Hypertension Chronic arthritis pain Plan: Pain control Diabetes management Blood pressure management Inpatient rehab protocol 08/06/2020: Hold laxatives DC indapamide Monitor closely Fall risk 08/07/2020: Increase insulin Aggressive therapy 08/08/20: Increase insulin Baclofen 08/09/20: Monitor sugar Back pain management 08/10/2020: Monitor blood sugar Insulin at discharge will be required 08/11/2020: Monitor pain Supportive care Baclofen 08/12/2020: Pain control Intensive rehab Bowel regimen to intensify 08/13/2020: Supportive care Aggressive therapy Blood pressure management 08/14/20: Improved status Adjust insulin BP ok 08/15/2020: Pain control Insulin modified Fall risk 08/16/2020: Pain control Monitor blood pressure 08/17/2020: Patient doing pretty well today Continue aggressive therapy 08/18/2020: Continue pain control Updated Dr. Elder 08/20/2020: Continue aggressive therapy Improved overall today Decrease insulin intensity 08/21/2020: Decrease Levemir to 4 units twice daily Monitor closely Pain control 08/22/2020: Hold Levemir for hypoglycemia Monitor closely 08/23/2020: Holding insulin Pain meds 08/24/20: Monitor closely Pain control 08/25/2020: Fall risk Pain control Monitor sugar 08/26/20: Monitor pain Fall risk 08/27/2020: Maintain aggressive therapy Voltaren gel as needed 08/28/2020: Aggressive treatment Voltaren gel Pain control 08/29/2020: Maintain good pain control Voltaren gel Melatonin really help sleep Blood sugars reviewed Blood pressure good 08/30/2020: Pain control Monitor blood sugar 08/31/2020: Discharge planned on Monitor closely 09/01/2020: Monitor for recurrent nausea Monitor closely 09/02/2020: Traumatic recovery Discharge tomorrow as planned (1) Status post lumbar spine surgery for decompression of spinal cord (2) Diabetes (3) DKA (diabetic ketoacidoses) (4) Hypertension (5) Leg weakness Discharge Summary Discharge Physical Examination Allergies: Coded Allergies: codeine (Verified Allergy, Mild, 11/27/11) tamsulosin (Unverified Allergy, Unknown, 09/17/14) Vitals & I&Os Vital Signs Date Time Temp Pulse Resp B/P (MAP) Pulse Ox O2 Delivery O2 Flow Rate FiO2 09/03/20 08:53 Room Air 09/03/20 07:51 36.4 85 12 130/85 (100) 96 09/01/20 06:41 0.00 General Appearance: Alert, Oriented X3, Cooperative Respiratory: Clear to Auscultation Cardiovascular: Regular Rate Neuro: Normal Gait Psych/Mental Status: Mental Status NL Hospital Course Was the Problem List Reviewed?: Yes Hospital course: Pt had a lengthy hospital course for 30 days after he was sent over here from [facility] after DKA and a lumbar stenosis surgery with very slow recovery and decompensation. It took several weeks for him to be able to navigate and ambulate around in a wheelchair. He participated in all therapy. Insulin initiated but then was discontinued since he had good control of DM on oral medications and overall he was able to regain enough function in order to return back to independent living with family support. On pain medication and has close follow-up with [facility]. Labs (last 24 hrs) Laboratory Tests 08/05/20 17:35: Glucometer 196H 08/05/20 21:58: Glucometer 190H 08/06/20 05:48: White Blood Count 8.0, Red Blood Count 4.44, Hemoglobin 12.2L, Hematocrit 35L, Mean Corpuscular Volume 80, Mean Corpuscular Hemoglobin 28, Mean Corpuscular Hemoglobin Concent 35, Red Cell Distribution Width 14.6H, Platelet Count 232, Mean Platelet Volume 8.9L, Immature Granulocyte % (Auto) 4, Neutrophils (%) (Auto) 61, Lymphocytes (%) (Auto) 16, Monocytes (%) (Auto) 15H, Eosinophils (%) (Auto) 3, Basophils (%) (Auto) 1, Neutrophils # (Auto) 4.9, Lymphocytes # (Auto) 1.3, Monocytes # (Auto) 1.2H, Eosinophils # (Auto) 0.2, Basophils # (Auto) 0.1, Immature Granulocyte # (Auto) 0.3H, Sodium Level 128L, Potassium Level 4.1, Chloride Level 94L, Carbon Dioxide Level 25, Anion Gap 9, Blood Urea Nitrogen 13, Creatinine 0.65, Estimat Glomerular Filtration Rate > 60, BUN/Creatinine Ratio 20, Glucose Level 165H, Calcium Level 8.9, Corrected Calcium 9.9, Total Bilirubin 0.7, Aspartate Amino Transf (AST/SGOT) 12, Alanine Aminotransferase (ALT/SGPT) 14, Alkaline Phosphatase 86, Total Protein 5.4L, Albumin 2.8L 08/06/20 06:07: Glucometer 144H 08/06/20 11:03: Glucometer 291H 08/06/20 16:12: Glucometer 165H 08/06/20 20:30: Glucometer 256H 08/07/20 05:49: Glucometer 180H 08/07/20 11:03: Glucometer 341H 08/07/20 15:45: Glucometer 218H 08/07/20 20:00: Glucometer 239H 08/08/20 06:06: Glucometer 283H 08/08/20 11:04: Glucometer 226H 08/08/20 16:27: Glucometer 143H 08/08/20 21:06: Glucometer 154H 08/09/20 05:05: Glucometer 120H 08/09/20 11:33: Glucometer 226H 08/09/20 16:52: Glucometer 196H 08/09/20 20:48: Glucometer 138H 08/10/20 05:24: White Blood Count 7.1, Red Blood Count 4.82, Hemoglobin 13.2L, Hematocrit 39L, Mean Corpuscular Volume 81, Mean Corpuscular Hemoglobin 27, Mean Corpuscular Hemoglobin Concent 34, Red Cell Distribution Width 14.6H, Platelet Count 259, Mean Platelet Volume 9.0, Immature Granulocyte % (Auto) 3, Neutrophils (%) (Auto) 58, Lymphocytes (%) (Auto) 21, Monocytes (%) (Auto) 14H, Eosinophils (%) (Auto) 3, Basophils (%) (Auto) 2, Neutrophils # (Auto) 4.1, Lymphocytes # (Auto) 1.5, Monocytes # (Auto) 1.0, Eosinophils # (Auto) 0.2, Basophils # (Auto) 0.1, Immature Granulocyte # (Auto) 0.2H, Sodium Level 134L, Potassium Level 4.2, Chloride Level 99, Carbon Dioxide Level 23, Anion Gap 12, Blood Urea Nitrogen 15, Creatinine 0.64, Estimat Glomerular Filtration Rate > 60, BUN/Creatinine Ratio 23, Glucose Level 151H, Calcium Level 9.7, Corrected Calcium 10.4H, Total Bilirubin 0.5, Aspartate Amino Transf (AST/SGOT) 12, Alanine Aminotransferase (ALT/SGPT) 14, Alkaline Phosphatase 81, Total Protein 6.7, Albumin 3.1L 08/10/20 11:13: Glucometer 142H 08/10/20 17:19: Glucometer 215H 08/10/20 20:36: Glucometer 158H 08/11/20 05:36: Glucometer 146H 08/11/20 11:25: Glucometer 160H 08/11/20 15:47: Glucometer 139H 08/11/20 20:46: Glucometer 190H 08/12/20 05:58: Glucometer 162H 08/12/20 09:22: Glucometer 149H 08/12/20 10:59: Glucometer 157H 08/12/20 15:34: Glucometer 178H 08/12/20 20:51: Glucometer 127H 08/13/20 05:29: Glucometer 131H 08/13/20 10:54: Glucometer 118H 08/13/20 15:21: Glucometer 137H 08/13/20 20:53: Glucometer 156H 08/14/20 05:16: Glucometer 118H 08/14/20 10:47: Glucometer 186H 08/14/20 15:17: Glucometer 83 08/14/20 15:19: Glucometer 103 08/14/20 20:27: Glucometer 191H 08/15/20 02:45: Glucometer 89 08/15/20 06:02: Glucometer 133H 08/15/20 10:53: Glucometer 130H 08/15/20 15:30: Glucometer 140H 08/15/20 20:40: Glucometer 169H 08/16/20 06:09: Glucometer 160H 08/16/20 11:51: Glucometer 134H 08/16/20 16:15: Glucometer 75 08/16/20 21:43: Glucometer 149H 08/17/20 05:50: Glucometer 149H 08/17/20 06:05: White Blood Count 6.4, Red Blood Count 5.25, Hemoglobin 14.6, Hematocrit 42, Mean Corpuscular Volume 80, Mean Corpuscular Hemoglobin 28, Mean Corpuscular Hemoglobin Concent 35, Red Cell Distribution Width 14.6H, Platelet Count 248, Mean Platelet Volume 9.5, Immature Granulocyte % (Auto) 1, Neutrophils (%) (Auto) 62, Lymphocytes (%) (Auto) 23, Monocytes (%) (Auto) 10, Eosinophils (%) (Auto) 2, Basophils (%) (Auto) 2, Neutrophils # (Auto) 4.0, Lymphocytes # (Auto) 1.5, Monocytes # (Auto) 0.6, Eosinophils # (Auto) 0.1, Basophils # (Auto) 0.1, Immature Granulocyte # (Auto) 0.1, Sodium Level 132L, Potassium Level 4.0, Chloride Level 101, Carbon Dioxide Level 22, Anion Gap 9, Blood Urea Nitrogen 10, Creatinine 0.58L, Estimat Glomerular Filtration Rate > 60, BUN/Creatinine Ratio 17, Glucose Level 142H, Calcium Level 9.8, Corrected Calcium 10.2H, Total Bilirubin 0.7, Aspartate Amino Transf (AST/SGOT) 12, Alanine Aminotransferase (A LT/SGPT) 15, Alkaline Phosphatase 83, Total Protein 6.8, Albumin 3.5 08/17/20 11:05: Glucometer 217H 08/17/20 15:31: Glucometer 121H 08/17/20 20:51: Glucometer 115H 08/18/20 05:41: Glucometer 114H 08/18/20 10:55: Glucometer 169H 08/18/20 15:42: Glucometer 132H 08/18/20 20:46: Glucometer 147H 08/19/20 05:18: Glucometer 114H 08/19/20 11:03: Glucometer 140H 08/19/20 16:42: Glucometer 133H 08/19/20 20:33: Glucometer 119H 08/20/20 05:25: Glucometer 105 08/20/20 11:54: Glucometer 103 08/20/20 16:55: Glucometer 46*L 08/20/20 17:13: Glucometer 74 08/20/20 17:45: Glucometer 147H 08/20/20 20:59: Glucometer 207H 08/21/20 05:29: Glucometer 130H 08/21/20 12:01: Glucometer 161H 08/21/20 17:19: Glucometer 157H 08/21/20 20:01: Glucometer 230H 08/22/20 05:57: Glucometer 101 08/22/20 11:00: Glucometer 82 08/22/20 15:23: Glucometer 91 08/22/20 20:02: Glucometer 144H 08/23/20 06:07: Glucometer 147H 08/23/20 10:52: Glucometer 154H 08/23/20 15:51: Glucometer 207H 08/23/20 20:36: Glucometer 120H 08/24/20 05:28: White Blood Count 6.6, Red Blood Count 5.08, Hemoglobin 14.0, Hematocrit 41, Mean Corpuscular Volume 81, Mean Corpuscular Hemoglobin 28, Mean Corpuscular Hemoglobin Concent 34, Red Cell Distribution Width 14.7H, Platelet Count 274, Mean Platelet Volume 10.0, Immature Granulocyte % (Auto) 1, Neutrophils (%) (Auto) 59, Lymphocytes (%) (Auto) 23, Monocytes (%) (Auto) 9, Eosinophils (%) (Auto) 6, Basophils (%) (Auto) 2, Neutrophils # (Auto) 3.9, Lymphocytes # (Auto) 1.5, Monocytes # (Auto) 0.6, Eosinophils # (Auto) 0.4H, Basophils # (Auto) 0.1, Immature Granulocyte # (Auto) 0.1, Sodium Level 135, Potassium Level 4.0, Chloride Level 102, Carbon Dioxide Level 21, Anion Gap 12, Blood Urea Nitrogen 13, Creatinine 0.67, Estimat Glomerular Filtration Rate > 60, BUN/Creatinine Ratio 19, Glucose Level 150H, Calcium Level 9.6, Corrected Calcium 9.8, Total Bilirubin 0.6, Aspartate Amino Transf (AST/SGOT) 12, Alanine Aminotransferase (ALT/SGPT) 13, Alkaline Phosphatase 71, Total Protein 6.7, Albumin 3.7 08/24/20 10:50: Glucometer 185H 08/24/20 16:33: Glucometer 147H 08/24/20 21:28: Glucometer 192H 08/25/20 05:37: Glucometer 126H 08/25/20 11:23: Glucometer 135H 08/25/20 16:08: Glucometer 185H 08/25/20 20:41: Glucometer 106 08/26/20 05:37: Glucometer 138H 08/26/20 11:34: Glucometer 168H 08/26/20 17:19: Glucometer 156H 08/26/20 20:41: Glucometer 187H 08/27/20 06:00: Glucometer 133H 08/27/20 10:57: Glucometer 218H 08/27/20 16:06: Glucometer 142H 08/27/20 21:20: Glucometer 191H 08/28/20 05:31: Glucometer 137H 08/28/20 10:47: Glucometer 146H 08/28/20 15:43: Glucometer 167H 08/28/20 20:31: Glucometer 165H 08/29/20 05:25: Glucometer 128H 08/29/20 11:07: Glucometer 126H 08/29/20 15:33: Glucometer 185H 08/29/20 20:13: Glucometer 149H 08/30/20 05:39: Glucometer 142H 08/30/20 10:58: Glucometer 187H 08/30/20 16:02: Glucometer 150H 08/30/20 20:47: Glucometer 193H 08/31/20 05:27: Glucometer 162H 08/31/20 05:47: White Blood Count 7.2, Red Blood Count 5.32, Hemoglobin 14.6, Hematocrit 43, Mean Corpuscular Volume 81, Mean Corpuscular Hemoglobin 27, Mean Corpuscular Hemoglobin Concent 34, Red Cell Distribution Width 14.9H, Platelet Count 223, Mean Platelet Volume 10.1, Immature Granulocyte % (Auto) 1, Neutrophils (%) (Auto) 61, Lymphocytes (%) (Auto) 21, Monocytes (%) (Auto) 9, Eosinophils (%) (Auto) 6, Basophils (%) (Auto) 2, Neutrophils # (Auto) 4.4, Lymphocytes # (Auto) 1.5, Monocytes # (Auto) 0.7, Eosinophils # (Auto) 0.4H, Basophils # (Auto) 0.1, Immature Granulocyte # (Auto) 0.1, Sodium Level 135, Potassium Level 4.1, Chloride Level 103, Carbon Dioxide Level 22, Anion Gap 10, Blood Urea Nitrogen 10, Creatinine 0.60, Estimat Glomerular Filtration Rate > 60, BUN/Creatinine Ratio 17, Glucose Level 140H, Calcium Level 9.5, Corrected Calcium 9.7, Total Bilirubin 0.6, Aspartate Amino Transf (AST/SGOT) 11, Alanine Aminotransferase (ALT/SGPT) 12, Alkaline Phosphatase 71, Total Protein 6.6, Albumin 3.8 08/31/20 10:48: Glucometer 203H 08/31/20 15:31: Glucometer 108 08/31/20 20:31: Glucometer 146H 09/01/20 05:32: Glucometer 166H 09/01/20 10:55: Glucometer 157H 09/01/20 15:47: Glucometer 187H 09/01/20 21:03: Glucometer 220H 09/02/20 04:57: Glucometer 140H 09/02/20 11:01: Glucometer 139H 09/02/20 15:51: Glucometer 154H 09/02/20 21:28: Glucometer 131H 09/03/20 05:20: Glucometer 152H Pending Labs Laboratory Tests 08/05/20 17:35: Glucometer 196 08/05/20 21:58: Glucometer 190 08/06/20 05:48: White Blood Count 8.0, Red Blood Count 4.44, Hemoglobin 12.2, Hematocrit 35, Mean Corpuscular Volume 80, Mean Corpuscular Hemoglobin 28, Mean Corpuscular Hemoglobin Concent 35, Red Cell Distribution Width 14.6, Platelet Count 232, Mean Platelet Volume 8.9, Immature Granulocyte % (Auto) 4, Neutrophils (%) (Auto) 61, Lymphocytes (%) (Auto) 16, Monocytes (%) (Auto) 15, Eosinophils (%) (Auto) 3, Basophils (%) (Auto) 1, Neutrophils # (Auto) 4.9, Lymphocytes # (Auto) 1.3, Monocytes # (Auto) 1.2, Eosinophils # (Auto) 0.2, Basophils # (Auto) 0.1, Immature Granulocyte # (Auto) 0.3, Sodium Level 128, Potassium Level 4.1, Chloride Level 94, Carbon Dioxide Level 25, Anion Gap 9, Blood Urea Nitrogen 13, Creatinine 0.65, Estimat Glomerular Filtration Rate > 60, BUN/Creatinine Ratio 20, Glucose Level 165, Calcium Level 8.9, Corrected Calcium 9.9, Total Bilirubin 0.7, Aspartate Amino Transf (AST/SGOT) 12, Alanine Aminotransferase (ALT/SGPT) 14, Alkaline Phosphatase 86, Total Protein 5.4, Albumin 2.8 08/06/20 06:07: Glucometer 144 08/06/20 11:03: Glucometer 291 08/06/20 16:12: Glucometer 165 08/06/20 20:30: Glucometer 256 08/07/20 05:49: Glucometer 180 08/07/20 11:03: Glucometer 341 08/07/20 15:45: Glucometer 218 08/07/20 20:00: Glucometer 239 08/08/20 06:06: Glucometer 283 08/08/20 11:04: Glucometer 226 08/08/20 16:27: Glucometer 143 08/08/20 21:06: Glucometer 154 08/09/20 05:05: Glucometer 120 08/09/20 11:33: Glucometer 226 08/09/20 16:52: Glucometer 196 08/09/20 20:48: Glucometer 138 08/10/20 05:24: White Blood Count 7.1, Red Blood Count 4.82, Hemoglobin 13.2, Hematocrit 39, Mean Corpuscular Volume 81, Mean Corpuscular Hemoglobin 27, Mean Corpuscular Hemoglobin Concent 34, Red Cell Distribution Width 14.6, Platelet Count 259, Mean Platelet Volume 9.0, Immature Granulocyte % (Auto) 3, Neutrophils (%) (Auto) 58, Lymphocytes (%) (Auto) 21, Monocytes (%) (Auto) 14, Eosinophils (%) (Auto) 3, Basophils (%) (Auto) 2, Neutrophils # (Auto) 4.1, Lymphocytes # (Auto) 1.5, Monocytes # (Auto) 1.0, Eosinophils # (Auto) 0.2, Basophils # (Auto) 0.1, Immature Granulocyte # (Auto) 0.2, Sodium Level 134, Potassium Level 4.2, Chloride Level 99, Carbon Dioxide Level 23, Anion Gap 12, Blood Urea Nitrogen 15, Creatinine 0.64, Estimat Glomerular Filtration Rate > 60, BUN/Creatinine Ratio 23, Glucose Level 151, Calcium Level 9.7, Corrected Calcium 10.4, Total Bilirubin 0.5, Aspartate Amino Transf (AST/SGOT) 12, Alanine Aminotransferase (ALT/SGPT) 14, Alkaline Phosphatase 81, Total Protein 6.7, Albumin 3.1 08/10/20 11:13: Glucometer 142 08/10/20 17:19: Glucometer 215 08/10/20 20:36: Glucometer 158 08/11/20 05:36: Glucometer 146 08/11/20 11:25: Glucometer 160 08/11/20 15:47: Glucometer 139 08/11/20 20:46: Glucometer 190 08/12/20 05:58: Glucometer 162 08/12/20 09:22: Glucometer 149 08/12/20 10:59: Glucometer 157 08/12/20 15:34: Glucometer 178 08/12/20 20:51: Glucometer 127 08/13/20 05:29: Glucometer 131 08/13/20 10:54: Glucometer 118 08/13/20 15:21: Glucometer 137 08/13/20 20:53: Glucometer 156 08/14/20 05:16: Glucometer 118 08/14/20 10:47: Glucometer 186 08/14/20 15:17: Glucometer 83 08/14/20 15:19: Glucometer 103 08/14/20 20:27: Glucometer 191 08/15/20 02:45: Glucometer 89 08/15/20 06:02: Glucometer 133 08/15/20 10:53: Glucometer 130 08/15/20 15:30: Glucometer 140 08/15/20 20:40: Glucometer 169 08/16/20 06:09: Glucometer 160 08/16/20 11:51: Glucometer 134 08/16/20 16:15: Glucometer 75 08/16/20 21:43: Glucometer 149 08/17/20 05:50: Glucometer 149 08/17/20 06:05: White Blood Count 6.4, Red Blood Count 5.25, Hemoglobin 14.6, Hematocrit 42, Mean Corpuscular Volume 80, Mean Corpuscular Hemoglobin 28, Mean Corpuscular Hemoglobin Concent 35, Red Cell Distribution Width 14.6, Platelet Count 248, Mean Platelet Volume 9.5, Immature Granulocyte % (Auto) 1, Neutrophils (%) (Auto) 62, Lymphocytes (%) (Auto) 23, Monocytes (%) (Auto) 10, Eosinophils (%) (Auto) 2, Basophils (%) (Auto) 2, Neutrophils # (Auto) 4.0, Lymphocytes # (Auto) 1.5, Monocytes # (Auto) 0.6, Eosinophils # (Auto) 0.1, Basophils # (Auto) 0.1, Immature Granulocyte # (Auto) 0.1, Sodium Level 132, Potassium Level 4.0, Chloride Level 101, Carbon Dioxide Level 22, Anion Gap 9, Blood Urea Nitrogen 10, Creatinine 0.58, Estimat Glomerular Filtration Rate > 60, BUN/Creatinine Ratio 17, Glucose Level 142, Calcium Level 9.8, Corrected Calcium 10.2, Total Bilirubin 0.7, Aspartate Amino Transf (AST/SGOT) 12, Alanine Aminotransferase (ALT/SGPT) 15, Alkaline Phosphatase 83, Total Protein 6.8, Albumin 3.5 08/17/20 11:05: Glucometer 217 08/17/20 15:31: Glucometer 121 08/17/20 20:51: Glucometer 115 08/18/20 05:41: Glucometer 114 08/18/20 10:55: Glucometer 169 08/18/20 15:42: Glucometer 132 08/18/20 20:46: Glucometer 147 08/19/20 05:18: Glucometer 114 08/19/20 11:03: Glucometer 140 08/19/20 16:42: Glucometer 133 08/19/20 20:33: Glucometer 119 08/20/20 05:25: Glucometer 105 08/20/20 11:54: Glucometer 103 08/20/20 16:55: Glucometer 46 08/20/20 17:13: Glucometer 74 08/20/20 17:45: Glucometer 147 08/20/20 20:59: Glucometer 207 08/21/20 05:29: Glucometer 130 08/21/20 12:01: Glucometer 161 08/21/20 17:19: Glucometer 157 08/21/20 20:01: Glucometer 230 08/22/20 05:57: Glucometer 101 08/22/20 11:00: Glucometer 82 08/22/20 15:23: Glucometer 91 08/22/20 20:02: Glucometer 144 08/23/20 06:07: Glucometer 147 08/23/20 10:52: Glucometer 154 08/23/20 15:51: Glucometer 207 08/23/20 20:36: Glucometer 120 08/24/20 05:28: White Blood Count 6.6, Red Blood Count 5.08, Hemoglobin 14.0, Hematocrit 41, Mean Corpuscular Volume 81, Mean Corpuscular Hemoglobin 28, Mean Corpuscular Hemoglobin Concent 34, Red Cell Distribution Width 14.7, Platelet Count 274, Mean Platelet Volume 10.0, Immature Granulocyte % (Auto) 1, Neutrophils (%) (Auto) 59, Lymphocytes (%) (Auto) 23, Monocytes (%) (Auto) 9, Eosinophils (%) (Auto) 6, Basophils (%) (Auto) 2, Neutrophils # (Auto) 3.9, Lymphocytes # (Auto) 1.5, Monocytes # (Auto) 0.6, Eosinophils # (Auto) 0.4, Basophils # (Auto) 0.1, Immature Granulocyte # (Auto) 0.1, Sodium Level 135, Potassium Level 4.0, Chloride Level 102, Carbon Dioxide Level 21, Anion Gap 12, Blood Urea Nitrogen 13, Creatinine 0.67, Estimat Glomerular Filtration Rate > 60, BUN/Creatinine Ratio 19, Glucose Level 150, Calcium Level 9.6, Corrected Calcium 9.8, Total Bilirubin 0.6, Aspartate Amino Transf (AST/SGOT) 12, Alanine Aminotransferase (ALT/SGPT) 13, Alkaline Phosphatase 71, Total Protein 6.7, Albumin 3.7 08/24/20 10:50: Glucometer 185 08/24/20 16:33: Glucometer 147 08/24/20 21:28: Glucometer 192 08/25/20 05:37: Glucometer 126 08/25/20 11:23: Glucometer 135 08/25/20 16:08: Glucometer 185 08/25/20 20:41: Glucometer 106 08/26/20 05:37: Glucometer 138 08/26/20 11:34: Glucometer 168 08/26/20 17:19: Glucometer 156 08/26/20 20:41: Glucometer 187 08/27/20 06:00: Glucometer 133 08/27/20 10:57: Glucometer 218 08/27/20 16:06: Glucometer 142 08/27/20 21:20: Glucometer 191 08/28/20 05:31: Glucometer 137 08/28/20 10:47: Glucometer 146 08/28/20 15:43: Glucometer 167 08/28/20 20:31: Glucometer 165 08/29/20 05:25: Glucometer 128 08/29/20 11:07: Glucometer 126 08/29/20 15:33: Glucometer 185 08/29/20 20:13: Glucometer 149 08/30/20 05:39: Glucometer 142 08/30/20 10:58: Glucometer 187 08/30/20 16:02: Glucometer 150 08/30/20 20:47: Glucometer 193 08/31/20 05:27: Glucometer 162 08/31/20 05:47: White Blood Count 7.2, Red Blood Count 5.32, Hemoglobin 14.6, Hematocrit 43, Mean Corpuscular Volume 81, Mean Corpuscular Hemoglobin 27, Mean Corpuscular Hemoglobin Concent 34, Red Cell Distribution Width 14.9, Platelet Count 223, Mean Platelet Volume 10.1, Immature Granulocyte % (Auto) 1, Neutrophils (%) (Auto) 61, Lymphocytes (%) (Auto) 21, Monocytes (%) (Auto) 9, Eosinophils (%) (Auto) 6, Basophils (%) (Auto) 2, Neutrophils # (Auto) 4.4, Lymphocytes # (Auto) 1.5, Monocytes # (Auto) 0.7, Eosinophils # (Auto) 0.4, Basophils # (Auto) 0.1, Immature Granulocyte # (Auto) 0.1, Sodium Level 135, Potassium Level 4.1, Chloride Level 103, Carbon Dioxide Level 22, Anion Gap 10, Blood Urea Nitrogen 10, Creatinine 0.60, Estimat Glomerular Filtration Rate > 60, BUN/Creatinine Ratio 17, Glucose Level 140, Calcium Level 9.5, Corrected Calcium 9.7, Total Bilirubin 0.6, Aspartate Amino Transf (AST/SGOT) 11, Alanine Aminotransferase (ALT/SGPT) 12, Alkaline Phosphatase 71, Total Protein 6.6, Albumin 3.8 08/31/20 10:48: Glucometer 203 08/31/20 15:31: Glucometer 108 08/31/20 20:31: Glucometer 146 09/01/20 05:32: Glucometer 166 09/01/20 10:55: Glucometer 157 09/01/20 15:47: Glucometer 187 09/01/20 21:03: Glucometer 220 09/02/20 04:57: Glucometer 140 09/02/20 11:01: Glucometer 139 09/02/20 15:51: Glucometer 154 09/02/20 21:28: Glucometer 131 09/03/20 05:20: Glucometer 152 Discharge Home Medications: Active Scripts Active Stool Softener-Laxative Tablet (Sennosides/Docusate Sodium) 1 Each Tablet 1 Ea PO BID Oxyir Tablet (Oxycodone HCl) 5 Mg Tab 10 Mg PO Q4H PRN Diclofenac Sodium 100 Gm Gel..gram. 0 Gm TOP QID PRN Amlodipine Besylate 2.5 Mg Tablet 5 Mg PO BID Metoprolol Tartrate 25 Mg Tablet 25 Mg PO BID Baclofen 10 Mg Tablet 10 Mg PO TID Cyclobenzaprine HCl 10 Mg Tablet 10 Mg PO Q8H PRN Reported Enalapril Maleate 10 Mg Tablet 10 Mg PO BID Metformin HCl 1,000 Mg Tablet 1,000 Mg PO BID Pravastatin Sodium 20 Mg Tablet 20 Mg PO HS Indapamide 2.5 Mg Tablet 5 Mg PO DAILY TAKES 2 (2.5MG) TABS Cosentyx (2 Syringes) (Secukinumab) 150 Mg/1 Ml Syringe 300 Mg SQ EVERY 28 DAYS Allopurinol 100 Mg Tablet 100 Mg PO DAILY Glucotrol (Glipizide) 10 Mg Tablet 10 Mg PO BID Instructions to patient/family Please see electronic discharge instructions given to patient. Diagnosis/Problems Diagnosis/Problems (1) Status post lumbar spine surgery for decompression of spinal cord (2) Diabetes (3) DKA (diabetic ketoacidoses) (4) Hypertension (5) Leg weakness DALY WHITNEY DO Sep 03, 2020 06:23
[2020-09-03 07:51] VITALS: BP 130/85
[2020-09-03] MEDS: amLODIPine 2.5MG (NORVASC) TAB PO SCH (08:35)
[2020-09-03] MEDS: LACTOBACILLUS ACIDOPHILUS (PROBIOTIC) CAPSULE PO SCH (08:35)
[2020-09-03] MEDS: glipiZIDE 5 MG (GLUCOTROL) TAB PO SCH (08:36)
[2020-09-03] MEDS: ALLOPURINOL 100 MG (ZYLOPRIM) TAB PO SCH (08:36)
[2020-09-03] MEDS: meTOprolol TARTRATE 25 MG (LOPRESSOR) TABLET PO SCH (08:36)
[2020-09-03] MEDS: lisINopril 20 MG (PRINIVIL) TABLET PO SCH (08:36)
[2020-09-03] MEDS: BACLOFEN 10 MG (LIORESAL) TAB PO SCH (08:36)
[2020-09-03] MEDS: NEO/POLY/BAC (NEOSPORIN) OINT 15 GM TUBE TOP SCH (08:37)
[2020-09-03] MEDS: TRIAMCINOLONE 0.1% OINT (KENALOG) 15 GM TUBE TOP SCH (08:37)
[2020-09-03] MEDS: MICONAZOLE 2% POWDER (DESENEX AF) 90 GM TOP SCH (08:38)
[2020-09-03] MEDS: DOCUSATE SODIUM 100 MG (COLACE) CAP PO SCH (08:47)
[2020-09-03] MEDS: polyethylene glycoL POWDER 17 GM (MIRALAX) PACK PO SCH (08:48)
[2020-09-03] MEDS: SENNA W/DOCUSATE (SENOKOT S) TABLET PO SCH (08:48)
--- NOTE | 2020-09-03 09:32 | Therapy Team Discharge Summary ---
Therapy Discharge Summary Discharge Recommendations Date of Discharge Occupational Therapy Pt admitted to ARU s/p lumbar spine fusion & DKA. At PLOF, pt was independent with all ADLs and functional mobility, no AD/AE. Upon initial evaluation, pt was independent with eating, required min A oral care, total assist showering, min A upper body dressing, total assist lower body dressing, total assist footwear and total assist toileting. OT tx focused on increasing BUE strength and activity tolerance, education on AE for LE dressing, and increasing safety and independence with ADLs and functional mobility. At discharge, pt was independent with eating, oral care and showering, required set up assistance upper body dressing, CGA lower body dressing, min A footwear with tennis shoes and R AFO, IND footwear with slip on house shoes, and CGA toileting. Pt made progress towards goals, meeting goals for eating, oral care and showering. Other goals addressed but not attained. Pt has obtained a shower chair and hip kit, no further AE/DME recommendations at this time. OT recommends continued OT services for home health. Pt to discharge from facility today, d/c from OT at this time. Decreased Activ Tolerance, Decreased UE Strength, Impaired Funct Balance, Impaired I ADL's, Impaired Self-Care Skills PT Intermediate Goals Platform Inspector Goals PT Platform Inspector Goals Time Frame: Aug 27, 2020 Roll Left to Right (QC): 6 Sit to Lying (QC): 4 Lying-Sitting on Side/Bed(QC): 4 Sit to Stand (QC): 4 Chair/Cwt-ir-Rgewu Xfer(QC): 4 Car Transfer (QC): 4 Does the Patient Walk: Yes Walk 10 feet (QC): 4 Walk 10ft-Uneven Surface(QC): 4 Walk 50ft with 2 Turns (QC): 4 Walk 150 ft (QC): 88 Wheel 50 feet with 2 turns (QC: 6 1 Step (curb) (QC): 4 4 Steps (QC): 4 12 Steps (QC): 88 Picking up an Object (QC): 88 OT Intermediate Goals Intermediate Goals Time Frame: Sep 04, 2020 Eating (QC): 6 (Met) Oral Hygiene (QC): 6 (Met) Shower/Bathe Self (QC): 6 (Met) Upper Body Dressing (QC): 6 (not met, set up) Lower Body Dressing (QC): 6 (not met, CGA) On/Off Footwear (QC): 6 (not met) Toileting Hygiene (QC): 6 (not met) Toilet/Commode Transfer (QC): 4 Additional Goals: 1-Demonstrate ADL Tasks, 2-Verbalize Understanding, 3- ImproveStrength/Jayshree 1=Demonstrate adherence to instructed precautions during ADL tasks. 2=Patient will verbalize/demonstrate understanding of assistive devices/modifications for ADL. 3=Patient will improve strength/tolerance for activity to enable patient to perform ADL's. MED PETERSON OT Sep 03, 2020 09:32
--- NOTE | 2020-09-03 11:29 | Therapy Team Discharge Summary ---
Therapy Discharge Summary Discharge Recommendations Date of Discharge Sep 03, 2020 at 10:15 Physical Therapy Patient came to rehab with lumbar spine fusion, DKA. Upon evaluation patient performed bed mobility with independence, supine <-> sit mod assist, sit <-> stand max assist, transfers (stand pivot) max assist, car transfer max assist, no ambulation, and could propel a manual WC 150' with SBA. Patient has been performing bed mobility and transfer training, balance and endurance training, functional strengthening, gait training, and education. Patient has made some progress and has met all of his assisted goals except for going up and down 4 steps. Now, patient performs bed mobility with independence, supine <-> sit with setup, sit <-> stand min assist, transfers SBA, car transfer SBA, ambulates 120' with a rolling walker with SBA (including 50' with at least 2 turns of 90 degrees and 10' over an uneven surface), can propel a manual WC over 150' with independence, and can go up and down 1 step using the parallel bars with CGA. Patient was discharged from this facility and will be discharged from PT at this time. Occupational Therapy Decreased Activ Tolerance, Decreased UE Strength, Impaired Funct Balance, Impaired I ADL's, Impaired Self-Care Skills PT Hazardous Waste Remover Goals Hazardous Waste Remover Goals PT Hazardous Waste Remover Goals Time Frame: Aug 27, 2020 Roll Left to Right (QC): 6 Sit to Lying (QC): 4 Lying-Sitting on Side/Bed(QC): 4 Sit to Stand (QC): 4 Chair/Kfo-je-Uagnx Xfer(QC): 4 Car Transfer (QC): 4 Does the Patient Walk: Yes Walk 10 feet (QC): 4 Walk 10ft-Uneven Surface(QC): 4 Walk 50ft with 2 Turns (QC): 4 Walk 150 ft (QC): 88 Wheel 50 feet with 2 turns (QC: 6 1 Step (curb) (QC): 4 4 Steps (QC): 4 12 Steps (QC): 88 Picking up an Object (QC): 88 OT Correction Goals Hazardous Waste Remover Goals Time Frame: Sep 04, 2020 Eating (QC): 6 (Met) Oral Hygiene (QC): 6 (Met) Shower/Bathe Self (QC): 6 (Met) Upper Body Dressing (QC): 6 (not met, set up) Lower Body Dressing (QC): 6 (not met, CGA) On/Off Footwear (QC): 6 (not met) Toileting Hygiene (QC): 6 (not met) Toilet/Commode Transfer (QC): 4 Additional Goals: 1-Demonstrate ADL Tasks, 2-Verbalize Understanding, 3- ImproveStrength/Jayshree 1=Demonstrate adherence to instructed precautions during ADL tasks. 2=Patient will verbalize/demonstrate understanding of assistive devices/modifications for ADL. 3=Patient will improve strength/tolerance for activity to enable patient to perform ADL's. AMANDA CHAPA PT Sep 03, 2020 11:29
== END 2020-09-03 10:15 | disposition home health service (06) | DRG 561 ==
PROVIDERS: ADMIT Internal Medicine; ATTEND Internal Medicine
DX: Z47.89 Encounter for other orthopedic aftercare (principal); Z98.1 Arthrodesis status; R29.898 Other symptoms and signs involving the musculoskeletal system; E11.40 Type 2 diabetes mellitus with diabetic neuropathy, unspecified; I10 Essential (primary) hypertension; E78.5 Hyperlipidemia, unspecified; E78.00 Pure hypercholesterolemia, unspecified; K21.9 Gastro-esophageal reflux disease without esophagitis; M19.91 Primary osteoarthritis, unspecified site; Z88.6 Allergy status to analgesic agent; Z79.4 Long term (current) use of insulin; F41.9 Anxiety disorder, unspecified; F32.9 Major depressive disorder, single episode, unspecified; B35.1 Tinea unguium
CPT/HCPCS: 36415; 72100; 80053; 82947; 85025

== ENCOUNTER 2020-09-10 09:57 | Emergency (ER) | payer OTHER ==
[~2020-09-10] VITALS: Ht 175.2 cm; Wt 79.6 kg
[~2020-09-10 09:57] MED LIST changes: +ALLO100T PO; +AMLO2.5T4 PO; +BACL10TA PO; +CLN.2T PO; +DAPA10TA PO; +DICL100G13 TOP; +DOCU100C37 PO; +ENAL10TA16 PO; +GLIP10TA2 PO; +INDA2.5T2 PO; +INSU100V SQ; +INSU100V39 SQ; +LACT1CAP39 PO; +LISI20TA26 PO; +METF-146 PO; +METF-399 PO; +METO-333 PO; +NALO4SPR NS; +OXC5T PO; +OXYC10TA7 PO; +PIOG45TA65 PO; +POLY17PO6 PO; +PRAV20TA3 PO; +SECU150S2 SQ; +SENN1TAB76 PO; +SITA100T12 PO
[2020-09-10] MEDS ORDERED: morphine INJ 10 MG/ML 1ML (SYR OR VIAL) IM STA (11:02)
[2020-09-10] MEDS ORDERED: KETOROLAC 60 MG/2 ML VIAL IM STA (11:02)
--- NOTE | 2020-09-10 11:18 | ED Lower Extremity ---
General Chief Complaint: Lower Extremity Stated Complaint: KNEE PAIN Nursing Triage Note: ARRIVES VIA EMS TO ROOM 06 FOR A COMPLAINT OF LEFT KNEE PAIN A RESULT OF A FALL WHERE HE HIT HIS TOE CAUSING HIM TO FALL. Source: patient Exam Limitations: no limitations History of Present Illness Date Seen by Provider: Sep 10, 2020 Time Seen by Provider: 10:56 Initial Comments Here with report of left knee pain after fall 2 days ago. States he hooked his toe on the door jam and fell down to his left knee. Pain was okay and it was walking up to last night but today noted more swelling and pain and was concerned that he may have fractured something. He did take an oxycodone 5 which she is prescribed this morning at 6 AM and that did not help his pain. Denies other injury with the fall. Did have protracted stay in inpatient rehab and was just discharged on 09/02/2020 for that. Does have assistive devices and family help at home for walking and moving about the house. Onset: other (2 days ago) Severity: moderate Pain/Injury Location: left knee Method of Injury: direct blow, fell Modifying Factors: Improves With Immobilization; Worse With Movement Allergies and Home Medications Allergies Coded Allergies: codeine (Verified Allergy, Mild, 11/27/11) tamsulosin (Unverified Allergy, Unknown, 09/17/14) Home Medications Allopurinol 100 Mg Tablet, 100 MG PO DAILY, (Reported) Amlodipine Besylate 2.5 Mg Tablet, 5 MG PO BID Prescribed by: DALY WHITNEY on 09/03/20620 Baclofen 10 Mg Tablet, 10 MG PO TID Prescribed by: DALY WHITNEY on 09/03/20620 Cyclobenzaprine HCl 10 Mg Tablet, 10 MG PO Q8H PRN for SPASMS Prescribed by: DALY WHITNEY on 09/03/20620 Diclofenac Sodium 100 Gm Gel..gram., 0 GM TOP QID PRN for pain Prescribed by: DALY WHITNEY on 09/03/20620 Enalapril Maleate 10 Mg Tablet, 10 MG PO BID, (Reported) Glipizide 10 Mg Tablet, 10 MG PO BID, (Reported) Indapamide 2.5 Mg Tablet, 5 MG PO DAILY, (Reported) TAKES 2 (2.5MG) TABS Metformin HCl 1,000 Mg Tablet, 1,000 MG PO BID, (Reported) Metoprolol Tartrate 25 Mg Tablet, 25 MG PO BID Prescribed by: DALY WHITNEY on 09/03/20620 Oxycodone Hcl 5 Mg Tab, 10 MG PO Q4H PRN for PAIN-SEVERE (8-10) Prescribed by: DALY WHITNEY on 09/03/20621 Pravastatin Sodium 20 Mg Tablet, 20 MG PO HS, (Reported) Secukinumab 150 Mg/1 Ml Syringe, 300 MG SQ EVERY 28 DAYS, (Reported) Sennosides/Docusate Sodium 1 Each Tablet, 1 EA PO BID Prescribed by: DALY WHITNEY on 09/03/20620 Patient Home Medication List Home Medication List Reviewed: Yes Review of Systems Constitutional: see HPI; No chills, No fever Respiratory: no symptoms reported Cardiovascular: no symptoms reported Musculoskeletal: see HPI, joint pain, joint swelling Skin: No change in color, No lesions Psychiatric/Neurological: No Symptoms Reported Past Hqmwcfo-Wpeibd-Pfeosh Hx Patient Social History Tobacco Use?: No Use of E-Cig and/or Vaping dev: No Substance use?: No Alcohol Use?: No Pt feels they are or have been: No Immunizations Up To Date First/Initial COVID19 Vaccinat: 2020 COVID19 Vaccine [employer]: [employer] Past Medical History Surgeries: Yes Orthopedic Respiratory: No Cardiac: Yes High Cholesterol, Hypertension Neuropathy Reproductive Disorders: No Sexually Transmitted Disease: No Gastrointestinal: Yes Gastroesophageal Reflux Musculoskeletal: Yes Arthritis, Chronic Back Pain Diabetes, Non-Insulin dep Family Medical History Reviewed and Corrections made No Pertinent Family Hx Physical Exam Vital Signs Vital Signs - First Documented 09/10/20 09:57 Temp 37.4 Pulse 97 Resp 18 B/P (MAP) 146/91 (109) Pulse Ox 97 O2 Delivery Room Air Capillary Refill : Height, Weight, BMI Height: 5'9.00" Weight: 212lbs. oz. 96.563285it; 25.00 BMI Method:Stated General Appearance: WD/WN, no apparent distress Cardiovascular: regular rate, rhythm, no murmur Respiratory: lungs clear, normal breath sounds Knees: right knee non-tender, right knee normal inspection, right knee normal range of motion; left knee joint effusion, left knee pain, left knee soft tissue tenderness, left knee swelling, left knee other (Pain with range of motion) Feet: bilateral foot non-tender, bilateral foot normal inspection, bilateral foot normal range of motion, bilateral foot no evidence of injury, bilateral foot other (Dorsalis pedis pulses intact bilateral) Neurologic/Psychiatric: alert, oriented x 3 Skin: normal color, warm/dry Progress/Results/Core Measures Results/Orders My Orders Orders - SRIRAM DORADO MD Ketorolac Injection (Toradol Injection) (09/10/20 11:02) Morphine Injection (Morphine Injection (09/10/20 11:02) Knee, Left, 3 Views (09/10/20 11:02) Vital Signs/I&O 09/10/20 09:57 Temp 37.4 Pulse 97 Resp 18 B/P (MAP) 146/91 (109) Pulse Ox 97 O2 Delivery Room Air Blood Pressure Mean: 109 Progress Progress Note : Progress Note Seen and evaluated. X-ray left knee ordered. Toradol 60 mg IM and morphine 7.5 mg IM ordered. Monitor patient. 1208: X-ray shows no acute fractures. Pain is much better currently. Matthew wrap to the left knee. Discharged home with return precautions. Patient verbalized understanding instructions and agreement with plan. Departure Impression Primary Impression: Internal derangement of left knee Disposition: 01 HOME, SELF-CARE Condition: Improved Departure-Patient Inst. Decision time for Depature: 12:09 Referrals: [facility] [place] (PCP) Primary Care Physician WILIAM TRACY APRN (Family) Primary Care Physician Patient Instructions: Internal Derangement of the Knee (DC), Knee Sprain (DC) Add. Discharge Instructions: All discharge instructions reviewed with patient and/or family. Voiced understanding. Continue home medications as previously prescribed. You may take Tylenol/acetaminophen 1000 mg every 8 hours as needed for pain but do not take with other acetaminophen-containing compounds. You may take Aleve 1 tablet twice daily for the next 3 days and then as needed. Make sure you are drinking plenty of fluids with this. Use Matthew wrap as needed for comfort. Use ice packs 20 minutes/h as needed for the next 1 to 2 days to reduce swelling. Elevate leg and knee to reduce swelling. If it is not improving over the next week, follow- up with your doctor for recheck and further evaluation including possibility of further imaging. Return for worse pain, weakness, swelling, numbness or other concerns as needed. SRIRAM DORADO MD Sep 10, 2020 11:18
--- NOTE | 2020-09-10 11:59 | Diagnostic Imaging Report ---
INDICATION: Knee pain. TECHNIQUE: AP, oblique, and lateral views of left knee are obtained. FINDINGS: There is chondrocalcinosis involving both menisci. No acute fracture or malalignment is identified. There are atherosclerotic calcifications. No significant joint fluid is seen. IMPRESSION: Degenerative-type meniscal chondrocalcinosis without acute osseous abnormality detected. Dictated by: Dictated on workstation # [id number]
[2020-09-10 12:30] VITALS: BP 139/69
== END 2020-09-10 12:36 | disposition home or self-care (01) ==
LOC: EDUNIT# 09:57 → ER 09:58
DX: M23.92 Unspecified internal derangement of left knee (principal); I10 Essential (primary) hypertension; E78.00 Pure hypercholesterolemia, unspecified; E11.9 Type 2 diabetes mellitus without complications; G89.29 Other chronic pain; M54.9 Dorsalgia, unspecified; Z79.899 Other long term (current) drug therapy; Z79.84 Long term (current) use of oral hypoglycemic drugs; Z79.891 Long term (current) use of opiate analgesic
CPT/HCPCS: 73562

== ENCOUNTER 2021-01-05 09:35 | Outpatient (RCR) | payer OTHER ==
[~2021-01-05 09:35] MED LIST changes: +CYCL10TA25 PO
== END 2021-01-10 | disposition home or self-care (01) ==
PROVIDERS: ATTEND Physician Assistant
DX: Z98.1 Arthrodesis status (principal)

== ENCOUNTER 2021-01-11 13:30 | Outpatient (RCR) | payer OTHER | END 2021-01-24 | disposition home or self-care (01) | PROVIDERS: ATTEND Physician Assistant | DX: M54.9 Dorsalgia, unspecified (principal); I10 Essential (primary) hypertension; Z98.1 Arthrodesis status ==

== ENCOUNTER → 2021-01-12 | Outpatient (CLI) | payer OTHER | LOC: LABNPT 06:22 | PROVIDERS: ATTEND Orthopaedic Surgery Orthopaedic Trauma | DX: Z20.822 Contact with and (suspected) exposure to COVID-19 (principal) | CPT/HCPCS: 87635 ==

== ENCOUNTER 2021-01-28 13:37 | Outpatient (RCR) | payer OTHER | END 2021-02-12 | disposition home or self-care (01) | PROVIDERS: ATTEND Physician Assistant | DX: R53.1 Weakness (principal); Z98.1 Arthrodesis status ==

== ENCOUNTER → 2021-04-13 | Outpatient (CLI) | payer OTHER ==
--- NOTE | 2021-04-13 13:28 | Diagnostic Imaging Report ---
PROCEDURE: MR imaging of the brain without contrast. TECHNIQUE: Multiplanar, multisequence MR imaging of the brain was performed without contrast. DATE: April 13, 2021. COMPARISON: None. HISTORY: 66-year-old male, cannot hold open the right eyelid. Evaluation for extraocular muscle palsy. FINDINGS: There is no restricted diffusion. There are no areas of abnormal intracranial susceptibility. The ventricles and CSF spaces are normal in size and configuration for patient age. There is no abnormal extra axial fluid collection. There is no acute intracranial hemorrhage. There is no mass effect or midline shift. There are small foci of T2 and FLAIR hyperintense signal in the periventricular and subcortical white matter most compatible with mild findings of chronic small vessel ischemic disease. There is mild nonspecific partial opacification in the mastoid air cells. The visualized portions of the paranasal sinuses are well aerated. There are some limitations for evaluation of the orbits given lack of nondedicated images. Extraocular muscles appear unremarkable in appearance. There is no identified intraconal or extraconal mass. The globes are grossly unremarkable in appearance. IMPRESSION: 1. No identified acute intracranial abnormality. 2. Mild findings of chronic small vessel ischemic disease. 3. Grossly unremarkable evaluation of the orbits on standard brain protocol imaging. Dictated by: Dictated on workstation # [id number]
== END ==
LOC: RAD 13:15
PROVIDERS: ATTEND Physician Assistant
DX: I67.82 Cerebral ischemia (principal); H49.9 Unspecified paralytic strabismus; H02.401 Unspecified ptosis of right eyelid
CPT/HCPCS: 70551

== ENCOUNTER 2021-06-09 13:04 | Outpatient (RCR) | payer OTHER | END 2021-06-12 | disposition home or self-care (01) | PROVIDERS: ATTEND Anesthesiology Pain Medicine | DX: G62.9 Polyneuropathy, unspecified (principal) ==

== ENCOUNTER → 2021-07-13 | Outpatient (RCR) | payer OTHER | END | disposition home or self-care (01) | PROVIDERS: ATTEND Anesthesiology Pain Medicine | DX: G62.9 Polyneuropathy, unspecified (principal) ==

== ENCOUNTER → 2021-08-12 | Outpatient (RCR) | payer MEDICAID, OTHER | END | disposition home or self-care (01) | PROVIDERS: ATTEND Anesthesiology Pain Medicine | DX: G62.9 Polyneuropathy, unspecified (principal) ==

== ENCOUNTER 2021-09-09 12:53 | Outpatient (RCR) | payer MEDICAID | END 2021-09-12 | disposition home or self-care (01) | PROVIDERS: ATTEND Anesthesiology Pain Medicine | DX: G62.9 Polyneuropathy, unspecified (principal) ==

== ENCOUNTER 2021-10-12 10:51 | Outpatient (RCR) | payer MEDICAID | END 2021-10-13 | disposition home or self-care (01) | PROVIDERS: ATTEND Anesthesiology Pain Medicine | DX: G62.9 Polyneuropathy, unspecified (principal) ==

== ENCOUNTER 2021-11-09 10:50 | Outpatient (RCR) | payer MEDICAID | END 2021-11-12 | disposition home or self-care (01) | PROVIDERS: ATTEND Anesthesiology Pain Medicine | DX: G62.9 Polyneuropathy, unspecified (principal) ==

== ENCOUNTER 2021-12-09 13:29 | Outpatient (RCR) | payer MEDICAID | END 2021-12-13 | disposition home or self-care (01) | PROVIDERS: ATTEND Psychiatry & Neurology Neurology | DX: G62.9 Polyneuropathy, unspecified (principal) ==

== ENCOUNTER 2022-01-03 09:26 | Outpatient (RCR) | payer MEDICAID | END 2022-01-12 | disposition home or self-care (01) | PROVIDERS: ATTEND Anesthesiology Pain Medicine | DX: G62.9 Polyneuropathy, unspecified (principal) ==

== ENCOUNTER 2022-02-02 10:41 | Outpatient (RCR) | payer MEDICAID | END 2022-02-02 14:40 | disposition home or self-care (01) | PROVIDERS: ATTEND Anesthesiology Pain Medicine | DX: G62.9 Polyneuropathy, unspecified (principal); Z74.09 Other reduced mobility; M62.81 Muscle weakness (generalized) ==

== ENCOUNTER 2022-06-09 08:00 | Outpatient (RCR) | payer MEDICARE, MEDICAID ==
[~2022-06-09 08:00] MED LIST changes: -ENAL10TA16 PO; +ENLP10T PO; +SENN-271 PO; -SENN1TAB76 PO
== END 2022-06-12 | disposition home or self-care (01) ==
PROVIDERS: ATTEND Psychiatry & Neurology Neurology
DX: G61.81 Chronic inflammatory demyelinating polyneuritis (principal)

== ENCOUNTER 2022-07-12 12:49 | Outpatient (RCR) | payer MEDICARE, MEDICAID | END 2022-07-13 | disposition home or self-care (01) | PROVIDERS: ATTEND Psychiatry & Neurology Neurology | DX: G61.81 Chronic inflammatory demyelinating polyneuritis (principal) ==

== ENCOUNTER 2022-08-11 12:48 | Outpatient (RCR) | payer MEDICARE, MEDICAID | END 2022-08-12 | disposition home or self-care (01) | PROVIDERS: ATTEND Psychiatry & Neurology Neurology | DX: G61.81 Chronic inflammatory demyelinating polyneuritis (principal) ==

== ENCOUNTER 2022-09-08 14:15 | Outpatient (RCR) | payer MEDICARE, MEDICAID | END 2022-09-08 15:00 | disposition home or self-care (01) | PROVIDERS: ATTEND Psychiatry & Neurology Neurology | DX: G61.81 Chronic inflammatory demyelinating polyneuritis (principal) ==

== ENCOUNTER → 2022-10-12 | Outpatient (CLI) | payer MEDICARE, MEDICAID ==
[~2022-10-12] MED LIST changes: +GADOTERATE 0.5 MMOL/ML (CLARISCAN) 15 ML VIAL IV ONE
--- NOTE | 2022-10-12 08:56 | Diagnostic Imaging Report ---
PROCEDURE: MR imaging of the brain with and without contrast. TECHNIQUE: Multiplanar, multisequence MR imaging of the brain was performed with and without contrast. INDICATION: Diplopia. FINDINGS: There is some prominence of the ventricles and sulci. There is mild chronic microvascular ischemic disease. There are no areas of diffusion restriction appreciated to suggest an acute CVA. There is no hydrocephalus. There is no midline shift. There is no mass, hemorrhage or extra-axial fluid collection. The infundibulum is midline. Optic chiasm is unremarkable. There is no mass effect upon it. The globes and intraorbital structures are unremarkable. The sinuses, mastoid air cells are clear. IMPRESSION: Atrophy and some chronic microvascular ischemic disease, otherwise unremarkable MRI brain. Dictated by: Dictated on workstation # [id number]
== END ==
LOC: RAD 08:45
PROVIDERS: ATTEND Orthopaedic Surgery
DX: I67.82 Cerebral ischemia (principal); H49.22 Sixth [abducent] nerve palsy, left eye
CPT/HCPCS: 70553